=== PATIENT | female | born 1985 | race Caucasian/White ===

== ENCOUNTER 2022-09-19 14:22 | Outpatient (CLI) | payer OTHER, SELFPAY ==
[2022-09-19 15:38] LABS: Basophils Percent Auto 0.9 % (0.2-1.2); Eosinophils Absolute Auto 0.1 K/mm3 (0-0.3); Eosinophils Percent Auto 1.9 % (0-4.4); Hematocrit 37.8 % (37.0-47.0); Hemoglobin 12.7 g/dL (12.0-15.0); Immature Granulocyte Absolute 0.01 K/mm3 (0.00-0.031); Immature Granulocyte Percent A 0.2 % (0-0.5); Lymphocytes Absolute Auto 1.42 K/mm3 (0.9-3.2); Lymphocytes Percent Auto 30.5 % (18.3-44.2); Mean Corpuscular HGB Conc 33.6 g/dl (32-36); Mean Corpuscular Hemoglobin 32.3 pg (26-34); Mean Corpuscular Volume 96.2 fl (80-100); Mean Platelet Volume 9.4 fl (7.4-10.4); Monocytes Absolute Auto 0.4 K/mm3 (0.1-0.6); Monocytes Percent Auto 7.5 % (2.6-8.5); Neutrophils Absolute Auto 2.8 K/mm3 (1.3-6.7); Platelet Count Result 277 k/mm3 (150-375); Red Blood Count 3.93 M/mm3 (4.2-5.4); Red Cell Distribution Width 12.6 % (11.5-14.5); White Blood Count 4.7 K/mm3 (4.5-10.0)
[2022-09-19 15:51] LABS: Alanine Aminotransferase 21 U/L (6-35); Albumin Level 4.6 g/dL (3.5-5.1); Alkaline Phosphatase 37 U/L (38-126); Anion Gap 4 mmol/L (8-16); Aspartate Amino Transferase 28 U/L (14-36); Bilirubin,Total 0.4 mg/dL (0.2-1.3); Blood Urea Nitrogen 13 mg/dL (7-17); Calcium 8.4 mg/dL (8.4-10.2); Carbon Dioxide 28 mmol/L (22-30); Chloride 101 mmol/L (98-107); Estimated Glomerular Filt Rate > 60; Glucose 99 mg/dL (65-110); Potassium 3.7 mmol/L (3.4-5.0); Sodium 133 mmol/L (137-145)
[2022-09-19 16:31] LABS: HIV 1/2 Ab P24 Ag Result Negative (Negative)
[2022-09-19 16:40] LABS: Hepatitis C Virus Antibody Negative (Negative)
[2022-09-22 14:18] LABS: Vitamin D 1,25 (OH)2 Total 36 pg/mL (18-72); Vitamin D2 1,25 (OH)2 <8 pg/mL; Vitamin D3 1,25 (OH)2 36 pg/mL
[2022-09-23 00:39] LABS: CA-125 7 U/mL (<35)
[2022-09-25 19:16] LABS: Estradiol, Ultrasensitive 287 pg/mL
== END 2022-09-19 14:23 | disposition home or self-care (01) ==
DX: Z00.00 Encounter for general adult medical examination without abnormal findings (principal); R53.83 Other fatigue; Z85.43 Personal history of malignant neoplasm of ovary
CPT/HCPCS: 36415; 80053; 82652; 82670; 83001; 84443; 85025; 86304; 86703; 86803; G0432

== ENCOUNTER 2023-09-25 12:50 | Outpatient (CLI) | payer OTHER, SELFPAY ==
[2023-09-28 04:44] LABS: CA-125 9 U/mL (<35)
== END 2023-09-25 12:51 | disposition home or self-care (01) ==
DX: D39.10 Neoplasm of uncertain behavior of unspecified ovary (principal)
CPT/HCPCS: 36415; 86304

== ENCOUNTER 2024-10-03 08:05 | Outpatient (CLI) | payer OTHER, SELFPAY ==
[2024-10-03 13:01] LABS: Hematocrit 38.5 % (37.0-47.0); Hemoglobin 12.9 g/dL (12.0-15.0); Mean Corpuscular HGB Conc 33.5 g/dl (32-36); Mean Corpuscular Hemoglobin 31.5 pg (26-34); Mean Corpuscular Volume 93.9 fl (80-100); Mean Platelet Volume 9.7 fl (7.4-10.4); Platelet Count Result 312 k/mm3 (150-375); Red Cell Distribution Width 12.7 % (11.5-14.5); White Blood Count 5.4 K/mm3 (4.5-10.0)
[2024-10-03 13:22] LABS: Iron 76 ug/dL (37-170)
[2024-10-03 13:32] LABS: Percent Iron Saturation 22 % (20-50)
[2024-10-03 13:41] LABS: Thyroid Stimulating Hormone 0.353 uIU/mL (0.465-4.680)
[2024-10-03 13:46] LABS: Free T4 Free Thyroxine 1.07 ng/dL (0.78-2.19); Vitamin D 25 Hydroxy 36.2 ng/mL
[2024-10-06 01:59] LABS: Prolactin 11.6 ng/mL
[2024-10-06 02:44] LABS: CA-125 10 U/mL (<35)
--- OUTSIDE RECORDS SUMMARY | 2024-10-06 21:43 | XMS_ITS | Encounter Summary ---
Author Organization [facility] Address [address] [place] [address] Care Team Providers Care Internal Control Manager Name Role Phone Shannan Brooks PA-C Primary Care Provider Reason for Visit * Reason Onset Date Comments Order 09/29/2024 Encounter Details Date Type Department Care Team (Late st Contact Info) Description 09/29/2024 Telephone [facility] [address] [place] [address] Tania Granger APRN-LEIGHANN [address] [place] [address] Order Social History Tobacco Use Types Packs/Day Years Used Date Smoking Tobacco: Never Smokeless Tobacco: Never Alcohol Use Standard Drinks/Week Comments Yes 0 (1 standard drink = 0.6 oz pur e alcohol) AUDIT-C Answer Date Recorded Q1: How often do you have a drink containing alc ohol? 2-3 times a week 02/26/2023 Q2: How many drinks containi ng alcohol do you have on a typical day when you are drinking? 1 or 2 02/26/2023 Q3: How often do you have si x or more drinks on one occasion? Never 02/26/2023 Overall Financial Resource Strain (CARDIA) Answe r Date Recorded How hard is it for you to pa y for the very basics like food, housing, medical care, and heating? Not hard at all 02/26/2023 PHQ-2 Answer Date Recorded Patient Health Questionnaire-2 Score 0 07/01/2023 [facility] - Occupational Stress Questionnaire Answer Date Recorded Do you feel stress - tense, restless, nervous, or anxious, or unable to sleep at night because your mind is troubled all the time - these days? Not at all 02/26/2023 Hunger Vital Sign Answer Date Recorded Within the past 12 months, y ou worried that your food would run out before you got the money to buy more. Never true 02/27/20 23 Within the past 12 months, t he food you bought just didn't last and you didn't have money to get more. Never true 02/26/2023 PRAPARE - Transportation Answer Date Re corded In the past 12 months, has l ack of transportation kept you from medical appointments or from getting medications? No 06/2023 In the past 12 months, has l ack of transportation kept you from meetings, work, or from getting things needed for daily living? No 02/26/2023 Housing Stability Vital Sign Answer Armen e Recorded In the last 12 months, was t here a time when you were not able to pay the mortgage or rent on time? No 02/26/2023 In the last 12 months, how many places have you lived? 1 02/26/2023 In the last 12 months, was t here a time when you did not have a steady place to sleep or slept in a skilled nursing (including now)? No 02/26/2023 Sex and Gender Information Value Date Recorded Sex Assigned at Not on file Gender Identity Not on file Sexual Orientation Not on file documented as of this encounter Functional Status Functional Status Response Date of Assess ment Is person deaf or have serious hearing difficult y? No 02/26/2023 Is person blind or have serious difficulty seein g? No 02/26/2023 Does person have serious dif ficulty walking/climbing stairs? No 02/26/2023 Does person have difficulty dressing/bathing? No 02/26/2023 Does person have difficulty doing errands alone? No 02/26/2023 Cognitive Status Response Date of Assessm ent Does person have difficulty concentrating/remembering/making decisions? No 02/26/2023 documented as of this encounter Miscellaneous Notes * Telephone Encounter - Mikki Callahan RN - 09/29/2024 10:16 AM FOREIGN CORRESPONDENT RN modified US order to [id number] per radiology department preferences. IGN CORRESPONDENT * Telephone Encounter - Melvina Mitchell - 09/29/2024 10:10 AM CST Vicki called and stated the pt is coming in for a ultrasound of pelvic and a order is needed. [phone] opt 1 IGN CORRESPONDENT documented in this encounter Plan of Treatment Upcoming Encounters Date Type Department Care Team (Late st Contact Info) Description 09/08/2025 2:00 PM FOREIGN CORRESPONDENT Office Visit [facility] [address] [place] [address] Tania Granger, MACEY-ENGLISH LANGUAGE LEARNER TUTOR [address] [place] [address] documented as of this encounter Visit Diagnoses Not on filedocumented in this encounter Care Teams Internal Control Manager Relationship Specialty Start Date End Date Shannan Brooks PA-C PCP - General 08/03/22 documented as of this encounter
--- OUTSIDE RECORDS SUMMARY | 2024-10-06 21:43 | XMS_ITS | Encounter Summary ---
Author Organization [facility] Address [address] [place] [address] Care Team Providers Care Director Inpatient Headache Program Name Role Phone Shannan Brooks PA-C Primary Care Provider Reason for Visit * Reason Onset Date Comments Ultrasound 09/23/2024 Encounter Details Date Type Department Care Team (Late st Contact Info) Description 09/23/2024 Telephone [facility]IT[facility] OPER[facility] [address] [place] [address] Tania Granger, LEAD BUSINESS ANALYST-RN FACULTY [address] [place] [address] Ultrasound Social History Tobacco Use Types Packs/Day Years [...] Recorded Patient Health Questionnaire-2 Score 0 07/01/2023 [facility] - Occupational Stress Questionnaire Answer Date Recorded [...] place to sleep or slept in a senior care (including now)? No 02/26/2023 Sex and Gender [...] encounter Miscellaneous Notes * Telephone Encounter - Karie Hinojosa 10/02/2024 11:28 AM CST I have s/w Mary. She is scheduled, aware and good with all info. LATION HOSEMAN * Telephone Encounter - Karie Hinojosa - 09/30/2024 9:59 AM CST Called pt. No answer. LVM with my direct line to discuss. Karie LATION HOSEMAN * Telephone Encounter - Zonia Strong - 09/23/2024 1:34 PM CST Good afternoon, Patient calling back after receiving a message that her ultrasound had been rescheduled on 10/06. She had been scheduled for 9:30am and was to see Tania Granger following. Her ultrasound has been pushed down to 2:30pm and she did not authorize this change. She specifically scheduled for the morning on this day and has obligations to her job. She would like the traffic division commanding officer to be aware of this and wants her appointment moved back as originally scheduled. CB: [phone] Thank you so much LATION HOSEMAN documented in this encounter Plan of Treatment Upcoming Encounters Date Type Department Care Team (Late st Contact Info) Description 09/08/2025 2:00 PM INSULATION HOSEMAN Office Visit [facility] NIT[facility] OPER[facility] [address] [place] [address] Tania Granger, LEAD BUSINESS ANALYST-RN FACULTY [address] [place] [address] documented as of this encounter Visit Diagnoses Not on filedocumented in this encounter Care Teams Director Inpatient Headache Program Relationship Specialty Start Date End Date Shannan Brooks PA-C PCP - General 08/03/22 documented as of this encounter
--- OUTSIDE RECORDS SUMMARY | 2024-10-06 21:43 | XMS_ITS | Clinical Summary ---
Author Organization [facility] [employer] Address [address] [place] [address] Care Team Providers Care Bucket Chucker Name Role Phone Shannan Brooks PA-C Primary Care Provider Source Comments [facility] [employer],non-owned Affiliates and Associated Physician Practices is amultiple site organization consisting of ambulatory clinics and hospital sitesin [place], [place], [place] and [place]. This disclosure is being madepursuant to the Care Everywhere program and may not contain all information available regarding this patient. Last updated 18.[facility] [employer] Allergies No known active allergies Medications * Be aware that medications may not be up to date on this document. Alwaysverify current medications with the patient. Medication Sig Dispensed Refills Start Date End Date Status venlafaxine XR 24hr (Effexor XR) 150 MG capsule Take 1 (one) capsule by mouth once daily 07/19/2022 Active FIBER PO Take by mouth as needed Active Cholecalciferol (VITAMIN D3 GUMMIES PO) Active Ascorbic Acid (VITAMIN C PO) Take by mouth as needed +Whole food vitamin c Active azelaic acid (Finacea) 15 % gelIndications:P eriorificial dermatitis Apply to affected areas on the face daily. 30 days supply. 50 g 3 02/08/2023 Active Additional Information Patient not taking.Reported on 10/06/2024 dextroamphetamin e SR 24hr (Dexedrine Spansule) 10 MG capsule Take 1 (one) capsule by mouth once daily 09/10/2024 Active Multiple Vitamins-Mineral s (MULTIVITAMIN WOMEN PO) Active Vyvanse 20 MG capsule Take 1 (one) capsule by mouth every morning 07/31/2022 4 Discontinue d(Tx Complete) venlafaxine XR 24hr (Effexor XR) 75 MG capsule venlafaxine ER 75 mg capsule,extended release 24 hr 4 Discontinue d(Tx Complete) levonorgestrel (Mirena, 52 MG,) 20 MCG/DAY IUD Mirena 20 mcg/24 hours (8 yrs) 52 mg intrauterine device Take 1 device as needed by intrauterine route for 1 day. 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 Not yet due for mammogram. Family planning reviewed. She is currently using IUD for contraception. Considering removal if symptoms not improving. Will order CT scan and reach out to oncology in case this could be an unusual presentation of recurrence, high risk personal and family history. Assessment & Plan (08/31/2022 1:33 PM BUSINESS DEAN): Pap smear performed given friability. Not yet due for mammogram. Family planning reviewed. She is currently using IUD for contraception and desires to use IUD in the future. Will check FSH/estradiol given hormonal symptoms History of ovarian cancer 08/31/2022 Assessment & Plan (08/31/2022 1:34 PM BUSINESS DEAN): She reports that she had been getting CA 125 monitoring and so I have ordered this. After it returns will check in with oncology regarding additional testing or referrals if they prefer. History of anorexia nervosa 12/15/2018 Major depression, recurrent 10/07/2017 Abnormal uterine bleeding (AUB) 02/25/2017 Assessment & Plan (03/04/2023 3:01 PM CDT): Very well may have been related to new seizure medications, stress, IUD, hormonal issues. Recheck ultrasound as plan previously had been to reeval likely simple cyst. Did not yet see PRODUCTION SHIFT SUPERVISOR ONC for her history of ovarian cancer, recommended to see again. Last CA 125 normal. Repeat FSH, estradiol, CA 125, TSH ordered given recent symptoms. 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 Her HE4 test performed was normal, and her CA-125 was elevated at 211. Of note, the patient's mother had ovarian cancer at the age of 52 and had BRCA tested, but it is unclear as to whether she had panel testing. Her maternal grandmother also had ovarian cancer at the age of 72. Her paternal grandmother had breast cancer in her 60s. The patient, after counseling, underwent an exam under anesthesia, laparoscopic left salpingo-oophorectomy, pelvic washings, endometrial biopsy on 06/19/2016. 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 The washings were negative. The tumor was confined to the ovary and not involving the ovarian surface. Of note, the patient's postoperative course was complicated by a hematoma in the right lower quadrant. Encounters Date Type Department Care Team Description 10/06/2024 10:50 AM BUSINESS DEAN Office Visit [facility] - ORAL THERAPIST [address] [place] [phone] Tania Granger APRN-CNP Other fatigue (Primary Dx) 10/06/2024 9:25 AM BUSINESS DEAN Hospital Encounter [facility] Health Imaging Services - Ultrasound [address] [place] [address] Tania Granger APRN-CNP 10/06/2024 Telephone [facility] - ORAL THERAPIST [address] [place] [phone] Tania Granger APRN-CNP Future Appointment 10/06/2024 Orders Only [facility] - ORAL THERAPIST [address] [place] [phone] Tania Granger APRN-CNP Complex ovarian cyst 10/06/2024 Travel 09/29/2024 Telephone [facility] - ORAL THERAPIST [address] [place] [address] Tania Granger APRN-CNP Order 09/25/2024 Telephone [facility] - ORAL THERAPIST [address] [place] [address] Tania Granger APRN-CNP Reschedule Appointment 09/23/2024 Telephone [facility] - ORAL THERAPIST [address] [facility] [address] [place] [phone] Tania Granger APRN-CNP Ultrasound 09/07/2024 2:20 PM BUSINESS DEAN Office Visit [facility] - ORAL THERAPIST [address] [place] [address] Tania Granger APRN-CNP Well woman exam with routine gynecological exam (Primary Dx); FH: ovarian cancer; Dysuria; Other fatigue; Acne vulgaris; Abnormal facial hair 09/07/2024 Travel from Last 3 Months Immunizations Name Administration Dates Next Due HPV, HISTORIC VACCINE 10/21/2015 INFLUENZA VACCINE, CELL CULT URE, QUADR. (FLUCELVAX QUADRIVALENT; 6MO+) (CCIIV4) 07/31/2022 iNFLUENZA VACCINE, RECOM-BURNETTE, QUADR. (FLUBLOCK QUADRIVALENT; 18Y+) (RIV4) 07/21/2020 Family History Medical History Relation Name Comments Cancer - Ovarian Maternal Grandmother Cancer - Ovarian Mother Cancer - Breast Paternal Grandmother Relation Name Status Comments Maternal Grandmother Mother Paternal Grandmother Social History Tobacco Use Types Packs/Day Years Used Date Smoking Tobacco: Never Smokeless Tobacco: Never Tobacco Cessation:Counseling Given: Not Answered Alcohol Use Standard Drinks/Week Comments Yes 0 [...] Recorded Patient Health Questionnaire-2 Score 0 07/01/2023 [facility] [place] of Occupat ional Health - Occupational Stress [...] place to sleep or slept in a retirement (including now)? No 02/26/2023 Sex and Gender Information Value Date Recorded Sex Assigned at Not on file Gender Identity Not on file Sexual Orientation Not on file Last Filed Vital Signs Vital Sign Reading Time Taken Comments Blood Pressure 129/80 10/06/2024 10:17 AM BUSINESS DEAN Pulse 77 06/25/2023 3:09 PM CDT Temperature 36.9 ??C (98.4 ??F) 06/25/2023 3:09 PM CD T Respiratory Rate 20 09/02/2023 2:23 PM BUSINESS DEAN Oxygen Saturation 98% 06/25/2023 3:09 PM CDT Inhaled Oxygen Concentration - - Weight 97.2 kg (214 lb 3.2 oz) 10/06/2024 10:17 AM BUSINESS DEAN Height 172.7 cm (5' 8 ) 10/06/2024 10:17 AM BUSINESS DEAN Body Mass Index 32.57 10/06/2024 10:17 AM BUSINESS DEAN Plan of Treatment Upcoming Encounters Date Type Department Care Team (Late st Contact Info) Description 09/08/2025 2:00 PM BUSINESS DEAN Office Visit [facility] - ORAL THERAPIST [address] [facility] [address] [place] [address] Tania Granger, TRAFFIC CHECKER-MANAGER INTELLIGENCE [address] [facility] [address] [place] [address] Health Maintenance Due Date Last Done Comments HIV SCREENING 2001 HEPATITIS C SCREENING 03/04/2004 DTAP/TDAP/TD VACCINES (1 - Tdap) 2005 HEPATITIS B VACCINE (1 of 3 - 19+ 3-dose series) 2005 HPV VACCINE (2 - 3-dose SCDM series) 11/18/2015 10/21/2015 DEPRESSION SCREENING 10/21/2023 09/02/2023, 08/24/20 COVID-19 VACCINE ( season) 2024 10/07/2023, 08/09/2022, 12/28/2020, Additional history exists PAP with HPV 09/07/2029 09/07/2024, 08/27/2022 ZOSTER VACCINE (1 of 2) 2036 INFLUENZA VACCINE Completed 08/04/2024, , 07/31/2022, Additional history exists HIB VACCINE Aged Out No longer eligi ble based on patient's age to complete this topic MENINGOCOCCAL VACCINE Aged Out No chevy cassy eligible based on patient's age to complete this topic PNEUMOCOCCAL VACCINE Aged Out No long er eligible based on patient's age to complete this topic Procedures Procedure Name Priority Date/Time Associated Diagnosis Comments US PELVIS W TRANSVAG W DOP NON OB Routine 10/06/2024 9:58 AM BUSINESS DEAN FH: ovarian cancer PAP IMAGE-GUIDED W HPV+CT/NG+TRICH Routine 09/07/2024 2:48 PM BUSINESS DEAN Well woman exam with routine gynecological exam C. TRACHOMATIS + N. GONORRHOEAE + TRICH ALESSANDRA Routine 09/07/2024 2:48 PM BUSINESS DEAN Well woman exam with routine gynecological exam HPV DETECTION HIGH RISK ALESSANDRA Routine 09/07/2024 2:48 PM BUSINESS DEAN Well woman exam with routine gynecological exam CULTURE URINE Routine 09/07/2024 Dysuria from Last 3 Months Results * US Pelvis W Transvag W Dop Non Ob (10/06/2024 9:58 AM BUSINESS DEAN) Anatomical Region Laterality Modality Pelvis Ultrasound 10/06/2024 11:0 2 AM BUSINESS DEAN Impressions 10/06/2024 11:07 AM BUSINESS DEAN IMPRESSION: 1. 3.4 x 2.3 x 3.1 cm complex cystic lesion in the right ovary with thickened internal septations and no definite internal vascularity. Given that this was seen on prior study from 09/24/2022, recommend MRI pelvis without and with contrast for further characterization. > Interpreting Provider: Marlyn Pabon MD on 10/06/2024 11:07 AM Narrative 10/06/2024 11:07 AM BUSINESS DEAN PROCEDURE: ??US PELVIS W TRANSVAG W DOP NON OB DATE/TIME OF EXAM: ??10/06/2024 9:59 AM CLINICAL INFORMATION: None relevant/not provided if blank. Indication: Z80.41: Family history of malignant neoplasm of ovary Additional History: COMPARISON: None. TECHNIQUE: Real time transabdominal and transvaginal pelvic ultrasound was performed by the scholarship counselor with DICOM image capture. Grayscale images were obtained; additionally, Color Doppler and pulse wave Spectral Doppler interrogation was performed and interpreted. FINDINGS: Transabdominal sonogram: The uterus is normal in size and appearance. It measures 8.0 x 2.3 x 4.8 cm. The endometrium measures 4 mm, which is normal. A cystic lesion posterior to the uterus measures approximately 2.2 x 5.4 x 2.3 cm. It is better assessed transvaginally. The left ovary has been surgically removed. Transvaginal sonogram: Transvaginal ultrasound was performed to better evaluate the uterus and adnexa. This uterus is normal in size and appearance. It measures 7.0 x 3.0 x 4.0 cm The endometrium measures 4 mm, which is normal for the patients age. There is trace fluid in the endometrial canal. The right ovary is enlarged.. The right ovary measures 5.7 x 2.5 x 4.1 cm. A complex cystic lesion measures 3.4 x 2.3 x 3.1 cm. There is are a few thickened internal septations and an area of nodularity.. There is no vascularity within the lesion. The left ovary is absent. There is bowel gas in the left pelvis. There is normal color flow with normal arterial and venous spectral waveforms to the ovarian parenchyma bilaterally. There is free fluid in the pelvis. Procedure Note Marlyn Pabon MD - 10/06/2024 PROCEDURE: US PELVIS W TRANSVAG W DOP NON OB DATE/TIME OF EXAM: 10/06/2024 9:59 AM CLINICAL INFORMATION: None relevant/not provided if blank. Indication: Z80.41: Family history of malignant neoplasm of ovary Additional History: COMPARISON: None. TECHNIQUE: Real time transabdominal and transvaginal pelvic ultrasound wasperformed by the scholarship counselor with DICOM image capture. Grayscale images were obtained; additionally, Color Doppler and pulse wave Spectral Doppler interrogation was performed and interpreted. FINDINGS: Transabdominal sonogram: The uterus is normal in size and appearance. It measures 8.0 x 2.3 x 4.8 cm. The endometrium measures 4 mm, which is normal. A cystic lesion posterior to the uterus measures approximately 2.2 x 5.4 x 2.3 cm. It is better assessed transvaginally. The left ovary has been surgicallyremoved. Transvaginal sonogram: Transvaginal ultrasound was performed to better evaluate the uterus and adnexa. This uterus is normal in size and appearance. It measures 7.0 x 3.0 x4.0 cm The endometrium measures 4 mm, which is normal for the patients age. There is trace fluid in the endometrial canal. The right ovary is enlarged.. The right ovary measures 5.7 x 2.5 x 4.1cm. A complex cystic lesion measures 3.4 x 2.3 x 3.1 cm. There is are a few thickened internal septations and an area of nodularity.. There is no vascularity within the lesion. The left ovary is absent. There is bowelgas in the left pelvis. There is normal color flow with normal arterial and venous spectral waveforms to the ovarian parenchyma bilaterally. There is free fluid in the pelvis. IMPRESSION: 1. 3.4 x 2.3 x 3.1 cm complex cystic lesion in the right ovary with thickened internal septations and no definite internal vascularity.Given that this was seen on prior study from 09/24/2022, recommend MRI pelvis without and with contrast for further characterization. > Interpreting Provider: Marlyn Pabon MD on 10/06/2024 11:07 AM Tania Granger TRAFFIC CHECKER-MANAGER INTELLIGENCE US ORDERABLES * HPV DETECTION HIGH RISK ALESSANDRA (09/07/2024 2:48 PM BUSINESS DEAN) High Risk Human Papilloma Result Not detected Not detected 09/09/2024 8:55 AM BUSINESS DEAN [facility] High Risk Human Papilloma Interp 09/09/2024 8:55 AM BUSINESS DEAN [facility] Comment:High Risk Human Silverio lloma Virus was Not Detected. Pathology/Cytolo gy MISCELLANEOUS SAMPLES / Unknown 09/07/2024 2:48 PM BUSINESS DEAN 09/08/2024 12:37 PM BUSINESS DEAN Narrative [facility] - 09/09/2024 8:55 AM BUSINESS DEAN Nucleic acid isolated from the specimen was analyzed with a nucleic acid amplification test (FDA approved Gen-Probe HPV Assay) to detect high risk human papilloma virus (Types: 16, 18, 31, 33, 35, 39, 45, 51, 52, 56, 58, 59, 66, and 68). ??The reference range is Not Detected . Comment: These test results should not be used as the sole basis for clinical assessment and treatment of patients. ??These results should always be correlated with other available data (cytology, histology, and clinical information). Tania Granger TRAFFIC CHECKER-MANAGER INTELLIGENCE LAB - MICROBIOLOGY ORDERABLES [facility] [address] [phone] * C. TRACHOMATIS + N. GONORRHOEAE + TRICH ALESSANDRA (09/07/2024 2:48 PM BUSINESS DEAN) Chlamydia Trachomatis ALESSANDRA Not detected Not detected 09/09/2024 9:09 AM BUSINESS DEAN [facility] Neisseria Gonorrhoeae ALESSANDRA Not detected Not detected 09/09/2024 9:09 AM BUSINESS DEAN [facility] Trichomonas Vaginalis ALESSANDRA Not detected Not detected 09/09/2024 9:09 AM BUSINESS DEAN [facility] Pathology/Cytolo gy MISCELLANEOUS SAMPLES / Unknown 09/07/2024 2:48 PM BUSINESS DEAN 09/08/2024 12:37 PM BUSINESS DEAN Narrative [facility] - 09/09/2024 9:09 AM BUSINESS DEAN This analysis was performed using Gen-Probe Aptima Combo 2 and Gen-Probe Aptima Assay. These methodologies are U.S. FDA approved for Chlamydia trachomatis, Neisseria gonorrhoeae testing for urine and urogenital swabs from men and women, and cervical cells submitted in ThinPrep vials. Performance characteristics of testing for Trichomonas vaginalis on specimens using the Gen-Probe Aptima Trichomonas vaginalis Assay on the Ace system and rectal and pharyngeal swabs with Gen-Probe Aptima combo 2 were determined by the [facility] at [facility]. ??They have not been cleared or approved by the U.S Food and Drug Administration (FDA). ??The FDA has determined that such clearance approval is not necessary. ??This test is used for clinical purposes and should not be regarded as investigational or for research. ??This laboratory is certified under the Clinical Laboratory Improvements Amendments of 1988 (CLIA 1988), as qualified to perform high complexity laboratory testing. Tania THOMAS LAB - MICROBIOLOGY ORDERABLES [facility] [address] [facility] [place] [address], [facility] [phone] * PAP IMAGE-GUIDED W HPV+CT/NG+TRICH (09/07/2024 2:48 PM BUSINESS DEAN) Case Report Gynecologic Cytology Report ? Case: [id number] ? Authorizing Provider: ??Tania Granger APRN-CNP ?Collected: ? 09/07/2024 02:48 PM ? Ordering Location: ? [facility] - ??Received: ?09/08/2024 12:37 PM ? ORAL THERAPIST ? First Screen: ?Agapito Rodríguez CT(ASCP) ? Rescreen: ?Nadeem Hathaway ? Specimen: ?THINPREP - IMAGE GUIDED, Cervix/Endocervix ? 09/10/2024 1:08 PM BUSINESS DEAN [facility] LMP -09/10/2024 1:08 PM BUSINESS DEAN [facility] Menstrual Status None Applicable 1:08 PM BUSINESS DEAN [facility] Specimen Adequacy Satisfactory for evaluation, endocervical/trans formation zone component present. 09/10/2024 1:08 PM BUSINESS DEAN [facility] Categorization Negative for intraepithelial lesion or malignancy. 09/10/2024 1:08 PM BUSINESS DEAN [facility] Interpretation PRODUCTION SHIFT SUPERVISOR Negative for intraepithelial lesion or malignancy. 09/10/2024 1:08 PM BUSINESS DEAN [facility] Pap Footnote The Pap Smear is a screening test. False positive and false negative results occur. Negative results do not preclude abnormalities, thus clinical correlation is required. This specimen was evaluated by the ThinPrep Imaging System along with an additional manual rescreening by a administrative assistant data entry and/or pathologist. 09/10/2024 1:08 PM BUSINESS DEAN [facility] Embedded Images 1:08 PM BUSINESS DEAN [facility] Pathology/Cytolo gy MISCELLANEOUS SAMPLES / Unknown 09/07/2024 2:48 PM BUSINESS DEAN 09/08/2024 12:37 PM BUSINESS DEAN Tania Granger APRN-MANAGER INTELLIGENCE LAB - PATHOLOGY/CY TOLOGY ORDERABLES [facility] [address] [facility] [place] [id number], [facility] [phone] * CULTURE URINE (09/07/2024) Culture [facility] Comment: ??CULTURE, URINE, ROUTINE ?Micro Number: ?[id number] ??Test Status: ? Final ??Specimen Source: ?? Urine, clean catch ??Specimen Quality: ??Adequate ??Result: ?Mixed genital rajani isolated. These superficial ? bacteria are not indicative of a urinary tract ? infection. No further organism identification is ? warranted on this specimen. If clinically ? indicated, recollect clean-catch, mid-stream ? urine and transfer immediately to Urine Culture ? Transport Tube. Test Performed at: [facility] [employer] ??[phone] RIGOBERTO MARRUFO MD Urine URINE SPECIMEN OBTAINED BY CLEAN CATCH PROCEDURE / Unknown 09/07/2024 09/09/2024 1:23 AM BUSINESS DEAN Tania Granger TRAFFIC CHECKER-MANAGER INTELLIGENCE LAB - MICROBIOLOGY ORDERABLES Performing Organization Address [facility]/ZIP Co de Phone Number [facility] [phone] [place] [address] from Last 3 Months Advance Directives * Full Code (Latest Code Status on File) Date Activated Date Inactivated Comments 02/26/2023 3:34 PM 03/02/2023 12:20 PM Care Teams Bucket Chucker Relationship Specialty Start Date End Date Shannan Brooks PA-C PCP - General 08/03/22
--- OUTSIDE RECORDS SUMMARY | 2024-10-06 21:43 | XMS_ITS | Encounter Summary ---
Author Organization [facility] Address [address] [facility] [address] Care Team Providers Care Oracle Database Consultant Name Role Phone Shannan Brooks PA-C Primary Care Provider Reason for Visit * Reason Onset Date Comments Reschedule Appointment 09/25/2024 Encounter Details Date Type Department Care Team (Late st Contact Info) Description 09/25/2024 Telephone [facility] - ANIMAL CARE TECHNICIAN [address] [facility] [address] [place] [address] Tania Granger APRN-LEIGHANN [address] [facility] [address] [place] [address] Reschedule Appointment Social History Tobacco Use Types Packs/Day Years [...] Recorded Patient Health Questionnaire-2 Score 0 07/01/2023 [facility] [place] of Occupat ional Health - Occupational Stress [...] encounter Miscellaneous Notes * Telephone Encounter - Melina Blanton - 09/25/2024 1:27 PM CST Pt called stating she needs to reschedule her uls and appt with the drAlix E SANDER documented in this encounter Plan of Treatment Upcoming Encounters Date Type Department Care Team (Late st Contact Info) Description 09/08/2025 2:00 PM LATHE SANDER Office Visit [facility] - ANIMAL CARE TECHNICIAN [address] [place] [address] Tania Granger APRN-FRICTION PAINT MACHINE TENDER [address] [place] [address] documented as of this encounter Visit Diagnoses Not on filedocumented in this encounter Care Teams Oracle Database Consultant Relationship Specialty Start Date End Date Shannan Brooks PA-C PCP - General 08/03/22 documented as of this encounter
--- OUTSIDE RECORDS SUMMARY | 2024-10-06 21:43 | XMS_ITS | Encounter Summary ---
Author Organization [facility] Address [address] [facility] [place] [address] Care Team Providers Care Needle Loom Weaver Name Role Phone Shannan Brooks PA-C Primary Care Provider [phone] Encounter Details Date Type Department Care Team (Latest Contact Info) Description 09/07/2024 Travel Social History Tobacco Use Types Packs/Day Years [...] Recorded Patient Health Questionnaire-2 Score 0 07/01/2023 [facility] [place] of Occupat ional Health - Occupational Stress [...] place to sleep or slept in a residential (including now)? No 02/26/2023 Sex and Gender [...] No 02/26/2023 documented as of this encounter Plan of Treatment Upcoming Encounters Date Type Department Care Team (Late st Contact Info) Description 09/08/2025 2:00 PM NEWS PRODUCTION SUPERVISOR Office Visit [facility] - ZIGZAG ELASTIC ATTACHER [address] [facility] [address] [place] [address] Tania Granger, MACEY-LEIGHANN [address] [facility] [address] [place] [address] documented as of this encounter Visit Diagnoses Not on filedocumented in this encounter Care Teams Needle Loom Weaver Relationship Specialty Start Date End Date Shannan Brooks PA-C PCP - General 08/03/22 documented as of this encounter
--- OUTSIDE RECORDS SUMMARY | 2024-10-06 21:43 | XMS_ITS | Patient Health Summary ---
Author Organization [facility] Address [address] [place] [address] Care Team Providers Care Supervisor Travel Information Center Name Role Phone Shannan Brooks PA-C Primary Care Provider [phone] Note from [facility],non-owned Affiliates and Associated Physician Practices is amultiple site organization consisting of ambulatory clinics and hospital sitesin [place], [place], [place] and [place]. This disclosure is being madepursuant to the Care Everywhere program and may not contain all information available regarding this patient. Last updated 18.[facility] [employer] Allergies No known active allergies Medications * Be aware that medications may not be up to date on this document. Alwaysverify current medications with the patient. * venlafaxine XR 24hr (Effexor XR) 150 MG capsule(Started 07/19/2022) Take 1 (one) capsule by mouth once daily * FIBER PO Take by mouth as needed * Cholecalciferol (VITAMIN D3 GUMMIES PO) * Ascorbic Acid (VITAMIN C PO) Take by mouth as needed +Whole food vitamin c * azelaic acid (Finacea) 15 % gel(Started 02/08/2023) Apply to affected areas on the face daily. 30 days supply. 3 refills by 02/08/2024 * dextroamphetamine SR 24hr (Dexedrine Spansule) 10 MG capsule(Started 09/10/2024) Take 1 (one) capsule by mouth once daily * Multiple Vitamins-Minerals (MULTIVITAMIN WOMEN PO) Ended Medications* Vyvanse 20 MG capsule(Started 07/31/2022)(Discontinued) Take 1 (one) capsule by mouth every morning * venlafaxine XR 24hr (Effexor XR) 75 MG capsule(Discontinued) venlafaxine ER 75 mg capsule,extended release 24 hr * levonorgestrel (Mirena, 52 MG,) 20 MCG/DAY IUD(Discontinued) Mirena 20 mcg/24 hours (8 yrs) 52 mg intrauterine device Take 1 device as needed by intrauterine route for 1 day. * folic acid (Folvite) 1 MG tablet(Started 10/16/2022)(Discontinued) Take 1 (one) tablet by mouth once daily 4 refills by 10/16/2023 * amphetamine-dextroamphetamine XR 24hr (Adderall XR) 10 MG capsule(Started 08/07/2024)(Discontinued) Take 1 (one) capsule by mouth every morning Active Problems Problem Noted Date Diagnosed Date FH: ovarian cancer 09/07/2024 Dysuria 09/07/2024 Other fatigue 09/07/2024 Abnormal facial hair 09/07/2024 Seizures 02/26/2023 Neoplasm of uncertain behavior of skin 3 Periorificial dermatitis 02/08/2023 Acne vulgaris 02/08/2023 Complex ovarian cyst 11/22/2022 Mixed anxiety and depressive disorder 11/22/2022 Well woman exam with routine gynecological exam 08/31/2022 History of ovarian cancer 08/31/2022 History of anorexia nervosa 12/15/2018 Major depression, recurrent 10/07/2017 Abnormal uterine bleeding (AUB) 02/25/2017 Attention-deficit/hyperactivity disorder 017 Anxiety 06/27/2016 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 (FLUCELVAX QUADRIVALENT; 6MO+) (CCIIV4)(Given 07/31/2022) * iNFLUENZA VACCINE, RECOM-BURNETTE, QUADR. (FLUBLOCK QUADRIVALENT; 18Y+) (RIV4)(Given 07/21/2020) Social History Tobacco Use Types Packs/Day Years [...] Recorded Patient Health Questionnaire-2 Score 0 07/01/2023 [facility] of Occupat ional Health - Occupational Stress [...] place to sleep or slept in a nursing home (including now)? No 02/26/2023 Sex and Gender Information Value Date Recorded Sex Assigned at Not on file Gender Identity Not on file Sexual Orientation Not on file Last Filed Vital Signs Vital Sign Reading Time Taken Comments Blood Pressure 129/80 10/06/2024 10:17 AM PHOTOFINISHING LABORATORY WORKER Pulse 77 06/25/2023 3:09 PM CDT Temperature 36.9 ??C (98.4 ??F) 06/25/2023 3:09 PM CD T Respiratory Rate 20 09/02/2023 2:23 PM PHOTOFINISHING LABORATORY WORKER Oxygen Saturation 98% 06/25/2023 3:09 PM CDT Inhaled Oxygen Concentration - - Weight 97.2 kg (214 lb 3.2 oz) 10/06/2024 10:17 AM PHOTOFINISHING LABORATORY WORKER Height 172.7 cm (5' 8 ) 10/06/2024 10:17 AM PHOTOFINISHING LABORATORY WORKER Body Mass Index 32.57 10/06/2024 10:17 AM PHOTOFINISHING LABORATORY WORKER Procedures * US PELVIS W TRANSVAG W DOP NON OB(Performed 10/06/2024) Performed for FH: ovarian cancer * PAP IMAGE-GUIDED W HPV+CT/NG+TRICH(Performed 09/07/2024) Performed for Well woman exam with routine gynecological exam * C. TRACHOMATIS + N. GONORRHOEAE + TRICH ALESSANDRA(Performed 09/07/2024) Performed for Well woman exam with routine gynecological exam * HPV DETECTION HIGH RISK ALESSANDRA(Performed 09/07/2024) Performed for Well woman exam with routine gynecological exam * CULTURE URINE(Performed 09/07/2024) Performed for Dysuria * CT ABDOMEN PELVIS W CONTRAST(Performed 09/24/2023) Performed for Borderline epithelial neoplasm of ovary * CREATININE - POCT INTERFACED(Performed 09/24/2023) * NH SONO EXAM, TRANSVAGINAL(Performed 03/19/2023) Performed for Cyst of ovary, unspecified laterality, Irregular menses * IMAGING/RADIOLOGY/XRAY RESULTS ORDER(Performed 03/19/2023) * TSH REFLEX FREE T4(Performed 03/04/2023) Performed for Irregular menses * ESTRADIOL(Performed 03/04/2023) Performed for Irregular menses * FSH(Performed 03/04/2023) Performed for Irregular menses * CANCER ANTIGEN (CA)125 BLOOD(Performed 03/04/2023) Performed for Irregular menses * ZONISAMIDE LEVEL(Performed 02/26/2023) * HCG BETA BLOOD QUANTITATIVE(Performed 02/26/2023) * COMPREHENSIVE METABOLIC PANEL(Performed 02/26/2023) * CBC W AUTO DIFFERENTIAL(Performed 02/26/2023) * NH PUNCH BX SKIN SINGLE LESION(Performed 02/08/2023) Performed for Neoplasm of uncertain behavior of skin * DERMATOPATHOLOGY(Performed 02/08/2023) Performed for Neoplasm of uncertain behavior of skin * EEG EXTENDED MONITORING > 1 HOUR(Performed 10/16/2022) Performed for Seizures (HCC) * MRI BRAIN WWO CONTRAST(Performed 10/04/2022) Performed for Absence seizure with autonomic component (HCC) * CREATININE - POCT INTERFACED(Performed 10/04/2022) * US PELVIS W TRANSVAG W DOP NON OB(Performed 09/24/2022) Performed for Ovarian cancer in remission * PAP IMAGE-GUIDED W HPV+CT/NG+TRICH(Performed 08/27/2022) Performed for Well woman exam with routine gynecological exam * C. TRACHOMATIS + N. GONORRHOEAE + TRICH ALESSANDRA(Performed 08/27/2022) Performed for Well woman exam with routine gynecological exam * HPV DETECTION HIGH RISK ALESSANDRA(Performed 08/27/2022) Performed for Well woman exam with routine gynecological exam Results * US Pelvis W Transvag W Dop Non Ob (10/06/2024 9:58 AM PHOTOFINISHING LABORATORY WORKER) Only the most recent of2 resultswithin the time period is included. Anatomical Region Laterality Modality Pelvis Ultrasound 10/06/2024 11:0 2 AM PHOTOFINISHING LABORATORY WORKER Impressions 10/06/2024 11:07 AM PHOTOFINISHING LABORATORY WORKER IMPRESSION: 1. 3.4 x 2.3 x 3.1 cm complex cystic lesion in the right ovary with thickened internal septations and no definite internal vascularity. Given that this was seen on prior study from 09/24/2022, recommend MRI pelvis without and with contrast for further characterization. > Interpreting Provider: Marlyn Pabon MD on 10/06/2024 11:07 AM Narrative 10/06/2024 11:07 AM PHOTOFINISHING LABORATORY WORKER PROCEDURE: ??US PELVIS W TRANSVAG W DOP NON OB DATE/TIME OF EXAM: ??10/06/2024 9:59 AM CLINICAL INFORMATION: None relevant/not provided if blank. Indication: Z80.41: Family history of malignant neoplasm of ovary Additional History: COMPARISON: None. TECHNIQUE: Real time transabdominal and transvaginal pelvic ultrasound was performed by the books binder with DICOM image capture. Grayscale images were [...] and transvaginal pelvic ultrasound wasperformed by the books binder with DICOM image capture. Grayscale images were [...] MD on 10/06/2024 11:07 AM Tania Granger SWEEPER BRUSH MAKER MACHINE-FIRST ASSISTANT ORDERABLES * HPV DETECTION HIGH RISK ALESSANDRA (09/07/2024 2:48 PM PHOTOFINISHING LABORATORY WORKER) Only the most recent of2 resultswithin the time period is included. High Risk Human Papilloma Result Not detected Not detected 09/09/2024 8:55 AM PHOTOFINISHING LABORATORY WORKER [facility] High Risk Human Papilloma Interp 09/09/2024 8:55 AM PHOTOFINISHING LABORATORY WORKER [facility] Comment:High Risk Human Silverio lloma Virus was Not Detected. Pathology/Cytolo gy MISCELLANEOUS SAMPLES / Unknown 09/07/2024 2:48 PM PHOTOFINISHING LABORATORY WORKER 09/08/2024 12:37 PM PHOTOFINISHING LABORATORY WORKER Narrative [facility] - 09/09/2024 8:55 AM PHOTOFINISHING LABORATORY WORKER Nucleic acid isolated from the specimen was [...] (cytology, histology, and clinical information). Tania Granger SWEEPER BRUSH MAKER MACHINE-FIRST ASSISTANT LAB - MICROBIOLOGY ORDERABLES Performing Organization Address City/State/[facility] Co de Phone Number [facility] [address] [phone] * C. TRACHOMATIS + N. GONORRHOEAE + TRICH ALESSANDRA (09/07/2024 2:48 PM PHOTOFINISHING LABORATORY WORKER) Only the most recent of2 resultswithin the time period is included. Chlamydia Trachomatis ALESSANDRA Not detected Not detected 09/09/2024 9:09 AM PHOTOFINISHING LABORATORY WORKER [facility] Neisseria Gonorrhoeae ALESSANDRA Not detected Not detected 09/09/2024 9:09 AM PHOTOFINISHING LABORATORY WORKER [facility] Trichomonas Vaginalis ALESSANDRA Not detected Not detected 09/09/2024 9:09 AM PHOTOFINISHING LABORATORY WORKER [facility] Pathology/Cytolo gy MISCELLANEOUS SAMPLES / Unknown 09/07/2024 2:48 PM PHOTOFINISHING LABORATORY WORKER 09/08/2024 12:37 PM PHOTOFINISHING LABORATORY WORKER Narrative [facility] - 09/09/2024 9:09 AM PHOTOFINISHING LABORATORY WORKER This analysis was performed using Gen-Probe Aptima Combo 2 and Gen-Probe Aptima Assay. These methodologies are [place] FDA approved for Chlamydia trachomatis, Neisseria gonorrhoeae testing for urine and urogenital swabs from men and women, and cervical cells submitted in ThinPrep vials. Performance characteristics of testing for Trichomonas vaginalis on specimens using the Gen-Probe Aptima Trichomonas vaginalis Assay on the Anacomp system and rectal and pharyngeal swabs with Gen-Probe Aptima combo 2 were determined by the [facility] Laboratory at [facility]. ??They have not been cleared or approved [...] testing. Tania THOMAS LAB - MICROBIOLOGY ORDERABLES [facility] [address] [place] [address], [facility] [phone] * PAP IMAGE-GUIDED W HPV+CT/NG+TRICH (09/07/2024 2:48 PM PHOTOFINISHING LABORATORY WORKER) Only the most recent of2 resultswithin the time period is included. Case Report Gynecologic Cytology Report ? Case: [id number] ? Authorizing Provider: ??Tania Granger APRN-CNP ?Collected: ? 09/07/2024 02:48 PM ? Ordering Location: ? [facility] - ??Received: ?09/08/2024 12:37 PM ? PERSONNEL SPECIALIST ? First Screen: ?Agapito Rodríguez, RADHA(ASCP) ? Rescreen: ?Nadeem Hathaway ? Specimen: ?THINPREP - IMAGE GUIDED, Cervix/Endocervix ? 09/10/2024 1:08 PM PHOTOFINISHING LABORATORY WORKER [facility] LMP 10-24 09/10/2024 1:08 PM PHOTOFINISHING LABORATORY WORKER [facility] Menstrual Status None Applicable 1:08 PM [facility] Specimen Adequacy Satisfactory for evaluation, endocervical/trans formation zone component present. 09/10/2024 1:08 PM PHOTOFINISHING LABORATORY WORKER [facility] Categorization Negative for intraepithelial lesion or malignancy. 09/10/2024 1:08 PM [facility] Interpretation DISTRIBUTOR SALES CONSULTANT Negative for intraepithelial lesion or malignancy. 09/10/2024 1:08 PM [facility] Pap Footnote The Pap Smear is a screening test. False positive and false negative results occur. Negative results do not preclude abnormalities, thus clinical correlation is required. This specimen was evaluated by the ThinPrep Imaging System along with an additional manual rescreening by a electronic train control technician and/or pathologist. 09/10/2024 1:08 PM [facility] Embedded Images 1:08 PM [facility] Pathology/Cytolo gy MISCELLANEOUS SAMPLES / Unknown 09/07/2024 2:48 PM PHOTOFINISHING LABORATORY WORKER 09/08/2024 12:37 PM PHOTOFINISHING LABORATORY WORKER Tania Granger APRN-FIRST ASSISTANT LAB - PATHOLOGY/CY TOLOGY ORDERABLES [facility] [address] [place] [address], [facility] [phone] * CULTURE URINE (09/07/2024) Culture [facility] Comment: ??CULTURE, URINE, ROUTINE ?Micro Number: ?[id number] ??Test Status: ? Final ??Specimen Source: ?? Urine, clean catch ??Specimen Quality: ??Adequate ??Result: ?Mixed genital rajani isolated. These superficial ? bacteria are not indicative of a urinary tract ? infection. No further organism identification is ? warranted on this specimen. If clinically ? indicated, recollect clean-catch, mid-stream ? urine and transfer immediately to Urine Culture ? Transport Tube. Test Performed at: [facility] [employer] [facility] ??[phone] RIGOBERTO MARRUFO MD Urine URINE SPECIMEN OBTAINED BY CLEAN CATCH PROCEDURE / Unknown 09/07/2024 09/09/2024 1:23 AM PHOTOFINISHING LABORATORY WORKER Tania Granger SWEEPER BRUSH MAKER MACHINE-FIRST ASSISTANT LAB - MICROBIOLOGY ORDERABLES [address] [address] * CT ABDOMEN PELVIS W CONTRAST (09/24/2023 7:15 AM PHOTOFINISHING LABORATORY WORKER) Anatomical Region Laterality Modality Abdomen, Pelvis Computed Tomogra phy 09/24/2023 7:31 AM PHOTOFINISHING LABORATORY WORKER Impressions 09/24/2023 1:17 PM PHOTOFINISHING LABORATORY WORKER Impression: Small volume free fluid in the pelvis, nonspecific. Otherwise no significant abnormality identified. > Dictated by Shanta Canales MD (vice president for philanthropy). Christine Zarate MD have personally reviewed and interpreted this examination/study. 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 Status post left salpingo-oophorectomy. COMPARISON: None. TECHNIQUE: CT of the abdomen and pelvis was performed following the uneventful administration of 100 mL of Isovue 370 intravenous contrast according to standard protocol. Findings: Lower Chest: Normal. Liver: Normal. Gallbladder and Bile Ducts: Normal. Spleen: Normal. Pancreas: Normal. Adrenals: Normal. Kidneys: Normal. Gastrointestinal: The stomach and visualized loops of large and small bowel are unremarkable. Normal appendix. Mesentery/Peritoneum/Retroperitoneum: Small volume free fluid in the pelvis. Bladder: Normal. Reproductive Organs: An IUD is present. Vasculature: No vascular abnormality is present. Bones: Bone windows demonstrate no suspicious lytic or blastic lesions. The visible osseous structures are intact. Soft tissues: Normal. Procedure Note Lyudmila Kay MD - 09/24/2023 PROCEDURE: CT ABDOMEN PELVIS W CONTRAST, DATE/TIME OF EXAM: 09/24/2023 7:16 AM, LOCATION [facility] INDICATION: D39.10: Borderline epithelial neoplasm of ovary ADDITIONAL CLINICAL INFORMATION: Ordering Provider Reason For Exam: Technologist Note: Additional: ovarian cancer in 2016,Stage IA serous LMP tumor of theleft ovary with microinvasion. Status post left salpingo-oophorectomy. COMPARISON: None. TECHNIQUE: CT of the abdomen and pelvis was performed following the uneventful administration of 100 mL of Isovue 370 intravenous contrast according to standard protocol. Findings: Lower Chest: Normal. Liver: Normal. Gallbladder and Bile Ducts: Normal. Spleen: Normal. Pancreas: Normal. Adrenals: Normal. Kidneys: Normal. Gastrointestinal: The stomach and visualized loops of large and small bowel areunremarkable. Normal appendix. Mesentery/Peritoneum/Retroperitoneum: Small volume free fluid in the pelvis. Bladder: Normal. Reproductive Organs: An IUD is present. Vasculature: No vascular abnormality is present. Bones: Bone windows demonstrate no suspicious lytic or blastic lesions. The visible osseous structures are intact. Soft tissues: Normal. Impression: Small volume free fluid in the pelvis, nonspecific. Otherwise no significant abnormality identified. > Dictated by Shanta Canales MD (vice president for philanthropy). IChristine MD have personally reviewed and interpreted this examination/study. > Interpreting Provider: Christine Kay MD on 09/24/2023 1:[address] PM [address]rd MD CT ORDERABLES * CREATININE - POCT INTERFACED (09/24/2023 7:05 AM PHOTOFINISHING LABORATORY WORKER) Only the most recent of2 resultswithin the time period is included. Pathologist [facility] Creatinine POCT 0.54 0.30 - 1.30 mg/dL 09/24/2023 7:08 AM PHOTOFINISHING LABORATORY WORKER [facility] eGFR >90 >90 mL/min/1.7 3 m2 09/24/2023 7:08 AM PHOTOFINISHING LABORATORY WORKER [facility] Blood BLOOD SPECIMEN / Unknown 09/24/2023 7:05 AM PHOTOFINISHING LABORATORY WORKER 09/24/2023 7:08 AM PHOTOFINISHING LABORATORY WORKER Karie Byrd MD LAB - POINT OF CAR E ORDERABLES [facility] [address] [place] [address], [facility] [phone] * NH SONO EXAM, TRANSVAGINAL (03/19/2023 4:10 PM CDT) Narrative Abi Mae - 03/19/2023 4:10 PM CDT Abi Mae ? 03/19/2023 ??4:10 PM Documentation in digisonics. Karie Byrd MD PROCEDURE/MINOR CLEMENTS RGICAL ORDERABLES * IMAGING RADIOLOGY XRAY RESULTS ORDER (03/19/2023) Anatomical Region Laterality Modality Other Narrative 03/19/2023 Ordered by an unspecified provider. Scanned Document IMAGING * TSH REFLEX FREE T4 (03/04/2023) Pathologist [facility] TSH with Reflex FT4 0.84 mIU/L [facility] Comment: ?Reference Range ?> or = 20 Years ??0.40-4.50 ? Ranges ?First trimester ?0.26-2.66 ?Second trimester ?? 0.55-2.73 ?Third trimester ?0.43-2.91 REPORT COMMENT: FASTING:NO Test Performed at: [employer] [facility] [address] ??[phone] RIGOBERTO MARRUFO MD Blood BLOOD SPECIMEN / Unknown 03/04/2023 03/04/2023 11:57 AM CDT Karie Byrd MD LAB - CHEMISTRY OR DERABLES Performing Organization Address [facility] de Phone Number [facility] [address] [place] [address] * CANCER ANTIGEN (CA)125 BLOOD (03/04/2023) [facility] CA 125 9 <35 U/mL [facility] Comment: This test was performed using the Siemens Chemiluminescent method. Values obtained from different assay methods cannot be used interchangeably. CA 125 levels, regardless of value, should not be interpreted as absolute evidence of the presence or absence of disease. Test Performed at: [facility] [employer] [facility] [address] ??[phone] RIGOBERTO MARRUFO MD Blood BLOOD SPECIMEN / Unknown 03/04/2023 03/04/2023 11:57 AM CDT Karie Byrd MD LAB - CHEMISTRY OR DERABLES Performing Organization Address [facility] Co de Phone Number [facility] [address] [place] [address] * FSH (03/04/2023) FSH 4.2 mIU/mL [facility] Comment: ?Reference Range ? Follicular Phase ? 2.5-10.2 ? Mid-cycle Peak ? 3.1-17.7 ? Luteal Phase ? 1.5- 9.1 ? Postmenopausal ? 23.0-116.3 ? Test Performed at: [employer] [facility] [address] [place], [place] ??[phone] RIGOBERTO MARRUFO MD Blood BLOOD SPECIMEN / Unknown 03/04/2023 03/04/2023 11:57 AM CDT Karie Byrd MD LAB - CHEMISTRY OR DERABLES [facility] [address] [place] [address] * ESTRADIOL (03/04/2023) Pathologist [facility] Estradiol 62 pg/mL [facility] Comment: ?Reference Range ?Follicular Phase: ?19-144 ?Mid-Cycle: ? 64-357 ?Luteal Phase: ?56-214 ?Postmenopausal: ?< or = 31 ? Reference range established on post-pubertal patient population. No pre-pubertal reference range established using this assay. For any patients for whom low Estradiol levels are anticipated (e.g. males, pre-pubertal children and hypogonadal/post-menopausal females), the [facility] Estradiol, Ultrasensitive, LCMSMS assay is recommended (order code 27868). ?? Please note: patients being treated with the drug fulvestrant (Faslodex(R)) have demonstrated significant interference in immunoassay methods for estradiol measurement. The cross reactivity could lead to falsely elevated estradiol test results leading to an inappropriate clinical assessment of estrogen status. [employer] order code 16125-[id number], Ultrasensitive LC/MS/MS demonstrates negligible cross reactivity with fulvestrant. Test Performed at: [employer] [facility] ??[phone] RIGOBERTO MARRUFO MD Blood BLOOD SPECIMEN / Unknown 03/04/2023 03/04/2023 11:57 AM CDT Karie Byrd MD LAB - CHEMISTRY OR DERABLES Performing Organization Address [facility] Co de Phone Number [employer] [address] [place] [address] * (ABNORMAL) ZONISAMIDE LEVEL (02/26/2023 3:45 PM CDT) [facility] Zonisamide 4(L) 10 - 40 ug/mL 03/01/2023 11:02 AM CDT [employer] ([facility]) Comment: INTERPRETIVE INFORMATION: Zonisamide Therapeutic range: Not well established. Toxic: Greater than 80 ug/mL The proposed therapeutic range for seizure control is 10-40 ug/mL. Toxic concentrations may cause coma, seizures and cardiac abnormalities. Pharmacokinetics varies widely, particularly with co-medications and/or compromised renal function. Performed By: [employer] [address] [place] [address] Hogshead Builder: Andrew Johnson MD, PhD Blood BLOOD SPECIMEN / Unknown Lab Venipuncture / Unknown 02/26/2023 3:45 PM CDT 02/26/2023 3:57 PM CDT Fredy THOMAS LAB - CHEMISTRY O RDERABLES Performing Organization Address [facility]/ZIP Co de Phone Number [employer] ([facility]) [address] [place] [address] * (ABNORMAL) CBC W AUTO DIFFERENTIAL (02/26/2023 3:45 PM CDT) WBC 5.6 3.5 - 10.5 10? 3 /uL 02/26/2023 4:15 PM [facility] RBC 4.05 3.80 - 5.20 10? 6 /uL 02/26/2023 4:15 PM [facility] Hemoglobin 13.2 12.0 - 15.6 g/dL 02/26/2023 4:15 PM [facility] Hematocrit 38.1 35.0 - 45.0 % 02/26/2023 4:15 PM [facility] MCV 94.1 80.7 - 98.3 fL 02/26/2023 4:15 PM [facility] MCH 32.6 26.7 - 34.0 pg 02/26/2023 4:15 PM [facility] MCHC 34.6 30.8 - 35.9 g/dL 02/26/2023 4:15 PM [facility] RDW-SD 42.8 36.0 - 50.0 fL 02/26/2023 4:15 PM [facility] RDW-CV 12.3 11.2 - 14.8 % 02/26/2023 4:15 PM [facility] Platelet Count 286 150 - 400 10? 3 /uL 02/26/2023 4:15 PM [facility] MPV 9.2(L) 9.4 - 12.9 fL 02/26/2023 4:15 PM [facility] nRBC Absolute 0.00 0 10? 3 /uL 02/26/2023 4:15 PM [facility] nRBC Auto 0.0 0 /100 WBC 02/26/2023 4:15 PM [facility] Neutrophils % 61.6 35.0 - 70.0 % 02/26/2023 4:15 PM [facility] Lymphocytes % 28.2 20.0 - 43.0 % 02/26/2023 4:15 PM [facility] Monocytes % 6.4 5.0 - 13.0 % 02/26/2023 4:15 PM [facility] Eosinophils % 2.7 0.0 - 6.0 % 02/26/2023 4:15 PM [facility] Basophil % 0.7 0.0 - 2.0 % 02/26/2023 4:15 PM [facility] [facility] Neutrophils Absolute 3.45 1.60 - 7.00 10? 3 /uL 02/26/2023 4:15 PM T [facility] Lymphocyte Absolute 1.58 1.10 - 3.90 10? 3 /uL 02/26/2023 4:15 PM CDT [facility] Monocytes Absolute 0.36 0.26 - 1.07 10? 3 /uL 02/26/2023 4:15 PM T [facility] Eosinophils Absolute 0.15 0.00 - 0.47 10? 3 /uL 02/26/2023 4:15 PM T [facility] Basophils Absolute 0.04 0.00 - 0.08 10? 3 /uL 02/26/2023 4:15 PM [facility] Immature Granulocytes % 0.4 0.0 - 1.0 % 02/26/2023 4:15 PM T [facility] Immature Granulocytes Absolute 0.02 02/26/2023 4:15 PM [facility] Blood BLOOD SPECIMEN / Unknown Lab Venipuncture / Unknown 02/26/2023 3:45 PM CDT 02/26/2023 4:01 PM CDT Fredy Mccormick [employer] MACHINE-FIRST ASSISTANT LAB - HEMATOLOGY ORDERABLES Performing Organization Address [facility]/State/[facility] Co de Phone Number [facility] [address] [place] [phone] [phone] * (ABNORMAL) COMPREHENSIVE METABOLIC PANEL (02/26/2023 3:45 PM CDT) BUN 12 7 - 26 mg/dL 02/26/2023 4:31 PM T [facility] Creatinine 0.74 0.56 - 0.96 mg/dL 02/26/2023 4:31 PM [facility] Sodium 140 136 - 145 mmol/L 02/26/2023 4:31 PM T [facility] Potassium 3.7 3.5 - 4.5 mmol/L 02/26/2023 4:31 PM T [facility] Chloride 108(H) 98 - 107 mmol/L 02/26/2023 4:31 PM [facility] CO2 22 22 - 29 mmol/L 02/26/2023 4:31 PM [facility] Glucose 96 70 - 115 mg/dL 02/26/2023 4:31 PM [facility] Calcium 9.2 8.4 - 10.2 mg/dL 02/26/2023 4:31 PM [facility] Protein Total 6.8 6.0 - 8.3 g/dL 02/26/2023 4:31 PM [facility] Albumin 4.1 3.4 - 5.0 g/dL 02/26/2023 4:31 PM [facility] Bilirubin Total 0.2 0.2 - 1.2 mg/dL 02/26/2023 4:31 PM [facility] Alkaline Phosphatase 47 40 - 150 U/L 02/26/2023 4:31 PM [facility] ALT 17 5 - 55 U/L 02/26/2023 4:31 PM [facility] AST 24 5 - 34 U/L 02/26/2023 4:31 PM [facility] Anion Gap 14 8 - 18 02/26/2023 4:31 PM [facility] BUN/Creatinine Ratio 16 7 - 23 02/26/2023 4:31 PM [facility] Osmolality Calculated 290 270 - 300 mOsm/kg 02/26/2023 4:31 PM [facility] Albumin/Globulin Ratio 1.5 1.1 - 2.3 02/26/2023 4:31 PM [facility] eGFR by CKD-EPI >90 >=90 mL/min/1.7 3 m2 02/26/2023 4:31 PM [facility] Blood BLOOD SPECIMEN / Unknown Lab Venipuncture / Unknown 02/26/2023 3:45 PM CDT 02/26/2023 4:01 PM [facility] Fredy Mccormick [employer]ACHINE-FIRST ASSISTANT LAB - CHEMISTRY O RDERABLES [facility] [address] [place] [address], [facility] [phone] * HCG BETA BLOOD QUANTITATIVE (02/26/2023 3:45 PM CDT) Beta-hCG Total Quantitative <3 mIU/mL 02/26/2023 4:35 PM CDT [facility] Comment: HCG Numeric Result Interpretation: ? Non- Females: ? < 5 mIU/mL ? Post-Menopausal Females: ??< 7 mIU/mL ? This assay is cleared for use in the early detection of only. It is not approved for any other uses such as tumor marker screening, tumor marker monitoring, etc. and should not be used for any other purposes. Blood BLOOD SPECIMEN / Unknown Lab Venipuncture / Unknown 02/26/2023 3:45 PM CDT 02/26/2023 4:01 PM CDT Fredy Mccormick [employer] MACHINE-FIRST ASSISTANT LAB - CHEMISTRY O RDERABLES [facility] [address] [place] [address], [facility] [phone] * NH PUNCH BX SKIN SINGLE LESION (02/08/2023 1:56 PM CDT) Narrative Sudhir Velez MD - 02/08/2023 1:56 PM CDT Rod Pena MD ? 02/08/2023 ??1:57 PM Risks, benefits and alternatives to punch biopsy were discussed with the patient. Verbal consent was obtained. Location: left benson Punch biopsy: 8 mm Skin prep: Alcohol Anesthesia: 0.5% bupivacaine with epinephrine Closure: 4-0 nylon suture Dressing and wound care discussed. Patient agrees to phone call for results and message if not available. Rod Pena MD Sudhir Velez MD PROCEDURE/MINOR SURG ICAL ORDERABLES * DERMATOPATHOLOGY (02/08/2023 3:33 AM CDT) Case Report Dermatopathology Report ? Case: [id number] ? Authorizing Provider: ??Sudhir Velez MD ? Collected: ? 02/08/2023 03:33 AM ? Ordering Location: ? [facility] ?Received: ?02/11/2023 05:52 AM ? Dermatology ? Pathologist: ? Acacia Ramos MD ? Specimen: ?Skin, left benson ? 3 12:09 PM CDT DERMATOPATHOLOGY LABORATORY Final Diagnosis Specimen A. 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 Epidermoid Cyst vs. Scar Tissue vs. Other 3 12:09 PM CDT DERMATOPATHOLOGY LABORATORY Gross Description Specimen A: Received is one formalin filled container labeled with the patient's name and designated left benson. The specimen consists of a punch biopsy measuring 8x8x5 mm. Jar 0. 3 12:09 PM CDT DERMATOPATHOLOGY LABORATORY Microscopic Description Specimen A. SKIN, left benson: This is a well-circumscribed neoplasm composed of smooth muscle containing numerous vessels. 3 12:09 PM CDT DERMATOPATHOLOGY LABORATORY Disclaimer An external and internal positive and negative controls are appropriate for the histochemical, immunohistochemical and immunofluorescence stain(s) in this case (if any), except where stated explicitly. The performance characteristics of the stain(s) cited in this report were developed and its performance characteristic determined by the Dermatopathology Laboratory at [facility], directed by Dr. Micky Singh. These tests need not be, and therefore are not, approved by the [place] Food and Drug Administration. The tests are used for clinical purposes. Billing Codes Specimen Charges Stain Charges 35158 1 3 12:09 PM CDT DERMATOPATHOLOGY LABORATORY Embedded Images 3 12:09 PM CDT DERMATOPATHOLOGY LABORATORY Pathology/Cytolo gy TISSUE SPECIMEN FROM SKIN / Unknown 02/08/2023 3:33 AM CDT 02/11/2023 5:52 AM CDT Sudhir Velez MD LAB - PATHOLOGY/CYTO LOGY ORDERABLES DERMATOPATHOLOGY LABORATORY [facility] Department of Dermatology [address], [address] [phone] * EEG EXTENDED MONITORING > 1 HOUR (10/16/2022 2:32 PM [employer] WORK[employer]) Narrative Derrick Pickard MD - 10/16/2022 2:32 PM [employer] WORK[employer] Derrick Pickard MD ? 10/16/2022 ??5:04 PM EEG REPORT Patient Name: ??Aziza Espinosa EEG#: ?? [id number] Start Time: ??14:20 PM 10/16/2022 Stop Time: ??15:27 PM 10/16/2022 Clinical History: ??Aziza Espinosa is a 37 year old female with spells of indeterminate etiology. ??This EEG is ordered to evaluate for seizures. Current medications Current Outpatient Medications Medication Instructions ? ? Cholecalciferol (VITAMIN D3 GUMMIES PO) Oral ? ? FIBER PO Oral ? ? folic acid (FOLVITE) 1 mg, Oral, DAILY ? ? levETIRAcetam (KEPPRA) 500 mg, Oral, 2 TIMES DAILY ? ? levonorgestrel (Mirena, 52 MG,) 20 MCG/DAY IUD Mirena 20 mcg/24 hours (8 yrs) 52 mg intrauterine device Take 1 device as needed by intrauterine route for 1 day. ? ? Pyridoxine HCl 100 mg, Oral, DAILY ? ? venlafaxine XR 24hr (Effexor XR) 75 MG capsule venlafaxine ER 75 mg capsule,extended release 24 hr ? ? venlafaxine XR 24hr (EFFEXOR XR) 150 mg, Oral, DAILY ? ? Vyvanse 20 mg, Oral, EVERY MORNING Description This is an extended, greater than 1 hour, 21-channel EEG tracing consisting of 20 channels of EEG obtained from electrodes placed on the scalp according to the international 10-20 system, T1 and T2 electrodes, and one channel of EKG monitoring. ?? Background The awake background consisted of a posterior dominant rhythm up to 12 Hz of normal amplitude. Stage 1 sleep was identified in the forms of background attenuation, decreased myogenic artifact, and roving eye movements. Stage 2 sleep was identified in the form of spindles. Hyperventilation and photic stimulation were performed and elicited no abnormalities. EKG was observed throughout the recording. IMPRESSION This is a normal awake and asleep extended EEG. Derrick Huynh MD I reviewed the study in its entirety, and formulated the above report. Derrick Pickard MD Fredy Mccormick [employer] MACHINE-FIRST ASSISTANT NEUROLOGY ORDERAB LES * MRI BRAIN WWO CONTRAST (10/04/2022 6:21 PM [employer]ORY WORKER) Anatomical Region Laterality Modality Head Magnetic Resonan ce 10/07/2022 4:46 PM [employer] WORKER Impressions 10/07/2022 7:25 PM [employer] WORK[employer] IMPRESSION: 1. No evidence of acute intracranial findings or abnormal enhancement. > Interpreting Provider: Destini Gay MD on 10/07/2022 7:25 PM Narrative 10/07/2022 7:25 PM [employer] WORK[employer] PROCEDURE: ??MRI BRAIN WWO CONTRAST, DATE/TIME OF EXAM: ??10/04/2022 6:21 PM, LOCATION ??[facility] INDICATION: G40.A09: Absence seizure with autonomic component (CMS/HCC) ADDITIONAL CLINICAL INFORMATION: Ordering Provider Reason For Exam: ??Cause for temporal lobe seizure Technologist Note: ??None. Additional: ??None. EXAMINATION: Magnetic resonance imaging (MRI) of the brain without and with contrast CONTRAST: ??GADOBUTROL 1 MMOL/ML IV SSM SO:8 mL TECHNIQUE: MRI of the brain was performed prior to and following the uneventful administration of 8 mL intravenous GADAVIST contrast according to standard protocol. COMPARISON: No prior study is available for comparison at the time of this dictation. FINDINGS: No evidence of acute or chronic hemorrhage is identified. No evidence of acute cerebral infarction is seen. Subjective minimal prominence of the ventricles. The ventricles are otherwise normal in shape and morphology. No mass effect or midline shift is seen. A small subcortical white matter FLAIR hyperintense focus is a nonspecific finding, (series 8, image 15), in the subcortical white matter of the posterior left temporal lobe. The hippocampi are overall symmetric in morphology and signal characteristics. No distinct developmental abnormalities are identified No enhancing lesions are identified. The corpus callosum and sella appear normal. The posterior fossa, brainstem, and craniocervical junction appear normal. The visualized portions of the orbits, paranasal sinuses, and mastoids appear normal. Normal flow voids are demonstrated in the carotid arteries and basilar artery. The calvarium and visualized cervical spine appear normal. Procedure Note Destini Gay MD - 10/07/2022 PROCEDURE: MRI BRAIN WWO CONTRAST, DATE/TIME OF EXAM: 10/04/2022 6:21PM, LOCATION [facility] INDICATION: G40.A09: Absence seizure with autonomic component (CMS/HCC) ADDITIONAL CLINICAL INFORMATION: Ordering Provider Reason For Exam: Cause for temporal lobe seizure Technologist Note: None. Additional: None. EXAMINATION: Magnetic resonance imaging (MRI) of the brain without andwith contrast CONTRAST: GADOBUTROL 1 MMOL/ML IV SSM SO:8 mL TECHNIQUE: MRI of the brain was performed prior to and following the uneventful administration of 8 mL intravenous GADAVIST contrastaccording to standard protocol. COMPARISON: No prior study is available for comparison at the time ofthis dictation. FINDINGS: No evidence of acute or chronic hemorrhage is identified. No evidence of acute cerebral infarction is seen. Subjective minimal prominence of the ventricles. The ventricles are otherwise normal in shape and morphology.No mass effect or midline shift is seen. A small subcortical white matter FLAIR hyperintense focus is a nonspecific finding, (series 8, image 15),in the subcortical white matter of the posterior left temporal lobe. The hippocampi are overall symmetric in morphology and signalcharacteristics. No distinct developmental abnormalities are identified No enhancinglesions are identified. The corpus callosum and sella appear normal. Theposterior fossa, brainstem, and craniocervical junction appear normal. The visualized portions of the orbits, paranasal sinuses, and mastoids appear normal. Normal flow voids are demonstrated in the carotidarteries and basilar artery. The calvarium and visualized cervical spine appear normal. IMPRESSION: 1. No evidence of acute intracranial findings or abnormal enhancement. > Interpreting Provider: Destini Gay MD on 10/07/2022 7:25 PM Shannan Brooks PA-C MR ORDERABLES Care Teams Supervisor [employer] Relationship Specialty Start Date End Date Shannan Brooks PA-C PCP - General 08/03/22
--- OUTSIDE RECORDS SUMMARY | 2024-10-06 21:43 | XMS_ITS | Referral Summary ---
Author Organization [facility] Address [address] [place] [address] Care Team Providers Care Manager Diversity Name Role Phone Shannan Brooks PA-C Primary Care Provider Source Comments [facility] Affiliates and Associated Physician Practices is amultiple site organization consisting of ambulatory clinics and hospital sitesin [place], [place], [place] and [place]. This disclosure is being madepursuant to the Care Everywhere program and may not contain all information available regarding this patient. Last updated 18.[facility] Encounters Date Type Department Care Team Description 10/06/2024 Telephone [facility] - SOCIOLOGY ADJUNCT INSTRUCTOR [address] [place] [phone] Tania Granger APRN-CNP Future Appointment 10/06/2024 Orders Only [facility] - SOCIOLOGY ADJUNCT INSTRUCTOR [address] [place] [phone] Tania Granger APRN-CNP Complex ovarian cyst 10/06/2024 Travel 10/06/2024 9:25 AM CLERICAL WAREHOUSE WORKER Hospital Encounter [facility] Imaging Services - Ultrasound [address] [place] [address] Tania Granger APRN-CNP 10/06/2024 10:50 AM CLERICAL WAREHOUSE WORKER Office Visit [facility] - SOCIOLOGY ADJUNCT INSTRUCTOR [address] [place] [address] Tania Granger APRN-CNP Other fatigue (Primary Dx) 09/29/2024 Telephone [facility] - SOCIOLOGY ADJUNCT INSTRUCTOR [address] [place] [address] Tania Granger APRN-CNP Order 09/25/2024 Telephone [facility] - SOCIOLOGY ADJUNCT INSTRUCTOR [address] [place] [address] Tania Granger APRN-CNP Reschedule Appointment 09/23/2024 Telephone [facility] - SOCIOLOGY ADJUNCT INSTRUCTOR [address] [place] [address] Tania Granger APRN-CNP Ultrasound 09/07/2024 Travel 09/07/2024 2:20 PM CLERICAL WAREHOUSE WORKER Office Visit [facility] - SOCIOLOGY ADJUNCT INSTRUCTOR [address] [place] [address] Tania Granger APRN-CNP Well woman exam with routine gynecological exam (Primary Dx); FH: ovarian cancer; Dysuria; Other fatigue; Acne vulgaris; Abnormal facial hair from Last 3 Months Allergies No known active allergies Medications * [...] 02/26/2023 Neoplasm of uncertain behavior of skin Periorificial dermatitis 02/08/2023 Acne vulgaris 02/08/2023 Complex ovarian cyst 11/22/2022 Mixed anxiety and depressive disorder 11/22/2022 Well woman exam with routine gynecological exam 08/31/2022 Assessment & Plan (09/02/2023 4:00 PM CLERICAL WAREHOUSE WORKER): Pap smear not yet due. Not yet due for mammogram. Family planning reviewed. She is currently using IUD for contraception. Considering removal if symptoms not improving. Will order CT scan and reach out to oncology in case this could be an unusual presentation of recurrence, high risk personal and family history. Assessment & Plan (08/31/2022 1:33 PM CLERICAL WAREHOUSE WORKER): Pap smear performed given friability. Not yet due for mammogram. Family planning reviewed. She is currently using IUD for contraception and desires to use IUD in the future. Will check FSH/estradiol given hormonal symptoms History of ovarian cancer 08/31/2022 Assessment & Plan (08/31/2022 1:34 PM CLERICAL WAREHOUSE WORKER): She reports that she had been getting [...] likely simple cyst. Did not yet see X RAY TECHNICIAN ONC for her history of ovarian cancer, recommended to see again. Last CA 125 normal. Repeat FSH, estradiol, CA 125, TSH ordered given recent symptoms. 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 Immunizations Name Administration Dates Next Due HPV, HISTORIC VACCINE 10/21/2015 INFLUENZA VACCINE, CELL CULT URE, QUADR. (FLUCELVAX QUADRIVALENT; 6MO+) (CCIIV4) 07/31/2022 iNFLUENZA VACCINE, RECOM-BURNETTE, QUADR. (FLUBLOCK QUADRIVALENT; 18Y+) (RIV4) 07/21/2020 Social History Tobacco Use Types Packs/Day Years [...] Recorded Patient Health Questionnaire-2 Score 0 07/01/2023 [facility] Occup[facility] - Occupational Stress [...] place to sleep or slept in a chcf (including now)? No 02/26/2023 Sex and Gender Information Value Date Recorded Sex Assigned at Not on file Gender Identity Not on file Sexual Orientation Not on file Last Filed Vital Signs Vital Sign Reading Time Taken Comments Blood Pressure 129/80 10/06/2024 10:17 AM CLERICAL WAREHOUSE WORKER Pulse 77 06/25/2023 3:09 PM CDT Temperature 36.9 ??C (98.4 ??F) 06/25/2023 3:09 PM CD T Respiratory Rate 20 09/02/2023 2:23 PM CLERICAL WAREHOUSE WORKER Oxygen Saturation 98% 06/25/2023 3:09 PM CDT Inhaled Oxygen Concentration - - Weight 97.2 kg (214 lb 3.2 oz) 10/06/2024 10:17 AM CLERICAL WAREHOUSE WORKER Height 172.7 cm (5' 8 ) 10/06/2024 10:17 AM CLERICAL WAREHOUSE WORKER Body Mass Index 32.57 10/06/2024 10:17 AM CLERICAL WAREHOUSE WORKER Functional Status Functional Status Response Date of [...] person have difficulty concentrating/remembering/making decisions? No 02/26/2023 Plan of Treatment Upcoming Encounters Date Type Department Care Team (Late st Contact Info) Description 09/08/2025 2:00 PM CLERICAL WAREHOUSE WORKER Office Visit [facility] - SOCIOLOGY ADJUNCT INSTRUCTOR [address] [place] [address] Tania Granger APRN-LEIGHANN [address] [place] [address] Procedures Procedure Name Priority Date/Time Associated Diagnosis Comments US PELVIS W TRANSVAG W DOP NON OB Routine 10/06/2024 9:58 AM CLERICAL WAREHOUSE WORKER FH: ovarian cancer PAP IMAGE-GUIDED W HPV+CT/NG+TRICH Routine 09/07/2024 2:48 PM CLERICAL WAREHOUSE WORKER Well woman exam with routine gynecological exam C. TRACHOMATIS + N. GONORRHOEAE + TRICH ALESSANDRA Routine 09/07/2024 2:48 PM CLERICAL WAREHOUSE WORKER Well woman exam with routine gynecological exam HPV DETECTION HIGH RISK ALESSANDRA Routine 09/07/2024 2:48 PM CLERICAL WAREHOUSE WORKER Well woman exam with routine gynecological exam CULTURE URINE Routine 09/07/2024 Dysuria from Last 3 Months Results * US Pelvis W Transvag W Dop Non Ob (10/06/2024 9:58 AM CLERICAL WAREHOUSE WORKER) Anatomical Region Laterality Modality Pelvis Ultrasound 10/06/2024 11:0 2 AM CLERICAL WAREHOUSE WORKER Impressions 10/06/2024 11:07 AM CLERICAL WAREHOUSE WORKER IMPRESSION: 1. 3.4 x 2.3 x 3.1 cm complex cystic lesion in the right ovary with thickened internal septations and no definite internal vascularity. Given that this was seen on prior study from 09/24/2022, recommend MRI pelvis without and with contrast for further characterization. > Interpreting Provider: Marlyn Pabon MD on 10/06/2024 11:07 AM Narrative 10/06/2024 11:07 AM CLERICAL WAREHOUSE WORKER PROCEDURE: ??US PELVIS W TRANSVAG W DOP NON OB DATE/TIME OF EXAM: ??10/06/2024 9:59 AM CLINICAL INFORMATION: None relevant/not provided if blank. Indication: Z80.41: Family history of malignant neoplasm of ovary Additional History: COMPARISON: None. TECHNIQUE: Real time transabdominal and transvaginal pelvic ultrasound was performed by the software quality manager with DICOM image capture. Grayscale images were [...] and transvaginal pelvic ultrasound wasperformed by the software quality manager with DICOM image capture. Grayscale images were [...] MD on 10/06/2024 11:07 AM Tania Granger SITECORE DEVELOPER-HORSE RANCHER US ORDERABLES * HPV DETECTION HIGH RISK ALESSANDRA (09/07/2024 2:48 PM CLERICAL WAREHOUSE WORKER) High Risk Human Papilloma Result Not detected Not detected 09/09/2024 8:55 AM CLERICAL WAREHOUSE WORKER [facility] High Risk Human Papilloma Interp 09/09/2024 8:55 AM CLERICAL WAREHOUSE WORKER [facility] Comment:High Risk Human Silverio lloma Virus was Not Detected. Pathology/Cytolo gy MISCELLANEOUS SAMPLES / Unknown 09/07/2024 2:48 PM CLERICAL WAREHOUSE WORKER 09/08/2024 12:37 PM CLERICAL WAREHOUSE WORKER [facility] - 09/09/2024 8:55 AM CLERICAL WAREHOUSE WORKER Nucleic acid isolated from the specimen [...] (cytology, histology, and clinical information). Tania Granger SITECORE DEVELOPER-HORSE RANCHER LAB - MICROBIOLOGY ORDERABLES Performing Organization Address [facility]/ZIP Co de Phone Number [facility] [address] [phone] * C. TRACHOMATIS + N. GONORRHOEAE + TRICH ALESSANDRA (09/07/2024 2:48 PM CLERICAL WAREHOUSE WORKER) Chlamydia Trachomatis ALESSANDRA Not detected Not detected 09/09/2024 9:09 AM CLERICAL WAREHOUSE WORKER [facility] Neisseria Gonorrhoeae ALESSANDRA Not detected Not detected 09/09/2024 9:09 AM CLERICAL WAREHOUSE WORKER [facility] Trichomonas Vaginalis ALESSANDRA Not detected Not detected 09/09/2024 9:09 AM CLERICAL WAREHOUSE WORKER [facility] Pathology/Cytolo gy MISCELLANEOUS SAMPLES / Unknown 09/07/2024 2:48 PM CLERICAL WAREHOUSE WORKER 09/08/2024 12:37 PM CLERICAL WAREHOUSE WORKER Narrative [facility] - 09/09/2024 9:09 AM CLERICAL WAREHOUSE WORKER This analysis was performed using Gen-Probe Aptima Combo 2 and Gen-Probe Aptima Assay. These methodologies are [place] FDA approved for Chlamydia trachomatis, Neisseria gonorrhoeae testing for urine and urogenital swabs from men and women, and cervical cells submitted in ThinPrep vials. Performance characteristics of testing for Trichomonas vaginalis on specimens using the Gen-Probe Aptima Trichomonas vaginalis Assay on the Marcellus system and rectal and pharyngeal swabs with Gen-Probe Aptima combo 2 were determined by the Molecular Diagnostics Laboratory at [facility]. ??They have not been cleared or [...] to perform high complexity laboratory testing. Tania Granger MACEY-HORSE RANCHER LAB - MICROBIOLOGY ORDERABLES Performing Organization Address [facility]/ZIP Co de Phone Number [facility] [address] [phone] * PAP IMAGE-GUIDED W HPV+CT/NG+TRICH (09/07/2024 2:48 PM CLERICAL WAREHOUSE WORKER) Case Report Gynecologic Cytology Report ? Case: [id number] ? Authorizing Provider: ??Tania Granger APRN-CNP ?Collected: ? 09/07/2024 02:48 PM ? Ordering Location: ? [facility] - ??Received: ?09/08/2024 12:37 PM ? SOCIOLOGY ADJUNCT INSTRUCTOR ? First Screen: ?Agapito Rodríguez, CT(ASCP) ? Rescreen: ?Mag, Nadeem ? Specimen: ?THINPREP - IMAGE GUIDED, Cervix/Endocervix ? 09/10/2024 1:08 PM [facility] LMP 10-24 09/10/2024 1:08 PM [facility] Menstrual Status None Applicable 1:08 PM [facility] Specimen Adequacy Satisfactory for evaluation, endocervical/trans formation zone component present. 09/10/2024 1:08 PM CLERICAL WAREHOUSE WORKER [facility] Categorization Negative for intraepithelial lesion or malignancy. 09/10/2024 1:08 PM [facility] Interpretation X RAY TECHNICIAN Negative for intraepithelial lesion or malignancy. 09/10/2024 1:08 PM [facility] Pap Footnote The Pap Smear is a screening test. False positive and false negative results occur. Negative results do not preclude abnormalities, thus clinical correlation is required. This specimen was evaluated by the ThinPrep Imaging System along with an additional manual rescreening by a police district switchboard operator and/or pathologist. 09/10/2024 1:08 PM [facility] Embedded Images 1:08 PM [facility] Pathology/Cytolo gy MISCELLANEOUS SAMPLES / Unknown 09/07/2024 2:48 PM CLERICAL WAREHOUSE WORKER 09/08/2024 12:37 PM CLERICAL WAREHOUSE WORKER Tania Granger SITECORE DEVELOPER-HORSE RANCHER LAB - PATHOLOGY/CY TOLOGY ORDERABLES Performing Organization Address [facility] Phone Number [facility] [address] [phone] * CULTURE URINE (09/07/2024) Culture [facility] Comment: ??CULTURE, URINE, ROUTINE ?Micro Number: ?[id number] ??Test Status: ? Final ??Specimen Source: ?? Urine, clean catch ??Specimen Quality: ??Adequate ??Result: ?Mixed genital rajani isolated. These superficial ? bacteria are not indicative of a urinary tract ? infection. No further organism identification is ? warranted on this specimen. If clinically ? indicated, recollect clean-catch, mid-stream ? urine and transfer immediately to Urine Culture ? Transport Tube. Test Performed at: [facility] ??[id number] RIGOBERTO MARRUFO MD Urine URINE SPECIMEN OBTAINED BY CLEAN CATCH PROCEDURE / Unknown 09/07/2024 09/09/2024 1:23 AM CLERICAL WAREHOUSE WORKER Tania Granger SITECORE DEVELOPER-HORSE RANCHER LAB - MICROBIOLOGY ORDERABLES Performing Organization Address [facility]/State/[facility] Co de Phone Number [facility] [phone] [place] [address] from Last 3 Months Advance Directives * Full Code (Latest Code Status on File) Date Activated Date Inactivated Comments 02/26/2023 3:34 PM 03/02/2023 12:20 PM Care Teams Manager Diversity Relationship Specialty Start Date End Date Shannan Brooks PA-C PCP - General 08/03/22
--- OUTSIDE RECORDS SUMMARY | 2024-10-06 21:44 | XMS_ITS | Encounter Summary ---
Author Organization [facility] Address [address] [place] [address] Care Team Providers Care Grinder Outside Diameter Name Role Phone Shannan Brooks PA-C Primary Care Provider [phone] Reason for Visit * Reason Onset Date Comments Establish Care 09/09/2023 Encounter Details Date Type Department Care Team (Late st Contact Info) Description 09/09/2023 Telephone [facility] - MONUMENT LETTERER [address] [place] [address] Javi Kimble MD [address] [place] [address] Establish Care Social History Tobacco Use Types Packs/Day Years [...] Recorded Patient Health Questionnaire-2 Score 0 07/01/2023 [facility] - Occupational Stress [...] place to sleep or slept in a jail (including now)? No 02/26/2023 Sex and Gender [...] encounter Miscellaneous Notes * Telephone Encounter - Estrellita Vines - 09/09/2023 1:22 PM CST SCHEDULED-NEW ONC Physician referring the patient: Rochelle Reason/diagnosis for referral:Borderline epithelial neoplasm of ovary Spoke with patient on:09.09.23 Patient agrees to appointment on:09.25.23 DIE TRY OUT WORKER paperwork, map and appointment info mailed. RAM TECHNICIAN documented in this encounter Plan of Treatment Upcoming Encounters Date Type Department Care Team (Late st Contact Info) Description 09/08/2025 2:00 PM PROGRAM TECHNICIAN Office Visit [facility] - MONUMENT LETTERER [address] [place] [address] Tania Granger APRN-STATISTICS MANAGER [address] [place] [address] documented as of this encounter Visit Diagnoses Not on filedocumented in this encounter Care Teams Grinder Outside Diameter Relationship Specialty Start Date End Date Shannan Brooks PA-C PCP - General 08/03/22 documented as of this encounter
--- OUTSIDE RECORDS SUMMARY | 2024-10-06 21:44 | XMS_ITS | Encounter Summary ---
Author Organization [facility] Address [address] [place] [address] Care Team Providers Care Surveillance Monitor Name Role Phone Shannan Brooks PA-C Primary Care Provider [phone] Encounter Details Date Type Department Care Team (Late st Contact Info) Description 03/04/2023 11:00 AM CDT Office Visit [facility] - SAMMYING MACHINE OPERATOR [address] [facility] [address] [place] [address] Karie Byrd MD [address] [facility] [address] [place] [address] Irregular menses (Primary Dx); History of ovarian cancer; Cyst of ovary, unspecified laterality Social History Tobacco Use Types Packs/Day Years [...] at all 02/26/2023 PHQ-2 Answer Date Recorded PHQ2 TOTAL SCORE 1 09/20/2022 [facility] [place] of Occupat ional Health - Occupational Stress [...] place to sleep or slept in a intermediate (including now)? No 02/26/2023 Sex and Gender Information Value Date Recorded Sex Assigned at Not on file Gender Identity Not on file Sexual Orientation Not on file COVID-19 Exposure Response Date Recorded In the last 10 days, have yo u been in contact with someone who was confirmed or suspected to have Coronavirus/COVID-19? No / Unsure 03/04/2023 9:11 AM CDT documented as of this encounter Last Filed Vital Signs Vital Sign Reading Time Taken Comments Blood Pressure 120/62 03/04/2023 11:21 AM CDT Pulse - - Temperature - - Respiratory Rate - - Oxygen Saturation - - Inhaled Oxygen Concentration - - Weight 88.8 kg (195 lb 12.8 oz) 023 11:21 AM CDT Height 172.7 cm (5' 8 ) 03/04/2023 11:2 1 AM CDT Body Mass Index 29.77 03/04/2023 11:21 AM CDT documented in this encounter Functional Status Functional Status Response [...] No 02/26/2023 documented as of this encounter Progress Notes * Karie Byrd MD - 03/04/2023 1:20 PM CDT Established Patient Problem Visit CC: irregular menses History of Present Illness: Ms. Espinosa is a 37 year old female who presents for above. Since September, she has been having a rough time with seizures, medication adjustments, and extremestress. Currently stopped seizure medications as these were worse than the seizures. In the same time frame, she has been having only irregular spotting rather than true menses. She has always had regular periods even with her IUD. Hormone labs from last visit not in chart but has on phone, FSH and estradiol normal. CA 125 <30. Review of Systems All other systems reviewed and are negative. Patient Active Problem List: Well woman exam with routine gynecological exam History of ovarian cancer Abnormal uterine bleeding (AUB) Anxiety Attention-deficit/hyperactivity disorder Borderline epithelial neoplasm of ovary History of anorexia nervosa Complex ovarian cyst Major depression, recurrent (CMS/HCC) Mixed anxiety and depressive disorder Neoplasm of uncertain behavior of skin Periorificial dermatitis Acne vulgaris Seizures (CMS/HCC) Medical history: Past Medical History: Diagnosis Date ??? Ovarian cancer (CMS/HCC) Medications: Current Outpatient Medications Medication Sig Dispense Refill ??? Ascorbic Acid (VITAMIN C PO) +Whole food vitamin c ??? azelaic acid (Finacea) 15 % gel Apply to affected areas on the face daily. 30 days supply. 50 g3 ??? Cholecalciferol (VITAMIN D3 GUMMIES PO) ??? FIBER PO ??? folic acid (Folvite) 1 MG tablet Take 1 (one) tablet by mouth once daily 90 tablet 4 ??? levonorgestrel (Mirena, 52 MG,) 20 MCG/DAY IUD Mirena 20 mcg/24 hours (8 yrs) 52 mg intrauterine device Take 1 device as needed by intrauterine route for 1 day. ??? venlafaxine XR 24hr (Effexor XR) 150 MG capsule Take 1 (one) capsule by mouth once daily ??? venlafaxine XR 24hr (Effexor XR) 75 MG capsule venlafaxine ER 75 mg capsule,extended release 24hr ??? Vyvanse 20 MG capsule Take 1 (one) capsule by mouth every morning No current facility-administered medications for this visit. Allergies: No Known Allergies Physical examination: Vitals: 03/04/23 1121 BP: 120/62 Weight: 88.8 kg (195 lb 12.8 oz) Height: 1.727 m (5' 8 ) Physical Exam Constitutional: General: She is not in acute distress. Appearance: Normal appearance. She is not ill-appearing. HENT: Head: Normocephalic and atraumatic. Nose: Nose normal. Eyes: Extraocular Movements: Extraocular movements intact. Pulmonary: Effort: Pulmonary effort is normal. Musculoskeletal: Cervical back: Normal range of motion. Skin: General: Skin is warm and dry. Neurological: Mental Status: She is alert and oriented to person, place, and time. Psychiatric: Behavior: Behavior normal. Assessment and Plan: Abnormal uterine bleeding (AUB) Very well may have been related to new seizure medications, stress, IUD, hormonal issues. Recheck ultrasound as plan previously had been to reeval likely simple cyst. Did not yet see PRE SALES TECHNICAL CONSULTANT ONC for her history of ovarian cancer, recommended to see again. Last CA 125 normal. Repeat FSH, estradiol, CA 125, TSH ordered given recent symptoms. Coding Rationale New or est? Established Patient Total time spent on date of encounter: 30 minutes Data review: Ordering of test(s): 3 or more unique test(s) ordered Suggested code: 89420 Karie Byrd MD documented in this encounter Plan of Treatment Upcoming Encounters Date Type Department Care Team (John todd Contact Info) Description 09/08/2025 2:00 PM CATALOG LIBRARY ASSISTANT Office Visit [facility] - SAMMYING MACHINE OPERATOR [address] [place] [address] Tania Granger, FORMING ROLL OPERATOR HEAVY DUTY-SHIFT SUPERVISOR MELTING [address] [facility] [address] [place] [address] documented as of this encounter Procedures Procedure Name Priority Date/Time Associated Diagnosis Comments TSH REFLEX FREE T4 Routine 03/04/2023 Irregular menses CANCER ANTIGEN (CA)125 BLOOD Routine 03/04/2023 Irregular menses FSH Routine 03/04/2023 Irregular menses ESTRADIOL Routine 03/04/2023 Irregular menses documented in this encounter Results * AK SONO EXAM, TRANSVAGINAL (03/19/2023 4:10 PM CDT) Narrative Abi Mae - 03/19/2023 4:10 PM CDT Abi Mae ? 03/19/2023 ??4:10 PM Documentation in digisonics. Karie Byrd MD PROCEDURE/MINOR CLEMENTS RGICAL ORDERABLES * TSH REFLEX FREE T4 (03/04/2023) TSH with Reflex FT4 0.84 mIU/L [facility] Comment: ?Reference Range ?> or = 20 Years ??0.40-4.50 ? Ranges ?First trimester ?0.26-2.66 ?Second trimester ?? 0.55-2.73 ?Third trimester ?0.43-2.91 REPORT COMMENT: FASTING:NO Test Performed at: [facility] [address] [place], [place] ??[phone] RIGOBERTO MARRUFO MD Blood BLOOD SPECIMEN / Unknown 03/04/2023 03/04/2023 11:57 AM CDT Karie Byrd MD LAB - CHEMISTRY OR DERABLES Performing Organization Address City/[facility] Phone Number [facility] [address] [place] [address] * ESTRADIOL (03/04/2023) [facility] Estradiol 62 pg/mL [facility] Comment: ?Reference Range ?Follicular Phase: ?19-144 ?Mid-Cycle: ? 64-357 ?Luteal Phase: ?56-214 ?Postmenopausal: ?< or = 31 ? Reference range established on post-pubertal patient population. No pre-pubertal reference range established using this assay. For any patients for whom low Estradiol levels are anticipated (e.g. males, pre-pubertal children and hypogonadal/post-menopausal females), the [employer] [facility] Estradiol, Ultrasensitive, LCMSMS assay is recommended (order code 94567). ?? Please note: patients being treated with the drug fulvestrant (Faslodex(R)) have demonstrated significant interference in immunoassay methods for estradiol measurement. The cross reactivity could lead to falsely elevated estradiol test results leading to an inappropriate clinical assessment of estrogen status. [employer] order code [id number], Ultrasensitive LC/MS/MS demonstrates negligible cross reactivity with fulvestrant. Test Performed at: [facility] [address] [place], [place] ??[phone] RIGOBERTO MARRUFO MD Blood BLOOD SPECIMEN / Unknown 03/04/2023 03/04/2023 11:57 AM CDT Karie Byrd MD LAB - CHEMISTRY OR DERABLES [facility] [address] [place] [address] * FSH (03/04/2023) [facility] FSH 4.2 mIU/mL [facility] Comment: ?Reference Range ? Follicular Phase ? 2.5-10.2 ? Mid-cycle Peak ? 3.1-17.7 ? Luteal Phase ? 1.5- 9.1 ? Postmenopausal ? 23.0-116.3 ? Test Performed at: [facility] [address] [place] [address] ??[phone] RIGOBERTO MARRUFO MD Blood BLOOD SPECIMEN / Unknown 03/04/2023 03/04/2023 11:57 AM CDT Karie Bryd MD LAB - CHEMISTRY OR DERABLES Performing Organization Address [facility] Phone Number [facility] [address] [place] [address] * CANCER ANTIGEN (CA)125 BLOOD (03/04/2023) [facility] CA 125 9 <35 U/mL [facility] Comment: This test was performed using the Siemens Chemiluminescent method. Values obtained from different assay methods cannot be used interchangeably. CA 125 levels, regardless of value, should not be interpreted as absolute evidence of the presence or absence of disease. Test Performed at: [facility] [address] [place], [place] ??[phone] RIGOBERTO MARRUFO MD Blood BLOOD SPECIMEN / Unknown 03/04/2023 03/04/2023 11:57 AM CDT Karie Byrd MD LAB - CHEMISTRY OR DERABLES [facility] [address] [place] [address] documented in this encounter Visit Diagnoses Diagnosis Irregular menses- Primary Irregular menstrual cycle History of ovarian cancer Personal history of malignant neoplasm of ovary Cyst of ovary, unspecified laterality Abnormal uterine bleeding (AUB)- Primary Cyst of ovary, unspecified laterality Irregular menses Irregular menstrual cycle * Assessment & Plan Note - Karie Byrd MD - 03/04/2023 1:53 PM CDT Associated Problem(s): Abnormal uterine bleeding (AUB) Very well may have been related to new seizure medications, stress, IUD, hormonal issues. Recheck ultrasound as plan previously had been to reeval likely simple cyst. Did not yet see PRE SALES TECHNICAL CONSULTANT ONC for her history of ovarian cancer, recommended to see again. Last CA 125 normal. Repeat FSH, estradiol, CA 125, TSH ordered given recent symptoms. documented in this encounter Care Teams Surveillance Monitor Relationship Specialty Start Date End Date Shannan Brooks PA-C PCP - General 08/03/22 documented as of this encounter
--- OUTSIDE RECORDS SUMMARY | 2024-10-06 21:44 | XMS_ITS | Encounter Summary ---
Author Organization [facility] Address [address] [place] [address] Care Team Providers Care Fast Food Shift Supervisor Name Role Phone Shannan Brooks PA-C Primary Care Provider [phone] Reason for Visit * Reason Onset Date Comments Follow-up 10/08/2023 Encounter Details Date Type Department Care Team (Late st Contact Info) Description 10/08/2023 Telephone [facility] - RECORD LABEL INTERN [address] [facility] [address] [place] [address] Felicitas Abel, RN Follow-up Social History Tobacco Use Types Packs/Day Years [...] Recorded Patient Health Questionnaire-2 Score 0 07/01/2023 [facility] [place] of Occupat ional Health - Occupational Stress [...] place to sleep or slept in a [place] (including now)? No 02/26/2023 Sex and Gender [...] encounter Miscellaneous Notes * Telephone Encounter - Felicitas Abel RN - 10/11/2023 1:04 PM CST Left voicemail #2 about pt getting the CA-[address] Byrd ordered. Asked pt to call back and left my desk number [phone]. EY RESEARCH ANALYST * Telephone Encounter - Felicitas Abel RN - 10/08/2023 10:24 AM CST Left voicemail for pt asking if she has gotten her CA-[address] Byrd ordered. Asked pt to callback. EY RESEARCH ANALYST documented in this encounter Plan of Treatment Upcoming Encounters Date Type Department Care Team (Late st Contact Info) Description 09/08/2025 2:00 PM SURVEY RESEARCH ANALYST Office Visit [facility] - RECORD LABEL INTERN [address] [facility] [address] [place] [address] Tania Granger APRN-SENIOR BUSINESS PROCESS ANALYST [address] [facility] [address] [place] [id number] documented as of this encounter Visit Diagnoses Not on filedocumented in this encounter Care Teams Fast Food Shift Supervisor Relationship Specialty Start Date End Date Shannan Brooks PA-C PCP - General 08/03/22 documented as of this encounter
--- OUTSIDE RECORDS SUMMARY | 2024-10-06 21:44 | XMS_ITS | Encounter Summary ---
Author Organization [facility] Address [address] [place] [address] Care Team Providers Care Nursing Clinical Director Name Role Phone Shannan Brooks PA-C Primary Care Provider Reason for Visit * Reason Comments Seizure Follow-up Encounter Details Date Type Department Care Team (Late st Contact Info) Description 03/14/2023 4:00 PM CDT Office Visit [facility] - Neurology [address] [facility] [place] [id number] Fredy Mccormick, INSTRUCTOR ADJUNCT PHARMACY TECHNICIAN-GRANTS MANAGER [address] [place], [place] [id number] Seizure-like activity (HCC) (Primary Dx) Social History Tobacco Use Types Packs/Day Years [...] Date Recorded PHQ2 TOTAL SCORE 1 09/20/2022 [facility] of Occupat ional Health - Occupational [...] place to sleep or slept in a long-term (including now)? No 02/26/2023 Sex and Gender [...] Sign Reading Time Taken Comments Blood Pressure 112/71 03/14/2023 4:06 PM CDT Pulse 71 03/14/2023 4:06 PM CDT Temperature 36.2 ??C (97.1 ??F) 03/14/2023 4:06 PM CD T Respiratory Rate - - Oxygen Saturation 96% 03/14/2023 4:06 PM CDT Inhaled Oxygen Concentration - - Weight 88.2 kg (194 lb 6.4 oz) 03/14/2023 4:06 P M CDT Height 172.7 cm (5' 8 ) 03/14/2023 4:06 PM CDT Body Mass Index 29.56 03/14/2023 4:06 PM CDT documented in this encounter Functional Status [...] as of this encounter Progress Notes * Fredy Mccormick, INSTRUCTOR ADJUNCT PHARMACY TECHNICIAN-GRANTS MANAGER - 03/14/2023 4:06 PM CDT Epilepsy Clinic Note PCP Shannan Ring PA-C DATE OF ENCOUNTER: 03/14/2023 CHIEF COMPLAINT: Seizures AGE OF ONSET 37 YO SEMIOLOGY - Aura: Breanne Vu, rising sensation, impending feeling, Stomach flip ?? Duration/ frequency:30 seconds to minute / With semiology #1 only ?? - Ictus? 1. Dizzy, hot, difficult to think, searing in back and sides of head, ??needs to sit down, will cluster, No LOC, has lost time, no oral automatisms, no loss of bladder ?? Duration/ frequency: 30 seconds - 1 minute / Controlled since beginning levetiracetam ?? - Post-ictus: tired, stunned ?? Duration: 1 minute SEIZURE CONTROL Date of last seizure 1. 11/25/2022 PRE-VISIT MEDICATION Name Pill Size Frequency Total/Day Level Off ASM COMPLIANCE N/A AGGRAVATING FACTORS: Stress TREATMENT HISTORY Name Allergy/Side Effects/Ineffectiveness levetiracetam Mood Zonisamide EE/09 - EMU, Dr. Lockett Impression: This is a normal epilepsy monitoring recording. ?? CLINICAL CORRELATION: This 5-day EMU study was normal, but captured no typical events. Repeat monitoring could be considered if diagnostic uncertainty remains. 10/16/2022 EEG, Dr. Pickard Impression: This is a normal awake and asleep extended EEG. IMAGIN10/04/2022 MRI Brain [facility] Mary, [facility] Impression: 1. No evidence of acute intracranial findings or abnormal enhancement. GENETIC TESTING: - CLASSIFICATION: NOS LABORATORY RESULTS CBC: Recent Labs Component Name 02/26/23 1545 WBC 5.6 HGB 13.2 PLTCOUNT 286 BMP: Recent Labs Component Name 02/26/23 1545 NA 140 CO2 22 CREATININE 0.74 LFT: Recent Labs Component Name 02/26/23 1545 AST 24 ALT 17 VITAMIN D: No results for input(s): BCFP92MA in the last 09480 hours. ASM DRUG LEVELS No results for input(s): LEVETIRACETM in the last 11696 hours. HPI: History of Epilepsy: History collected through chart review and conversations with patient. Aziza Espinosa is a 38 year old female referred to [facility] Epilepsy clinic for seizures. PMH includesanxiety, depression, ADHD, ovarian cancer, as well as surgical history of left ovary removal. At previous PCP visit she states that she gets breanne vu feeling then will become dizzy and hot. She has had her BP taken following events at work and it was normal per patient. This has been happening intermittently since approximately June 2022. Patient denies staring spells and myoclonus. Endorses stress with work. Additionally, patient endorses that she has had memory issues - cannot remember recent conversations sometimes. Unclear if related to events, but patient endorses finding a tick on self - February or March, 11/22/2022 No events since beginning levetiracetam. Patient reports initially feeling irritable, depressed, oversleeping, unfocused , paranoia, and exhaustion on this ASM. These side effects leveled out to exhaustion, lethargy, and impulsivity. Patient also endorses that poor memory continues. 01/22/2023 Seizures have not occurred since increase in zonisamide to 200 mg QHS on 11/25/2022. Patient reports that she has started taking Organ +, has had better bowel movements. Memory has also improved since increase on zonisamide. Reports that she had some delayed visual processing following zonisamide -this has resolved. Denies waking with tongue bitten and bed urinated in. Developed a rash on the right nasolabial fold that has improved with antifungal administration. States that she has an upcoming dermatology appointment (02/08/2023). She also reports low back pain and denies known injury, including no injury related to her hockey playing. Today's Visit: Patient recently completed EMU. EEG remained normal but events of concern were not captured. Patient voiced she would like to trial being off ASMs. She was discharged with no ASMs at that point. She endorses continued freedom from Semiology. States that she felt stomach in knots today, which she attributes to anxiety. She states that this is a different sensation than stomach flipping reported as aura. Previous Neurologist: N/A Risk factors: Complex febrile seizure Hx No Head trauma Hx Yes MOLD STRIPPER Infection Hx No Family Epilepsy Hx Unclear Handedness Right Memory Much Better Mood Much Better History of kidney stones No Driving Yes Living situation Apartment Work [facility] Allergies: No Known Allergies Home Medications: Current Outpatient Medications Medication Sig ??? Ascorbic Acid (VITAMIN C PO) +Whole food vitamin c ??? azelaic acid (Finacea) 15 % gel Apply to affected areas on the face daily. 30 days supply. ??? Cholecalciferol (VITAMIN D3 GUMMIES PO) ??? FIBER PO ??? folic acid (Folvite) 1 MG tablet Take 1 (one) tablet by mouth once daily ??? levonorgestrel (Mirena, 52 MG,) 20 MCG/DAY [...] No current facility-administered medications for this visit. PMH: Past Medical History: Diagnosis Date ??? Ovarian cancer (CMS/HCC) Family History: Family History Problem Relation Name Age of Onset ??? Cancer - Ovarian Mother ??? Cancer - Ovarian Maternal Grandmother ??? Cancer - Breast Paternal Grandmother Social History: Social History Socioeconomic History ??? Marital status: Single Spouse name: Not on file ??? Number of children: Not on file ??? Years of education: Not on file ??? Highest education level: Not on file Occupational History ??? Not on file Tobacco Use ??? Smoking status: Never ??? Smokeless tobacco: Never Vaping Use ??? Vaping status: Never Used Substance and Sexual Activity ??? Alcohol use: Yes ??? Drug use: Never ??? Sexual activity: Yes Partners: Male Other Topics Concern ??? Not on file Social History Narrative ??? Not on file Social Determinants of Health Financial Resource Strain: Low Risk (02/26/2023) Overall Financial Resource Strain (CARDIA) ??? Difficulty of Paying Living Expenses: Not hard at all Food Insecurity: No Food Insecurity (02/26/2023) Hunger Vital Sign ??? Worried About Running Out of Food in the Last Year: Never true ??? Ran Out of Food in the Last Year: Never true Transportation Needs: No Transportation Needs (02/26/2023) PRAPARE - Transportation ??? Lack of Transportation (Medical): No ??? Lack of Transportation (Non-Medical): No Stress: No Stress Concern Present (02/26/2023) [place] of Occupational Health - Occupational Stress Questionnaire ??? Feeling of Stress : Not at all Housing Stability: Low Risk (02/26/2023) Housing Stability Vital Sign ??? Unable to Pay for Housing in the Last Year: No ??? Number of Places Lived in the Last Year: 1 ??? Unstable Housing in the Last Year: No control Mirena IUD Folic acid Yes, occasionally takes multivitamin No Alcohol usage Yes Illicit substance No Marijuana usage 1x per month - smoking and edible Physical Exam: Vitals: 03/14/23 1606 BP: 112/71 Pulse: 71 Temp: 97.1 ??F (36.2 ??C) SpO2: 96% Weight: 88.2 kg (194 lb 6.4 oz) Height: 1.727 m (5' 8 ) General Awake and alert HEENT: Head normocephalic and atraumatic Extremities: No cyanosis or edema noted Cortical Function: MS: Awake, Alert, Follows Commands Oriented to Person, Place and Time Language: Fluent, Coherent VF Intact to confrontation test Neglect No visual neglect, No tactile neglect Cranial Nerves: Pupils 4 mm BRTL, Full EOM, No ptosis or nystagmus Facial sensation intact bilaterally to LT; No facial palsy Hearing intact to finger rub bilaterally Palate symmetric; Normal tongue protrusion Motor: Abnormal Movements: None Bulk: Normal Tone: Normal Strength: RUE 5/5 LUE 5/5 RLE 5/5 LLE 5/5 Gait: Normal stride and stance Assessment/Plan: Aziza Espinosa is a 38 year old female with a history of spells concerning for seizures. Concern for epilepsy given semiology description. EEG and EMU history unremarkable. Patient is presently doing well off ASMs - to continue. If events return to perform an ambulatory EEG. If events return and have increased intensity and/or form greater concern for epilepsy, to start ASM and perform ambulatory EEG. - Continue off ASMs Follow-up in 3 months or sooner if problems arise Patient agrees and voices understanding of plan of care listed above. POST-VISIT MEDICATION (Current to 03/14/2023) Name Pill Size Frequency Total/Day Level Off ASMs I told the patient in clear terms that they should check with their state's DMV regarding the regulations for driving with seizures. In general, we recommend 6 months of seizure freedom and approval by the state before resuming driving. I also recommended that the patient avoid deep tub baths, operating open machinery, climbing to high places, swimming alone, using open fire or using hot objects during the same time frame that they are not driving. Seizure precautions include no driving, no tub bathing, no solo swimming, no operating heavy machinery and no working at heights. The patient should not perform any activity in which the patient or others may be harmed if a seizure occurs. I personally spent 15 minutes on 03/14/2023 preparing to see the patient (e.g. reviewing chart, review of tests), obtaining and/or reviewing the separately obtained history, performing a medically necessary and appropriate examination and evaluation, counseling and educating the patient/family/caregiver, ordering medications, tests, or procedures, documenting in the patient record, and communicating results to the patient/family/caregiver. MARTHA Prince documented in this encounter Plan of Treatment Upcoming Encounters Date Type Department Care Team (Late st Contact Info) Description 09/08/2025 2:00 PM ORAL SURGERY PHYSICIAN Office Visit [facility] - ACOUSTIC INTELLIGENCE SPECIALIST [address] [facility] [address] [place] [address] Tania Granger APRN-CNP [address] [facility] [address] [place] [address] documented as of this encounter Visit Diagnoses Diagnosis Seizure-like activity (HCC)- Primary Other convulsions documented in this encounter Care Teams Nursing Clinical Director Relationship Specialty Start Date End Date Shannan Brooks PA-C PCP - General 08/03/22 documented as of this encounter
--- OUTSIDE RECORDS SUMMARY | 2024-10-06 21:44 | XMS_ITS | Encounter Summary ---
Author Organization [facility] Address [address] [place] [address] Care Team Providers Care Petroleum Refining Equipment Operator Name Role Phone Shannan Brooks PA-C Primary Care Provider [phone] Reason for Visit * Reason Comments Skin Lesion ON LEG * Evaluate (Urgent) - Closed Specialty Diagnoses / Procedures Referred By Filipe dorsey Referred To Contact Dermatology Diagnoses Skin lesion of left leg Shannan Brooks PA-C [address] [place] [address] [facility] [address] [place] [phone] Referral ID Status Reason Start Date Expiration Date V isits Requested Visits Authorized [id number] Closed Specialty Services Required 10/01/2022 10/01/2023 1 1 Encounter Details Date Type Department Care Team (Late st Contact Info) Description 02/08/2023 12:50 PM CDT Office Visit [facility] [address] [place] [phone] Shannan Brooks PA-C [address] [place] [address] Sudhir Velez MD [address] [place] [address] [place] [address] Neoplasm of uncertain behavior of skin (Primary Dx); Periorificial dermatitis; Acne vulgaris Social History Tobacco Use Types Packs/Day Years Used Date Smoking Tobacco: Never Smokeless Tobacco: Never Alcohol Use Standard Drinks/Week Comments Yes 0 (1 standard drink = 0.6 oz pur e alcohol) PHQ-2 Answer Date Recorded PHQ2 TOTAL SCORE 1 09/20/2022 Sex and Gender Information Value Date Recorded Sex Assigned at Not on file Gender Identity Not on file Sexual Orientation Not on file documented as of this encounter Patient Instructions * Patient Instructions* Rod Pena MD - 02/08/2023 1:25 PM CDT Thank you for visiting the [facility] today! Please continue the following instructionsas we discussed in clinic today: 1) For your face we recommend starting a topical medication called Finacea. 2) For the spot on your benson we did a biopsy today. The wound care instructions are below. Please return to clinic in 6 months WOUND CARE INSTRUCTIONS If you have a bandage, please leave your bandage on overnight. Starting the next day, cleanse your wound with mild soap and water and gently pat dry. Avoid soaking in bath or dishwater. Apply petroleum jelly to the wound after cleaning the wound and, as needed, throughout the day to keep the area moist and prevent a scab from forming. Cover the wound with a Band-Aid or appropriate dressing. For pain, you may take acetaminophen (extra or regular strength), 2 tablets every four hours as needed for pain. Do not exceed the recommended limit on the directions. Avoid ibuprofen containing products or related products(Motrin, Advil, Aleve, aspirin, etc) unless prescribed by your physician. Avoid any trauma of activity that may open your surgical wound. Suture removal for punch biopsies: Stitches that don???t dissolve will need to be removed. A health care provider can remove them, or you can do it yourself. Follow the schedule below for the removal of stitches: -For the face--5 to 7 days after the biopsy -For the trunk, arms, and legs--10 to 14 days after the biopsy -For the scalp--7 to 10 days after the biopsy Suture removal for other excisions or other procedure: Have your stitches removed in 10-14 days. If you plan to have your stitches removed at [facility], please make an appointment for a nursing visit accordingly. If you have not received your biopsy results in two weeks, contact your physician. Notify your physician if you have: Bleeding that does not stop after 20 minutes of continuous pressure. Yellowish/greenish discharge from the treated area Increasing tenderness or pain Warmth of the area and/or fever over 101 F Red streaks up the arm or leg close to the treated area documented in this encounter Progress Notes * Rod Pena MD - 02/08/2023 1:05 PM CDT Chief Complaint Patient presents with ??? Skin Lesion ON LEG HPI: Aziza Espinosa a 37 year old female presents for Skin Lesion. New Patient Concerns: 1. Patient has a lesion on her left benson that has been present for over a year. It is tender after any minor trauma to the area. She will get a zinging sensation up her leg. It has been stable in size. 2. She also has an eruption on her face after starting zonisamide a few months ago. She thought it was seborrheic dermatitis and started using over the counter miconazole cream. She has tried other over the counter eczema products. Nothing has helped. She feels like it is progressing and now involving her eyelids. Personal history of skin cancer: None ROS: No other skin complaints Allergies and medications were reviewed and verified. Past medical history, social history and family history were reviewed. PE: ??? No acute distress. ??? Mood clear/affect appropriate. ??? Alert and oriented. ??? Mucous membranes moist, lips free of lesions. ??? Sclera anicteric, conjunctiva clear. Skin exam was conducted to include the: right and left hands and forearms, right and left leg and feet and was normal with the following exceptions: - On the left mid benson is a ~0.5 cm mobile firm subcutaneous nodule -On the face sparing the Sandra border, but involving the nasolabial creases and the forehead are multiple pink monomorphic papules A/P: Aziza was seen today for skin lesion. 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 - azelaic acid (Finacea) 15 % gel; Apply to affected areas on the face daily. 30 days supply. - Stop all other products to the face RTC 6 months MDM based billing (click SLUBillingGuide for U smart form; click LOSAble PlanetAMB for Epic TIME based billing). SluBillingGuide Coding Rationale New or est? New Patient Highest problem complexity: 1 or more chronic illnesses with exacerbation, progression, or side effects of treatment Highest level of risk: Moderate Suggested code: 69408 Rod Pena MD U Dermatology Resident PGY3 * Sudhir Velez MD - 02/08/2023 1:05 PM CDT I have seen and examined the patient with the resident and I agree with the findings and plan of care as documented by the resident. Please see note for further details. I was always immediately available. I confirm history, exam, assessment and plan with no exceptions/additions unless otherwise noted: CC: lesion HPI: Lesion L benson present for over a year. It is tender after any minor trauma to the area. Can get a zinging sensation up her leg. Has hx breakouts. Face. Prior trt/hx: -2nd mirena IUD placed early 2019 -zonisamide 1st disp 11/22/22 -02/08/23: Active, tamela noticed after starting zonisamide. Thought it was sandy derm, started OTC miconazole cr & prob HCZ; nothing has helped, thinks progressing & now inv eyelids. Wears mask at work--might aggravate it. PE: many pinkish fairly monomorphic papules variably grouped perioral distribution (spares vermilion), alar crease, perioc >>forehead; scarring, closed comedones chin Plan: Breakouts: features of periorificial derm, rosacea, acne vulgaris (tamela chin) Rx finacea gel bid Avoid topical steroids - ROS: No recent relevant illnesses/fevers or other skin complaints except noted otherwise. Relevant past medical history, social history and family history were reviewed, no changes or remarkable points unless otherwise noted. Occupational therapist Ovarian neoplasm, sz, depr/anx, PE: Gen: Alert, oriented, NAD, affect appropriate, pleasant Skin: Exam of the face, eyelids, scalp, lips, neck, bilat upper extr including nails and digits, chest, back, abd, bilat lower extr examined and unremarkable unless otherwise noted below: -many pinkish fairly monomorphic papules variably grouped perioral distribution (spares vermilion),alar crease, perioc >>forehead; scarring, closed comedones chin -L benson: firm tender nodule Assessment/Plan Neoplasm of unspecified nature/uncertain beh -punch removal Breakouts: features of periorificial derm, rosacea, acne vulgaris (tamela chin) -not controlled -rx finacea gel bid -avoid topical steroids -educ condition, course, expectations, exacerbators/triggers, complications, associations, treatment options, reviewed a/e, time for effectiveness for all meds and chronic nature of condition RTC 3-6 mo Sudhir Velez MD documented in this encounter Procedure Notes * Rod Pena MD - 02/08/2023 1:56 PM CDTAssociated Order(s): PROC BIOPSY OF SKIN LESION Procedure(s): NY PUNCH BX SKIN SINGLE LESION Pre-Procedure Diagnose(s): Neoplasm of uncertain behavior of skin Risks, benefits and alternatives to punch biopsy were discussed with the patient. Verbal consent was obtained. Location: left benson Punch biopsy: 8 mm Skin prep: Alcohol Anesthesia: 0.5% bupivacaine with epinephrine Closure: 4-0 nylon suture Dressing and wound care discussed. Patient agrees to phone call for results and message if not available. Rod Pena MD Associated attestation - Sudhir Velez MD - 02/08/2023 5:02 PM CDT A procedure was performed. I was present for the romano and critical portions of any procedures performed and was readily, immediately available for the remainder of the procedure at all times. Sudhir Velez MD documented in this encounter Plan of Treatment Upcoming Encounters Date Type Department Care Team (Late st Contact Info) Description 09/08/2025 2:00 PM NURSING INFORMATICS ANALYST Office Visit [facility] - MORTGAGE UNDERWRITER [address] [place] [address] Tania Granger, LOCOMOTIVE MECHANIC-CYBER SECURITY ARCHITECT [address] [place] [address] documented as of this encounter Procedures Procedure Name Priority Date/Time Associated Diagnosis Comments NY PUNCH BX SKIN SINGLE LESION Routine 02/08/2023 1:56 PM CDT Neoplasm of uncertain behavior of skin DERMATOPATHOLOGY Routine 02/08/2023 3:33 AM CDT Neoplasm of uncertain behavior of skin documented in this encounter Results * NY PUNCH BX SKIN SINGLE LESION (02/08/2023 1:56 [...] CDT) Case Report Dermatopathology Report ? Case: [id number] ? Authorizing Provider: ??Sudhir Velez MD ? [...] characteristic determined by the Dermatopathology Laboratory at [facility], directed by Dr. Micky Singh. These tests need not be, and therefore are not, approved by the [place] Food and Drug Administration. The tests are used for clinical purposes. Billing Codes Specimen Charges Stain Charges 69490 1 3 12:09 PM CDT DERMATOPATHOLOGY LABORATORY Embedded Images 3 12:09 PM CDT DERMATOPATHOLOGY LABORATORY Pathology/Cytolo gy TISSUE SPECIMEN FROM SKIN / Unknown 02/08/2023 3:33 AM CDT 02/11/2023 5:52 AM CDT Sudhir Velez MD LAB - PATHOLOGY/CYTO LOGY ORDERABLES DERMATOPATHOLOGY LABORATORY [facility] Department of Dermatology [address], [address] [phone] documented in this encounter Visit Diagnoses Diagnosis Neoplasm of uncertain behavior of skin- Primary Periorificial dermatitis Acne vulgaris Other acne documented in this encounter Care Teams Petroleum Refining Equipment Operator Relationship Specialty Start Date End Date Shannan Brooks PA-C PCP - General 08/03/22 documented as of this encounter
--- OUTSIDE RECORDS SUMMARY | 2024-10-06 21:44 | XMS_ITS | Encounter Summary ---
Author Organization [facility] [employer] Address [address] [place] [address] Care Team Providers Care Forest Fire Fighters Dispatcher Name Role Phone Shannan Brooks PA-C Primary Care Provider Encounter Details Date Type Department Care Team (Late st Contact Info) Description 09/20/2022 1:35 PM PRODUCTION TOOL ENGINEER Video Visit [facility] [employer] [facility] Care [address] [place] [address] Lachelle Marie APRN-CNP [address] [place] [address] Referral of patient without examination or treatment Social History Tobacco Use Types Packs/Day Years [...] on file documented as of this encounter Progress Notes * Lachelle Marie APRN-CNP - 09/20/2022 2:06 PM CST Pt having symptoms of what she thinks are seizures. She has spoken to her PCP regarding this in thepast. She feels that the episodes are getting more frequent and she is concerned. Told pt to contact her pcp to discuss and go to an ER if she feels that episodes are worsening. Patient is referred out at this time. UCTION TOOL ENGINEER documented in this encounter Plan of Treatment Upcoming Encounters Date Type Department Care Team (Late st Contact Info) Description 09/08/2025 2:00 PM PRODUCTION TOOL ENGINEER Office Visit [facility] - WIRE WRAPPER MACHINE OPERATOR [address] [place] [address] Tania Granger APRN-CNP [address] [place] [address] documented as of this encounter Visit Diagnoses Diagnosis Referral of patient without examination or treatment- Primary documented in this encounter Care Teams Forest Fire Fighters Dispatcher Relationship Specialty Start Date End Date Shannan Brooks PA-C PCP - General 08/03/22 documented as of this encounter
--- OUTSIDE RECORDS SUMMARY | 2024-10-06 21:44 | XMS_ITS | Encounter Summary ---
Author Organization [facility] Address [address] [place] [address] Care Team Providers Care Industrial Eng Name Role Phone Shannan Brooks PA-C Primary Care Provider Reason for Visit * Reason Comments Establish Care Encounter Details Date Type Department Care Team (Late st Contact Info) Description 09/25/2023 3:00 PM PROCESS PUMPER Office Visit [facility] - CLINICAL ABSTRACTOR [address] [place] [address] Javi Kimble MD [address] [place] [address] Borderline epithelial neoplasm of ovary (Primary Dx) Social History Tobacco Use Types [...] Recorded Patient Health Questionnaire-2 Score 0 07/01/2023 [facility] [place] of Occupat ional Health - Occupational Stress [...] on file documented as of this encounter Last Filed Vital Signs Vital Sign Reading Time Taken Comments Blood Pressure 112/74 09/25/2023 3:06 PM PROCESS PUMPER Pulse - - Temperature - - Respiratory Rate - - Oxygen Saturation - - Inhaled Oxygen Concentration - - Weight 91.2 kg (201 lb) 09/25/2023 3:06 PM PROCESS PUMPER Height 172.7 cm (5' 8 ) 09/25/2023 3:06 PM PROCESS PUMPER Body Mass Index 30.56 09/25/2023 3:06 PM PROCESS PUMPER documented in this encounter Functional Status Functional [...] as of this encounter Progress Notes * Javi Kimble MD - 09/25/2023 3:00 PM CST [facility] SOLUTIONS CONSULTANT-Oncology New Patient Visit Subjective: History of a borderline tumor of the left ovary Referring Provider: Dr. Karie Byrd Primary Care Provider: Shannan Ring PA-C HPI: Aziza Espinosa is a 38 year old G0 female referred by Dr. Byrd for a history of a borderline tumor of the left ovary. 05/2016. The patient was treated at [facility] by Dr. 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 The patient was seen and evaluated for the appropriate timing with repeat exams and CA-125's with all being normal. The patient has presented to Dr. Byrd with complaints of mental fog affecting her daily work and life activities, possible seizures, discomfort when eating as well as generalized abdominal pain, fluid retention in her extremities, and intermittent severe migraine headaches. The patient has also noted a cessation of her menses over the past several months and this is troubling for her as well. Prior hormonal work-up was negative for PMOF. The patient is being seen to see if these have any relationship to her prior LMP diagnosis as well as to see if I am knowledgeable on who she could possibly see for these symptoms. The patient has been and is currently working with a number of specialists. She has also traveled and sought medical opinions from tertiary medical centers as well. Besides the above symptoms, the patient denies anyF/C/S, N/V, changes in her habits. She has had an indwelling IUD for and cycle control. Past Medical History: Diagnosis Date ??? Ovarian cancer (CMS/HCC) Past Surgical History: Procedure Laterality Date ??? Tympanostomy Family History Problem Relation Name Age of Onset ??? Cancer - Ovarian Mother ??? Cancer - Ovarian Maternal Grandmother ??? Cancer - Breast Paternal Grandmother Social History Socioeconomic History ??? Marital status: Single Spouse name: Not on file ??? Number of children: Not on file ??? Years of education: Not on file ??? Highest education level: Not on file Occupational History ??? Not on file Tobacco Use ??? Smoking status: Never ??? Smokeless tobacco: Never Vaping Use ??? Vaping Use: Never used Substance and Sexual Activity ??? Alcohol use: [...] No Stress: No Stress Concern Present (02/26/2023) [facility] [place] of Occupational Health - Occupational Stress Questionnaire ??? Feeling of Stress : Not at all Housing Stability: Low Risk (02/26/2023) Housing Stability Vital Sign ??? Unable to Pay for Housing in the Last Year: No ??? Number of Places Lived in the Last Year: 1 ??? Unstable Housing in the Last Year: No Current Outpatient Medications: ??? Ascorbic Acid (VITAMIN C PO), +Whole food vitamin c, Disp: , Rfl: ??? azelaic acid (Finacea) 15 % gel, Apply to affected areas on the face daily. 30 days supply., Disp: 50 g, Rfl: 3 ??? Cholecalciferol (VITAMIN D3 GUMMIES PO), , Disp: , Rfl: ??? FIBER PO, , Disp: , Rfl: ??? folic acid (Folvite) 1 MG tablet, Take 1 (one) tablet by mouth once daily (Patient not taking: Reported on 09/02/2023), Disp: 90 tablet, Rfl: 4 ??? levonorgestrel (Mirena, 52 MG,) 20 MCG/DAY IUD, Mirena 20 mcg/24 hours (8 yrs) 52 mg intrauterine device Take 1 device as needed by intrauterine route for 1 day., Disp: , Rfl: ??? venlafaxine XR 24hr (Effexor XR) 150 MG capsule, Take 1 (one) capsule by mouth once daily, Disp: , Rfl: ??? venlafaxine XR 24hr (Effexor XR) 75 MG capsule, venlafaxine ER 75 mg capsule,extended release 24 hr (Patient not taking: Reported on 09/02/2023), Disp: , Rfl: ??? Vyvanse 20 MG capsule, Take 1 (one) capsule by mouth every morning, Disp: , Rfl: ROS: Constitutional: Denies any mood changes, weight stable , appetite is unchanged Respiratory: Denies cough or shortness of breath Gastrointestinal: Denies abdominal pain or bloating, denies nausea, vomiting or diarrhea, reports regular bowel movements Genitourinary: Denies vaginal bleeding or discharge, denies pelvic pain, denies urinary urgency, frequency, or incontinence. Neurologic: Denies headaches or blurry vision. Psychological: No depression, No anxiety and No psychosis Endocrine: denies hot flashes, night sweats, mood changes Objective Vitals: 09/25/23 1506 BP: 112/74 Weight: 91.2 kg (201 lb) Height: 1.727 m (5' 8 ) Estimated body mass index is 30.56 kg/m?? as calculated from the following: Height as of this encounter: 1.727 m (5' 8 ). Weight as of this encounter: 91.2 kg (201 lb). Results Review: CT A/P: (09/24/2023) Findings: ?? Lower Chest: Normal. ?? Liver: Normal. ?? Gallbladder and Bile Ducts: Normal. ?? Spleen: Normal. ?? Pancreas: Normal. ?? Adrenals: Normal. ?? Kidneys: Normal. ?? Gastrointestinal: The stomach and visualized loops of large and small bowel are unremarkable. Normal appendix. ?? Mesentery/Peritoneum/Retroperitoneum: Small volume free fluid in the pelvis. ?? Bladder: Normal. ?? Reproductive Organs: An IUD is present. ?? Vasculature: No vascular abnormality is present. ?? Bones: Bone windows demonstrate no suspicious lytic or blastic lesions. The visible osseous structures are intact. ?? Soft tissues: Normal. Impression: Small volume free fluid in the pelvis, nonspecific. Otherwise no significant abnormality identified. Pelvic US: (09/24/2023) FINDINGS: ?? The distended urinary bladder is normal with normal wall thickness, providing a proper window to pelvic structures on the transabdominal imaging. The anteverted uterus is normal in the transabdominal images. The adnexa are unremarkable. ?? In the endovaginal images, the myometrium is normal and the cervix is closed. An IUD is in proper position in the uterine cavity. The uterine cavity and cervical canal are otherwise unremarkable without fluid content. There is a 0.9 x 0.7 x 0.8 cm nabothian cysts in the cervix. The thickness of endometrial stripe is normal and the endometrial stripe demonstrates homogeneous appearance. ?? The left ovary is not identified consistent with the surgical history. In the endovaginal images, the right ovary demonstrates normal flow on color Doppler and spectral Doppler images. There is an anechoic cysts in the right ovary measuring 3.4 x 2.2 x 3.3 cm without evidence of an associated flow in color Doppler images. ?? There is small volume free fluid in the cul-de-sac. ?? Measurements: Uterus: 8.6 x 3.0 x 4.4 cm Thickness of endometrial stripe: 4 mm Right ovary: 5.8 x 2.8 x 5.3 cm Left ovary: Surgically absent. IMPRESSION: ?? 1. Normal uterus. An IUD is in proper location in the uterine cavity. 2. Incidental finding of a subcentimeter nabothian cysts. 3. A 3.4 x 2.2 x 3.3 cm right ovarian cysts. Follow-up pelvic ultrasound in 6 weeks is recommended to document resolution of this possibly follicular cyst. 4. Physiologic volume of free fluid in the cul-de-sac. Physical Exam: Deferred after discussing with the patient Assessment/Plan 1) History of a borderline tumor of the ovary: Currently there is no evidence of a recurrence of her borderline tumor. I encouraged the patient to get her CA-[address] Byrd. The US demonstrates physiologic cysts on the right ovary and these are not concerning. I will look out for the CA-125 result and get back with the patient. If the CA-125 has risen from February, we can consider a repeat exam, pelvic US, and CA-125 in 3 months. I informed the patient that I would be happy to arrangethat once we have the results. 2) Amenorrhea with an IUD: I suspect that this is an effect of her IUD and stabilization of her endometrium. Her current laboratory studies do not demonstrate premature ovarian failure and she has noobvious signs of hypoestrogenemia. If the lack of a menstrual cycle is a ongoing concern, one couldremove the IUD and see if she re-initiates her cycle. 3) Multitude of symptoms that are currently not explained. The patient has had COVID twice and I amwondering if such symptoms could be related to long COVID. Unfortunately, I am not aware of anotherspecialist that I would refer her to as she is already seeing the ones that I would suggest. I haveencouraged the patient to keep seeking answers to her questions but also I am empathetic that I really do not know what could be causing these symptoms as these are well outside my scope of knowledge. I reassured her that I do not believe this is related to her prior diagnosis of LMP tumor of the left ovary nor do I believe she has a new tumor causing symptoms on her right ovary. Total time spent in patient care on day of service: 30 minutes of which all of this was in questioning and counseling the patient after extensively reviewing her records and laboratory studies. ESS PUMPER documented in this encounter Plan of Treatment Upcoming Encounters Date Type Department Care Team (Late st Contact Info) Description 09/08/2025 2:00 PM PROCESS PUMPER Office Visit [facility] - CLINICAL ABSTRACTOR [address] [place] [address] Tania Granger APRN-TAR POT WORKER [address] [place] [address] documented as of this encounter Visit Diagnoses Diagnosis Borderline epithelial neoplasm of ovary- Primary documented in this encounter Care Teams Industrial Eng Relationship Specialty Start Date End Date Shannan Brooks PA-C PCP - General 08/03/22 documented as of this encounter
--- OUTSIDE RECORDS SUMMARY | 2024-10-06 21:44 | XMS_ITS | Encounter Summary ---
Author Organization [facility] Address [address] [place] [address] Care Team Providers Care Team Assembly Line Machine Operator Name Role Phone Cecilia Shannan Graham PA-C Primary Care Provider Reason for Visit * Reason Onset Date Comments Follow-up 02/04/2023 Left message let ting pt know I would send her another mychart message with the dx code and cpt code for her to contact her insurance for an estimated cost for her EMU. Encounter Details Date Type Department Care Team ([facility] Contact Info) Description 02/04/2023 Telephone [facility] [address] [phone] Theresa Nowak RN Follow-up (Left message letting pt know I would send her another mychart message with the dx code and cpt code for her to contact her insurance for an estimated cost for her EMU.) Social History Tobacco Use Types Packs/Day Years [...] on file documented as of this encounter Plan of Treatment Upcoming Encounters Date Type Department Care Team ([facility] Contact Info) Description 09/08/2025 2:00 PM GENERATOR OPERATOR Office Visit [facility] - INSERT OPERATOR [address] [place] [address] Tania Granger, OFFICE SUPERVISOR-CAR FERRIER [address] [place] [address] documented as of this encounter Visit Diagnoses Not on filedocumented in this encounter Care Teams Team Assembly Line Machine Operator Relationship Specialty Start Date End Date Shannan Brooks PA-C PCP - General 08/03/22 documented as of this encounter
--- OUTSIDE RECORDS SUMMARY | 2024-10-06 21:44 | XMS_ITS | Encounter Summary ---
Author Organization [facility] Address [address] [place] [address] Care Team Providers Care Mental Health Unit Lead Psychologist Name Role Phone Shannan Brooks PA-C Primary Care Provider Reason for Visit * Reason Comments Follow-up Encounter Details Date Type Department Care Team (Latest Contact Info) Description 05/14/2023 2:40 PM CDT Office Visit [facility] - Dermatology [address] [place] [address], [facility] [place] [phone] Sudhir Velez MD [address] [place] [address] [place] [address] Periorificial dermatitis (Primary Dx); Acne vulgaris Social History Tobacco Use Types [...] Date Recorded PHQ2 TOTAL SCORE 1 09/20/2022 [facility] of Occupat ional Health - Occupational Stress [...] place to sleep or slept in a alf (including now)? No 02/26/2023 Sex and Gender [...] No 02/26/2023 documented as of this encounter Patient Instructions * Patient Instructions* Sudhir Rao MD - 05/14/2023 3:07 PM CDT Rec OTC differin/adapalene gel 0.1%, continue finacea daily RTC 12m documented in this encounter Progress Notes * Sudhir Rao MD - 05/14/2023 2:54 PM CDT Chief Complaint Patient presents with ??? Follow-up HPI: Aziza Espinosa a 38 year old female presents for Follow-up. 02/08/23 Occupational Therapist in [place] Concerns: 1) Periorificial dermatitis/acne excoriae - Chronic, mouth and nose - Using finacea gel infrequently - Thinks being in the sun and less stress has cleared skin She is happy with improvement 02/08/23: biopsy of L benson: angioleiomyoma Personal history of skin cancer: None ROS: [...] and was normal with the following exceptions: -On the face sparing the [place] border, but involving the nasolabial creases and the forehead are multiple pink monomorphic papules -Excoriated aceniform papules on cheeks and chin A/P: Aziza was seen today for skin lesion. 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 - Continue azelaic acid (Finacea) 15 % gel; Apply to affected areas on the face daily. 30 days supply. Acne excoriaee -counseled on PIH and trying to decrease picking behavior -r/t her ADHD and OCD in her mind -recc OTC differin gel 0.1% RTC 12 months Sudhir Rao MD Dermatology Resident, PGY-4 * Sudhir Velez MD - 05/14/2023 2:53 PM CDT I have seen and examined the patient with the resident and I agree with the findings and plan of care as documented by the resident. Please see note for further details. I was always immediately available. I confirm history, exam, assessment and plan with no exceptions/additions unless otherwise noted: CC: eruptions HPI: Has hx breakouts-- features of periorificial derm (POD), rosacea, acne vulgaris Face. Prior trt/hx: -2nd mirena IUD placed [...] Rx finacea gel bid Avoid topical steroids -05/14/23: POD much better. Finacea helpful, not using as much now; had episode where it was really irritating while out sweatyw/ sunglasses pressing face. Acne not contr, more active higher on face, tends to pick at it. Says skin can be sensitive, unsure if ever used tretinoin. PE: comedones face, tamela chin, lat face, jaw; scattered acneiform dark pink macules, variably healing papules Plan: POD controlled, AV not Finacea gel bid, use all over Rec OTC adap/differin up to qhs; can rx tret cr low potency if irritating or not effective - L benson lesion: -02/08/23: often painful: punch removal: L benson: angioleiomyoma -05/14/23: healed great, no longer hurts - ROS: No recent relevant illnesses/fevers or other skin complaints except noted otherwise. Relevant past medical history, social history and family history were reviewed, no changes or remarkable points unless otherwise noted. Occupational therapist Ovarian neoplasm, sz, depr/anx, PE: Gen: Alert, oriented, NAD, affect appropriate, pleasant Skin: Exam of the face, eyelids, scalp, lips, neck, bilat upper extr including nails and digits, bilat lower extr examined and unremarkable unless otherwise noted below: -mild erythema alar creases -comedones face, tamela chin, lat face, jaw; scattered acneiform dark pink macules, variably healing papules -L benson: flat soft scar Assessment/Plan Breakouts: features of periorificial derm, rosacea, acne vulgaris (tamela chin) -POD controlled, AV not - finacea gel bid, use all over -rec OTC adap/differin up to qhs ; can rx tret cr low potency if irritating or not effective -avoid topical steroids -educ condition, course, expectations, exacerbators/triggers, complications, associations, treatment options, reviewed a/e, time for effectiveness for all meds and chronic nature of condition RTC 1 year Sudhir Velez MD documented in this encounter Plan of Treatment Upcoming Encounters Date Type Department Care Team (Late st Contact Info) Description 09/08/2025 2:00 PM ICT SALES REPRESENTATIVE Office Visit [facility] - ROOM MANAGER [address] [place] [address] Tania Granger, MACEY-LEIGHANN [address] [place] [address] documented as of this encounter Visit Diagnoses Diagnosis Periorificial dermatitis- Primary Acne vulgaris Other acne documented in this encounter Care Teams Mental Health Unit Lead Psychologist Relationship Specialty Start Date End Date Shannan Brooks PA-C PCP - General 08/03/22 documented as of this encounter
--- OUTSIDE RECORDS SUMMARY | 2024-10-06 21:44 | XMS_ITS | Encounter Summary ---
Author Organization [facility] Address [address] [place] [address] Care Team Providers Care Roentgenologist Name Role Phone Shannan Brooks PA-C Primary Care Provider Encounter Details Date Type Department Care Team (Latest Contact Info) Description 10/16/2022 Travel Social History Tobacco Use Types Packs/Day [...] was confirmed or suspected to have Coronavirus/COVID-19? Unable to assess 10/16/2022 9:[address] CHANGE ROOF BOLTER documented as of this encounter Plan of Treatment Upcoming Encounters Date Type Department Care Team (Late st Contact Info) Description 09/08/2025 2:[address] CHANGE ROOF BOLTER Office Visit [facility] - PSYCHOLOGIST CHIEF [address] [facility] [facility] [address] [place] [address] Tania Granger APRN-LEIGHANN [address] [facility] [address] [place] [address] documented as of this encounter Visit Diagnoses Not on filedocumented in this encounter Care Teams Roentgenologist Relationship Specialty Start Date End Date Shannan Brooks PA-C PCP - General 08/03/22 documented as of this encounter
--- OUTSIDE RECORDS SUMMARY | 2024-10-06 21:44 | XMS_ITS | Encounter Summary ---
Author Organization [facility] Address [address] [place] [address] Care Team Providers Care Tax Investigator Name Role Phone Shannan Brooks PA-C Primary Care Provider Encounter Details Date Type Department Care Team (Latest Contact Info) Description 09/24/2022 Travel Social History Tobacco Use Types Packs/Day [...] suspected to have Coronavirus/COVID-19? No / Unsure 09/24/2022 4:48 PM ART GLASS DESIGNER documented as of this encounter Plan of Treatment Upcoming Encounters Date Type Department Care Team (Late st Contact Info) Description 09/08/2025 2:00 PM ART GLASS DESIGNER Office Visit [facility] - APPLICATIONS SYSTEMS ANALYST [address] [facility] [address] [place] [address] Tania Granger APRN-LEIGHANN [address] [facility] [address] [place] [address] documented as of this encounter Visit Diagnoses Not on filedocumented in this encounter Care Teams Tax Investigator Relationship Specialty Start Date End Date Shannan Brooks PA-C PCP - General 08/03/22 documented as of this encounter
--- OUTSIDE RECORDS SUMMARY | 2024-10-06 21:44 | XMS_ITS | Encounter Summary ---
Author Organization [facility] Address [address] [facility] [place] [address] Care Team Providers Care It Director Name Role Phone Shannan Brooks PA-C Primary Care Provider [phone] Encounter Details Date Type Department Care Team (Latest Contact Info) Description 09/02/2023 Travel Social History Tobacco Use Types Packs/Day [...] Recorded Patient Health Questionnaire-2 Score 0 07/01/2023 [facility] [place] of Occupat ional Health - Occupational Stress [...] place to sleep or slept in a prison (including now)? No 02/26/2023 Sex and Gender [...] st Contact Info) Description 09/08/2025 2:00 PM RAD TECH Office Visit [facility] - RECORDS ANALYST [address] [facility] [address] [place] [address] Tania Granger, MACEY-LEIGHANN [address] [facility] [address] [place] [address] documented as of this encounter Visit Diagnoses Not on filedocumented in this encounter Care Teams It Director Relationship Specialty Start Date End Date Shannan Brooks PA-C PCP - General 08/03/22 documented as of this encounter
--- OUTSIDE RECORDS SUMMARY | 2024-10-06 21:44 | XMS_ITS | Encounter Summary ---
Author Organization [facility] Address [address] [facility] [place] [address] Care Team Providers Care Cash Register Servicer Name Role Phone Shannan Brooks PA-C Primary Care Provider Reason for Visit * Radiology Services (Routine) - Closed Specialty Diagnoses / Procedures Referred By Contac t Referred To Contact MRI Diagnoses Absence seizure with autonomic component (HCC) Procedures MRI BRAIN WWO CONTRAST Shannan Brooks PA-C [address] [place] [address] [facility] Mri [address] [place] [address] Referral ID Status Reason Start Date Expiration Date Visits Re quested Visits Authorized [id number] Closed 09/21/2022 09/21/2023 1 1 Encounter Details Date Type Department Care Team (Late st Contact Info) Description 10/04/2022 5:30 PM RN HOSPICE - 10/04/2022 11:59 PM RN HOSPICE Hospital Encounter [facility] MRI [address] [place] [address] Shannan Brooks PA-C [address] [place] [address] Discharge Disposition: Home or Self Care Social History Tobacco Use Types Packs/Day [...] Coronavirus/COVID-19? No / Unsure 09/24/2022 4:48 PM RN HOSPICE documented as of this encounter Medications at Time of Discharge Medication Sig Dispensed Refills Start Date End Date Cholecalciferol (VITAMIN D3 GUMMIES PO) FIBER PO Take by mouth as needed venlafaxine XR 24hr (Effexor XR) 150 MG capsule Take 1 (one) capsule by mouth once daily 07/19/2022 levonorgestrel (Mirena, 52 MG,) 20 MCG/DAY IUD Mirena 20 mcg/24 hours (8 yrs) 52 mg intrauterine device Take 1 device as needed by intrauterine route for 1 day. 09/07/2024 venlafaxine XR 24hr (Effexor XR) 75 MG capsule venlafaxine ER 75 mg capsule,extended release 24 hr 09/07/2024 Vyvanse 20 MG capsule Take 1 (one) capsule by mouth every morning 07/31/2022 09/07/2024 documented as of this encounter Plan of Treatment Upcoming Encounters Date Type Department Care Team (Late st Contact Info) Description 09/08/2025 2:00 PM RN HOSPICE Office Visit [facility] - NAIL EXPERT [address] [facility] [address] [place] [address] Tania Granger, BEVEL FACE STONER AND POLISHER-LEIGHANN [address] [facility] [facility] [facility] [facility] [address] [place] [address] documented as of this encounter Procedures Procedure Name Priority Date/Time Associated Diagnosis Comments MRI BRAIN WWO CONTRAST Routine 10/04/2022 6:21 PM RN HOSPICE Absence seizure with autonomic component (HCC) CREATININE - POCT INTERFACED Routine 10/04/2022 5:50 PM RN HOSPICE documented in this encounter Results * MRI BRAIN WWO CONTRAST (10/04/2022 6:21 PM RN HOSPICE) Anatomical Region Laterality Modality Head Magnetic Resonan ce 10/07/2022 4:46 PM RN HOSPICE Impressions 10/07/2022 7:25 PM RN HOSPICE IMPRESSION: 1. No evidence of acute intracranial findings or abnormal enhancement. > Interpreting Provider: Destini Gay MD on 10/07/2022 7:25 PM Narrative 10/07/2022 7:25 PM RN HOSPICE PROCEDURE: ??MRI BRAIN WWO CONTRAST, DATE/TIME OF EXAM: ??10/04/2022 6:21 PM, LOCATION ??[facility] INDICATION: G40.A09: Absence seizure [...] CONTRAST, DATE/TIME OF EXAM: 10/04/2022 6:21PM, LOCATION [facility] INDICATION: G40.A09: Absence seizure [...] 7:25 PM Shannan Brooks PA-C MR ORDERABLES * CREATININE - POCT INTERFACED (10/04/2022 5:50 PM RN HOSPICE) Creatinine POCT 0.57 0.30 - 1.30 mg/dL 10/04/2022 5:53 PM RN HOSPICE [facility] eGFR >90 >90 mL/min/1.7 3 m2 10/04/2022 5:53 PM RN HOSPICE [facility] Blood BLOOD SPECIMEN / Unknown 10/04/2022 5:50 PM RN HOSPICE 10/04/2022 5:53 PM RN HOSPICE Shannan Brooks PA-C LAB - POINT OF CARE ORDERABLES [address] [address], [facility] [phone] documented in this encounter Visit Diagnoses Diagnosis Absence seizure with autonomic component (HCC) documented in this encounter Administered Medications Inactive Administered Medications - up to 3 most recent administrations Medication Order MAR Action Action Date Dose Rate Site gadobutrol (Gadavist) injection Intravenous, CONTRAST ONCE, Starting on Betsy 10/04/22 at 1805, Until 10/05/22 at 0145 $ Given - Contrast 10/04/2022 6:12 PM RN HOSPICE 8 mL documented in this encounter Care Teams Cash Register Servicer Relationship Specialty Start Date End Date Shannan Brooks PA-C PCP - General 08/03/22 documented as of this encounter
--- OUTSIDE RECORDS SUMMARY | 2024-10-06 21:44 | XMS_ITS | Encounter Summary ---
Author Organization [facility] Health Address [address] [facility] [place] [address] Care Team Providers Care Call Center Assistant Name Role Phone Shannan Brooks PA-C Primary Care Provider Encounter Details Date Type Department Care Team (Latest Contact Info) Description 03/19/2023 Travel Social History Tobacco Use Types Packs/Day [...] Date Recorded PHQ2 TOTAL SCORE 1 09/20/2022 [facility] [place] of Occupat ional Health - Occupational Stress [...] suspected to have Coronavirus/COVID-19? No / Unsure 03/19/2023 3:29 PM CDT documented as of this encounter Functional Status [...] st Contact Info) Description 09/08/2025 2:00 PM SENIOR PRODUCTION PLANNER Office Visit [facility] - INFECTION CONTROL NURSE [address] [address] Tania Granger, CROSSING FLAGMAN-PARTS SALES MANAGER [address] [facility] [address] [place] [address] documented as of this encounter Visit Diagnoses Not on filedocumented in this encounter Care Teams Call Center Assistant Relationship Specialty Start Date End Date Shannan Brooks PA-C PCP - General 08/03/22 documented as of this encounter
--- OUTSIDE RECORDS SUMMARY | 2024-10-06 21:44 | XMS_ITS | Encounter Summary ---
Author Organization [facility] Health Address [address] [facility] [place] [address] Care Team Providers Care Fraternity House Cook Name Role Phone Shannan Brooks PA-C Primary Care Provider Encounter Details Date Type Department Care Team (Latest Contact Info) Description 09/24/2023 Travel Social History Tobacco Use Types Packs/Day [...] Recorded Patient Health Questionnaire-2 Score 0 07/01/2023 [facility] [place] of Occupat ional Health - Occupational Stress [...] st Contact Info) Description 09/08/2025 2:00 PM JEWELRY REPAIRER Office Visit [facility] - TAIL END RIDER [address] [facility] [address] [place] [address] Tania Granger, MACEY-LEIGHANN [address] [facility] [address] [place] [address] documented as of this encounter Visit Diagnoses Not on filedocumented in this encounter Care Teams Fraternity House Cook Relationship Specialty Start Date End Date Shannan Brooks PA-C PCP - General 08/03/22 documented as of this encounter
--- OUTSIDE RECORDS SUMMARY | 2024-10-06 21:44 | XMS_ITS | Encounter Summary ---
Author Organization [facility] Health Address [address] [facility] [place] [address] Care Team Providers Care Swine Extension Field Specialist Name Role Phone Shannan Brooks PA-C Primary Care Provider Encounter Details Date Type Department Care Team (Latest Contact Info) Description 03/04/2023 Travel Social History Tobacco Use Types Packs/Day [...] Date Recorded PHQ2 TOTAL SCORE 1 09/20/2022 [facility] [place] of Occupat ional Health - Occupational Stress [...] place to sleep or slept in a detention (including now)? No 02/26/2023 Sex and Gender [...] AM CDT documented as of this encounter Functional [...] st Contact Info) Description 09/08/2025 2:00 PM DISASSEMBLER Office Visit [facility] - MUTUAL FUND MANAGER [address] [address] Tania Granger, DERRICK BOAT OPERATOR-KENNEL KEEPER [address] [facility] [address] [place] [address] documented as of this encounter Visit Diagnoses Not on filedocumented in this encounter Care Teams Swine Extension Field Specialist Relationship Specialty Start Date End Date Shannan Brooks PA-C PCP - General 08/03/22 documented as of this encounter
--- OUTSIDE RECORDS SUMMARY | 2024-10-06 21:44 | XMS_ITS | Encounter Summary ---
Author Organization [facility] Address [address] [place] [address] Care Team Providers Care Precision Lens Technician Name Role Phone Shannan Brooks PA-C Primary Care Provider Reason for Visit * Reason Comments Well Women Exam Encounter Details Date Type Department Care Team (Late st Contact Info) Description 08/27/2022 3:15 PM JUNIOR ARCHITECT Office Visit [facility] Gynecology and Women's Health [address] [place] [address] Karie Byrd MD [address] [phone] Well woman exam with routine gynecological exam (Primary Dx); History of ovarian cancer Social History Tobacco Use Types Packs/Day Years Used Date Smoking Tobacco: Never Smokeless Tobacco: Never Tobacco Cessation:Counseling Given: Not Answered Alcohol Use Standard Drinks/Week Comments Yes 0 (1 standard drink = 0.6 oz pur e alcohol) PHQ-2 Answer Date Recorded PHQ2 TOTAL SCORE 2 08/24/2022 Sex and Gender Information Value Date Recorded Sex Assigned at Not on file Gender Identity Not on file Sexual Orientation Not on file documented as of this encounter Last Filed Vital Signs Vital Sign Reading Time Taken Comments Blood Pressure 124/84 08/27/2022 3:30 PM JUNIOR ARCHITECT Pulse 79 08/27/2022 3:30 PM JUNIOR ARCHITECT Temperature - - Respiratory Rate - - Oxygen Saturation 97% 08/27/2022 3:30 PM JUNIOR ARCHITECT Inhaled Oxygen Concentration - - Weight 84.4 kg (186 lb) 08/27/2022 3:30 PM JUNIOR ARCHITECT Height 172.7 cm (5' 8 ) 08/27/2022 3:30 PM JUNIOR ARCHITECT Body Mass Index 28.28 08/27/2022 3:30 PM JUNIOR ARCHITECT documented in this encounter Progress Notes * Karie Byrd MD - 08/27/2022 3:46 PM CST Images from the original note were not included. New General compliance technician Patient Progress Note History of Present Illness: Ms. Espinosa is a 37 year old female who presents for annual well woman exam. Feels like hormones are all over the place. Period has been getting costume draper. This is her second Mirena IUD, placed in beginning of 2019. 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 Hadbeen following with [facility] oncology until she changed insurances. She is not having any pain/bloating/changes to bowel/bladder habits. Gynecologic history: Menses getting costume draper Pap smear history: denies history abnormal STI history: desires swabs Obstetrical history: OB History Para Term AB Living 0 0 0 0 0 0 SAB IAB Ectopic Multiple Live Births 0 0 0 0 0 Medical history: Past Medical History: Diagnosis Date ??? Ovarian cancer (CMS/HCC) Surgical history: Past Surgical History: Procedure Laterality Date ??? Tympanostomy Social history: Social History Socioeconomic History ??? Marital status: [...] Social Determinants of Health Financial Resource Strain: Not on file Food Insecurity: Not on file Transportation Needs: Not on file Physical Activity: Not on file Stress: Not on file Social Connections: Not on file Intimate Partner Violence: Not on file Housing Stability: Not on file Family History Problem Relation Name Age of Onset ??? Cancer - Ovarian Mother ??? Cancer - Ovarian Maternal Grandmother ??? Cancer - Breast Paternal Grandmother Medications: Current Outpatient Medications Medication Sig Dispense Refill ??? Cholecalciferol (VITAMIN D3 GUMMIES PO) ??? FIBER PO ??? levonorgestrel (Mirena, 52 MG,) 20 MCG/DAY [...] for this visit. Allergies: No Known Allergies Review of Systems All other systems reviewed and are negative. Physical examination: Vitals: 08/27/22 1530 BP: 124/84 Pulse: 79 SpO2: 97% Weight: 186 lb Height: 5' 8 Body mass index is 28.28 kg/m??. Physical Exam Constitutional: General: She is not in acute distress. Appearance: Normal appearance. She is not ill-appearing. HENT: Head: Normocephalic and atraumatic. Nose: Nose normal. Eyes: Extraocular Movements: Extraocular movements intact. Pulmonary: Effort: Pulmonary effort is normal. Chest: Breasts: Right: No swelling, bleeding, inverted nipple, mass, nipple discharge, skin change or tenderness. Left: No swelling, bleeding, inverted nipple, mass, nipple discharge, skin change or tenderness. Genitourinary: General: Normal vulva. Labia: Right: No rash, tenderness, lesion or injury. Left: No rash, tenderness, lesion or injury. Urethra: No prolapse or urethral lesion. Vagina: No signs of injury. No vaginal discharge, erythema, tenderness, bleeding, lesions or prolapsed vaginal merritt. Cervix: Friability present. No cervical motion tenderness, discharge, lesion, erythema, cervical bleeding or eversion. Uterus: Not deviated, not enlarged, not fixed and not tender. Adnexa: Right: No mass, tenderness or fullness. Left: No mass, tenderness or fullness. Comments: Cervical friability present, IUD strings seen Musculoskeletal: Cervical back: Normal range of motion. Lymphadenopathy: Upper Body: Right upper body: No supraclavicular, axillary or pectoral adenopathy. Left upper body: No supraclavicular, axillary or pectoral adenopathy. Skin: General: Skin is warm and dry. Neurological: Mental Status: She is alert and oriented to person, place, and time. Psychiatric: Behavior: Behavior normal. Assessment and Plan: Well woman exam with routine gynecological exam Pap smear performed given friability. Not yet due for mammogram. Family planning reviewed. She is currently using IUD for contraception and desires to use IUD in the future. Will check FSH/estradiol given hormonal symptoms History of ovarian cancer She reports that she had been getting CA 125 monitoring and so I have ordered this. After it returns will check in with oncology regarding additional testing or referrals if they prefer. Next visit in 1 year Karie Byrd MD OR ARCHITECT documented in this encounter Plan of Treatment Upcoming Encounters Date Type Department Care Team (Late st Contact Info) Description 09/08/2025 2:00 PM JUNIOR ARCHITECT Office Visit [facility] - ELECTRICAL TEST TECHNICIAN [address] [facility] [address] [place] [address] Tania Granger APRN-LEIGHANN [address] [place] [address] documented as of this encounter Procedures Procedure Name Priority Date/Time Associated Diagnosis Comments HPV DETECTION HIGH RISK ALESSANDRA Routine 08/27/2022 4:27 PM JUNIOR ARCHITECT Well woman exam with routine gynecological exam C. TRACHOMATIS + N. GONORRHOEAE + TRICH ALESSANDRA Routine 08/27/2022 4:27 PM JUNIOR ARCHITECT Well woman exam with routine gynecological exam PAP IMAGE-GUIDED W HPV+CT/NG+TRICH Routine 08/27/2022 4:27 PM JUNIOR ARCHITECT Well woman exam with routine gynecological exam documented in this encounter Results * C. TRACHOMATIS + N. GONORRHOEAE + TRICH ALESSANDRA (08/27/2022 4:27 PM JUNIOR ARCHITECT) Chlamydia Trachomatis ALESSANDRA Not detected Not detected 08/30/2022 8:06 AM JUNIOR ARCHITECT [facility] Neisseria Gonorrhoeae ALESSANDRA Not detected Not detected 08/30/2022 8:06 AM JUNIOR ARCHITECT [facility] Trichomonas Vaginalis ALESSANDRA Not detected Not detected 08/30/2022 8:06 AM JUNIOR ARCHITECT [facility] Pathology/Cytolo gy MISCELLANEOUS SAMPLES / Unknown 08/27/2022 4:27 PM JUNIOR ARCHITECT 08/28/2022 11:50 AM JUNIOR ARCHITECT Narrative [facility] - 08/30/2022 8:06 AM JUNIOR ARCHITECT This analysis was performed using Gen-Probe Aptima Combo 2 and Gen-Probe Aptima Assay. These methodologies are [place] FDA approved for Chlamydia trachomatis, Neisseria gonorrhoeae testing for urine and urogenital swabs from men and women, and cervical cells submitted in ThinPrep vials. Performance characteristics of testing for Trichomonas vaginalis on specimens using the Gen-Probe Aptima Trichomonas vaginalis Assay on the [place] system and rectal and pharyngeal swabs with Gen-Probe Aptima combo 2 were determined by the Molecular Diagnostics Laboratory at [facility]. ??They have not been cleared or [...] qualified to perform high complexity laboratory testing. Karie Byrd MD LAB - MICROBIOLOGY ORDERABLES [facility] [address] [facility] [place] [address], [facility] [phone] * HPV DETECTION HIGH RISK ALESSANDRA (08/27/2022 4:27 PM JUNIOR ARCHITECT) High Risk Human Papilloma Result Not detected Not detected 08/28/2022 4:38 PM JUNIOR ARCHITECT [facility] High Risk Human Papilloma Interp 08/28/2022 4:38 PM JUNIOR ARCHITECT [facility] Comment:High Risk Human Silverio lloma Virus was Not Detected. Pathology/Cytolo gy MISCELLANEOUS SAMPLES / Unknown 08/27/2022 4:27 PM JUNIOR ARCHITECT 08/28/2022 11:50 AM JUNIOR ARCHITECT Narrative [facility] - 08/28/2022 4:38 PM JUNIOR ARCHITECT Nucleic acid isolated from the specimen was [...] available data (cytology, histology, and clinical information). Karie Byrd MD LAB - MICROBIOLOGY ORDERABLES Performing Organization Address [facility]/State/[facility] dc Phone Number [facility] [address] [phone] * All inclusive PAP IG CT/NG/TV HPV (08/27/2022 4:27 PM JUNIOR ARCHITECT) Case Report Gynecologic Cytology Report ? Case: [id number] ? Authorizing Provider: ??Karie Byrd MD ?Collected: ? 08/27/2022 04:27 PM ? Ordering Location: ? [facility] ? Received: ?08/28/2022 11:50 AM ? Gynecology and Women's ? Health ? First Screen: ?Mag, Nadeem ? Specimen: ?THINPREP - IMAGE GUIDED, Cervix/Endocervix ? 08/30/2022 9:05 AM JUNIOR ARCHITECT [facility] LMP 08/22/22 08/30/2022 9:05 AM JUNIOR ARCHITECT [facility] Menstrual Status Mirena 08/30/20 9:05 AM JUNIOR ARCHITECT [facility] Specimen Adequacy Satisfactory for evaluation, endocervical/trans formation zone component present. 08/30/2022 9:05 AM JUNIOR ARCHITECT [facility] Categorization Negative for intraepithelial lesion or malignancy. 08/30/2022 9:05 AM JUNIOR ARCHITECT [facility] Interpretation WOOL SORTER Negative for intraepithelial lesion or malignancy. 08/30/2022 9:05 AM JUNIOR ARCHITECT [facility] Pap Footnote The Pap Smear is a screening test. False positive and false negative results occur. Negative results do not preclude abnormalities, thus clinical correlation is required. This specimen was evaluated by the ThinPrep Imaging System along with an additional manual rescreening by a assistant film editor and/or pathologist. 08/30/2022 9:05 AM JUNIOR ARCHITECT [facility] Embedded Images 9:05 AM JUNIOR ARCHITECT [facility] Pathology/Cytolo gy MISCELLANEOUS SAMPLES / Unknown 08/27/2022 4:27 PM JUNIOR ARCHITECT 08/28/2022 11:50 AM JUNIOR ARCHITECT Karie Byrd MD LAB - PATHOLOGY/CY TOLOGY ORDERABLES [facility] [address] Mén[address] [phone] documented in this encounter Visit Diagnoses Diagnosis Well woman exam with routine gynecological exam- Primary Routine gynecological examination History of ovarian cancer Personal history of malignant neoplasm of ovary * Assessment & Plan Note - Karie Byrd MD - 08/31/2022 1:33 PM JUNIOR ARCHITECT Associated Problem(s): History of ovarian cancer She reports that she had been getting CA 125 monitoring and so I have ordered this. After it returns will check in with oncology regarding additional testing or referrals if they prefer. OR ARCHITECT * Assessment & Plan Note - Karie Byrd MD - 08/31/2022 1:32 PM JUNIOR ARCHITECT Associated Problem(s): Well woman exam with routine gynecological exam Pap smear performed given friability. Not yet due for mammogram. Family planning reviewed. She is currently using IUD for contraception and desires to use IUD in the future. Will check FSH/estradiol given hormonal symptoms OR ARCHITECT documented in this encounter Care Teams Precision Lens Technician Relationship Specialty Start Date End Date Shannan Brooks PA-C PCP - General 08/03/22 documented as of this encounter
--- OUTSIDE RECORDS SUMMARY | 2024-10-06 21:44 | XMS_ITS | Encounter Summary ---
Author Organization [facility] Health Address [address] [facility] [place] [address] Care Team Providers Care Cooperative Education Coordinator Name Role Phone Shannan Brooks PA-C Primary Care Provider Encounter Details Date Type Department Care Team (Latest Contact Info) Description 01/14/2024 Travel Social History Tobacco Use Types Packs/Day [...] Recorded Patient Health Questionnaire-2 Score 0 07/01/2023 [facility] [place] of Occupat ional Health - Occupational Stress [...] place to sleep or slept in a penitentiary (including now)? No 02/26/2023 Sex and Gender [...] st Contact Info) Description 09/08/2025 2:00 PM PRACTICAL MINISTRIES PROFESSOR Office Visit [facility] - CHIEF CLOTH FINISHING RANGE OPERATOR [address] [facility] [address] [place] [address] Tania Granger, MACEY-LEIGHANN [address] [facility] [address] [place] [address] documented as of this encounter Visit Diagnoses Not on filedocumented in this encounter Care Teams Cooperative Education Coordinator Relationship Specialty Start Date End Date Shannan Brooks PA-C PCP - General 08/03/22 documented as of this encounter
--- OUTSIDE RECORDS SUMMARY | 2024-10-06 21:44 | XMS_ITS | Encounter Summary ---
Author Organization [facility] Address [address] [place] [address] Care Team Providers Care Air Conditioning Supervisor Name Role Phone Shannan Brooks PA-C Primary Care Provider Reason for Visit * Reason Comments Seizure Encounter Details Date Type Department Care Team (Late st Contact Info) Description 06/25/2023 3:00 PM CDT Office Visit [facility] - Neurology [address] [facility] [place] [address] Fredy Mccormick, MACEY-CARBON PASTE MIXER OPERATOR [address], [place] [id number] Seizure-like activity (HCC) (Primary Dx) Social History [...] Date Recorded PHQ2 TOTAL SCORE 1 09/20/2022 [place] [employer] - Occupational Stress [...] place to sleep or slept in a correction (including now)? No 02/26/2023 Sex and Gender Information Value Date Recorded Sex Assigned at Not on file Gender Identity Not on file Sexual Orientation Not on file documented as of this encounter Last Filed Vital Signs Vital Sign Reading Time Taken Comments Blood Pressure 113/78 06/25/2023 3:09 PM CDT Pulse 77 06/25/2023 3:09 PM CDT Temperature 36.9 ??C (98.4 ??F) 06/25/2023 3:09 PM CD T Respiratory Rate - - Oxygen Saturation 98% 06/25/2023 3:09 PM CDT Inhaled Oxygen Concentration - - Weight 95.5 kg (210 lb 8 oz) 06/25/2023 3:09 PM CDT Height 172.7 cm (5' 8 ) 06/25/2023 3:09 PM CDT Body Mass Index 32.01 06/25/2023 3:09 PM CDT documented in this encounter Functional [...] this encounter Progress Notes * Fredy Mccormick, HAND TRUCKER-CARBON PASTE MIXER OPERATOR - 06/25/2023 3:36 PM CDT Epilepsy Clinic Note PCP Shannan Ring PA-C DATE OF ENCOUNTER: 06/25/2023 CHIEF COMPLAINT: Seizures AGE OF ONSET 37 YO SEMIOLOGY - Aura: Breanne Vu, rising sensation, impending feeling, Stomach flip Duration/ frequency:30 seconds to minute / With semiology #1 only ?? - Ictus? 1. Dizzy, hot, difficult to think, searing in back and sides of head, ??needs to sit down, will cluster, No LOC, has lost time, no oral automatisms, no loss of bladder Duration/ frequency: 30 seconds - 1 minute / 1 cluster since February ?? - Post-ictus: tired, stunned Duration: 1 minute SEIZURE CONTROL Date of last seizure 1. 06/12/2023 PRE-VISIT MEDICATION Name Pill Size Frequency Total/Day [...] and asleep extended EEG. IMAGIN10/04/2022 MRI Brain [facility] Mary [facility] Impression: 1. No evidence of acute intracranial findings or abnormal enhancement. GENETIC TESTING: - CLASSIFICATION: NOS LABORATORY RESULTS CBC: Recent Labs Component Name 02/26/23 1545 WBC 5.6 HGB 13.2 PLTCOUNT 286 BMP: Recent Labs Component Name 02/26/23 1545 NA 140 CO2 22 CREATININE 0.74 LFT: Recent Labs Component Name 02/26/23 1545 AST 24 ALT 17 VITAMIN D: No results for input(s): ILJP27BT in the last 23027 hours. ASM DRUG LEVELS No results for input(s): LEVETIRACETM in the last 08950 hours. HPI: History of Epilepsy: History collected through chart review and conversations with patient. Aziza Espinosa is a 38 year old female referred to [facility] Epilepsy clinic for seizures. PMH includesanxiety, depression, [...] no injury related to her hockey playing. 03/14/2023 Patient recently completed EMU. EEG remained normal [...] sensation than stomach flipping reported as aura. Today's Visit: Patient reported breakthrough events 06/11-. These were typical semiology and even occurred out of sleep. She reports having COVID-19 infection a few weeks prior to breakthrough events. She has not had any since and denies myoclonic jerks. Also denies waking with tongue bitten or bed wet. Previously, events were thought to be associated with menstrual cycle, but lack of regular menstrualperiod has made it difficult to predict when events concerning for seizure will occur. Patient reports weight gain of ~ 30 pounds. She reports increased stress but no significant diet change. 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 Patient is presently offASMs. Patient agreeable to ambulatory EEG to try and capture event and characterize. - Continue off ASMs - Ambulatory EEG through [facility] Follow-up in 4 months or sooner if problems arise Patient agrees and voices understanding of plan of care listed above. POST-VISIT MEDICATION (Current to 06/25/2023) Name Pill Size Frequency Total/Day Level Off ASMs Patients should check with their state's DMV regarding the regulations for driving with seizures. In general, we recommend 6 months of seizure freedom and approval by the state before resuming driving. We also recommend that the patient avoid deep tub baths, operating open machinery, climbing to high places, swimming alone, using open fire or using hot objects during the same time frame that theyare not driving. Seizure precautions include no driving, no tub bathing, no solo swimming, no operating heavy machinery and no working at heights. The patient should not perform any activity in which the patient or others may be harmed if a seizure occurs. I personally spent 10 minutes on 06/25/2023 preparing to see the patient (e.g. reviewing [...] st Contact Info) Description 09/08/2025 2:00 PM BIOFUELS PRODUCTION MANAGER Office Visit [facility] [address] [facility] [address] [place] [address] Tania Granger APRN-CNP [address] [facility] [address] [place] [address] documented as of this encounter Visit Diagnoses Diagnosis Seizure-like activity (HCC)- Primary Other convulsions documented in this encounter Care Teams Air Conditioning Supervisor Relationship Specialty Start Date End Date Shannan Brooks PA-C PCP - General 08/03/22 documented as of this encounter
--- OUTSIDE RECORDS SUMMARY | 2024-10-06 21:44 | XMS_ITS | Encounter Summary ---
Author Organization [facility] Address [address] [place] [address] Care Team Providers Care Instrument/Control Technician Name Role Phone Shannan Brooks PA-C Primary Care Provider [phone] Reason for Visit * Reason Comments Establish Care Stress Dizziness Encounter Details Date Type Department Care Team (Late st Contact Info) Description 08/24/2022 9:00 AM CDT Office Visit [facility] Community [facility] [address] [facility] [place] [place] [phone] Shannan Brooks PA-C [address] [facility] [address] [place] [address] Well adult exam (Primary Dx); Fatigue, unspecified type; Ovarian cancer in remission; Moderate episode of recurrent major depressive disorder (HCC); Generalized anxiety disorder Social History Tobacco Use Types Packs/Day Years Used Date Smoking Tobacco: Never Assessed PHQ-2 Answer Date Recorded PHQ2 TOTAL SCORE 2 08/24/2022 Sex and Gender Information Value Date Recorded Sex Assigned at Not on file Gender Identity Not on file Sexual Orientation Not on file documented as of this encounter Last Filed Vital Signs Vital Sign Reading Time Taken Comments Blood Pressure 108/72 08/24/2022 9:15 AM CDT Pulse 93 08/24/2022 9:15 AM CDT Temperature - - Respiratory Rate - - Oxygen Saturation 99% 08/24/2022 9:15 AM CDT Inhaled Oxygen Concentration - - Weight 86.2 kg (190 lb) 08/24/2022 9:15 AM CDT Height 172.7 cm (5' 8 ) 08/24/2022 9:15 AM CDT Body Mass Index 28.89 08/24/2022 9:15 AM CDT documented in this encounter Progress Notes * Shannan Ring PA-C - 08/24/2022 9:09 AM CDT Aziza Espinosa is a 37 year old female who presents today for the following: Chief Complaint Patient presents with ??? Establish Care ??? Stress ??? Dizziness HPI Aziza presents today to establish care. She has a history of anxiety, depression, and ADHD. She sees a psychiatrist but has been unable to see her therapist due to cost. She sometimes feels like she is getting evelyn vu and then will become dizzy and hot. It improves after she improves. It has happened intermittently in the past 2 months. She has also been having lots of brain fog. She reports that her job is very stressful. 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 [facility]. Her menstrual cycle is every 21 days and has been spotty recently. She has not followed up in over 1 year. Weight gain She has gained 10-15 pounds despite no change in her diet and exercise routine. She tries to eat a balanced diet but does snack a lot at work. She runs, bikes, and weight lifts regularly. 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 Current Outpatient Medications: ??? Cholecalciferol (VITAMIN D3 GUMMIES PO), , Disp: , Rfl: ??? FIBER PO, , Disp: , Rfl: ??? levonorgestrel (Mirena, 52 MG,) 20 MCG/DAY [...] venlafaxine ER 75 mg capsule,extended release 24 hr, Disp: , Rfl: ??? Vyvanse 20 MG capsule, Take 1 (one) capsule by mouth every morning, Disp: , Rfl: Medications, Allergies, Problem List, Surgical History and Family History were reviewed and updatedin the Electronic Health Record based on information provided by the patient today and the existinginformation in the chart. Review of Systems Constitutional: Positive for malaise/fatigue. Negative for chills, fever and weight loss. HENT: Negative for congestion, ear discharge, ear pain, hearing loss, nosebleeds, sore throat and tinnitus. Eyes: Negative for blurred vision, double vision, photophobia, pain, discharge and redness. Respiratory: Negative for cough, sputum production, shortness of breath and wheezing. Cardiovascular: Negative for chest pain and leg swelling. Gastrointestinal: Positive for constipation. Negative for abdominal pain, blood in stool, diarrhea,heartburn, melena, nausea and vomiting. Genitourinary: Negative for dysuria, frequency and hematuria. Musculoskeletal: Negative for back pain, falls and neck pain. Skin: Negative for itching and rash. Neurological: Negative for loss of consciousness. Endo/Heme/Allergies: Negative for polydipsia. Psychiatric/Behavioral: Negative for depression. The patient is nervous/anxious. BP 108/72 Pulse 93 Ht 5' 8 (1.727 m) Wt 190 lb (86.2 kg) SpO2 99% Physical Exam Vitals reviewed. Constitutional: General: She is not in acute distress. Appearance: She is normal weight. She is not ill-appearing. HENT: Right Ear: Tympanic membrane, ear canal and external ear normal. Left Ear: Tympanic membrane, ear canal and external ear normal. Nose: Nose normal. No congestion or rhinorrhea. Mouth/Throat: Mouth: Mucous membranes are moist. Pharynx: Oropharynx is clear. No oropharyngeal exudate or posterior oropharyngeal erythema. Eyes: Extraocular Movements: Extraocular movements intact. Conjunctiva/sclera: Conjunctivae normal. Pupils: Pupils are equal, round, and reactive to light. Cardiovascular: Rate and Rhythm: Normal rate and regular rhythm. Heart sounds: Normal heart sounds. Pulmonary: Effort: Pulmonary effort is normal. No respiratory distress. Breath sounds: Normal breath sounds. Abdominal: General: Bowel sounds are normal. There is no distension. Palpations: Abdomen is soft. Tenderness: There is no abdominal tenderness. Lymphadenopathy: Cervical: No cervical adenopathy. Skin: General: Skin is warm and dry. Neurological: Mental Status: She is alert and oriented to person, place, and time. Psychiatric: Mood and Affect: Mood is anxious. Affect is tearful. Behavior: Behavior normal. ASSESSMENT AND PLAN 1. Well adult exam - COMPREHENSIVE METABOLIC PANEL; Future - LIPID PROFILE; Future - HEMOGLOBIN A1C; Future - HIV-1 HIV-2 ANTIBODY + HIV P24 AG PANEL (New on 03/06); Future - HEPATITIS C AB SCREEN RFLX NAAT QUANT; Future - Patient Counseling: --Nutrition: Stressed importance of moderation in alcohol intake and adherence to balanced diet, modeled after Mediterranean or DASH diets --Exercise: Stressed the importance of regular exercise. Encouraged goal of 150 minutes of exerciseper week --Dental health: Discussed importance of regular tooth brushing, flossing, and dental visits. --Immunizations reviewed. --Discussed benefits of preventive health screenings 2. Fatigue, unspecified type - CBC WITH DIFFERENTIAL; Future - TSH HI LOW REFLEX FREE T4; Future - VITAMIN D 1,25 DIHYDROXY; Future 3. Ovarian cancer in remission - US PELVIS W TRANSVAG NON OB; Future - Encouraged her to follow up with her oncologist as she has not been evaluated in over 1 year. 4. Moderate episode of recurrent major depressive disorder (CMS/HCC) 5. Generalized anxiety disorder - Continue venlafaxine per psychiatrist. Recommended restarting therapy. She declined referral at this time. Follow up depending on workup or as needed. Shannan Ring PA-C E BELT SANDER documented in this encounter Plan of Treatment Upcoming Encounters Date Type Department Care Team (Late st Contact Info) Description 09/08/2025 2:00 PM STONE BELT SANDER Office Visit [facility] [address] [facility] [address] [place] [address] Tania Granger, REGULAR SENIOR CARE PROVIDER-FRIT COATER [address] [facility] [address] [place] [address] documented as of this encounter Visit Diagnoses Diagnosis Well adult exam- Primary Routine general medical examination at a health care facility Fatigue, unspecified type Ovarian cancer in remission Moderate episode of recurrent major depressive disorder (HCC) Generalized anxiety disorder documented in this encounter Care Teams Instrument/Control Technician Relationship Specialty Start Date End Date Shannan Brooks PA-C PCP - General 08/03/22 documented as of this encounter
--- OUTSIDE RECORDS SUMMARY | 2024-10-06 21:44 | XMS_ITS | Encounter Summary ---
Author Organization [facility] Address [address] [place] [address] Care Team Providers Care Healthcare Social Worker Name Role Phone Shannan Brooks PA-C Primary Care Provider Reason for Visit * Reason Onset Date Comments Returned Call 12/04/2022 Pt called back. Discussed EMU referral. Pt unsure if she wants to schedule this study. She provided information about her aura and semiology. Pt was at work and will call back by the end of the week. Will f/u with her on Saturday if she hasn't reached out by then. Encounter Details Date Type Department Care Team (Late st Contact Info) Description 12/04/2022 [facility] [address] [place] [id number] Theresa Nowak, RN Returned Call (Pt called back. Discussed EMU referral. Pt unsure if she wants to schedule this study. She provided information about her aura and semiology. Pt was at work and will call back by the end of the week. Will f/u with her on Saturday if she hasn't reached out by then.) Social History Tobacco Use Types Packs/Day Years [...] st Contact Info) Description 09/08/2025 2:00 PM ORTHOPEDIC PODIATRIST Office Visit [facility] [address] [facility] [address] [place] [address] Tania Granger, MACEY-INSTRUMENT MAN [address] [facility] [address] [place] [address] documented as of this encounter Visit Diagnoses Not on filedocumented in this encounter Care Teams Healthcare Social Worker Relationship Specialty Start Date End Date Shannan Brooks PA-C PCP - General 08/03/22 documented as of this encounter
--- OUTSIDE RECORDS SUMMARY | 2024-10-06 21:44 | XMS_ITS | Encounter Summary ---
Author Organization [facility] Address [address] [place] [address] Care Team Providers Care Transfer Table Operator Name Role Phone Shannan Brooks PA-C Primary Care Provider Reason for Visit * Auth/Cert (Routine) Specialty Diagnoses / Procedures Referred By Filipe t Referred To Contact Diagnoses Convulsions Referral ID Status Reason Start Date Expiration Date Visits Re quested Visits Authorized [id number] 1 1 Encounter Details Date Type Department Care Team (Latest Contact Info) Description 02/26/2023 2:52 PM CDT - 03/02/2023 11:14 AM CDT Hospital Encounter SL 5N ACUTE [address] [place] [id number] Sudhir Lockett, DO [address] [place] [id number] Neurology Discharge Disposition: Home or Self Care Social [...] Date Recorded PHQ2 TOTAL SCORE 1 09/20/2022 [facility] - Occupational [...] Sign Reading Time Taken Comments Blood Pressure 132/78 03/02/2023 12:15 AM CDT Pulse 75 03/02/2023 4:00 AM CDT Temperature 36.7 ??C (98 ??F) 03/02/2023 12:15 AM CDT Respiratory Rate 18 02/28/2023 4:25 PM CDT Oxygen Saturation 100% 03/02/2023 12:15 AM CDT Inhaled Oxygen Concentration - - Weight 87 kg (191 lb 12.8 oz) 02/26/2023 3:12 PM CDT Height 172.7 cm (5' 8 ) 02/26/2023 3:07 PM CDT Body Mass Index 29.16 02/26/2023 3:07 PM CDT documented in this encounter Functional [...] No 02/26/2023 documented as of this encounter Discharge Summaries * Richie Cristina MD - 03/02/2023 10:39 AM CDT Images from the original note were not included. Physician Discharge Summary Patient Name: Aziza Espinosa Date of : 1985 Admit date: 02/26/2023 Discharge date: 03/02/2023 Admitting Physician: Sudhir Lockett DO Attending Physician: Sudhir Lockett DO Discharge Physician: Sudhir Lockett DO Admission Diagnosis: seizures Past Medical History Past Medical History: Diagnosis Date ??? Ovarian cancer ([facility]) Discharge Diagnoses Seizures ([facility]) Diagnostic Studies cEEG Background: Epoch Start Time: 15:51 PM 02/26/2023 Epoch Stop Time: 05:00 AM 02/27/2023 ?? The background was symmetric. Posterior dominant rhythm was 9 Hz of normal amplitude. Stage 1 sleepwas identified in the form of background attenuation, roving eye movements, and vertex waves. Stage2 sleep was identified in the form of K-complexes and spindles. Slow wave sleep was identified in the form of higher amplitude polymorphic delta activity. ?? Activation procedures were not performed Epoch Start Time: 05:00 AM 02/27/2023 Epoch Stop Time: 05:00 AM 02/28/2023 ?? The background was symmetric. Posterior dominant rhythm was 9 Hz of normal amplitude. Stage 1 sleepwas identified in the form of background attenuation, roving eye movements, and vertex waves. Stage2 sleep was identified in the form of K-complexes and spindles. Slow wave sleep was identified in the form of higher amplitude polymorphic delta activity. ?? Activation procedures were performed and elicited no abnormalities. Epoch Start Time: 05:00 AM 02/28/2023 Epoch Stop Time: 05:00 AM 03/01/2023 ?? The background was symmetric. Posterior dominant rhythm was 9 Hz of normal amplitude. Stage 1 sleepwas identified in the form of background attenuation, roving eye movements, and vertex waves. Stage2 sleep was identified in the form of K-complexes and spindles. Slow wave sleep was identified in the form of higher amplitude polymorphic delta activity. ?? Activation procedures were performed and elicited no abnormalities. Epoch Start Time: 05:00 AM 03/01/2023 Epoch Stop Time: 05:00 AM 03/02/2023 ?? The background was symmetric. Posterior dominant rhythm was 9 Hz of normal amplitude. Stage 1 sleepwas identified in the form of background attenuation, roving eye movements, and vertex waves. Stage2 sleep was identified in the form of K-complexes and spindles. Slow wave sleep was identified in the form of higher amplitude polymorphic delta activity. ?? Activation procedures were performed and elicited no abnormalities. Clinical Events: ?? EKG was observed throughout the recording. ?? IMPRESSION This is a normal epilepsy monitoring recording. Hospital Course Aziza Espinosa??is a 37 year old??female??with a PMH of anxiety, ADHD, MDD, ovarian cancer, and UAB??with spells concerning for seizures. Patient admitted to the Epilepsy monitoring unit for further characterization of event and quantifying seizure burden. EEG findings discussed above. Discharging home with no ASM. Will follow up in clinic on 03/14/2023. Condition at discharge: stable Disposition: home Code Status At Discharge Full Patient Instructions: Ms. Espinosa you were admitted to our epilepsy monitoring unit for further characterizations of events you have been having. We are discharging you home, with no anti-seizure medication. You have a follow up with PATRICIA Daniel on 03/14, please make sure to attend to clinic visit. Call clinic with recurrentseizures. Discussed following seizures precautions. - be compliant with your medications - avoid sleep deprivation/alcohol/physical and emotional stress/prolonged fasting state - in case of physical illness, approach medical attention - be aware of your AED medication name and dosage - No driving until 6 months seizure free and is licensed to drive by the State. - No working with sharp objects/heavy machinery - do not work in kitchen without supervision - do not take a bath tub dip or go swimming alone/without supervision. - seizures can be harmful to self and others if due precautions are not practiced. Current Discharge Medication List CONTINUE taking these medications which have NOT CHANGED Instructions Authorizing Provider azelaic acid 15 % gel Commonly known as: Finacea Quantity Dispensed: 50 g Apply to affected areas on the face daily. 30 days supply. Rod Pena MD FIBER PO folic acid 1 MG tablet Commonly known as: Folvite Quantity Dispensed: 90 tablet Take 1 (one) tablet by mouth once daily Fredy Mccormick APRN-LEIGHANN Mirena (52 MG) 20 MCG/DAY IUD Generic drug: levonorgestrel Mirena 20 mcg/24 hours (8 yrs) 52 mg intrauterine device Take 1 device as needed by intrauterine route for 1 day. * venlafaxine XR 24hr 150 MG capsule Commonly known as: Effexor XR Take 1 (one) capsule by mouth once daily * venlafaxine XR 24hr 75 MG capsule Commonly known as: Effexor XR venlafaxine ER 75 mg capsule,extended release 24 hr VITAMIN C PO +Whole food vitamin c VITAMIN D3 GUMMIES PO Vyvanse 20 MG capsule Generic drug: lisdexamfetamine Take 1 (one) capsule by mouth every morning * This list has 2 medication(s) that are the same as other medications prescribed for you. Read thedirections carefully, and ask your doctor or other care provider to review them with you. STOP taking these medications zonisamide 100 MG capsule Commonly known as: Zonegran No discharge procedures on file. Discharge time: 30 minutes. Richie Cristina MD Neurology Resident Associated attestation - Sudhir Lockett DO - 03/03/2023 9:47 AM CDT Patient seen and examined on 03/02/2023. I agree with the findings and plan as outlined in the trainee note. 45 minutes spent with patient discussing plan for follow up and moving forward. Patient will attempt trial off ASM. If spells recur, but not more severe may consider trying ambulatory EEG before resuming medication. If spells more severe or concerning low threshold for next ASM,likely Vimpat 50 mg BID to start. Patient to discuss concerns of possible tick-borne illness and hormonal changes with primary care doctor. Patient did not tolerate zonisamide or levetiracetam low-dose due to side effects. documented in this encounter Discharge Instructions * Discharge Instructions* Richie Cristina MD - 03/02/2023 10:28 AM CDT Ms. Espinosa you were admitted to our epilepsy monitoring unit for further characterizations of events you have been having. We are discharging you home, with no anti-seizure medication. You have a follow up with PATRICIA Daniel on 03/14, please make sure to attend to clinic visit. Call clinic with recurrentseizures. Discussed following seizures precautions. - be compliant with your medications - avoid sleep deprivation/alcohol/physical and emotional stress/prolonged fasting state - in case of physical illness, approach medical attention - be aware of your AED medication name and dosage - No driving until 6 months seizure free and is licensed to drive by the State. - No working with sharp objects/heavy machinery - do not work in kitchen without supervision - do not take a bath tub dip or go swimming alone/without supervision. - seizures can be harmful to self and others if due precautions are not practiced. documented in this encounter Medications at Time of Discharge Medication Sig Dispensed Refills Start Date End Date Ascorbic Acid (VITAMIN C PO) Take by mouth as needed +Whole food vitamin c azelaic acid (Finacea) 15 % gelIndications:Perior ificial dermatitis Apply to affected areas on the face daily. 30 days supply. 50 g 3 02/08/2023 Cholecalciferol (VITAMIN D3 GUMMIES PO) FIBER PO Take by mouth as needed venlafaxine XR 24hr (Effexor XR) 150 MG capsule Take 1 (one) capsule by mouth once daily 07/19/2022 folic acid (Folvite) 1 MG tablet Take 1 (one) tablet by mouth once daily 90 tablet 4 10/16/2022 09/07/2024 levonorgestrel (Mirena, 52 MG,) 20 MCG/DAY IUD Mirena 20 mcg/24 hours (8 yrs) 52 mg intrauterine device Take 1 device as needed by intrauterine route for 1 day. 09/07/2024 venlafaxine XR 24hr (Effexor XR) 75 MG capsule venlafaxine ER 75 mg capsule,extended release 24 hr 09/07/2024 Vyvanse 20 MG capsule Take 1 (one) capsule by mouth every morning 07/31/2022 4 documented as of this encounter Progress Notes * Abi Valadez RN - 03/02/2023 11:12 AM CDT Pt discharged to home at this time. Ambulated to front entrance in stable condition; accompanied bystaff. All personal belongings, including personal meds from pharmacy taken with pt. * Abi Valadez RN - 03/02/2023 10:08 AM CDT Assumed care of pt at 0700. AAOx4. Independent with ambulation in room. Tele complete; NSR. VSS. Hopes to d/c home later today. Caring for personal items within room. No c/o pain. * Raul Diego RN - 03/01/2023 8:30 PM CDT Problem: Fall Risk Goal: Fall risk and fall related injury risk are minimized (interventions related to the fall risk can be found in the flowsheet documentation) Outcome: Progressing Problem: Seizures Goal: Seizures are under control or absent Outcome: Progressing Problem: Aspiration Precautions Goal: Patient's risk of aspiration is minimized Outcome: Progressing Problem: Fall Risk Goal: Patient will remain free of falls Outcome: Progressing * Fredy Mccormick, DRY SAND MOLDER-INSECTICIDE SUPERVISOR - 03/01/2023 10:05 AM CDT EMU Progress Note Patient: Aziza Espinosa Age: [age] year old Admission Date and Time: 02/26/2023 Date: 03/01/2023 Chief Complaint: Seizures Progress: Aziza Espinosa is a 37 year old female with a PMH of anxiety, ADHD, MDD, ovarian cancer, and UAB with spells concerning for seizures. Patient admitted to the Epilepsy monitoring unit for further characterization of event and quantifying seizure burden. She was referred by myself, CORNELIA Estrada. She reports no acute events overnight. No new complaints. EEG pending review. Continue to taper ASMs. EEG Reading: refer to procedure note Home ASMs: Name Pill Size Frequency Total/Day Level zonisamide 100 mg ?0-2 200 mg/day ? Current ASMs: 02/26/2023 Off ASMs 02/27/2023 Off ASMs 02/28/2023 Off ASMs 03/01/2023 Off ASMs Review of Systems General Negative except per HPI Eyes Negative except per HPI ENT Negative except per HPI Pulmonary Negative except per HPI Cardiac Negative except per HPI GI Negative except per HPI Negative except per HPI Neurologic Per HPI Psychiatric Negative except per HPI Skeletal Negative except per HPI Endocrine Negative except per HPI Infectious Negative except per HPI Objective: BP 123/75 Pulse 81 Temp 98.3 ??F (36.8 ??C) (Oral) Resp 18 Ht 1.727 m (5' 8 ) Wt 87 kg (191 lb 12.8 oz) SpO2 96% Exam: Exam: General appearance: Awake, alert, no distress Cortical Function: MS: Awake, Alert, Follows Commands Oriented to Person, Place and Time Language: Fluent, Coherent Cranial Nerves: Normal ocular alignment, No facial palsy Motor: Abnormal Movements: None Bulk: Normal Tone: Normal Strength: Symmetric Labs: Zonisamide level Pending CBC: Recent Labs Component Name 02/26/23 1545 WBC 5.6 HGB 13.2 PLTCOUNT 286 BMP: Recent Labs Component Name 02/26/23 1545 NA 140 CO2 22 CREATININE 0.74 Assessment: Aziza Espinosa is a 37 year old female with a PMH of anxiety, ADHD, MDD, ovarian cancer, and UAB with spells concerning for seizures. Patient admitted to the Epilepsy monitoring unit for further characterization of event and quantifying seizure burden. She was referred by myself, CORNELIA Estrada. No events reported overnight. Plan: - Start continuous video EEG monitoring, cardiac telemetry, and pulse oximetry. - Obtain vital signs q8h, ins/outs tid, neuro checks bid. - OFF ASM: Zonisamide 200 mg QHS - Continue supplements: Vitamin C 500 mg daily, folic acid 1 mg daily, psyllium 1 packet (replacement) daily, Vitamin D3 1,000 units daily, lactobacillus packet TID (replacement) - Continue treatment of mood: venlafaxine 225 mg daily - Fall and Seizure precautions, Regular Diet, Lovenox for DVT ppx. Discussed with Attending Physician DO Fredy Sandhu APRN-LEIGHANN -Y[facility]MIN [facility][id number] Associated attestation - Sudhir Lockett DO - 03/01/2023 2:14 PM CDT Patient seen and examined on 03/01/2023. I agree with the findings and plan as outlined in the YAZMIN note. 35 minutes was spent in the care of this patient, of this 20 minutes were spent by me and 15 minutes by the YAZMIN. This time was spent reviewing the available records, coordinating the patients care with the inpatient team, and in [id number] time with the patient counseling them on the procedure for inpatient admission, the plan for the hospitalization and the goals and expectations of the EMU admission * Lisette Rhoades RN - 03/01/2023 9:57 AM CDT Problem: Fall Risk Goal: Fall risk and fall related injury risk are minimized (interventions related to the fall risk can be found in the flowsheet documentation) Outcome: Progressing Problem: Seizures Goal: Seizures are under control or absent Outcome: Progressing Problem: Aspiration Precautions Goal: Patient's risk of aspiration is minimized Outcome: Progressing * Javier Jensen RN - 02/28/2023 2:33 PM CDT Care Coordination Progress Note Anticipated level of care at discharge: Home Discharge Plan: Patient remains on EMU monitoring. Will likely discharge home when monitoring is completed. READMISSION RISK SCORE is 3 at 2:33 PM 02/28/2023. Anticipated Discharge Date: 03/02/23 Patient/Family provided with list of resources? Unknown Preferred Provider / High Quality Network List given?: Unknown Reason for provider choice: Unknown Family Support (Name and Phone): Extended Emergency Contact Information Primary Emergency Contact: Clotilde Palacios Relation: Other Secondary Emergency Contact: Isamar Hill Address[address] [address] [place] Relation: Mother Patient is alert & orientated or has capacity for decision making: If No , Legal or Designated Decision Maker: Transportation at Discharge: Friend Equipment at Home: Equipment at Home: None List DME patient requires but does not have: DME Provider: Medication affordability concerns: Follow Up Appointment: Transportation to MD: Auth Number (if required): [place]: DME: Medications: Transportation: Name: Javier Jensen RN Phone: [phone] * Fredy Mccormick, DRY SAND MOLDER-INSECTICIDE SUPERVISOR - 02/28/2023 9:41 AM CDT EMU Progress Note Patient: Aziza Espinosa Age: [age] year old Admission Date and Time: 02/26/2023 Date: 02/28/2023 Chief Complaint: Seizures Progress: Aziza Espinosa is a 37 year old female with a PMH of anxiety, ADHD, MDD, ovarian cancer, and UAB with spells concerning for seizures. Patient admitted to the Epilepsy monitoring unit for further characterization of event and quantifying seizure burden. She was referred by myself, CORNELIA Estrada. She reports no acute events overnight. No new complaints. EEG pending review. Continue to taper ASMs. EEG Reading: refer to procedure note Home ASMs: Name Pill Size Frequency Total/Day Level zonisamide 100 mg ?0-2 200 mg/day ? Current ASMs: 02/26/2023 Off ASMs 02/27/2023 Off ASMs 02/28/2023 Off ASMs Review of Systems General Negative except per HPI Eyes Negative except per HPI ENT Negative except per HPI Pulmonary Negative except per HPI Cardiac Negative except per HPI GI Negative except per HPI Negative except per HPI Neurologic Per HPI Psychiatric Negative except per HPI Skeletal Negative except per HPI Endocrine Negative except per HPI Infectious Negative except per HPI Objective: BP 123/71 Pulse 78 Temp 98.3 ??F (36.8 ??C) (Oral) Resp 18 Ht 1.727 m (5' 8 ) Wt 87 kg (191 lb 12.8 oz) SpO2 98% Exam: Exam: General appearance: Awake, alert, no distress Cortical Function: MS: Awake, Alert, Follows Commands Oriented to Person, Place and Time Language: Fluent, Coherent Cranial Nerves: Normal ocular alignment, No facial palsy Motor: Abnormal Movements: None Bulk: Normal Tone: Normal Strength: Symmetric Labs: Zonisamide level Pending CBC: Recent Labs Component Name 02/26/23 1545 WBC 5.6 HGB 13.2 PLTCOUNT 286 BMP: Recent Labs Component Name 02/26/23 1545 NA 140 CO2 22 CREATININE 0.74 Assessment: Aziza Espinosa is a 37 year old female with a PMH of anxiety, ADHD, MDD, ovarian cancer, and UAB with spells concerning for seizures. Patient admitted to the Epilepsy monitoring unit for further characterization of event and quantifying seizure burden. She was referred by myself, CORNELIA Estrada. No events reported overnight. Plan: - Start continuous video EEG monitoring, cardiac telemetry, and pulse oximetry. - Obtain vital signs q8h, ins/outs tid, neuro checks bid. - OFF ASM: Zonisamide 200 mg QHS - Continue supplements: Vitamin C 500 mg daily, folic acid 1 mg daily, psyllium 1 packet (replacement) daily, Vitamin D3 1,000 units daily, lactobacillus packet TID (replacement) - Continue treatment of mood: venlafaxine 225 mg daily - Fall and Seizure precautions, Regular Diet, Lovenox for DVT ppx. Discussed with Attending Physician DO Fredy Sandhu APRN-ELIGHANN -[facility] #[id number] Associated attestation - Sudhir Lockett DO - 02/28/2023 4:01 PM CDT Patient seen and examined on 02/28/2023. I agree with the findings and plan as outlined in the YAZMIN note. 35 minutes was spent in the care of this patient, of this 20 minutes were spent by me and 15 minutes by the YAZMIN. This time was spent reviewing the available records, coordinating the patients care with the inpatient team, and in [id number] time with the patient counseling them on the procedure for inpatient admission, the plan for the hospitalization and the goals and expectations of the EMU admission * Lisette Rhoades RN - 02/28/2023 7:39 AM CDT Problem: Fall Risk Goal: Fall risk and fall related injury risk are minimized (interventions related to the fall risk can be found in the flowsheet documentation) Outcome: Progressing Problem: Seizures Goal: Seizures are under control or absent Outcome: Progressing Problem: Aspiration Precautions Goal: Patient's risk of aspiration is minimized Outcome: Progressing * Raul Diego RN - 02/27/2023 7:30 PM CDT Problem: Fall Risk Goal: Fall risk and fall related injury risk are minimized (interventions related to the fall risk can be found in the flowsheet documentation) Outcome: Progressing Problem: Seizures Goal: Seizures are under control or absent Outcome: Progressing Problem: Aspiration Precautions Goal: Patient's risk of aspiration is minimized Outcome: Progressing Problem: Fall Risk Goal: Patient will remain free of falls Outcome: Progressing * Javier Jensen RN - 02/27/2023 12:38 PM CDT Case Management Initial Assessment Anticipated Discharge Date: 03/02/23 Transportation at Discharge: Friend Anticipated level of care at discharge: Home Anticipated level of care provider: None Prior to admission level of care: Home Prior to admit provider: None Discharge Goals and Plans: Patient Goals: dc home Plans: Discharge needs identified. See progress notes for details. Case Management to follow for discharge planning. Upon discharge or transfer to a post acute facility should rehospitalization, home health, rehabilitation, or any other follow up care be required, patient's preference is to stay within the [facility] Network and its affiliates.: Unsure Comments: Admitted to EMU for seizure monitoring. Will likely discharge home when monitoring is complete. Lives with: Alone Physical Limitations: None Requires Assistance With: None Preferred Pharmacy: [id number] - [address] [facility] [phone] [facility] [place] [address] [facility] [phone] Advance Directive: No Advance Directive Information Given: Refused Information Would you like assistance on completing and executing or revising an Advance Directive?: No READMISSION RISK SCORE is 3 at 12:38 PM 02/27/2023. Met with patient Family Support (name and phone): Extended Emergency Contact Information Primary Emergency Contact: Clotilde Palacios Relation: Other Secondary Emergency Contact: Isamar Hill Address: [address] [place] [address] [place] Relation: Mother Patient or brand representative requests care coordination reach out to family or caregiver listed above regarding discharge planning and at time of discharge? No Patient/Family provided with list of resources? Unknown Preferred Provider / High Quality Network List given?: Unknown Reason for provider choice: Unknown Equipment at Home: None [employer] Winder Referral: No Will continue to follow. For any questions or needs please contact: Electric Meter Repairer Name/Phone number: Javier Jensen RN [phone] * Fredy Mccormick, DRY SAND MOLDER-INSECTICIDE SUPERVISOR - 02/27/2023 9:49 AM CDT EMU Progress Note Patient: Aziza Espinosa Age: [age] year old Admission Date and Time: 02/26/2023 Date: 02/27/2023 Chief Complaint: Seizures Progress: Aziza Espinosa is a 37 year old female with a PMH of anxiety, ADHD, MDD, ovarian cancer, and UAB with spells concerning for seizures. Patient admitted to the Epilepsy monitoring unit for further characterization of event and quantifying seizure burden. She was referred by myself, CORNELIA Estrada. She reports no acute events overnight. No new complaints. EEG pending review. Continue to taper ASMs. EEG Reading: refer to procedure note Home ASMs: Name Pill Size Frequency Total/Day Level zonisamide 100 mg ?0-2 200 mg/day ? Current ASMs: 02/26/2023 Off ASMs 02/27/2023 Off ASMs Review of Systems General Negative except per HPI Eyes Negative except per HPI ENT Negative except per HPI Pulmonary Negative except per HPI Cardiac Negative except per HPI GI Negative except per HPI Negative except per HPI Neurologic Per HPI Psychiatric Negative except per HPI Skeletal Negative except per HPI Endocrine Negative except per HPI Infectious Negative except per HPI Objective: BP 126/78 Pulse 78 Temp 98.5 ??F (36.9 ??C) (Oral) Resp 18 Ht 1.727 m (5' 8 ) Wt 87 kg (191 lb 12.8 oz) SpO2 99% Exam: Exam: General appearance: Awake, alert, no distress Cortical Function: MS: Awake, Alert, Follows Commands Oriented to Person, Place and Time Language: Fluent, Coherent Cranial Nerves: Normal ocular alignment, No facial palsy Motor: Abnormal Movements: None Bulk: Normal Tone: Normal Strength: Symmetric Labs: Zonisamide level Pending CBC: Recent Labs Component Name 02/26/23 1545 WBC 5.6 HGB 13.2 PLTCOUNT 286 BMP: Recent Labs Component Name 02/26/23 1545 NA 140 CO2 22 CREATININE 0.74 Assessment: Aziza Espinosa is a 37 year old female with a PMH of anxiety, ADHD, MDD, ovarian cancer, and UAB with spells concerning for seizures. Patient admitted to the Epilepsy monitoring unit for further characterization of event and quantifying seizure burden. She was referred by myself, CORNELIA Estrada. No events reported overnight. Plan: - Start continuous video EEG monitoring, cardiac telemetry, and pulse oximetry. - Obtain vital signs q8h, ins/outs tid, neuro checks bid. - OFF ASM: Zonisamide 200 mg QHS - Continue supplements: Vitamin C 500 mg daily, folic acid 1 mg daily, psyllium 1 packet (replacement) daily, Vitamin D3 1,000 units daily, lactobacillus packet TID (replacement) - Continue treatment of mood: venlafaxine 225 mg daily - Fall and Seizure precautions, Regular Diet, Lovenox for DVT ppx. Discussed with Attending Physician DO Fredy Sandhu APRN-LEIGHANN -[facility] #[id number] Associated attestation - Sudhir Lockett DO - 02/27/2023 12:34 PM CDT Patient seen and examined on 02/27/2023. I agree with the findings and plan as outlined in the YAZMIN note. 35 minutes was spent in the care of this patient, of this 20 minutes were spent by me and 15 minutes by the YAZMIN. This time was spent reviewing the available records, coordinating the patients care with the inpatient team, and in [id number] time with the patient counseling them on the procedure for inpatient admission, the plan for the hospitalization and the goals and expectations of the EMU admission * Lisette Rhoades RN - 02/27/2023 9:38 AM CDT Problem: Fall Risk Goal: Fall risk and fall related injury risk are minimized (interventions related to the fall risk can be found in the flowsheet documentation) Outcome: Progressing Problem: Seizures Goal: Seizures are under control or absent Outcome: Progressing * Laine Rollins RN - 02/26/2023 9:52 PM CDT Problem: Fall Risk Goal: Fall risk and fall related injury risk are minimized (interventions related to the fall risk can be found in the flowsheet documentation) Outcome: Progressing Problem: Seizures Goal: Seizures are under control or absent Outcome: Progressing documented in this encounter H&P Notes * Fredy Mccormick APRN-LEIGHANN - 02/26/2023 11:01 AM CDT Epilepsy Monitoring Unit (EMU), H&P Patient: Aziza Espinosa Age: [age] year old Admission Date and Time: 02/26/2023 Chief Complaint: Seizures History of Presenting Illness: Aziza Espinosa is a 37 year old female with a PMH of anxiety, ADHD, MDD, ovarian cancer, and UAB with spells concerning for seizures. Patient being admitted to the Epilepsy monitoring unit for further characterization of event and quantifying seizure burden. She wasreferred by myself, CORNELIA Estrada. Events began approximately in June, as breanne vu followed by becoming dizzy and hot. Eventsresponded to levetiracetam but she experienced mood SE. Currently on zonisamide 200 mg QHS. Had a headache approximately 1 month ago, stayed home from work Patient has one event type, listed below in detail. Event type #1 is characteristic for seizure event. Age of Onset: 37 YO SEMIOLOGY - Aura: Breanne Vu, rising sensation, impending feeling, Stomach flip ?? Duration/ frequency:30 seconds to minute / With semiology #1 only ?? - Ictus 1. Dizzy, hot, difficult to think, searing in back and sides of head, needs to sit down, will cluster, No LOC, has lost time, no oral automatisms, no loss of bladder ?? Duration/ frequency: 30 seconds - 1 minute / Controlled since beginning levetiracetam ?? - Post-ictus: tired, stunned ?? Duration: 1 minute SEIZURE CONTROL Date of last seizure 1. 11/25/2022 Home ASMs: Name Pill Size Frequency Total/Day Level zonisamide 100 mg 0-2 200 mg/day ? Aggravating Factors: Stress Current ASMs: Off ASMs Failed Medications: Name Allergy/Side Effects/Ineffectiveness levetiracetam Mood Primary Epileptologist/ Neurology Provider: CORNELIA Estrada Prior EEGs: 10/16/2022 EEG, Dr. Pickard Impression: This is a normal awake and asleep??extended??EEG. Prior Imagin10/04/2022 MRI Brain [facility] Impression: 1. No evidence of acute intracranial findings or abnormal enhancement. Past Medical History No history on file. Past Medical History: Diagnosis Date ??? Ovarian cancer (CMS/HCC) Past Surgical History: Procedure Laterality Date ??? Tympanostomy Allergies No Known Allergies Family History Family History Problem Relation Name Age of Onset ??? Cancer - Ovarian Mother ??? Cancer - Ovarian Maternal Grandmother ??? Cancer - Breast Paternal Grandmother Social History Social History Social History Narrative ??? Not on file Review of Systems General Negative except per HPI Eyes Negative except per HPI ENT Negative except per HPI Pulmonary Negative except per HPI Cardiac Negative except per HPI GI Negative except per HPI Negative except per HPI Neurologic Per HPI Psychiatric Negative except per HPI Skeletal Negative except per HPI Endocrine Negative except per HPI Infectious Negative except per HPI Objective: BP 131/86 Pulse 86 Temp 98.8 ??F (37.1 ??C) (Oral) Resp 18 Ht 1.727 m (5' 8 ) Wt 87 kg (191 lb 12.8 oz) SpO2 100% Exam: General Cortical Function Mental Status Awake, alert, follows commands Orientation Person, place, time, and situation Language Fluency intact, comprehension intact Visual West Intact bilaterally to confrontation Neglect No visual neglect noted, no tactile neglect noted Cranial Nerves II Pupils 4 mm and bilaterally reactive to light. VIII Hearing is intact bilaterally to finger rub. III/IV/ Extraocular muscles intact. No diplopia, ptosis, nystagmus or convergence abnormalities noted. IX/X Palate elevated symmetrically without phonation abnormalities noted. V Facial sensation symmetric to light touch and intact bilaterally. XI Head turning and shoulder shrug are intact. VII No facial palsy noted. XII Tongue is midline with normal movements and no atrophy noted. Motor Function Movement No abnormalities noted Bulk No abnormalities noted Tone No abnormalities noted Proximal Upper Distal Upper Proximal Lower Distal Lower Right 5/5 5/5 5/5 5/5 Left 5/5 5/5 5/5 5/5 Sensory Light Touch Symmetric and intact bilaterally Labs: Zonisamide level Pending Assessment: Aziza Espinosa is a 37 year old female with a PMH of anxiety, ADHD, MDD, ovarian cancer, and UAB with spells concerning for seizures. Patient being admitted to the Epilepsy monitoring unit for further characterization of event and quantifying seizure burden. She was referred by myself, CORNELIA Estrada. Plan: - Start continuous video EEG monitoring, cardiac telemetry, and pulse oximetry. - Obtain vital signs q8h, ins/outs tid, neuro checks bid. - Obtain one-time routine labs: CMP, CBC, B-HCG - Obtain one-time Zonisamide level. - OFF ASM: Zonisamide 200 mg QHS - Continue supplements: Vitamin C 500 mg daily, folic acid 1 mg daily, psyllium 1 packet (replacement) daily, Vitamin D3 1,000 units daily - Continue treatment of mood: venlafaxine 225 mg daily - Pending pharmacy confirmation on organ and probiotic recommendations as home dose is unknown - Fall and Seizure precautions, Regular Diet, Lovenox for DVT ppx. Discussed with Attending Physician DO Fredy Sandhu, DRY SAND MOLDER-INSECTICIDE SUPERVISOR -[facility] #[id number] Associated attestation - Sudhir Lockett, - 02/27/2023 10:46 AM CDT Patient seen and examined on 02/26/2023. I agree with the findings and plan as outlined in the YAZMIN note. 75 minutes was spent in the care of this patient, of this 40 minutes were spent by me and 35 minutes by the YAZMIN. This time was spent reviewing the available records, coordinating the patients care with the inpatient team, and in [id number] time with the patient counseling them on the procedure for inpatient admission, the plan for the hospitalization and the goals and expectations of the EMU admission documented in this encounter Procedure Notes * Sudhir Lockett, - 03/02/2023 11:14 AM CDT EMU EEG SUMMARY REPORT Patient Name: Aziza Espinosa EEG#: [id number] Recording Start Time: 15:51 PM 02/26/2023 Recording Stop Time: 09:17 AM 03/02/2023 Clinical History: Aziza Espinosa is a 37 year old female with spells concerning for seizures. Epilepsy monitoring was performed for characterization of event and quantifying seizure burden. Semiology: - Aura: Breanne Vu, rising sensation, impending [...] Post-ictus: tired, stunned ?? Duration: 1 minute ?? SEIZURE CONTROL Date of last seizure 1. 11/25/2022 ?? Home ASMs: Name Pill Size Frequency Total/Day Level zonisamide 100 mg ?0-2 200 mg/day ? Current ASMs: 02/26/2023: No ASMs 02/27/2023: No ASMs 02/28/2023: No ASMs 03/01/2023: No ASMs 03/02/2023: No ASMs Discharge ASMs: No ASMs Description: This is a continuous video EEG monitoring is 21-channels; consisting of 20 channels of EEG obtainedfrom electrodes placed on the scalp according to the international 10-20 system, T1 and T2 electrodes, and one channel of EKG monitoring. The study was performed as a part of epilepsy monitoring protocol, with the patient continuously under observation, and EEG reviewed by an Epileptologist daily Background: The background was symmetric. Posterior dominant rhythm was 9 Hz of normal amplitude. Stage 1 sleepwas identified in the form of background attenuation, roving eye movements, and vertex waves. Stage2 sleep was identified in the form of K-complexes and spindles. Slow wave sleep was identified in the form of higher amplitude polymorphic delta activity. Activation procedures were performed and elicited no abnormalities. Clinical Events: EKG was observed throughout the recording. IMPRESSION This is a normal epilepsy monitoring recording. CLINICAL CORRELATION: This 5-day EMU study was normal, but captured no typical events. Repeat monitoring could be considered if diagnostic uncertainty remains. Sudhir Lockett DO * Sudhir Lockett DO - 03/02/2023 8:15 AM CDT EMU EEG REPORT Patient Name: Aziza Espinosa EEG#: [id number] Recording Start Time: 15:51 PM 02/26/2023 Epoch Start Time: 05:00 AM 03/01/2023 Epoch Stop Time: 09:17 AM 03/02/2023 Clinical History: Aziza Espinosa is a 37 year old female with spells concerning for seizures. Epilepsy monitoring was performed for characterization of event and quantifying seizure burden. Semiology: - Aura: Breanne Vu, rising sensation, impending [...] Post-ictus: tired, stunned ?? Duration: 1 minute ?? SEIZURE CONTROL Date of last seizure 1. 11/25/2022 ?? Home ASMs: Name Pill Size Frequency Total/Day Level zonisamide 100 mg ?0-2 200 mg/day ? Current ASMs: 02/26/2023: No ASMs 02/27/2023: No ASMs 02/28/2023: No ASMs 03/01/2023: No ASMs 03/02/2023: No ASMs Description: This is a continuous video EEG monitoring is 21-channels; consisting of 20 channels of EEG obtainedfrom electrodes placed on the scalp according to the international 10-20 system, T1 and T2 electrodes, and one channel of EKG monitoring. The study was performed as a part of epilepsy monitoring protocol, with the patient continuously under observation, and EEG reviewed by an Epileptologist daily Background: Epoch Start Time: 15:51 PM 02/26/2023 Epoch Stop Time: 05:00 AM 02/27/2023 The background was symmetric. Posterior dominant rhythm was 9 Hz of normal amplitude. Stage 1 sleepwas identified in the form of background attenuation, roving eye movements, and vertex waves. Stage2 sleep was identified in the form of K-complexes and spindles. Slow wave sleep was identified in the form of higher amplitude polymorphic delta activity. Activation procedures were not performed Epoch Start Time: 05:00 AM 02/27/2023 Epoch Stop Time: 05:00 AM 02/28/2023 The background was symmetric. Posterior dominant rhythm was 9 Hz of normal amplitude. Stage 1 sleepwas identified in the form of background attenuation, roving eye movements, and vertex waves. Stage2 sleep was identified in the form of K-complexes and spindles. Slow wave sleep was identified in the form of higher amplitude polymorphic delta activity. Activation procedures were performed and elicited no abnormalities. Epoch Start Time: 05:00 AM 02/28/2023 Epoch Stop Time: 05:00 AM 03/01/2023 The background was symmetric. Posterior dominant rhythm was 9 Hz of normal amplitude. Stage 1 sleepwas identified in the form of background attenuation, roving eye movements, and vertex waves. Stage2 sleep was identified in the form of K-complexes and spindles. Slow wave sleep was identified in the form of higher amplitude polymorphic delta activity. Activation procedures were performed and elicited no abnormalities. Epoch Start Time: 05:00 AM 03/01/2023 Epoch Stop Time: 09:17 AM 03/02/2023 The background was symmetric. Posterior dominant rhythm was 9 Hz of normal amplitude. Stage 1 sleepwas identified in the form of background attenuation, roving eye movements, and vertex waves. Stage2 sleep was identified in the form of K-complexes and spindles. Slow wave sleep was identified in the form of higher amplitude polymorphic delta activity. Activation procedures were performed and elicited no abnormalities. Clinical Events: EKG was observed throughout the recording. IMPRESSION This is a normal epilepsy monitoring recording. CLINICAL CORRELATION: This patient will continue to be monitored for seizures, with appropriate medication tapering as required under epilepsy monitoring protocol. For further details please see U Summary Report. Sudhir Lockett DO * Sudhir Lockett DO - 03/01/2023 7:16 AM CDT U EEG REPORT Patient Name: Aziza Espinosa EEG#: [id number] Recording Start Time: 15:51 PM 02/26/2023 Epoch Start Time: 05:00 AM 02/28/2023 Epoch Stop Time: 05:00 AM 03/01/2023 Clinical History: Aziza Espinosa is a 37 year old female with spells concerning for seizures. Epilepsy monitoring was performed for characterization of event and quantifying seizure burden. Semiology: - Aura: Breanne Vu, rising sensation, impending [...] Post-ictus: tired, stunned ?? Duration: 1 minute ?? SEIZURE CONTROL Date of last seizure 1. 11/25/2022 ?? Home ASMs: Name Pill Size Frequency Total/Day Level zonisamide 100 mg ?0-2 200 mg/day ? Current ASMs: 02/26/2023: No ASMs Description: This is a continuous video EEG monitoring is 21-channels; consisting of 20 channels of EEG obtainedfrom electrodes placed on the scalp according to the international 10-20 system, T1 and T2 electrodes, and one channel of EKG monitoring. The study was performed as a part of epilepsy monitoring protocol, with the patient continuously under observation, and EEG reviewed by an Epileptologist daily Background: Epoch Start Time: 15:51 PM 02/26/2023 Epoch Stop Time: 05:00 AM 02/27/2023 The background was symmetric. Posterior dominant rhythm was 9 Hz of normal amplitude. Stage 1 sleepwas identified in the form of background attenuation, roving eye movements, and vertex waves. Stage2 sleep was identified in the form of K-complexes and spindles. Slow wave sleep was identified in the form of higher amplitude polymorphic delta activity. Activation procedures were not performed Epoch Start Time: 05:00 AM 02/27/2023 Epoch Stop Time: 05:00 AM 02/28/2023 The background was symmetric. Posterior dominant rhythm was 9 Hz of normal amplitude. Stage 1 sleepwas identified in the form of background attenuation, roving eye movements, and vertex waves. Stage2 sleep was identified in the form of K-complexes and spindles. Slow wave sleep was identified in the form of higher amplitude polymorphic delta activity. Activation procedures were performed and elicited no abnormalities. Epoch Start Time: 05:00 AM 02/28/2023 Epoch Stop Time: 05:00 AM 03/01/2023 The background was symmetric. Posterior dominant rhythm was 9 Hz of normal amplitude. Stage 1 sleepwas identified in the form of background attenuation, roving eye movements, and vertex waves. Stage2 sleep was identified in the form of K-complexes and spindles. Slow wave sleep was identified in the form of higher amplitude polymorphic delta activity. Activation procedures were performed and elicited no abnormalities. Clinical Events: EKG was observed throughout the recording. IMPRESSION This is a normal epilepsy monitoring recording. CLINICAL CORRELATION: This patient will continue to be monitored for seizures, with appropriate medication tapering as required under epilepsy monitoring protocol. For further details please see [facility] Summary Report. Sudhir Lockett DO * Sudhir Lockett DO - 02/28/2023 9:58 AM CDT [facility] EEG REPORT Patient Name: Aziza Espinosa EEG#: [id number] Recording Start Time: 15:51 PM 02/26/2023 Epoch Start Time: 05:00 AM 02/27/2023 Epoch Stop Time: 05:00 AM 02/28/2023 Clinical History: Aziza Espinosa is a 37 year old female with spells concerning for seizures. Epilepsy monitoring was performed for characterization of event and quantifying seizure burden. Semiology: - Aura: Breanne Vu, rising sensation, impending [...] Post-ictus: tired, stunned ?? Duration: 1 minute ?? SEIZURE CONTROL Date of last seizure 1. 11/25/2022 ?? Home ASMs: Name Pill Size Frequency Total/Day Level zonisamide 100 mg ?0-2 200 mg/day ? Current ASMs: 02/26/2023: No ASMs Description: This is a continuous video EEG monitoring is 21-channels; consisting of 20 channels of EEG obtainedfrom electrodes placed on the scalp according to the international 10-20 system, T1 and T2 electrodes, and one channel of EKG monitoring. The study was performed as a part of epilepsy monitoring protocol, with the patient continuously under observation, and EEG reviewed by an Epileptologist daily Background: Epoch Start Time: 15:51 PM 02/26/2023 Epoch Stop Time: 05:00 AM 02/27/2023 The background was symmetric. Posterior dominant rhythm was 9 Hz of normal amplitude. Stage 1 sleepwas identified in the form of background attenuation, roving eye movements, and vertex waves. Stage2 sleep was identified in the form of K-complexes and spindles. Slow wave sleep was identified in the form of higher amplitude polymorphic delta activity. Activation procedures were not performed Epoch Start Time: 05:00 AM 02/27/2023 Epoch Stop Time: 05:00 AM 02/28/2023 The background was symmetric. Posterior dominant rhythm was 9 Hz of normal amplitude. Stage 1 sleepwas identified in the form of background attenuation, roving eye movements, and vertex waves. Stage2 sleep was identified in the form of K-complexes and spindles. Slow wave sleep was identified in the form of higher amplitude polymorphic delta activity. Activation procedures were performed and elicited no abnormalities. Clinical Events: EKG was observed throughout the recording. IMPRESSION This is a normal epilepsy monitoring recording. CLINICAL CORRELATION: This patient will continue to be monitored for seizures, with appropriate medication tapering as required under epilepsy monitoring protocol. For further details please see [facility] Summary Report. Sudhir Lockett DO * Sudhir Lockett DO - 02/27/2023 10:46 AM CDT U EEG REPORT Patient Name: Aziza Espinosa EEG#: [id number] Recording Start Time: 15:51 PM 02/26/2023 Epoch Start Time: 15:51 PM 02/26/2023 Epoch Stop Time: 05:00 AM 02/27/2023 Clinical History: Aziza Espinosa is a 37 year old female with spells concerning for seizures. Epilepsy monitoring was performed for characterization of event and quantifying seizure burden. Semiology: - Aura: Breanne Vu, rising sensation, impending [...] Post-ictus: tired, stunned ?? Duration: 1 minute ?? SEIZURE CONTROL Date of last seizure 1. 11/25/2022 ?? Home ASMs: Name Pill Size Frequency Total/Day Level zonisamide 100 mg ?0-2 200 mg/day ? Current ASMs: 02/26/2023: No ASMs Description: This is a continuous video EEG monitoring is 21-channels; consisting of 20 channels of EEG obtainedfrom electrodes placed on the scalp according to the international 10-20 system, T1 and T2 electrodes, and one channel of EKG monitoring. The study was performed as a part of epilepsy monitoring protocol, with the patient continuously under observation, and EEG reviewed by an Epileptologist daily Background: Epoch Start Time: 15:51 PM 02/26/2023 Epoch Stop Time: 05:00 AM 02/27/2023 The background was symmetric. Posterior dominant rhythm was 9 Hz of normal amplitude. Stage 1 sleepwas identified in the form of background attenuation, roving eye movements, and vertex waves. Stage2 sleep was identified in the form of K-complexes and spindles. Slow wave sleep was identified in the form of higher amplitude polymorphic delta activity. Activation procedures were not performed Clinical Events: EKG was observed throughout the recording. IMPRESSION This is a normal epilepsy monitoring recording. CLINICAL CORRELATION: This patient will continue to be monitored for seizures, with appropriate medication tapering as required under epilepsy monitoring protocol. For further details please see [facility] Summary Report. Sudhir Lockett DO documented in this encounter Plan of Treatment Upcoming Encounters Date Type Department Care Team (Late st Contact Info) Description 09/08/2025 2:00 PM PRIVACY DIRECTOR Office Visit [facility] - COMPANY MANAGER [address] [place] [address] Tania Granger, MACEY-LEIGHANN [address] [place] [address] documented as of this encounter Procedures Procedure Name Priority Date/Time Associated Diagnosis Comments ZONISAMIDE LEVEL Routine 02/26/2023 3:45 PM CDT CBC W AUTO DIFFERENTIAL Routine 02/26/2023 3:45 PM CDT COMPREHENSIVE METABOLIC PANEL Routine 02/26/2023 3:45 PM CDT HCG BETA BLOOD QUANTITATIVE Routine 02/26/2023 3:45 PM CDT documented in this encounter Results * (ABNORMAL) ZONISAMIDE LEVEL (02/26/2023 3:45 PM CDT) [facility] Zonisamide 4(L) 10 - 40 ug/mL 03/01/2023 11:02 AM CDT [facility] ([facility]) Comment: INTERPRETIVE INFORMATION: Zonisamide Therapeutic range: Not well established. Toxic: Greater than 80 ug/mL The proposed therapeutic range for seizure control is 10-40 ug/mL. Toxic concentrations may cause coma, seizures and cardiac abnormalities. Pharmacokinetics varies widely, particularly with co-medications and/or compromised renal function. Performed By: [employer] [address] [place] [address] Instrumentation Technologist: Andrew Johnson MD, PhD Blood BLOOD SPECIMEN / Unknown Lab Venipuncture / Unknown 02/26/2023 3:45 PM CDT 02/26/2023 3:57 PM CDT Fredy Naomy Mccormick DRY SAND MOLDER-INSECTICIDE SUPERVISOR LAB - CHEMISTRY O RDERABLES [employer] ([facility]) [address] [place] [address], [facility] * HCG BETA BLOOD QUANTITATIVE (02/26/2023 3:45 PM CDT) [facility] Beta-hCG Total Quantitative <3 mIU/mL 02/26/2023 4:35 PM CDT [facility] Comment: HCG Numeric Result Interpretation: ? Non- [...] CDT 02/26/2023 4:01 PM CDT Fredy Mccormick DRY SAND MOLDER-INSECTICIDE SUPERVISOR LAB - CHEMISTRY O RDERABLES [facility] [address] [place] [address], [facility] [phone] * (ABNORMAL) COMPREHENSIVE METABOLIC PANEL (02/26/2023 3:45 PM CDT) BUN 12 7 - 26 mg/dL 02/26/2023 4:31 PM [facility] Creatinine 0.74 0.56 - 0.96 mg/dL 02/26/2023 4:31 PM [facility] Sodium 140 136 - 145 mmol/L 02/26/2023 4:31 PM [facility] Potassium 3.7 3.5 - 4.5 mmol/L 02/26/2023 4:31 PM [facility] Chloride 108(H) 98 - 107 mmol/L 02/26/2023 4:31 PM [facility] CO2 22 22 - 29 mmol/L 02/26/2023 4:31 PM [facility] Glucose 96 70 - 115 mg/dL 02/26/2023 4:31 PM [facility] Calcium 9.2 8.4 - 10.2 mg/dL 02/26/2023 4:31 PM [facility] Protein Total 6.8 6.0 - 8.3 g/dL 02/26/2023 4:31 PM [facility] Albumin 4.1 3.4 - 5.0 g/dL 02/26/2023 4:31 PM [facility] Bilirubin Total 0.2 0.2 - 1.2 mg/dL 02/26/2023 4:31 PM [facility] Alkaline Phosphatase 47 40 - 150 U/L 02/26/2023 4:31 PM [facility] ALT 17 5 - 55 U/L 02/26/2023 4:31 PM [facility] AST 24 5 - 34 U/L 02/26/2023 4:31 PM [facility] Anion Gap 14 8 - 18 02/26/2023 4:31 PM [facility] BUN/Creatinine Ratio 16 7 - 23 02/26/2023 4:31 PM [facility] Osmolality Calculated 290 270 - 300 mOsm/kg 02/26/2023 4:31 PM [facility] Albumin/Globulin Ratio 1.5 1.1 - 2.3 02/26/2023 4:31 PM [facility] eGFR by CKD-EPI >90 >=90 mL/min/1.7 3 m2 02/26/2023 4:31 PM [facility] Blood BLOOD SPECIMEN / Unknown Lab Venipuncture / Unknown 02/26/2023 3:45 PM CDT 02/26/2023 4:01 PM CDT Fredy Mccormick DRY SAND MOLDER-INSECTICIDE SUPERVISOR LAB - CHEMISTRY O RDERABLES [facility] [address] [place] [id number] [phone] * (ABNORMAL) CBC W AUTO DIFFERENTIAL (02/26/2023 3:45 PM CDT) WBC 5.6 3.5 - 10.5 10? 3 /uL 02/26/2023 4:15 PM [facility] RBC 4.05 3.80 - 5.20 10? 6 /uL 02/26/2023 4:15 PM [facility] Hemoglobin 13.2 12.0 - 15.6 g/dL 02/26/2023 4:15 PM [facility] Hematocrit 38.1 35.0 - 45.0 % 02/26/2023 4:15 PM [facility] MCV 94.1 80.7 - 98.3 fL 02/26/2023 4:15 PM [facility] MCH 32.6 26.7 - 34.0 pg 02/26/2023 4:15 PM [facility] MCHC 34.6 30.8 - 35.9 g/dL 02/26/2023 4:15 PM [facility] RDW-SD 42.8 36.0 - 50.0 fL 02/26/2023 4:15 PM [facility] RDW-CV 12.3 11.2 - 14.8 % 02/26/2023 4:15 PM [facility] Platelet Count 286 150 - 400 10? 3 /uL 02/26/2023 4:15 PM [facility] MPV 9.2(L) 9.4 - 12.9 fL 02/26/2023 4:15 PM [facility] nRBC Absolute 0.00 0 10? 3 /uL 02/26/2023 4:15 PM [facility] nRBC Auto 0.0 0 /100 WBC 02/26/2023 4:15 PM [facility] Neutrophils % 61.6 35.0 - 70.0 % 02/26/2023 4:15 PM [facility] Lymphocytes % 28.2 20.0 - 43.0 % 02/26/2023 4:15 PM [facility] Monocytes % 6.4 5.0 - 13.0 % 02/26/2023 4:15 PM [facility] Eosinophils % 2.7 0.0 - 6.0 % 02/26/2023 4:15 PM [facility] Basophil % 0.7 0.0 - 2.0 % 02/26/2023 4:15 PM [facility] Neutrophils Absolute 3.45 1.60 - 7.00 10? 3 /uL 02/26/2023 4:15 PM [facility] Lymphocyte Absolute 1.58 1.10 - 3.90 10? 3 /uL 02/26/2023 4:15 PM [facility] Monocytes Absolute 0.36 0.26 - 1.07 10? 3 /uL 02/26/2023 4:15 PM [facility] Eosinophils Absolute 0.15 0.00 - 0.47 10? 3 /uL 02/26/2023 4:15 PM [facility] Basophils Absolute 0.04 0.00 - 0.08 10? 3 /uL 02/26/2023 4:15 PM [facility] Immature Granulocytes % 0.4 0.0 - 1.0 % 02/26/2023 4:15 PM CDT [facility] Immature Granulocytes Absolute 0.02 02/26/2023 4:15 PM CDT [facility] Blood BLOOD SPECIMEN / Unknown Lab Venipuncture / Unknown 02/26/2023 3:45 PM CDT 02/26/2023 4:01 PM CDT Fredy Mccormick DRY SAND MOLDER-INSECTICIDE SUPERVISOR LAB - HEMATOLOGY ORDERABLES [facility] [address] [place] [address], [facility] [phone] documented in this encounter Visit Diagnoses Diagnosis Seizures (HCC)- Primary Other convulsions Seizures (HCC) Other convulsions documented in this encounter Administered Medications Inactive Administered Medications - up to 3 most recent administrations Medication Order MAR Action Action Date Dose Rate Site 0.9% NaCl injection 1-10 mL 1-10 mL, Intracatheter, PRN, Other, peripheral line flush, Starting on Sat02/26/23 at 1533, Until 03/02/23 at 1220, Flush peripheral IV catheter with 1-10 mL of normal saline before and after medications and prn to clear blood from the line or to verify patency. 0.9% NaCl injection 3 mL 3 mL, Intracatheter, EVERY 8 HOURS, First dose on Sat02/26/23 at 1615, Until Discontinued, Flush peripheral IV catheter with 3 mL of normal saline every 8 hours. $ Given 03/01/2023 8:54 PM CDT 3 mL $ Given 03/01/2023 1:44 PM CDT 3 mL $ Given 02/28/2023 8:33 PM CDT 3 mL ascorbic acid (Vitamin C) tablet 500 mg 500 mg, Oral, DAILY, First dose on Sat02/27/23 at 0900, Until Discontinued $ Given 03/02/2023 8:07 AM CDT 500 mg $ Given 03/01/2023 9:06 AM CDT 500 mg $ Given 02/28/2023 9:14 AM CDT 500 mg azelaic acid (Finacea) 15 % gel Topical, DAILY, 7 doses, First dose on Sat02/27/23 at 0900, Last dose on Sat03/05/23 at 0900, Apply to face $ Given 03/02/2023 8:13 AM CDT $ Given 03/01/2023 9:07 AM CDT $ Given 02/28/2023 9:14 AM CDT enoxaparin (Lovenox) injection 40 mg 40 mg, Subcutaneous, DAILY, First dose on Sat02/26/23 at 1615, Until Discontinued, (for prefilled syringes) do not expel air bubble from the syringe prior to the injection Remind Patient to not rub injection site. Could cause hematoma. folic acid (Folvite) tablet 1 mg 1 mg, Oral, DAILY, First dose on Sat02/27/23 at 0900, Until Discontinued $ Given 03/02/2023 8:07 AM CDT 1 mg $ Given 03/01/2023 9:06 AM CDT 1 mg $ Given 02/28/2023 9:14 AM CDT 1 mg lactobacillus (Lactinex) granules 1 packet 1 packet, Oral, 3 TIMES DAILY, First dose on Sat02/27/23 at 0930, Until Discontinued $ Given 03/02/2023 8:07 AM CDT 1 packet $ Given 03/01/2023 8:50 PM CDT 1 packet $ Given 03/01/2023 1:42 PM CDT 1 packet lisdexamfetamine (Vyvanse) capsule 20 mg 20 mg, Oral, EVERY MORNING, 7 doses, First dose on Sat02/27/23 at 0800, Last dose on Sat03/05/23 at 0800, Capsule maybe taken whole or the capsule may be opened and the entire contents dissolved in water. $ Given 03/02/2023 8:45 AM CDT 20 mg $ Given 03/01/2023 10:51 AM CDT 20 mg $ Given 02/28/2023 9:14 AM CDT 20 mg polyethylene glycol 3350 (Miralax) packet 17 g 17 g, Oral, ONCE, 1 dose, On Sat02/28/23 at 1530, Mix in 8 ounces of water, juice, soda, coffee or tea prior to administration $ Given 02/28/2023 4:19 PM C DT 17 g venlafaxine XR 24hr (Effexor XR) capsule 225 mg 225 mg, Oral, DAILY WITH BREAKFAST, First dose on Sat02/27/23 at 0800, Until Discontinued $ Given 03/02/2023 8:07 AM CDT 225 mg $ Given 03/01/2023 9:06 AM CDT 225 mg $ Given 02/28/2023 9:14 AM CDT 225 mg vitamin D3 (Cholecalciferol) 25 MCG (1000 UNITS) tablet 1,000 Units 1,000 Units, Oral, DAILY, First dose on Sat02/27/23 at 0900, Until Discontinued, 1000 units = 25 mcg $ Given 03/02/2023 8:07 AM CDT 1,000 Unit s $ Given 03/01/2023 9:06 AM CDT 1,000 Units $ Given 02/28/2023 9:15 AM CDT 1,000 Units documented in this encounter Active and Recently Administered Medications Times are shown in CDT. Scheduled Medication Order 02/28/2023 03/01/2023 03/02/2023 0.9% NaCl injection 3 mL(Linked Group 1) 3 mL, Intracatheter, EVERY 8 HOURS, First dose on Sat02/26/23 at 1615, Until Discontinued, Flush peripheral IV catheter with 3 mL of normal saline every 8 hours. 0623 (Not Administered - Provider: Jose Luis Garcia - Reason: Patient sleeping)1426 ($ Given - Provider: Lisette Rhoades RN)2033 ($ Given - Provider: Jose Luis Garcia) 0647 (Not Administered - Provider: Jose Luis Garcia - Reason: Patient sleeping)1344 ($ Given - Provider: Lisette Rhoades RN)4 ($ Given - Provider: Raul Diego RN) 0632 (Not Administered - Provider: Raul Diego RN - Reason: Patient sleeping) ascorbic acid (Vitamin C) tablet 500 mg 500 mg, Oral, DAILY, First dose on Sat02/27/23 at 0900, Until Discontinued 0914 ($ Given - Provider: Lisette Rhoades RN) 0906 ($ Given - Provider: Lisette Rhoades RN) 0807 ($ Given - Provider: Abi Valadez RN) azelaic acid (Finacea) 15 % gel Topical, DAILY, 7 doses, First dose on Sat02/27/23 at 0900, Last dose on Sat03/05/23 at 0900, Apply to face 0914 ($ Given - Provider: Lisette Rhoades RN) 09 ($ Given - Provider: Lisette Rhoades RN) 08 ($ Given - Provider: Abi Valadez, BOOKER) enoxaparin (Lovenox) injection 40 mg 40 mg, Subcutaneous, DAILY, First dose on Sat02/26/23 at 1615, Until Discontinued, (for prefilled syringes) do not expel air bubble from the syringe prior to the injection Remind Patient to not rub injection site. Could cause hematoma. 0915 (Not Administered - Provider: Lisette Rhoades RN - Reason: Refused-Patient - Comment: pt up ad marcy) 918 (Not Administered - Provider: Lisette Rhoades RN - Reason: Refused-Patient - Comment: pt up ad marcy) 0811 (Not Administered - Provider: Abi Valadez RN - Reason: Refused-Patient) folic acid (Folvite) tablet 1 mg 1 mg, Oral, DAILY, First dose on Sat02/27/23 at 0900, Until Discontinued 913 ($ Given - Provider: Lisette Rhoades RN) 09 ($ Given - Provider: Lisette Rhoades RN) 08 ($ Given - Provider: Abi Valadez, BOOKER) lactobacillus (Lactinex) granules 1 packet 1 packet, Oral, 3 TIMES DAILY, First dose on Sat02/27/23 at 0930, Until Discontinued 913 ($ Given - Provider: Lisette Rhoades RN)1426 ($ Given - Provider: Lisette Rhoades RN)2033 ($ Given - Provider: Jose Luis Garcia) 0906 ($ Given - Provider: Lisette Rhoades RN)1342 ($ Given - Provider: Lisette Rhoades RN)2050 ($ Given - Provider: Raul Diego RN) 0807 ($ Given - Provider: Abi Valadez, BOOKER) lisdexamfetamine (Vyvanse) capsule 20 mg 20 mg, Oral, EVERY MORNING, 7 doses, First dose on Sat02/27/23 at 0800, Last dose on Sat03/05/23 at 0800, Capsule maybe taken whole or the capsule may be opened and the entire contents dissolved in water. 0914 ($ Given - Provider: Lisette Rhoades RN) 1051 ($ Given - Provider: Lisette Rhoades RN) 0845 ($ Given - Provider: bAi Valadez, RN) polyethylene glycol 3350 (Miralax) packet 17 g (COMPLETED) 17 g, Oral, ONCE, 1 dose, On Betsy 02/28/23 at 1530, Mix in 8 ounces of water, juice, soda, coffee or tea prior to administration 1619 ($ Given - Provider: Lisette Rhoades, BOOKER) venlafaxine XR 24hr (Effexor XR) capsule 225 mg 225 mg, Oral, DAILY WITH BREAKFAST, First dose on Sat02/27/23 at 0800, Until Discontinued 0914 ($ Given - Provider: Lisette Rhoades RN) 0906 ($ Given - Provider: Lisette Rhoades RN) 0807 ($ Given - Provider: Abi Valadez, RN) vitamin D3 (Cholecalciferol) 25 MCG (1000 UNITS) tablet 1,000 Units 1,000 Units, Oral, DAILY, First dose on Sat02/27/23 at 0900, Until Discontinued, 1000 units = 25 mcg 0915 ($ Given - Provider: Lisette Rhoades RN) 0906 ($ Given - Provider: Lisette Rhoades RN) 0807 ($ Given - Provider: Abi Valadez, BOOKER) PRN Medication Order 02/28/2023 03/01/2023 03/02/2023 0.9% NaCl injection 1-10 mL(Linked Group 1) 1-10 mL, Intracatheter, PRN, Other, peripheral line flush, Starting on Sat02/26/23 at 1533, Until 03/02/23 at 1220, Flush peripheral IV catheter with 1-10 mL of normal saline before and after medications and prn to clear blood from the line or to verify patency. Linked Groups Order Group 1: SALINE LOCK, INSERT AND MAINTAIN (CANCELED) Routine, CONTINUOUS, Starting on Sat02/26/23 at 1545, Until Specified, New collection And 0.9% NaCl injection 3 mLJump to med 3 mL, Intracatheter, EVERY 8 HOURS, First dose on Sat02/26/23 at 1615, Until Discontinued, Flush peripheral IV catheter with 3 mL of normal saline every 8 hours. And 0.9% NaCl injection 1-10 mLJump to med 1-10 mL, Intracatheter, PRN, Other, peripheral line flush, Starting on 02/26/23 at 1533, Until 03/02/23 at 1220, Flush peripheral IV catheter with 1-10 mL of normal saline before and after medications and prn to clear blood from the line or to verify patency. documented in this encounter Care Teams Transfer Table Operator Relationship Specialty Start Date End Date Shannan Brooks PA-C PCP - General 08/03/22 documented as of this encounter
--- OUTSIDE RECORDS SUMMARY | 2024-10-06 21:44 | XMS_ITS | Encounter Summary ---
Author Organization [facility] Health Address [address] [place] [address] Care Team Providers Care Internal Affairs Investigator Name Role Phone Shannan Brooks PA-C Primary Care Provider [phone] Reason for Visit * Radiology Services (Routine) - Closed Specialty Diagnoses / Procedures Referred By Filipe dorsey Referred To Contact Ultrasound Diagnoses Ovarian cancer in remission Procedures US PELVIS W TRANSVAG W DOP NON OB US PELVIS W TRANSVAG NON OB Shannan Brooks PA-C [address] [place] [address] Referral ID Status Reason Start Date Expiration Date Visits Re quested Visits Authorized [id number] Closed 08/24/2022 08/24/2023 1 1 Encounter Details Date Type Department Care Team (Late st Contact Info) Description 09/24/2022 4:45 PM RELAY ASSEMBLER - 09/24/2022 11:59 PM RELAY ASSEMBLER Hospital Encounter [facility] Health Imaging Services - Ultrasound [address] [place] [address] Shannan Brooks PA-C [address] [place] [address] Discharge Disposition: Home or Self [...] Coronavirus/COVID-19? No / Unsure 09/24/2022 4:48 PM RELAY ASSEMBLER documented as of this encounter Medications at [...] st Contact Info) Description 09/08/2025 2:00 PM RELAY ASSEMBLER Office Visit [facility] - POULTRY SLAUGHTERER [address] [facility] [address] [place] [address] Tania Granger, MACEY-LEIGHANN [address] [facility] [address] [place] [address] documented as of this encounter Procedures Procedure Name Priority Date/Time Associated Diagnosis Comments US PELVIS W TRANSVAG W DOP NON OB Routine 09/24/2022 5:37 PM RELAY ASSEMBLER Ovarian cancer in remission documented in this encounter Results * US PELVIS W TRANSVAG W DOP NON OB (09/24/2022 5:37 PM RELAY ASSEMBLER) Anatomical Region Laterality Modality Pelvis Ultrasound 09/24/2022 6:56 PM RELAY ASSEMBLER Impressions 09/24/2022 7:10 PM RELAY ASSEMBLER IMPRESSION: 1. Normal uterus. An IUD is in proper location in the uterine cavity. 2. Incidental finding of a subcentimeter nabothian cysts. 3. A 3.4 x 2.2 x 3.3 cm right ovarian cysts. Follow-up pelvic ultrasound in 6 weeks is recommended to document resolution of this possibly follicular cyst. 4. Physiologic volume of free fluid in the cul-de-sac. > Interpreting Provider: Jonny Castano MD on 09/24/2022 7:10 PM Narrative 09/24/2022 7:10 PM RELAY ASSEMBLER PROCEDURE: ??US PELVIS W TRANSVAG W DOP NON OB, DATE/TIME OF EXAM: 09/24/2022 5:38 PM, LOCATION ??[facility] INDICATION: Z85.43: Personal history of malignant neoplasm of ovary EXAMINATIONS: 1. TRANSABDOMINAL AND ENDOVAGINAL PELVIC ULTRASOUND 2. LIMITED COLOR DOPPLER AND LIMITED SPECTRAL DOPPLER IMAGING HISTORY: This is a 37-year-old G0 whose LMP is uncertain and currently is not . She has a history of ovarian cancer in remission. Z85.43: Personal history of malignant neoplasm of ovary. History of left oophorectomy per patient. COMPARISON: None. CORRELATION: None. FINDINGS: The distended urinary bladder is normal with normal wall thickness, providing a proper window to pelvic structures on the transabdominal imaging. The anteverted uterus is normal in the transabdominal images. The adnexa are unremarkable. In the endovaginal images, the myometrium is normal and the cervix is closed. An IUD is in proper position in the uterine cavity. The uterine cavity and cervical canal are otherwise unremarkable without fluid content. There is a 0.9 x 0.7 x 0.8 cm nabothian cysts in the cervix. The thickness of endometrial stripe is normal and the endometrial stripe demonstrates homogeneous appearance. The left ovary is not identified consistent with the surgical history. In the endovaginal images, the right ovary demonstrates normal flow on color Doppler and spectral Doppler images. There is an anechoic cysts in the right ovary measuring 3.4 x 2.2 x 3.3 cm without evidence of an associated flow in color Doppler images. There is small volume free fluid in the cul-de-sac. Measurements: Uterus: 8.6 x 3.0 x 4.4 cm Thickness of endometrial stripe: 4 mm Right ovary: 5.8 x 2.8 x 5.3 cm Left ovary: Surgically absent. Procedure Note Jonny Castano MD - 09/24/2022 PROCEDURE: US PELVIS W TRANSVAG W DOP NON OB, DATE/TIME OF EXAM: 09/24/2022 5:38 PM, LOCATION [facility] - [facility] INDICATION: Z85.43: Personal history of malignant neoplasm of ovary EXAMINATIONS: 1. TRANSABDOMINAL AND ENDOVAGINAL PELVIC ULTRASOUND 2. LIMITED COLOR DOPPLER AND LIMITED SPECTRAL DOPPLER IMAGING HISTORY: This is a 37-year-old G0 whose LMP is uncertain and currentlyis not . She has a history of ovarian cancer in remission. Z85.43: Personal history of malignant neoplasm of ovary. History of left oophorectomy per patient. COMPARISON: None. CORRELATION: None. FINDINGS: The distended urinary bladder is normal with normal wall thickness, providing a proper window to pelvic structures on the transabdominal imaging. The anteverted uterus is normal in the transabdominal images.The adnexa are unremarkable. In the endovaginal images, the myometrium is normal and the cervix is closed. An IUD is in proper position in the uterine cavity. The uterine cavity and cervical canal are otherwise unremarkable without fluidcontent. There is a 0.9 x 0.7 x 0.8 cm nabothian cysts in the cervix. Thethickness of endometrial stripe is normal and the endometrial stripe demonstrates homogeneous appearance. The left ovary is not identified consistent with the surgical history.In the endovaginal images, the right ovary demonstrates normal flow oncolor Doppler and spectral Doppler images. There is an anechoic cysts in the right ovary measuring 3.4 x 2.2 x 3.3 cm without evidence of anassociated flow in color Doppler images. There is small volume free fluid in the cul-de-sac. Measurements: Uterus: 8.6 x 3.0 x 4.4 cm Thickness of endometrial stripe: 4 mm Right ovary: 5.8 x 2.8 x 5.3 cm Left ovary: Surgically absent. IMPRESSION: 1. Normal uterus. An IUD is in proper location in the uterine cavity. 2. Incidental finding of a subcentimeter nabothian cysts. 3. A 3.4 x 2.2 x 3.3 cm right ovarian cysts. Follow-up pelvic ultrasoundin 6 weeks is recommended to document resolution of this possiblyfollicular cyst. 4. Physiologic volume of free fluid in the cul-de-sac. > Interpreting Provider: Jonny Castano MD on 09/24/2022 7:10 PM Shannan Brooks PA-C US ORDERABLES documented in this encounter Visit Diagnoses Diagnosis Ovarian cancer in remission documented in this encounter Care Teams Internal Affairs Investigator Relationship Specialty Start Date End Date Shannan Brooks PA-C PCP - General 08/03/22 documented as of this encounter
--- OUTSIDE RECORDS SUMMARY | 2024-10-06 21:44 | XMS_ITS | Encounter Summary ---
Author Organization [facility] Address [address] [place] [address] Care Team Providers Care Pot Annealer Name Role Phone Shannan Brooks PA-C Primary Care Provider Reason for Visit * Reason Comments Refill Request Encounter Details Date Type Department Care Team (Late Contact Info) Description 11/22/2022 Refill [facility] [address] [facility], [place] [address] Fredy Mccormick, NURSE LDR-TRY OUT PERSON [address] [place] [address] Refill Request Social History Tobacco Use Types Packs/Day Years [...] Encounters Date Type Department Care Team (Late Contact Info) Description 09/08/2025 2:00 PM MACHINE FEATHEREDGER AND REDUCER Office Visit [facility] - RECORD MAKER [address] [place] [address] Tania Granger, NURSE LDR-TRY OUT PERSON [address] [facility] [address] [place] [address] documented as of this encounter Visit Diagnoses Not on filedocumented in this encounter Care Teams Pot Annealer Relationship Specialty Start Date End Date Shannan Brooks PA-C PCP - General 08/03/22 documented as of this encounter
--- OUTSIDE RECORDS SUMMARY | 2024-10-06 21:44 | XMS_ITS | Encounter Summary ---
Author Organization [facility] Health Address [address] [place] [address] Care Team Providers Care Boiler Tube Reamer Name Role Phone Shannan Brooks PA-C Primary Care Provider Encounter Details Date Type Department Care Team (Latest Contact Info) Description 07/01/2023 Travel Social History Tobacco Use Types Packs/Day [...] Recorded Patient Health Questionnaire-2 Score 0 07/01/2023 [facility] [place] of Occupat ional Health - Occupational Stress [...] place to sleep or slept in a usp (including now)? No 02/26/2023 Sex and Gender [...] st Contact Info) Description 09/08/2025 2:00 PM OPERATIONS SUPPORT PROFESSIONALS Office Visit [facility] - TWISTING PRESS OPERATOR [address] [facility] [address] [place] [address] Tania Granger, MACEY-LEIGHANN [address] [facility] [address] [place] [address] documented as of this encounter Visit Diagnoses Not on filedocumented in this encounter Care Teams Boiler Tube Reamer Relationship Specialty Start Date End Date Shannan Brooks PA-C PCP - General 08/03/22 documented as of this encounter
--- OUTSIDE RECORDS SUMMARY | 2024-10-06 21:44 | XMS_ITS | Encounter Summary ---
Author Organization [facility] Address [address] [place] [address] Care Team Providers Care Family Consultant Name Role Phone Shannan Brooks PA-C Primary Care Provider Encounter Details Date Type Department Care Team (Late st Contact Info) Description 06/12/2023 Orders Only [facility] - Neurology [address] [facility] [place] [id number] Fredy Mccormick, MANAGER [place]-DOORKEEPER [address] [place], [place] [id number] Seizure-like activity (HCC) Social History Tobacco Use Types Packs/Day Years [...] Date Recorded PHQ2 TOTAL SCORE 1 09/20/2022 [facility] [place] of Occupat ional Health - Occupational Stress [...] st Contact Info) Description 09/08/2025 2:00 PM PETROLEUM INSPECTOR SUPERVISOR Office Visit [facility] - LICENSING SERVICES CLERK [address] [place] [address] Tania Granger APRN-DOORKEEPER [address] [facility] [address] [place] [address] documented as of this encounter Visit Diagnoses Diagnosis Seizure-like activity (HCC)- Primary Other convulsions documented in this encounter Care Teams Family Consultant Relationship Specialty Start Date End Date Shannan Brooks PA-C PCP - General 08/03/22 documented as of this encounter
--- OUTSIDE RECORDS SUMMARY | 2024-10-06 21:44 | XMS_ITS | Encounter Summary ---
Author Organization [facility] Address [address] [place] [address] Care Team Providers Care Appliance Parts Counter Clerk Name Role Phone Shannan Brooks PA-C Primary Care Provider Reason for Visit * Reason Comments Ultrasound Encounter Details Date Type Department Care Team (Latest Contact Info) Description 03/19/2023 3:15 PM CDT Procedure visit [facility] - TOOLROOM ATTENDANT [address] [facility] [address] [place] [address] Abnormal uterine bleeding (AUB) ; Cyst of ovary, unspecified laterality; Irregular menses Social History Tobacco Use Types Packs/Day Years [...] Date Recorded PHQ2 TOTAL SCORE 1 09/20/2022 [facility] [place] of Occupat ional Health - Occupational Stress [...] No 02/26/2023 documented as of this encounter Procedure Notes * Abi Mae - 03/19/2023 4:10 PM CDTAssociated Order(s): PROC US ECHOGRAPHY TRANSVAGINAL Procedure(s): OK SONO EXAM, TRANSVAGINAL Pre-Procedure Diagnose(s): Cyst of ovary, unspecified laterality; Irregular menses Documentation in digisonics. documented in this encounter Plan of Treatment Upcoming Encounters Date Type Department Care Team (Late st Contact Info) Description 09/08/2025 2:00 PM PERIOPERATIVE MANAGER Office Visit [facility] - TOOLROOM ATTENDANT [address] [place] [address] Tania Granger APRN-SENIOR DIRECTOR FINANCE [address] [place] [address] documented as of this encounter Procedures Procedure Name Priority Date/Time Associated Diagnosis Comments OK SONO EXAM, TRANSVAGINAL Routine 03/19/2023 4:10 PM CDT Cyst of ovary, unspecified laterality Irregular menses IMAGING/RADIOLOGY/XRA Y RESULTS ORDER 03/19/2023 documented in this encounter Results * OK SONO EXAM, TRANSVAGINAL (03/19/2023 4:10 PM CDT) Narrative Abi Mae - 03/19/2023 4:10 PM CDT Abi Mae ? 03/19/2023 ??4:10 PM Documentation in digisonics. Karie Byrd MD PROCEDURE/MINOR CLEMENTS RGICAL ORDERABLES * IMAGING RADIOLOGY XRAY RESULTS ORDER (03/19/2023) Anatomical Region Laterality Modality Other Narrative 03/19/2023 Ordered by an unspecified provider. Scanned Document IMAGING documented in this encounter Visit Diagnoses Diagnosis Abnormal uterine bleeding (AUB)- Primary Cyst of ovary, unspecified laterality Irregular menses Irregular menstrual cycle documented in this encounter Care Teams Appliance Parts Counter Clerk Relationship Specialty Start Date End Date Shannan Brooks PA-C PCP - General 08/03/22 documented as of this encounter
--- OUTSIDE RECORDS SUMMARY | 2024-10-06 21:44 | XMS_ITS | Encounter Summary ---
Author Organization [facility] Address [address] [place] [address] Care Team Providers Care Draw Tender Name Role Phone Shannan Brooks PA-C Primary Care Provider Reason for Referral * Neurology (Routine) - Closed Specialty Diagnoses / Procedures Referred By Filipe dorsey Referred To Contact Neurology Diagnoses Seizures (HCC) Procedures EEG EXTENDED MONITORING > 1 HOUR Fredy Mccormick APRN-CNP [address] [place] [address] [facility] Eeg/Emg [address] [place] [address] Referral ID Status Reason Start Date Expiration Date Visits Re quested Visits Authorized [id number] Closed 10/16/2022 10/16/2023 1 1 GER EMS Encounter Details Date Type Department Care Team (Late st Contact Info) Description 10/16/2022 8:00 AM MANAGER EMS Office Visit [facility] [address] [facility], [place] [address] Fredy Mccormick APRN-CNP [address] [place], [place] [id number] Seizures (HCC) (Primary Dx) Social History Tobacco Use [...] Coronavirus/COVID-19? Unable to assess 10/16/2022 9:16 AM MANAGER EMS documented as of this encounter Last Filed Vital Signs Vital Sign Reading Time Taken Comments Blood Pressure 113/81 10/16/2022 8:10 AM MANAGER EMS Pulse 85 10/16/2022 8:10 AM MANAGER EMS Temperature 36.6 ??C (97.9 ??F) 10/16/2022 8:10 AM CS T Respiratory Rate - - Oxygen Saturation 98% 10/16/2022 8:10 AM MANAGER EMS Inhaled Oxygen Concentration - - Weight 86.9 kg (191 lb 8 oz) 10/16/2022 8:10 AM MANAGER EMS Height 172.7 cm (5' 8 ) 10/16/2022 8:10 AM MANAGER EMS Body Mass Index 29.12 10/16/2022 8:10 AM MANAGER EMS documented in this encounter Patient Instructions * Patient Instructions* Fredy Mccormick APRN-CNP - 10/16/2022 9:00 AM MANAGER EMS - Start pyridoxine (B6 100 mg) daily and levetiracetam 500 mg twice daily and folic acid 1 mg daily - Complete your EEG at [facility] - Keep a seizure diary, events leading up to, during, and after GER EMS documented in this encounter Progress Notes * Fredy Mccormick APRN-CNP - 10/16/2022 8:06 AM CST Epilepsy Clinic Note PCP Shannan Ring PA-C DATE OF ENCOUNTER: 10/16/2022 CHIEF COMPLAINT: Seizures AGE OF ONSET 37 YO SEMIOLOGY - Aura: Breanne Vu, rising sensation, impending feeling, nausea Duration/ frequency:30 seconds to minute / With semiology #1 only - Ictus 1. Dizzy, hot, difficult to think, searing in back and sides of head, needs to sit down, will cluster, No LOC, no oral automatisms, no loss of bladder Duration/ frequency: 30 seconds - 1 minute / Every 2-4 weeks - Post-ictus: tired, stunned Duration: 1 minute SEIZURE CONTROL Date of last seizure 1. Week of 09/24/2022 PRE-VISIT MEDICATION Name Pill Size Frequency Total/Day Level N/A COMPLIANCE N/A AGGRAVATING FACTORS: Stress TREATMENT HISTORY Name Allergy/Side Effects/Ineffectiveness N/A EEG: N/A IMAGIN10/04/2022 MRI Brain [facility] Mary, [facility] Impression: 1. No evidence of acute intracranial findings or abnormal enhancement. GENETIC TESTING: - CLASSIFICATION: NOS LABORATORY RESULTS CBC: No results for input(s): WBC, HGB, PLTCOUNT in the last 65861 hours. BMP: No results for input(s): NA, CO2, CREATININE in the last 80788 hours. LFT: No results for input(s): AST, ALT in the last 67012 hours. VITAMIN D: No results for input(s): LDJP13FR in the last 12705 hours. ASM DRUG LEVELS No results for input(s): LEVETIRACETM in the last 85161 hours. HPI: History of Epilepsy: History collected through chart review and conversations with patient. Aziza Espinosa is a 37 year old female referred to [facility] Epilepsy clinic for seizures. 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 Cholecalciferol (VITAMIN D3 GUMMIES PO) ??? [...] on file Housing Stability: Not on file control Mirena IUD Folic acid occasionally takes multivitamin No Alcohol usage Yes, 2-3 beers weekly Illicit substance No Marijuana usage 1x per month - smoking and edible Physical Exam: Vitals: 10/16/22 0810 BP: 113/81 Pulse: 85 Temp: 97.9 ??F (36.6 ??C) SpO2: 98% Weight: 86.9 kg (191 lb 8 oz) Height: 1.727 m (5' 8 ) General Awake and alert HEENT: Head normocephalic and atraumatic Extremities: No cyanosis or edema noted Cortical Function: MS: Awake, Alert, Follows Commands Oriented to Person, Place and Time Language: Fluent, Coherent VF Intact to confrontation test Neglect No visual neglect, No tactile neglect Cranial Nerves: Pupils 4 mm BRTL, Full EOM, No ptosis, mild horizontal nystagmus Facial sensation intact bilaterally to LT; No facial palsy Hearing intact to finger rub bilaterally Palate symmetric; Normal tongue protrusion Motor: Abnormal Movements: None Bulk: Normal Tone: Normal Strength: Appropriate for Age RUE 5/5 LUE 5/5 RLE 5/5 LLE 5/5 Sensory: Intact to light touch Gait: Normal stride and stance Normal tandem Assessment/Plan: Aziza Espinosa is a 37 year old female with a recent history of spells concerning for seizures. Concern for epilepsy given semiology description. - Extended EEG - Start levetiracetam 500 mg BID - Start pyridoxine 100 mg daily - Start folic acid 1 mg daily - Keep seizure diary/log Follow-up in 1-2 months or sooner if problems arise Patient agrees and voices understanding of plan of care listed above. POST-VISIT MEDICATION (Current to 10/16/2022) Name Pill Size Frequency Total/Day Level levetiracetam 500 mg 1-1 1,000 mg/day I told the patient in clear terms [...] time frame that they are not driving. I told the patient in clear terms regarding importance of compliance. Seizure precautions include no driving, no tub bathing, no solo swimming, no operating heavy machinery and no working at heights. The patient should not perform any activity in which the patient or others may be harmed if a seizure occurs. I told the patient that all medications can have effect on the fetus, and that all pregnancies mustbe anticipated, and vitamins and folate supplement should be taken during . She was instructed to inform the Neurology Clinic in the event of any planned or unplanned . I personally spent 40 minutes on 10/16/2022 preparing to see the patient (e.g. reviewing chart, review of tests), obtaining and/or reviewing the separately obtained history, performing a medically necessary and appropriate examination and evaluation, counseling and educating the patient/family/caregiver, ordering medications, tests, or procedures, documenting in the patient record, and communicating results to the patient/family/caregiver. MARTHA Prince [facility] documented in this encounter Miscellaneous Notes * Clinical References AVS - Fredy Mccormick APRN-CNP - 10/16/2022 9:43 AM MANAGER EMS [facility] documented in this encounter Plan of Treatment Upcoming Encounters Date Type Department Care Team (Late st Contact Info) Description 09/08/2025 2:00 PM MANAGER EMS Office Visit [facility] - CONTACT ASSEMBLER [address] [place] [address] Tania Granger APRN-CNP [address] [place] [address] documented as of this encounter Results * EEG EXTENDED MONITORING > 1 HOUR (10/16/2022 2:32 PM MANAGER EMS) Narrative Derrick Pickard MD - 10/16/2022 2:32 PM MANAGER EMS Derrick Pickard MD ? 10/16/2022 ??5:04 PM [...] above report. Derrick Pickard MD Fredy Mccormick APRN-VERTICAL ROLL OPERATOR NEUROLOGY ORDERAB LES documented in this encounter Visit Diagnoses Diagnosis Seizures (HCC)- Primary Other convulsions Seizures (HCC) Other convulsions documented in this encounter Care Teams Draw Tender Relationship Specialty Start Date End Date Shannan Brooks PA-C PCP - General 08/03/22 documented as of this encounter
--- OUTSIDE RECORDS SUMMARY | 2024-10-06 21:44 | XMS_ITS | Encounter Summary ---
Author Organization [facility] Address [address] [place] [address] Care Team Providers Care Manufacturing Technologist Name Role Phone Shannan Brooks PA-C Primary Care Provider Reason for Visit * Reason Comments Seizure Encounter Details Date Type Department Care Team (Late st Contact Info) Description 01/22/2023 9:00 AM CDT Office Visit [facility] [address] [facility] [place] [address] Fredy cMcormick, TERMINAL OPERATIONS MANAGER-INSTRUCTOR [employer] [address] [place] [address] Seizures (HCC) (Primary Dx) Social History Tobacco [...] Sign Reading Time Taken Comments Blood Pressure 105/71 01/22/2023 9:09 AM CDT Pulse 97 01/22/2023 9:09 AM CDT Temperature 36.8 ??C (98.2 ??F) 01/22/2023 9:09 AM CD T Respiratory Rate - - Oxygen Saturation 98% 01/22/2023 9:09 AM CDT Inhaled Oxygen Concentration - - Weight 89.1 kg (196 lb 8 oz) 01/22/2023 9:09 AM CDT Height 172.7 cm (5' 8 ) 01/22/2023 9:09 AM CDT Body Mass Index 29.88 01/22/2023 9:09 AM CDT documented in this encounter Progress Notes * Fredy Mccormick, MACEY-INSTRUCTOR [employer] - 01/22/2023 9:00 AM CDT Epilepsy Clinic Note PCP Shannan Ring PA-C DATE OF ENCOUNTER: 01/22/2023 CHIEF COMPLAINT: Seizures AGE OF ONSET 37 [...] 1 minute / Controlled since beginning levetiracetam - Post-ictus: tired, stunned Duration: 1 minute SEIZURE CONTROL Date of last seizure 1. 11/25/2022 PRE-VISIT MEDICATION Name Pill Size Frequency Total/Day Level zonisamide 100 mg 0-2 200 mg/day COMPLIANCE Good AGGRAVATING FACTORS: Stress TREATMENT HISTORY Name Allergy/Side Effects/Ineffectiveness levetiracetam Mood EE10/16/2022 EEG, Dr. Pickard Impression: This is a normal awake and asleep extended EEG. IMAGIN10/04/2022 MRI Brain [facility] Impression: 1. No evidence of acute intracranial findings or abnormal enhancement. GENETIC TESTING: - CLASSIFICATION: NOS LABORATORY RESULTS CBC: No results for input(s): WBC, HGB, PLTCOUNT in the last 18970 hours. BMP: No results for input(s): NA, CO2, CREATININE in the last 72471 hours. LFT: No results for input(s): AST, ALT in the last 37961 hours. VITAMIN D: No results for input(s): [id number] in the last 44965 hours. ASM DRUG LEVELS No results for input(s): LEVETIRACETM in the last 53628 hours. HPI: History of Epilepsy: History collected through chart review and conversations with patient. Aziza Espinosa is a 37 year old female referred to [facility] Epilepsy clinic for seizures. PMH includesanxiety, depression, [...] Patient also endorses that poor memory continues. Today's Visit: Seizures have not occurred since increase in [...] no injury related to her hockey playing. 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 Ascorbic Acid (VITAMIN C PO) +Whole food vitamin c ??? Cholecalciferol (VITAMIN D3 GUMMIES PO) ??? [...] 1 (one) capsule by mouth every morning ??? zonisamide (Zonegran) 100 MG capsule Take 2 (two) capsules by mouth at bedtime No current facility-administered medications for this visit. [...] on file Transportation Needs: Not on file Stress: Not on file Housing Stability: Not on file control Mirena IUD Folic acid Yes, occasionally takes multivitamin No Alcohol usage Yes, 2-3 beers weekly Illicit substance No Marijuana usage 1x per month - smoking and edible Physical Exam: Vitals: 01/22/23 0909 BP: 105/71 Pulse: 97 Temp: 98.2 ??F (36.8 ??C) SpO2: 98% Weight: 89.1 kg (196 lb 8 oz) Height: 1.727 m (5' 8 ) General Awake and alert HEENT: Head normocephalic and atraumatic, erythema of right nasolabial fold noted. This is dry and raised. No drainage noted. Extremities: No cyanosis or edema noted Cortical [...] and stance Assessment/Plan: Aziza Espinosa is a 37 year old female with a history of spells concerning for seizures. Concern for epilepsy given semiology description. Last EEG unremarkable. Patient is scheduled for an EMU on 02/26/2023 for seizure characterization. Patient has [facility] paperwork that she is requesting be completed - as of time of this note that has been completed. Discussed topical options for breakout of right nasolabial fold with collaborating physician. Since this has responded to antifungals we chose toavoid corticosteroids in the case that the rash is infection related. Patient contacted via [employer] asked to maintain upcoming appointment with dermatology and contact PCP and clinic if this worsens prior to that appointment. Also asked via [employer] if patient has a sulfa allergy - no response as of time of this note. If she does report sulfa allergy or rash on right nasolabial fold does not resolve following dermatology appointment to consider swapping ASM d/t potential sulfa allergy. - Continue Zonisamide 200 mg QHS - to lower and consider second agent if patient reports sulfa allergy. - Maintain EMU Follow-up in 2-3 months or sooner if problems arise Patient agrees and voices understanding of plan of care listed above. POST-VISIT MEDICATION (Current to 01/22/2023) Name Pill Size Frequency Total/Day Level zonisamide 100 mg 0-2 200 mg/day I told the patient in clear [...] may be harmed if a seizure occurs. Patient is to inform the Neurology Clinic in the event she decides to become . I personally spent 40 minutes on 01/22/2023 preparing to see the patient (e.g. reviewing [...] st Contact Info) Description 09/08/2025 2:00 PM APNS Office Visit [facility] - RUNNING INSTRUCTOR [address] [place] [address] Tania Granger APRN-CNP [address] [place] [address] documented as of this encounter Visit Diagnoses Diagnosis Seizures (HCC)- Primary Other convulsions documented in this encounter Care Teams Manufacturing Technologist Relationship Specialty Start Date End Date Shannan Brooks PA-C PCP - General 08/03/22 documented as of this encounter
--- OUTSIDE RECORDS SUMMARY | 2024-10-06 21:44 | XMS_ITS | Encounter Summary ---
Author Organization [facility] Address [address] [facility] [place] [address] Care Team Providers Care Metal Organ Pipe Maker Name Role Phone Shannan Brooks PA-C Primary Care Provider Encounter Details Date Type Department Care Team (Latest Contact Info) Description 03/14/2023 Travel Social History Tobacco Use Types Packs/Day [...] Date Recorded PHQ2 TOTAL SCORE 1 09/20/2022 [facility] [place] of Occupat ional Health - Occupational Stress [...] place to sleep or slept in a mcfp (including now)? No 02/26/2023 Sex and Gender [...] st Contact Info) Description 09/08/2025 2:00 PM MINIATURE SET CONSTRUCTOR Office Visit [facility] - SENIOR MEDICAL TECHNOLOGIST [address] [address] Tania Granger, SPONGE FISHERMAN-ROVER TENDER [address] [facility] [address] [place] [address] documented as of this encounter Visit Diagnoses Not on filedocumented in this encounter Care Teams Metal Organ Pipe Maker Relationship Specialty Start Date End Date Shannan Brooks PA-C PCP - General 08/03/22 documented as of this encounter
--- OUTSIDE RECORDS SUMMARY | 2024-10-06 21:44 | XMS_ITS | Encounter Summary ---
Author Organization [facility] Address [address] [facility] [address] Care Team Providers Care Field Service Technician Poultry Name Role Phone Shannan Brooks PA-C Primary Care Provider Encounter Details Date Type Department Care Team (Late st Contact Info) Description 11/27/2022 Orders Only [facility] [address] [facility], [place] [address] Fredy Mccormick SPACE CONTROL AGENT-BALLOON SANDER [address] [place] [address] Seizures (HCC) Social History Tobacco Use Types Packs/Day [...] (Late Contact Info) Description 09/08/2025 2:00 PM METAL WORKER Office Visit [facility] - WORLD LANGUAGE TEACHER [address] [place] [address] Tania Granger, SPACE CONTROL AGENT-BALLOON SANDER [address] [facility] [address] [place] [address] documented as of this encounter Visit Diagnoses Diagnosis Seizures (HCC)- Primary Other convulsions documented in this encounter Care Teams Field Service Technician Poultry Relationship Specialty Start Date End Date Shannan Brooks PA-C PCP - General 08/03/22 documented as of this encounter
--- OUTSIDE RECORDS SUMMARY | 2024-10-06 21:44 | XMS_ITS | Encounter Summary ---
Author Organization [facility] Address [address] [facility] [place] [address] Care Team Providers Care Law Office Manager Name Role Phone Shannan Brooks PA-C Primary Care Provider Encounter Details Date Type Department Care Team (Latest Contact Info) Description 05/14/2023 Travel Social History Tobacco Use Types Packs/Day [...] Date Recorded PHQ2 TOTAL SCORE 1 09/20/2022 [facility] [place] of Occupat ional Health - Occupational Stress [...] st Contact Info) Description 09/08/2025 2:00 PM MECHANIC RECOVERY Office Visit [facility] - QUALITY ASSURANCE TECH [address] [facility] [address] [place] [address] Tania Granger APRN-LEIGHANN [address] [facility] [address] [place] [address] documented as of this encounter Visit Diagnoses Not on filedocumented in this encounter Care Teams Law Office Manager Relationship Specialty Start Date End Date Shannan Brooks PA-C PCP - General 08/03/22 documented as of this encounter
--- OUTSIDE RECORDS SUMMARY | 2024-10-06 21:44 | XMS_ITS | Encounter Summary ---
Author Organization [facility] Address [address] [address] Care Team Providers Care Accounts Supervisor Name Role Phone Cecilia Shannan Graham PA-C Primary Care Provider Reason for Visit * Reason Onset Date Comments Confirmation 02/20/2023 Called to confir m EMU, no answer, [facility]. Will send mycSCI Solutiont message and try calling again. Encounter Details Date Type Department Care Team (Late Contact Info) Description 02/20/2023 Telephone [facility] [address] [facility] [address] [place] [address] Theresa Nowak, BOOKER Confirmation (Called to confirm EMU, no answer, [facility] full. Will send Phobioust message and try calling again.) Social History Tobacco Use Types Packs/Day Years [...] Upcoming Encounters Date Type Department Care Team ([facility] Contact Info) Description 09/08/2025 2:00 PM RN MANAGED CARE Office Visit [facility] - SALES BROKER [address] [facility] [address] [place] [address] Tania Granger, ACTION INSTALLER-JOURNALIST [address] [facility] [address] [place] [address] documented as of this encounter Visit Diagnoses Not on filedocumented in this encounter Care Teams Accounts Supervisor Relationship Specialty Start Date End Date Shannan Brooks PA-C PCP - General 08/03/22 documented as of this encounter
--- OUTSIDE RECORDS SUMMARY | 2024-10-06 21:44 | XMS_ITS | Encounter Summary ---
Author Organization [facility] Address [address] [place] [address] Care Team Providers Care Power Washer Name Role Phone Shannan Brooks PA-C Primary Care Provider Reason for Referral * Consultation (Routine) - Open Specialty Diagnoses / Procedures Referred By Filipe dorsey Referred To Contact Diagnoses FH: ovarian cancer Tania Granger APRN-CNP [address] [place] [address] Referral ID Status Reason Start Date Expiration Date V isits Requested Visits Authorized [id number] Open Specialty Services Required 09/07/2024 09/07/2025 1 1 T LICENSING CLERK Encounter Details Date Type Department Care Team (Late st Contact Info) Description 09/07/2024 2:20 PM AGENT LICENSING CLERK Office Visit [facility] - [place] FLOOR INSTALLATION HELPER [address] [place] [address] Tania Granger APRN-CNP [address] [place] [address] Well woman exam with routine gynecological exam (Primary Dx); FH: ovarian cancer; Dysuria; Other fatigue; Acne vulgaris; Abnormal facial hair Social History Tobacco Use Types Packs/Day Years [...] Recorded Patient Health Questionnaire-2 Score 0 07/01/2023 [facility] of Occupat ional Health - Occupational Stress [...] place to sleep or slept in a fdc (including now)? No 02/26/2023 Sex and Gender Information Value Date Recorded Sex Assigned at Not on file Gender Identity Not on file Sexual Orientation Not on file documented as of this encounter Last Filed Vital Signs Vital Sign Reading Time Taken Comments Blood Pressure 120/70 09/07/2024 1:56 PM AGENT LICENSING CLERK Pulse - - Temperature - - Respiratory Rate - - Oxygen Saturation - - Inhaled Oxygen Concentration - - Weight 97 kg (213 lb 12.8 oz) 09/07/2024 1:56 PM AGENT LICENSING CLERK Height 172.7 cm (5' 8 ) 09/07/2024 1:56 PM AGENT LICENSING CLERK Body Mass Index 32.51 09/07/2024 1:56 PM AGENT LICENSING CLERK documented in this encounter Functional Status Functional [...] as of this encounter Progress Notes * Tania Granger, MACEY-BIOSOLIDS MANAGEMENT TECHNICIAN - 09/07/2024 1:44 PM CST New Lag Screwer Annual Exam Note: History of Present Illness: Ms. Alvarez a 39 year old who presents for a WWE.Had IUD removed in March 2024 and having and fluid buildup, increase facial hair, increase acne, headaches, fatigue. Periods not regular since Mirena removed and prior to removal had Mirena for 9 yrs. Pt has FH ovarian cancer and she said she had ovarian cancer at [facility] before. Never had genetics and referral for this made Gynecologic history: Last mammogram: none Breast self exam:yes LMP: No LMP recorded (lmp unknown). Menses: 08-15-24; periods not once a month since IUD removed in 04-13 Pain or premenstrual symptoms with menses: cramps sometimes with periods Last Pap: 09-11 normal Pap smear history: none abnormal for 18 yrs Sexually transmitted diseases:trich Sexual concerns:no pain Number of partners:0 Contraception:condoms OB history: OB History Para Term AB Living 0 0 0 0 0 0 SAB IAB Ectopic Multiple Live Births 0 0 0 0 0 Immunization history: Immunization History Administered Date(s) Administered Covid Pfizer primary monovalent 12+ yr 0.3mL Purple cap 12/08/2020, 12/28/2020 HPV, HISTORIC VACCINE 10/21/2015 INFLUENZA VACCINE, CELL CULTURE, QUADR. (FLUCELVAX QUADRIVALENT; 6MO+) (CCIIV4) 07/31/2022 iNFLUENZA VACCINE, RECOM-BURNETTE, QUADR. (FLUBLOCK QUADRIVALENT; 18Y+) (RIV4) 07/21/2020 Medical history: Past Medical History: Diagnosis Date Ovarian cancer (HCC) Surgical history: Past Surgical History: Procedure Laterality Date Tympanostomy Social history: Social History Socioeconomic History Marital status: Single Spouse name: Not on file Number of children: Not on file Years of education: Not on file Highest education level: Not on file Occupational History Not on file Tobacco Use Smoking status: Never Smokeless tobacco: Never Vaping Use Vaping status: Never Used Substance and Sexual Activity Alcohol use: Yes Drug use: Never Sexual activity: Yes Partners: Male Other Topics Concern Not on file Social History Narrative Not on file Social Determinants of Health Financial Resource Strain: Low Risk (02/26/2023) Overall Financial Resource Strain (CARDIA) Difficulty of Paying Living Expenses: Not hard at all Food Insecurity: No Food Insecurity (02/26/2023) Hunger Vital Sign Worried About Running Out of Food in the Last Year: Never true Ran Out of Food in the Last Year: Never true Transportation Needs: No Transportation Needs (02/26/2023) PRAPARE - Transportation Lack of Transportation (Medical): No Lack of Transportation (Non-Medical): No Stress: No Stress Concern Present (02/26/2023) [place] of Occupational Health - Occupational Stress Questionnaire Feeling of Stress : Not at all Housing Stability: Low Risk (02/26/2023) Housing Stability Vital Sign Unable to Pay for Housing in the Last Year: No Number of Places Lived in the Last Year: 1 Unstable Housing in the Last Year: No Family history: Family History Problem Relation Name Age of Onset Cancer - Ovarian Mother Cancer - Ovarian Maternal Grandmother Cancer - Breast Paternal Grandmother Medications: Current Outpatient Medications Medication Sig Dispense Refill Ascorbic Acid (VITAMIN C PO) +Whole food vitamin c azelaic acid (Finacea) 15 % gel Apply to affected areas on the face daily. 30 days supply. 50 g 3 Cholecalciferol (VITAMIN D3 GUMMIES PO) FIBER PO folic acid (Folvite) 1 MG tablet Take 1 (one) tablet by mouth once daily (Patient not taking: Reported on 09/02/2023) 90 tablet 4 levonorgestrel (Mirena, 52 MG,) 20 MCG/DAY IUD Mirena 20 mcg/24 hours (8 yrs) 52 mg intrauterine device Take 1 device as needed by intrauterine route for 1 day. venlafaxine XR 24hr (Effexor XR) 150 MG capsule Take 1 (one) capsule by mouth once daily venlafaxine XR 24hr (Effexor XR) 75 MG capsule venlafaxine ER 75 mg capsule,extended release 24 hr (Patient not taking: Reported on 09/02/2023) Vyvanse 20 MG capsule Take 1 (one) capsule by mouth every morning No current facility-administered medications for this visit. Allergies: No Known Allergies Review of Systems: Constitutional: Negative for fatigue, weight loss, weight gain. Respiratory: Negative for shortness of breath, dyspnea on exertion, wheezing Cardiovascular: Negative for palpitations, tachycardia, irregular heart beat Gastrointestinal: Negative for nausea, vomiting, change in bowel habits Genitourinary:negative for frequency, dysuria, hematuria, and vaginal discharge Integument/breast: negative for breast lump, nipple discharge, and breast tenderness Musculoskeletal:Negative for joint pain, back pain, muscle pain Neurological: Negative for headaches, migraine headaches, dizziness Behavioral/Psych: Negative for depressed mood, anxiety, abusive relationship Endocrine: Negative for cold intolernance, heat intolerance, hot flashes Physical examination: There were no vitals taken for this visit. General: No acute distress. Alert and oriented x3. Affect appropriate. Nodes: Groin: No palpable lymphadenopathy Breasts: No masses, skin changes or nipple discharge. Abdomen: Soft, non-distended, no masses or tenderness. Psychiatric: Affect:within normal limits External Genitalia: Within normal limits, no lesions or masses. Urethral meatus: within normal limits. Urethra: Within normal limits. Bladder: Within normal limits. Vagina: Normal rugae, no lesions. Cervix: No lesions or cervical motion tenderness. Uterus: Position: Anteverted Shape: Normal. Size: Normal. Mobility: Yes. Adnexae: Within normal limits. Anus/Perineum: Within normal limits. Rectovaginal exam: Not performed. Assessment and Plan: Well woman examination: 1. Pap Smear: today and STI testing Condoms if sexually active Labs ordered Genetic referral due to FH and her history Pelvic ultrasound to check other ovary and see me after To see PCP for headaches MARTHA Chowdhury T LICENSING CLERK documented in this encounter Miscellaneous Notes * Addendum Note - Ariella Callahan RN - 09/29/2024 10:15 AM CSTAddended by: ARIELLA CALLAHAN on: 09/29/2024 10:15 AM Modules accepted: Orders T LICENSING CLERK documented in this encounter Plan of Treatment Upcoming Encounters Date Type Department Care Team (Late st Contact Info) Description 09/08/2025 2:00 PM AGENT LICENSING CLERK Office Visit [facility] - [place] FLOOR INSTALLATION HELPER [address] [place] [address] Tania Granger APRN-CNP [address] [place] [address] Scheduled Orders Name Type Priority Associated Diagnoses Orde r Schedule TESTOSTERONE TOTAL Lab Routine Other fatigue Ordered: 09/07/2024 TSH+FREE T4 PANEL Lab Routine Other fatigue Ordered: 09/07/2024 CBC W/O DIFFERENTIAL Lab Routine Other fatigue Ordered: 09/07/2024 VITAMIN D 25-HYDROXY Lab Routine Other fatigue Ordered: 09/07/2024 IRON + TIBC + FERRITIN Lab Routine Other fatigue Ordered: 09/07/2024 PROLACTIN Lab Routine Other fatigue Ordered: 09/07/2024 CANCER ANTIGEN (CA)125 BLOOD Lab Routine Other fatigue Ordered: 09/07/2024 Scheduled Referrals Name Type Priority Associated Diagnoses Order Schedule AMB REFERRAL TO GENETICS Outpatient Referral Routine FH: ovarian cancer 1 Occurrences starting 09/07/2024 until 09/07/2025 documented as of this encounter Procedures Procedure Name Priority Date/Time Associated Diagnosis Comments HPV DETECTION HIGH RISK ALESSANDRA Routine 09/07/2024 2:48 PM AGENT LICENSING CLERK Well woman exam with routine gynecological exam C. TRACHOMATIS + N. GONORRHOEAE + TRICH ALESSANDRA Routine 09/07/2024 2:48 PM AGENT LICENSING CLERK Well woman exam with routine gynecological exam PAP IMAGE-GUIDED W HPV+CT/NG+TRICH Routine 09/07/2024 2:48 PM AGENT LICENSING CLERK Well woman exam with routine gynecological exam CULTURE URINE Routine 09/07/2024 Dysuria documented in this encounter Results * C. TRACHOMATIS + N. GONORRHOEAE + TRICH ALESSANDRA (09/07/2024 2:48 PM AGENT LICENSING CLERK) Chlamydia Trachomatis ALESSANDRA Not detected Not detected 09/09/2024 9:09 AM AGENT LICENSING CLERK [facility] Neisseria Gonorrhoeae ALESSANDRA Not detected Not detected 09/09/2024 9:09 AM AGENT LICENSING CLERK [facility] Trichomonas Vaginalis ALESSANDRA Not detected Not detected 09/09/2024 9:09 AM AGENT LICENSING CLERK [facility] Pathology/Cytolo gy MISCELLANEOUS SAMPLES / Unknown 09/07/2024 2:48 PM AGENT LICENSING CLERK 09/08/2024 12:37 PM AGENT LICENSING CLERK [facility] - 09/09/2024 9:09 AM AGENT LICENSING CLERK This analysis was performed using Gen-Probe Aptima Combo 2 and Gen-Probe Aptima Assay. These methodologies are U.S. FDA approved for Chlamydia trachomatis, Neisseria gonorrhoeae testing for urine and urogenital swabs from men and women, and cervical cells submitted in ThinPrep vials. Performance characteristics of testing for Trichomonas vaginalis on specimens using the Gen-Probe Aptima Trichomonas vaginalis Assay on the [employer] system and rectal and pharyngeal swabs with Gen-Probe Aptima combo 2 were determined by the Molecular Diagn[facility] at [facility]. ??They have not been cleared or approved [...] perform high complexity laboratory testing. [facility] MICRO[facility] ORDERABLES Performing Organization Address [facility] de Phone Number [facility] [address] [phone] * HPV DETECTION HIGH RISK ALESSANDRA (09/07/2024 2:48 PM AGENT LICENSING CLERK) High Risk Human Papilloma Result Not detected Not detected 09/09/2024 8:55 AM AGENT LICENSING CLERK [facility] High Risk Human Papilloma Interp 09/09/2024 8:55 AM AGENT LICENSING CLERK [facility] Comment:High Risk Human Silverio lloma Virus was Not Detected. Pathology/Cytolo gy MISCELLANEOUS SAMPLES / Unknown 09/07/2024 2:48 PM AGENT LICENSING CLERK 09/08/2024 12:37 PM AGENT LICENSING CLERK Narrative [facility] - 09/09/2024 8:55 AM AGENT LICENSING CLERK Nucleic acid isolated from the specimen was [...] (cytology, histology, and clinical information). [facility] MICRO[facility]Y ORDERABLES Performing Organization Address [facility] Co de Phone Number [facility] [address] [phone] * PAP IMAGE-GUIDED W HPV+CT/NG+TRICH (09/07/2024 2:48 PM AGENT LICENSING CLERK) Case Report Gynecologic Cytology Report ? Case: [id number] ? Authorizing Provider: ??Tania Granger, MACEY-BIOSOLIDS MANAGEMENT TECHNICIAN ?Collected: ? 09/07/2024 02:48 PM ? Ordering Location: ? [facility] - ??Received: ?09/08/2024 12:37 PM ? [place] FLOOR INSTALLATION HELPER ? First Screen: ?Agpaito Rodríguez, CT(ASCP) ? Rescreen: ?Nadeem Hathaway ? Specimen: ?THINPREP - IMAGE GUIDED, Cervix/Endocervix ? 09/10/2024 1:08 PM AGENT LICENSING CLERK [facility] LMP -09/10/2024 1:08 PM AGENT LICENSING CLERK [facility] Menstrual Status None Applicable 1:08 PM AGENT LICENSING CLERK [facility] Specimen Adequacy Satisfactory for evaluation, endocervical/trans formation zone component present. 09/10/2024 1:08 PM AGENT LICENSING CLERK [facility] Categorization Negative for intraepithelial lesion or malignancy. 09/10/2024 1:08 PM [facility] Interpretation AIRBRUSH ARTIST Negative for intraepithelial lesion or malignancy. 09/10/2024 1:08 PM [facility] Pap Footnote The Pap Smear is a screening test. False positive and false negative results occur. Negative results do not preclude abnormalities, thus clinical correlation is required. This specimen was evaluated by the [employer] Imaging System along with an additional manual rescreening by a instrumentation and controls technician and/or pathologist. 09/10/2024 1:08 PM [facility] Embedded Images 1:08 PM [facility] Pathology/Cytolo gy MISCELLANEOUS SAMPLES / Unknown 09/07/2024 2:48 PM AGENT LICENSING CLERK 09/08/2024 12:37 PM AGENT LICENSING CLERK Tania Granger WARD SECRETARY-BIOSOLIDS MANAGEMENT TECHNICIAN LAB - PATHOLOGY/CY TOLOGY ORDERABLES Performing Organization Address [facility]/State/[facility] Co de Phone Number [facility] [address] [facility] [place] [address], [facility] [[email or web address]] [phone] * CULTURE URINE (09/07/2024) Culture [facility] Comment: ??CULTURE, URINE, ROUTINE ?Micro Number: ?[id number] ??Test Status: ? Final ??Specimen Source: ?? Urine, clean catch ??Specimen Quality: ??Adequate ??Result: ?Mixed genital rajani isolated. These superficial ? bacteria are not indicative of a urinary tract ? infection. No further organism identification is ? warranted on this specimen. If clinically ? indicated, recollect clean-catch, mid-stream ? urine and transfer immediately to Urine Culture ? Transport Tube. Test Performed at: [facility] ??[phone] RIGOBERTO MARRUFO MD Urine URINE SPECIMEN OBTAINED BY CLEAN CATCH PROCEDURE / Unknown 09/07/2024 09/09/2024 1:23 AM AGENT LICENSING CLERK Tania Granger WARD SECRETARY-BIOSOLIDS MANAGEMENT TECHNICIAN LAB - MICROBIOLOGY ORDERABLES [employer] [address] [place] [address] documented in this encounter Visit Diagnoses Diagnosis Well woman exam with routine gynecological exam- Primary Routine gynecological examination FH: ovarian cancer Family history of malignant neoplasm of ovary Dysuria Other fatigue Acne vulgaris Other acne Abnormal facial hair Hirsutism documented in this encounter Care Teams Power Washer Relationship Specialty Start Date End Date Shannan Brooks PA-C PCP - General 08/03/22 documented as of this encounter
--- OUTSIDE RECORDS SUMMARY | 2024-10-06 21:44 | XMS_ITS | Encounter Summary ---
Author Organization [facility] Address [address] [facility] [facility] [address] Care Team Providers Care Manager [employer] Name Role Phone Shannan Brooks PA-C Primary Care Provider Reason for Visit * Reason Onset Date Comments Seizure 11/25/2022 Encounter Details Date Type Department Care Team (Late st Contact Info) Description 11/25/2022 Telephone [facility] 5N ACUTE [address] [place] [id number] Theo Granger DO [address] [place] [address] Seizure Social History Tobacco Use Types Packs/Day Years [...] on file documented as of this encounter Miscellaneous Notes * Telephone Encounter - Theo Granger DO - 11/25/2022 2:14 PM CST Pt still having about 12 auras on zonisamide 100mg, can increase to 200mg tonight(plan was to increase in one month), and please call [facility] tomorrow to follow up on this. -Theo Granger DO Neurology Resident R INSTALLER AND REMOVER documented in this encounter Plan of Treatment Upcoming Encounters Date Type Department Care Team (Late st Contact Info) Description 09/08/2025 2:00 PM METER INSTALLER AND REMOVER Office Visit [facility] - ELECTROLYSIS OPERATOR [address] [place] [address] Tania Granger, MACEY-MATERIAL HANDLER LOADER [address] [facility] [address] [place] [address] documented as of this encounter Visit Diagnoses Not on filedocumented in this encounter Care Teams Manager Mutual Fund Relationship Specialty Start Date End Date Shannan Brooks PA-C PCP - General 08/03/22 documented as of this encounter
--- OUTSIDE RECORDS SUMMARY | 2024-10-06 21:44 | XMS_ITS | Encounter Summary ---
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 Procedures CT ABDOMEN PELVIS W CONTRAST Karie Byrd MD [address] [place] [phone] Referral ID Status Reason Start Date Expiration Date Visits Re quested Visits Authorized [id number] Closed 09/02/2023 09/01/2024 1 1 DE TECHNICAL SALES REPRESENTATIVE Reason for Visit * Radiology Services (Routine) - Closed Specialty Diagnoses / Procedures Referred By Contac t Referred To Contact 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 Procedures CT ABDOMEN PELVIS W CONTRAST Karie Byrd MD [address] [address] Referral ID Status Reason Start Date Expiration Date Visits Re quested Visits Authorized [id number] Closed 09/02/2023 09/01/2024 1 1 Encounter Details Date Type Department Care Team (Latest Contact Info) Description 09/24/2023 6:57 AM INSIDE TECHNICAL SALES REPRESENTATIVE - 09/24/2023 11:59 PM INSIDE TECHNICAL SALES REPRESENTATIVE Hospital Encounter [facility] CAT SCAN [address] [place] [phone] Karie Byrd MD [address] [facility] [address] [place] [address] Discharge Disposition: Home or Self Care Social [...] Recorded Patient Health Questionnaire-2 Score 0 07/01/2023 [facility] of Occupat ional [facility] - Occupational Stress Questionnaire Answer Date Recorded [...] No 02/26/2023 documented as of this encounter Medications at [...] 07/31/2022 4 documented as of this encounter Plan of Treatment Upcoming Encounters Date Type Department Care Team (Late st Contact Info) Description 09/08/2025 2:00 PM INSIDE TECHNICAL SALES REPRESENTATIVE Office Visit [facility] - BACKWINDER [address] [place] [address] Tania Granger, EVS ATTENDANT-HOUSE BUILDER [address] [place] [address] documented as of this encounter Procedures Procedure Name Priority Date/Time Associated Diagnosis Comments CT ABDOMEN PELVIS W CONTRAST Routine 09/24/2023 7:15 AM INSIDE TECHNICAL SALES REPRESENTATIVE Borderline epithelial neoplasm of ovary CREATININE - POCT INTERFACED Routine 09/24/2023 7:05 AM INSIDE TECHNICAL SALES REPRESENTATIVE documented in this encounter Results * CT ABDOMEN PELVIS W CONTRAST (09/24/2023 7:15 AM INSIDE TECHNICAL SALES REPRESENTATIVE) Anatomical Region Laterality Modality Abdomen, Pelvis Computed Tomogra phy 09/24/2023 7:31 AM INSIDE TECHNICAL SALES REPRESENTATIVE Impressions 09/24/2023 1:17 PM INSIDE TECHNICAL SALES REPRESENTATIVE Impression: Small volume free fluid in the pelvis, nonspecific. Otherwise no significant abnormality identified. > Dictated by Shanta Canales MD (care program resident). IChristine MD have personally reviewed and interpreted this examination/study. 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 > Dictated by Shanta Canales MD (care program resident). Christine Zarate MD have personally reviewed and interpreted this examination/study. > Interpreting Provider: Christine Kay MD on 09/24/2023 1:[address] MD [address] ORDERABLES * CREATININE - POCT INTERFACED (09/24/2023 7:05 AM INSIDE TECHNICAL SALES REPRESENTATIVE) Creatinine POCT 0.54 0.30 - 1.30 mg/dL 09/24/2023 7:08 AM INSIDE TECHNICAL SALES REPRESENTATIVE [facility] eGFR >90 >90 mL/min/1.7 3 m2 09/24/2023 7:08 AM INSIDE TECHNICAL SALES REPRESENTATIVE [facility] Blood BLOOD SPECIMEN / Unknown 09/24/2023 7:05 AM INSIDE TECHNICAL SALES REPRESENTATIVE 09/24/2023 7:08 AM INSIDE TECHNICAL SALES REPRESENTATIVE Karie Byrd MD LAB - POINT OF CAR E ORDERABLES [address] [phone], [facility] [phone] documented in this encounter Visit Diagnoses Diagnosis Borderline epithelial neoplasm of ovary documented in this encounter Administered Medications Inactive Administered Medications - up to 3 most recent administrations Medication Order MAR Action Action Date Dose Rate Site iopamidol (Isovue 370) 76 % contrast Intravenous, CONTRAST ONCE, Starting on Sat09/24/23 at 0658, Until Sat09/25/23 at 0153 $ Given - Contrast 09/24/2023 7:06 AM INSIDE TECHNICAL SALES REPRESENTATIVE 100 mL documented in this encounter Care Teams Shank Boner Relationship Specialty Start Date End Date Shannan Brooks PA-C PCP - General 08/03/22 documented as of this encounter
--- OUTSIDE RECORDS SUMMARY | 2024-10-06 21:44 | XMS_ITS | Encounter Summary ---
Author Organization [facility] Address [address] [place] [address] Care Team Providers Care Surface Boss Name Role Phone Shannan Brooks PA-C Primary Care Provider Reason for Visit * Reason Onset Date Comments Order 06/26/2023 Encounter Details Date Type Department Care Team (Late st Contact Info) Description 06/26/2023 Telephone [facility] - Neurology [address] [facility], [place] [id number] Fredy Mccormick, TIER IN-DATA REVIEW SPECIALIST [address] [place] [address] Order Social History Tobacco Use Types Packs/Day [...] SCORE 1 09/20/2022 [facility] [place] of Occupat ional Health - Occupational Stress [...] encounter Miscellaneous Notes * Telephone Encounter - Tawny Robb RN - 06/26/2023 9:13 AM CDT Ambulatory EEG order, previous EEG, demographics, insurance cards and last visit note dated 06/25/2023 faxed to [facility] at . Copy of orders sent to Medical Records. documented in this encounter Plan of Treatment Upcoming Encounters Date Type Department Care Team (Late st Contact Info) Description 09/08/2025 2:00 PM RECORDER HELPER GRAVITY PROSPECTING Office Visit [facility] - NURSE INFORMATICIST [address] [place] [address] Tania Granger APRN-DATA REVIEW SPECIALIST [address] [place] [address] documented as of this encounter Visit Diagnoses Not on filedocumented in this encounter Care Teams Surface Boss Relationship Specialty Start Date End Date Shannan Brooks PA-C PCP - General 08/03/22 documented as of this encounter
--- OUTSIDE RECORDS SUMMARY | 2024-10-06 21:44 | XMS_ITS | Encounter Summary ---
Author Organization [facility] Address [address] [place] [address] Care Team Providers Care Inspecting Machine Adjuster Name Role Phone Shannan Brooks PA-C Primary Care Provider Reason for Visit * Reason Onset Date Comments Returned Call 12/12/2022 Encounter Details Date Type Department Care Team (Late st Contact Info) Description 12/12/2022 Telephone [place] [id number] [place] [address] Theresa Nowak, RN Returned Call Social History Tobacco Use Types Packs/Day Years [...] suspected to have Coronavirus/COVID-19? No / Unsure 12/20/2022 3:16 PM PLATING ENGINEER documented as of this encounter Miscellaneous Notes * Telephone Encounter - Theresa Nowak RN - 12/12/2022 10:09 AM PLATING ENGINEER Date scheduled: February 26, 2023 @ 12:30pm Patient is a referral from PATRICIA Daniel. Called and discussed EMU process, safety, environment and the patient checklist. 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 She said her events started shortly aftershe finished graduate school. She first noticed it while on a phone call with a friend back in July 12. She also has a history of ovarian cancer, ADHD, anxiety, and depression. She describes an aura that happens regularly and lasts less than a minute. She is coming into the EMU for characterization. She lives alone and is an active bike rider and plays hockey. She will have a friend providetransportation to the study. Will send patient information packet and call patient closer to her admission date. Patient has contact phone numbers and utilizes [employer] for any questions or concerns. [facility]: EMU Preadmission Assessment Prior diagnosis of epilepsy: needs characterized If yes, age of onset: 37 y.o. Aura: feeling of dred, fear of something not right, gets hot, dizzy Seizure semiology 1. Extreme felling of evelyn vu, visual memory that is not real, nauseous, stomachflip feeling, no LOC, able to respond, can sit down and breath out of it Frequency/ Duration: lasts <1 min occurring several times a month Post Ictal: brain fog Last known seizure: ~ 2 weeks ago (1st week of ) Prior generalized convulsion: no Convulsion > 5 minutes: no Seizure cluster: unknown Prior intubation after seizure: no Any of these behaviors post ictal? If yes, duration: Confusion: brain fog Aggression: Hallucination: Provoking factors: stress? Cognitive impairment: poor memory Constant supervision: no If yes, who is the caregiver: Psychiatric disorder: anxiety, depression, ADHD, has panic attacks Special assistance: Ambulatory device: no, has swelling in leg, benson splint feeling Visual impairment: Auditory impairment: History of Falls: hits her head d/t being clumsy History of Fractures: no Seizure related injuries: no Cardiovascular disease: no Hypertension: Fainting/collapse: Abnormal rhythm: Chest pain: Heart attack: CHF: Pulmonary disease:no COPD: Asthma: Nebulizer/Inhaler usage: Kidney disease: no Require dialysis: Diabetes: no Require insulin: BiPAP/CPAP: no, pt doesn't sleep well Dietary restrictions: no Other pertinent health history: anxiety, depression, ADHD, ovarian cancer (L ovary removed) Current AED's: Zonisamide Other meds: Viviance, Effexor, Folic acid Social situation: lives alone Smoker: no ETOH: 2-3 beers a week Drug use: edibles (on occasion) Work: OT @ [employer] Decision making capacity: self Handedness: right Transportation Plan: will have a friend drive ING ENGINEER documented in this encounter Plan of Treatment Upcoming Encounters Date Type Department Care Team (Late st Contact Info) Description 09/08/2025 2:00 PM PLATING ENGINEER Office Visit [facility] - TELEVISION SPECIALIST [address] [place] [address] Tania Granger APRN-KETTLE TENDER [address] [place] [address] documented as of this encounter Visit Diagnoses Not on filedocumented in this encounter Care Teams Inspecting Machine Adjuster Relationship Specialty Start Date End Date Shannan Brooks PA-C PCP - General 08/03/22 documented as of this encounter
--- OUTSIDE RECORDS SUMMARY | 2024-10-06 21:44 | XMS_ITS | Encounter Summary ---
Author Organization [facility] Address [address] [place] [address] Care Team Providers Care Accordion Repairer Name Role Phone Shannan Brooks PA-C Primary Care Provider Reason for Referral * Neurology (Routine) - Closed Specialty Diagnoses / Procedures Referred By Filipe t Referred To Contact Neurology Diagnoses Seizures (HCC) Procedures EEG EXTENDED MONITORING > 1 HOUR Fredy Mccormick APRN-CNP [address] [place] [address] [facility] Eeg/Emg [address] [place] [address] Referral ID Status Reason Start Date Expiration Date Visits Re quested Visits Authorized [id number] Closed 10/16/2022 10/16/2023 1 1 RNET SALES REPRESENTATIVE Reason for Visit * Neurology (Routine) - Closed Specialty Diagnoses / Procedures Referred By Filipe dorsey Referred To Contact Neurology Diagnoses Seizures (HCC) Procedures EEG EXTENDED MONITORING > 1 HOUR Fredy Mccormick APRN-CNP [address] [place] [address] [facility] Eeg/Emg [address] [place] [address] Referral ID Status Reason Start Date Expiration Date Visits Re quested Visits Authorized [id number] Closed 10/16/2022 10/16/2023 1 1 Encounter Details Date Type Department Care Team (Latest Contact Info) Description 10/16/2022 1:17 PM INTERNET SALES REPRESENTATIVE - 10/16/2022 11:59 PM INTERNET SALES REPRESENTATIVE Hospital Encounter [facility] EEG/EMG [address] [place] [address] Fredy Mccormick, TECHNICAL CABLE JOINTER-NUTRITION SERVICES ASSOCIATE [address] [place] [address] Discharge Disposition: Home or Self Care Social [...] Coronavirus/COVID-19? Unable to assess 10/16/2022 9:16 AM INTERNET SALES REPRESENTATIVE documented as of this encounter Medications at [...] once daily 90 tablet 4 10/16/2022 09/07/2024 levETIRAcetam (Keppra) 500 MG tablet Take 1 (one) tablet by mouth 2 times daily 180 tablet 3 10/16/2022 11/22/2022 levonorgestrel (Mirena, 52 MG,) 20 MCG/DAY IUD Mirena 20 mcg/24 hours (8 yrs) 52 mg intrauterine device Take 1 device as needed by intrauterine route for 1 day. 09/07/2024 Pyridoxine HCl 100 MG Take 1 (one) tablet by mouth once daily 90 tablet 3 10/16/2022 11/22/2022 venlafaxine XR 24hr (Effexor XR) 75 MG capsule venlafaxine ER 75 mg capsule,extended release 24 hr 09/07/2024 Vyvanse 20 MG capsule Take 1 (one) capsule by mouth every morning 07/31/2022 documented as of this encounter Procedure Notes * Derrick Pickard MD - 10/16/2022 2:32 PM CSTAssociated Order(s): EEG EXTENDED MONITORING > 1 HOUR EEG REPORT Patient Name: Aziza Espinosa EEG#: [id number] Start Time: 14:20 PM 10/16/2022 Stop Time: 15:27 PM 10/16/2022 Clinical History: Aziza Espinosa is a 37 year old female with spells of indeterminate etiology. This EEG is ordered to evaluate for seizures. Current medications Current Outpatient Medications Medication Instructions ??? Cholecalciferol (VITAMIN D3 GUMMIES PO) Oral ??? FIBER PO Oral ??? folic acid (FOLVITE) 1 mg, Oral, DAILY ??? levETIRAcetam (KEPPRA) 500 mg, Oral, 2 TIMES DAILY ??? levonorgestrel (Mirena, 52 MG,) 20 MCG/DAY IUD Mirena 20 mcg/24 hours (8 yrs) 52 mg intrauterine device Take 1 device as needed by intrauterine route for 1 day. ??? Pyridoxine HCl 100 mg, Oral, DAILY ??? venlafaxine XR 24hr (Effexor XR) 75 MG capsule venlafaxine ER 75 mg capsule,extended release 24hr ??? venlafaxine XR 24hr (EFFEXOR XR) 150 mg, Oral, DAILY ??? Vyvanse 20 mg, Oral, EVERY MORNING Description This is an extended, greater than 1 hour, 21-channel EEG tracing consisting of 20 channels of EEG obtained from electrodes placed on the scalp according to the international 10-20 system, T1 and T2 electrodes, and one channel of EKG monitoring. Background The awake background consisted of a [...] formulated the above report. Derrick Pickard MD RNET SALES REPRESENTATIVE documented in this encounter Plan of Treatment Upcoming Encounters Date Type Department Care Team (Late st Contact Info) Description 09/08/2025 2:00 PM INTERNET SALES REPRESENTATIVE Office Visit [facility] - FINE WIRE DRAWER [address] [place] [address] Tania Granger APRN-NUTRITION SERVICES ASSOCIATE [address] [place] [address] documented as of this encounter Procedures Procedure Name Priority Date/Time Associated Diagnosis Comments EEG EXTENDED MONITORING > 1 HOUR Routine 10/16/2022 2:32 PM INTERNET SALES REPRESENTATIVE Seizures (HCC) documented in this encounter Results * EEG EXTENDED MONITORING > 1 HOUR (10/16/2022 2:32 PM INTERNET SALES REPRESENTATIVE) Narrative Derrick Pickard MD - 10/16/2022 2:32 PM INTERNET SALES REPRESENTATIVE Derrick Pickard MD ? 10/16/2022 ??5:04 PM [...] above report. Derrick Pickard MD Fredy Mccormick APRN-NUTRITION SERVICES ASSOCIATE NEUROLOGY ORDERAB LES documented in this encounter Visit Diagnoses Diagnosis Seizures (HCC) Other convulsions documented in this encounter Care Teams Accordion Repairer Relationship Specialty Start Date End Date Shannan Brooks PA-C PCP - General 08/03/22 documented as of this encounter
--- OUTSIDE RECORDS SUMMARY | 2024-10-06 21:44 | XMS_ITS | Encounter Summary ---
Author Organization [facility] Address [address] [facility] [facility] [place] [address] Care Team Providers Care Plasticator Name Role Phone Shannan Brooks PA-C Primary Care Provider Encounter Details Date Type Department Care Team (Latest Contact Info) Description 12/12/2022 Travel Social History Tobacco Use Types Packs/Day [...] suspected to have Coronavirus/COVID-19? No / Unsure 12/12/2022 1:21 PM RECIPROCATING DRILL OPERATOR documented as of this encounter Plan of Treatment Upcoming Encounters Date Type Department Care Team (Late st Contact Info) Description 09/08/2025 2:00 PM RECIPROCATING DRILL OPERATOR Office Visit [facility] - PEARL DIGGER [address] [facility] [address] [place] [address] Tania Granger APRN-LEIGHANN [address] [facility] [address] [place] [address] documented as of this encounter Visit Diagnoses Not on filedocumented in this encounter Care Teams Plasticator Relationship Specialty Start Date End Date Shannan Brooks PA-C PCP - General 08/03/22 documented as of this encounter
--- OUTSIDE RECORDS SUMMARY | 2024-10-06 21:44 | XMS_ITS | Encounter Summary ---
Author Organization [facility] Address [address] [place] [address] Care Team Providers Care Life Support Technician Name Role Phone Shannan Brooks PA-C Primary Care Provider Encounter Details Date Type Department Care Team (Latest Contact Info) Description 09/25/2023 Travel Social History Tobacco Use Types Packs/Day [...] Recorded Patient Health Questionnaire-2 Score 0 07/01/2023 [facility] [place] of Occupat ional Health - Occupational Stress [...] st Contact Info) Description 09/08/2025 2:00 PM COMMERCIAL LOAN PROCESSOR Office Visit [facility] - FLIGHT CONTROLS ENGINEER [address] [facility] [address] [place] [address] Tania Granger, MACEY-LEIGHANN [address] [facility] [address] [place] [address] documented as of this encounter Visit Diagnoses Not on filedocumented in this encounter Care Teams Life Support Technician Relationship Specialty Start Date End Date Shannan Brooks PA-C PCP - General 08/03/22 documented as of this encounter
--- OUTSIDE RECORDS SUMMARY | 2024-10-06 21:44 | XMS_ITS | Encounter Summary ---
Author Organization [facility] Address [address] [place] [address] Care Team Providers Care Vet Assistant Name Role Phone Shannan Brooks PA-C Primary Care Provider [phone] Reason for Visit * Reason Comments Refill Request Encounter Details Date Type Department Care Team (Late st Contact Info) Description 02/08/2023 Refill [facility] General Dermatology [address] [facility] [place] [phone] [place] [address] [place] [phone] Refill Request Social History Tobacco Use Types [...] encounter Miscellaneous Notes * Telephone Encounter - Elodia Mccall LPN - 02/14/2023 1:27 PM CDT Refill already approved Elodia Mccall LPN documented in this encounter Plan of Treatment Upcoming Encounters Date Type Department Care Team (Late st Contact Info) Description 09/08/2025 2:00 PM KETTLE CHIPPER Office Visit [facility] - APPRENTICE PATTERN MAKER [address] [place] [address] Tania Granger APRN-COLD MEAT CHEF [address] [place] [address] documented as of this encounter Visit Diagnoses Diagnosis Periorificial dermatitis documented in this encounter Care Teams Vet Assistant Relationship Specialty Start Date End Date Shannan Brooks PA-C PCP - General 08/03/22 documented as of this encounter
--- OUTSIDE RECORDS SUMMARY | 2024-10-06 21:44 | XMS_ITS | Encounter Summary ---
Author Organization [facility] Address [address] [place] [address] Care Team Providers Care Metal Refiner Name Role Phone Shannan Brooks PA-C Primary Care Provider Reason for Visit * Reason Onset Date Comments Establish Care 10/08/2022 Encounter Details Date Type Department Care Team (Late st Contact Info) Description 10/08/2022 Telephone [facility] [address] [place] [address] Conrado Tee MD [address] [facility] [address] [place] [address] Establish Care Social History Tobacco Use Types [...] Coronavirus/COVID-19? No / Unsure 09/24/2022 4:48 PM ADMIN ASSISTANT documented as of this encounter Miscellaneous Notes * Telephone Encounter - Christina Santos - 10/12/2022 5:02 PM CST LEFT VM. N ASSISTANT * Telephone Encounter - Christina Santos - 10/11/2022 9:21 AM CST Reached out to Pt to schedule new appointment. Left detailed message for Pt to return call and schedule. N ASSISTANT * Telephone Encounter - Christina Santos - 10/10/2022 3:06 PM CST Reached out to Pt to schedule new appointment. Pt mail box was full. No message was left. N ASSISTANT * Telephone Encounter - Melina Astorga RN - 10/08/2022 5:44 PM ADMIN ASSISTANT I received a referral from Dr Byrd office for PT to be scheduled for new ONC appt. N ASSISTANT documented in this encounter Plan of Treatment Upcoming Encounters Date Type Department Care Team (Late st Contact Info) Description 09/08/2025 2:00 PM ADMIN ASSISTANT Office Visit [facility] - BUILDING SERVICES TECHNICIAN [address] [place] [address] Tania Granger APRN-PRINT DESIGNER [address] [place] [phone] documented as of this encounter Visit Diagnoses Not on filedocumented in this encounter Care Teams Metal Refiner Relationship Specialty Start Date End Date Shannan Brooks PA-C PCP - General 08/03/22 documented as of this encounter
--- OUTSIDE RECORDS SUMMARY | 2024-10-06 21:44 | XMS_ITS | Encounter Summary ---
Author Organization [facility] Address [address] [place] [address] Care Team Providers Care Workgroup Leader Name Role Phone Shannan Brooks PA-C Primary Care Provider Reason for Visit * Reason Comments Seizure Encounter Details Date Type Department Care Team (Late st Contact Info) Description 11/22/2022 10:00 AM PRODUCTION ENGINEER TRACK Office Visit [facility] [address] [facility], [place] [address] Fredy Mccormick, ORNAMENTAL IRON WORKER-VEGETABLE GRADER [address] [place], [place] [id number] Seizures (HCC) (Primary Dx); Poor memory Social History Tobacco Use Types Packs/Day Years [...] Sign Reading Time Taken Comments Blood Pressure 112/72 11/22/2022 10:04 AM PRODUCTION ENGINEER TRACK Pulse 91 11/22/2022 10:04 AM PRODUCTION ENGINEER TRACK Temperature 36.7 ??C (98 ??F) 11/22/2022 10:04 AM PRODUCTION ENGINEER TRACK Respiratory Rate - - Oxygen Saturation 97% 11/22/2022 10:04 AM PRODUCTION ENGINEER TRACK Inhaled Oxygen Concentration - - Weight 88.9 kg (196 lb) 11/22/2022 10:04 AM PRODUCTION ENGINEER TRACK Height 172.7 cm (5' 8 ) 11/22/2022 10:04 AM PRODUCTION ENGINEER TRACK Body Mass Index 29.8 11/22/2022 10:04 AM PRODUCTION ENGINEER TRACK documented in this encounter Patient Instructions * Patient Instructions* Fredy Mccormick APRN-CNP - 11/22/2022 10:51 AM PRODUCTION ENGINEER TRACK F/U in 2 months UCTION ENGINEER TRACK documented in this encounter Progress Notes * Fredy Mccormick APRN-CNP - 11/22/2022 10:08 AM CST Epilepsy Clinic Note PCP Shannan Ring PA-C DATE OF ENCOUNTER: 11/22/2022 CHIEF COMPLAINT: Seizures AGE OF ONSET 37 [...] SEIZURE CONTROL Date of last seizure 1. 10/16/2022 PRE-VISIT MEDICATION Name Pill Size Frequency Total/Day Level levetiracetam 500 mg 1-1 1,000 mg/day B6 100 mg 1-0 100 mg/day COMPLIANCE Good AGGRAVATING FACTORS: Stress TREATMENT HISTORY Name Allergy/Side Effects/Ineffectiveness levetiracetam Mood EE10/16/2022 EEG, Dr. Pickard Impression: This is a normal awake and asleep extended EEG. IMAGIN10/04/2022 MRI Brain [facility] Impression: 1. No evidence of acute intracranial findings or abnormal enhancement. GENETIC TESTING: - CLASSIFICATION: NOS LABORATORY RESULTS CBC: No results for input(s): WBC, HGB, PLTCOUNT in the last 55995 hours. BMP: No results for input(s): NA, CO2, CREATININE in the last 66029 hours. LFT: No results for input(s): AST, ALT in the last 57146 hours. VITAMIN D: No results for input(s): [id number] in the last 70075 hours. ASM DRUG LEVELS No results for input(s): LEVETIRACETM in the last 84698 hours. HPI: History of Epilepsy: History collected through chart review and conversations with patient. Aziza Espinosa is a 37 year old female referred to [facility] Epilepsy clinic for seizures. PMH includesanxiety, [...] tick on self - February or March, Today's Visit: No events since beginning levetiracetam. Patient reports initially feeling irritable, depressed, oversleeping, unfocused , paranoia, and exhaustion on this ASM. These side effects leveled out to exhaustion, lethargy, and impulsivity. Patient also endorses that poor memory continues. Previous neurologist: N/A Risk factors: Complex febrile seizure Hx No Head trauma Hx Yes [employer] Infection Hx No Family Epilepsy Hx No Handedness Right Memory Bad Mood unmanageable History of kidney stones No Driving Yes Living situation Apartment Work [facility] Allergies: No Known Allergies Home Medications: Current Outpatient Medications Medication Sig ??? Cholecalciferol (VITAMIN D3 GUMMIES PO) ??? FIBER PO ??? folic acid (Folvite) 1 MG tablet Take 1 (one) tablet by mouth once daily ??? levETIRAcetam (Keppra) 500 MG tablet Take 1 (one) tablet by mouth 2 times daily ??? levonorgestrel (Mirena, 52 MG,) 20 MCG/DAY IUD Mirena 20 mcg/24 hours (8 yrs) 52 mg intrauterine device Take 1 device as needed by intrauterine route for 1 day. ??? Pyridoxine HCl 100 MG Take 1 (one) tablet by mouth once daily ??? venlafaxine XR 24hr (Effexor XR) 150 [...] - smoking and edible Physical Exam: Vitals: 11/22/22 1004 BP: 112/72 Pulse: 91 Temp: 98 ??F (36.7 ??C) SpO2: 97% Weight: 88.9 kg (196 lb) Height: 1.727 m (5' 8 ) General Awake and alert HEENT: Head normocephalic and atraumatic Extremities: No cyanosis or edema noted Cortical Function: MS: Awake, Alert, Follows Commands Oriented to Person, Place and Time Language: Fluent, Coherent VF Intact to confrontation test Neglect No visual neglect, No tactile neglect Cranial Nerves: Pupils 4 mm BRTL, Full EOM, No ptosis, horizontal nystagmus present Facial sensation intact bilaterally to LT; No facial palsy Hearing intact to finger rub bilaterally Palate symmetric; Normal tongue protrusion Motor: Abnormal Movements: None Bulk: Normal Tone: Normal Strength: RUE 5/5 LUE 5/5 RLE 5/5 LLE 5/5 Gait: Normal stride and stance Unstable tandem Assessment/Plan: Aziza Espinosa is a 37 year old female with a history of spells concerning for seizures. Concern for epilepsy given semiology description. Last EEG unremarkable. Patient reports improvement in events while on levetiracetam but reports multiple mood related side effects. Discussed benefits and risks of both lamotrigine and zonisamide with patient in office today. Patient also inquires about - discussed typical path for appointments throughout . Continues to report poor memory. - Stop levetiracetam and pyridoxine - Start zonisamide 100 mg QHS, Increase to 200 mg in 1 month - Referred to neuropsychology for memory concerns Follow-up in 2 months or sooner if problems arise Patient agrees and voices understanding of plan of care listed above. POST-VISIT MEDICATION (Current to 11/22/2022) Name Pill Size Frequency Total/Day Level zonisamide 100 mg 0-1 100 mg/day I told the patient in clear [...] the fetus, and that all pregnancies mustbe anticipated. Patient endorses taking prescribed folic acid. She was instructed to inform the Neurology Clinic in the event she decides to become . I personally spent 40 minutes on 11/22/2022 preparing to see the patient (e.g. reviewing chart, review of tests), obtaining and/or reviewing the separately obtained history, performing a medically necessary and appropriate examination and evaluation, counseling and educating the patient/family/caregiver, ordering medications, tests, or procedures, documenting in the patient record, and communicating results to the patient/family/caregiver. MARTHA Prince UCTION ENGINEER TRACK documented in this encounter Miscellaneous Notes * Clinical References AVS - Fredy Mccormick APRN-CNP - 11/22/2022 11:07 AM PRODUCTION ENGINEER TRACK Images from the original note were not included. [id number] Zonisamide Oral Capsule Brands: Zonegran Uses For seizures. Instructions Swallow the medicine without crushing or chewing it. This medicine may be taken with or without food. It is very important that you take the medicine at about the same time every day. It will work bestif you do this. Keep the medicine at room temperature. Avoid heat and direct light. Drink extra water while on this medicine. Adults should try to drink 6-8 cups (48 to 64 oz.) of water every day. It is important that you keep taking each dose of this medicine on time even if you are feeling well. If you forget to take a dose on time, take it as soon as you remember. If it is almost time for thenext dose, do not take the missed dose. Return to your normal schedule. Do not take 2 doses at one time. Drug interactions can change how medicines work or increase risk for side effects. Tell your healthcare providers about all medicines taken. Include prescription and [id number] medicines, vitamins, and herbal medicines. Speak with your doctor or pharmacist before starting or stopping any medicine. It is very important that you follow your doctor's instructions for all blood tests. Cautions Tell your doctor and pharmacist if you ever had an allergic reaction to a medicine. Do not use the medication any more than instructed. Your ability to stay alert or to react quickly may be impaired by this medicine. Do not drive or operate machinery until you know how this medicine will affect you. Do not drink beverages with alcohol while on this medicine. Avoid becoming overheated during exercise or other activities. Try to stay cool in hot weather. Family should check on the patient often. Call the doctor if patient becomes more depressed, has thoughts of suicide, or shows changes in behavior. Call the doctor if there are any signs of confusion or unusual changes in behavior. This medicine passes into breast milk. Ask your doctor before . During , this medicine should be used only when clearly needed. Talk to your doctor about the risks and benefits. Women must use reliable forms of control while taking this medicine and for 1 month after stopping to prevent . Do not share this medicine with anyone who has not been prescribed this medicine. Some patients have serious side effects from this medicine. Ask your pharmacist to show you the information from the Food and Drug Administration (FDA) and discuss it with you. Side Effects The following is a list of some common side effects from this medicine. Please speak with your doctor about what you should do if you experience these or other side effects. ?? diarrhea ?? drowsiness or sedation Call your doctor or get medical help right away if you notice any of these more serious side effects: ?? agitated feeling or trouble sleeping ?? pain in the eye ?? lack of energy and tiredness ?? fever ?? swelling in the neck or throat ?? kidney stones ?? stomach upset or abdominal pain ?? blurring or changes of vision A few people may have an allergic reaction to this medicine. Symptoms can include difficulty breathing, skin rash, itching, swelling, or severe dizziness. If you notice any of these symptoms, seek medical help quickly. Extra Please speak with your doctor, nurse, or pharmacist if you have any questions about this medicine. https://api.[employer]/V2.0/fdbpem/2019 IMPORTANT NOTE: This document tells you briefly how to take your medicine, but it does not tell youall there is to know about it. Your doctor or pharmacist may give you other documents about your medicine. Please talk to them if you have any questions. Always follow their advice. There is a more complete description of this medicine available in [place]. Scan this code on your smartphone or tablet or use the web address below. You can also ask your pharmacist for a printout. If you have any questions, please ask your pharmacist. The display and use of this drug information is subject to Terms of Use. Copyright(c) 2021 [employer]. ?? The [employer]. All rights reserved. This information is not intended as a substitute for professional medical care. Always follow your healthcare professional's instructions. UCTION ENGINEER TRACK documented in this encounter Plan of Treatment Upcoming Encounters Date Type Department Care Team (Late st Contact Info) Description 09/08/2025 2:00 PM PRODUCTION ENGINEER TRACK Office Visit [facility] - POURED PIPE MAKER [address] [place] [address] Tania Granger APRN-CNP [address] [facility] [facility] [place] [address] documented as of this encounter Visit Diagnoses Diagnosis Seizures (HCC)- Primary Other convulsions Poor memory Memory loss documented in this encounter Care Teams Workgroup Leader Relationship Specialty Start Date End Date Shannan Brooks PA-C PCP - General 08/03/22 documented as of this encounter
--- OUTSIDE RECORDS SUMMARY | 2024-10-06 21:44 | XMS_ITS | Encounter Summary ---
Author Organization [facility] Address [address] [place] [address] Care Team Providers Care Commissioner Of Conciliation Name Role Phone Shannan Brooks PA-C Primary Care Provider Reason for Visit * Reason Onset Date Comments Opened In Error 11/01/2022 Encounter Details Date Type Department Care Team ([facility] Contact Info) Description 11/01/2022 Telephone [facility] [address] [place] [address] Karie Byrd MD [address] [place] [address] Opened In Error Social History Tobacco Use Types Packs/Day Years [...] Coronavirus/COVID-19? No / Unsure 12/12/2022 1:21 PM BOOK SORTER documented as of this encounter Plan of Treatment Upcoming Encounters Date Type Department Care Team ([facility] Contact Info) Description 09/08/2025 2:00 PM BOOK SORTER Office Visit [facility] - ICT SECURITY SPECIALIST [address] [place] [address] Tania Granger APRN-DIRECTOR SEARCH MARKETING [employer]ATE[employer]IES [address] [place] [address] documented as of this encounter Visit Diagnoses Not on filedocumented in this encounter Care Teams Commissioner Of Conciliation Relationship Specialty Start Date End Date Shannan Brooks PA-C PCP - General 08/03/22 documented as of this encounter
--- OUTSIDE RECORDS SUMMARY | 2024-10-06 21:44 | XMS_ITS | Encounter Summary ---
Author Organization [facility] Address [address] [place] [address] Care Team Providers Care Systems Operator Name Role Phone Cecilia Shannan Graham PA-C Primary Care Provider Reason for Visit * Reason Onset Date Comments Referral 11/28/2022 Called pt and he r vm is full. Sent OUTS[employer]ET[employer]t message to call about referral. Encounter Details Date Type Department Care Team ([facility] Contact Info) Description 11/28/2022 Telephone [facility] [address] [facility] [address] [place] [address] Theresa Nowak RN Referral (Called pt and her vm is full. Sent [employer] message to call about referral.) Social History Tobacco Use Types Packs/Day Years [...] Upcoming Encounters Date Type Department Care Team ([facility] Contact Info) Description 09/08/2025 2:00 PM SEISMOGRAPH RECORDER Office Visit [facility] [employer] [address] [place] [address] Tania Granger, SHIP PILOT-ASSOCIATE PROJECT MANAGER [address] [place] [address] documented as of this encounter Visit Diagnoses Not on filedocumented in this encounter Care Teams Systems Operator Relationship Specialty Start Date End Date Shannan Brooks PA-C PCP - General 08/03/22 documented as of this encounter
--- OUTSIDE RECORDS SUMMARY | 2024-10-06 21:44 | XMS_ITS | Encounter Summary ---
Author Organization [facility] Address [address] [place] [address] Care Team Providers Care Aircraft Engine Installer Name Role Phone Shannan Brooks PA-C Primary Care Provider Encounter Details Date Type Department Care Team (Latest Contact Info) Description 12/20/2022 Travel Social History Tobacco Use Types Packs/Day [...] Coronavirus/COVID-19? No / Unsure 12/20/2022 3:16 PM [facility] TECHNICIAN documented as of this encounter Plan of Treatment Upcoming Encounters Date Type Department Care Team (Late st Contact Info) Description 09/08/2025 2:00 PM [facility] TECHNICIAN Office Visit [facility] - TITLE CLOSER [address] [facility] [facility] [address] [place] [address] Tania Granger APRN-LEIGHANN [address] [facility] [address] [place] [address] documented as of this encounter Visit Diagnoses Not on filedocumented in this encounter Care Teams Aircraft Engine Installer Relationship Specialty Start Date End Date Shannan Brooks PA-C PCP - General 08/03/22 documented as of this encounter
--- OUTSIDE RECORDS SUMMARY | 2024-10-06 21:44 | XMS_ITS | Encounter Summary ---
Author Organization [facility] Address [address] [place] [address] Care Team Providers Care Hose Tubing Backer Name Role Phone Shannan Brooks PA-C Primary Care Provider Reason for Visit * Auth/Cert (Routine) Specialty Diagnoses / Procedures Referred By Filipe t Referred To Contact Diagnoses Convulsions Referral ID Status Reason Start Date Expiration Date Visits Re quested Visits Authorized [id number] 1 1 Encounter Details Date Type Department Care Team (Latest Contact Info) Description 02/26/2023 12:30 PM CDT - 02/26/2023 2:51 PM CDT Hospital Encounter [facility] EEG/EMG [address] [place] [id number] Sudhir Lockett, DO [address] [place] [phone] Discharge Disposition: Home or Self Care Social [...] Date Recorded PHQ2 TOTAL SCORE 1 09/20/2022 [facility] - Occupational Stress Questionnaire Answer Date [...] vitamin c azelaic acid (Finacea) 15 % gelIndications:Perio rificial dermatitis Apply to affected areas on the [...] capsule by mouth every morning 07/31/2022 09/07/2024 zonisamide (Zonegran) 100 MG capsule Take 2 (two) capsules by mouth at bedtime 180 capsule 3 11/27/2022 03/02/2023 documented as of this encounter Plan of Treatment Upcoming Encounters Date Type Department Care Team (Late st Contact Info) Description 09/08/2025 2:00 PM INFORMATION DEVELOPER Office Visit [facility] - WINE CELLAR STOCK CLERK [address] [facility] [address] [place] [address] Tania Granger APRN-LEIGHANN [address] [facility] [address] [place] [address] documented as of this encounter Visit Diagnoses Not on filedocumented in this encounter Care Teams Hose Tubing Backer Relationship Specialty Start Date End Date Shannan Brooks PA-C PCP - General 08/03/22 documented as of this encounter
--- OUTSIDE RECORDS SUMMARY | 2024-10-06 21:44 | XMS_ITS | Encounter Summary ---
Author Organization [facility] Address [address] [place] [address] Care Team Providers Care Sanitary Napkin Machine Tender Name Role Phone Shannan Brooks PA-C Primary Care Provider Reason for Referral * Evaluate & Treat (Routine) - Closed Specialty Diagnoses / Procedures Referred By Contac t Referred To Contact Obstetrics and Gynecology Diagnoses Borderline epithelial neoplasm of ovary Karie Byrd MD [address] [place] [address] [facility] [address] [place] [address] Referral ID Status Reason Start Date Expiration Date V isits Requested Visits Authorized [id number] Closed Specialty Services Required 09/04/2023 09/03/2024 1 1 ITY CONTROL LEAD * Radiology Services (Routine) - Closed Specialty Diagnoses / Procedures Referred By Contac t Referred To Contact 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 Procedures CT ABDOMEN PELVIS W CONTRAST Karie Byrd MD [address] [place] [address] Referral ID Status Reason Start Date Expiration Date Visits Re quested Visits Authorized [id number] Closed 09/02/2023 09/01/2024 1 1 ITY CONTROL LEAD Reason for Visit * Reason Comments Well Women Exam Encounter Details Date Type Department Care Team (Late st Contact Info) Description 09/02/2023 2:15 PM QUALITY CONTROL LEAD Office Visit [facility] - INSTRUCTION ASSISTANT PRINCIPAL [address] [facility] [address] [place] [phone] Karie Byrd MD [address] [facility] [address] [place] [address] Well woman exam with routine gynecological exam (Primary Dx); Borderline epithelial neoplasm of ovary Social History Tobacco Use Types Packs/Day Years [...] Recorded Patient Health Questionnaire-2 Score 0 07/01/2023 [facility] ional [facility] - Occupational [...] place to sleep or slept in a half-way (including now)? No 02/26/2023 Sex and Gender Information Value Date Recorded Sex Assigned at Not on file Gender Identity Not on file Sexual Orientation Not on file documented as of this encounter Last Filed Vital Signs Vital Sign Reading Time Taken Comments Blood Pressure 120/78 09/02/2023 2:23 PM QUALITY CONTROL LEAD Pulse - - Temperature - - Respiratory Rate 20 09/02/2023 2:23 PM QUALITY CONTROL LEAD Oxygen Saturation - - Inhaled Oxygen Concentration - - Weight 91.9 kg (202 lb 9.6 oz) 09/02/2023 2:23 P M QUALITY CONTROL LEAD Height 172.7 cm (5' 8 ) 09/02/2023 2:23 PM QUALITY CONTROL LEAD Body Mass Index 30.81 09/02/2023 2:23 PM QUALITY CONTROL LEAD documented in this encounter Functional Status Functional [...] Progress Notes * Karie Byrd MD - 09/02/2023 2:56 PM CST General forms analysis manager Annual Exam History of Present Illness: Ms. Alvarez a 38 year old female who presents for annual well woman exam. She reports the below complaints: mental fog, bloating, seizures, stomach issues, pain when she eats, headaches, fluid retention. Has seen her neurologist but they attributed to stress only. Gynecologic history: Not having periods on her IUD Pap smear history: last 2021 Obstetrical history: OB History Para Term AB [...] No Stress: No Stress Concern Present (02/26/2023) [facility] - Occupational Stress Questionnaire ??? Feeling of Stress : Not at all Housing Stability: Low Risk (02/26/2023) Housing Stability Vital Sign ??? Unable to Pay for Housing in the Last Year: No ??? Number of Places Lived in the Last Year: 1 ??? Unstable Housing in the Last Year: No Family History Problem Relation Name Age of [...] taking: Reported on 09/02/2023) 90 tablet 4 ??? levonorgestrel (Mirena, 53 [...] venlafaxine ER 75 mg capsule,extended release 24hr (Patient not taking: Reported on 09/02/2023) ??? Vyvanse 20 MG capsule Take 1 (one) capsule by mouth every morning No current facility-administered medications for this visit. Allergies: No Known Allergies Review of Systems All other systems reviewed and are negative. Physical examination: Vitals: 09/02/23 1423 BP: 120/78 Resp: 20 Weight: 91.9 kg (202 lb 9.6 oz) Height: 1.727 m (5' 8 ) Body mass index is 30.81 kg/m??. Physical Exam Constitutional: General: She is [...] bleeding, lesions or prolapsed vaginal merritt. Cervix: No cervical motion tenderness, discharge, friability, lesion, erythema, cervical bleeding or eversion. Uterus: Not deviated, not enlarged, not fixed and not tender. Adnexa: Right: No mass, tenderness or fullness. Left: No mass, tenderness or fullness. Musculoskeletal: Cervical back: Normal range of motion. [...] exam with routine gynecological exam Pap smear not yet due. Not yet due for mammogram. Family planning reviewed. She is currently using IUD for contraception. Considering removal if symptoms not improving. Will order CT scan and reach out to oncology in case this could be an unusual presentation of recurrence, high risk personal and family history. Karie Byrd MD ITY CONTROL LEAD documented in this encounter Plan of Treatment Upcoming Encounters Date Type Department Care Team (Late st Contact Info) Description 09/08/2025 2:00 PM QUALITY CONTROL LEAD Office Visit [facility] - INSTRUCTION ASSISTANT PRINCIPAL [address] [place] [address] Tania Granger APRN-LEIGHANN [address] [place] [address] Scheduled Orders Name Type Priority Associated Diagnoses Orde r Schedule CANCER ANTIGEN (CA)125 BLOOD Lab Routine Borderline epithelial neoplasm of ovary Well woman exam with routine gynecological exam Ordered: 09/04/2023 Scheduled Referrals Name Type Priority Associated Diagnoses Order Schedule Ref to [facility] [place] [id number] Outpatient Referral Routine Borderline epithelial neoplasm of ovary 1 Occurrences starting 09/04/2023 until 09/04/2024 documented as of this encounter Results * CT ABDOMEN PELVIS W CONTRAST (09/24/2023 7:15 AM QUALITY CONTROL LEAD) Anatomical Region Laterality Modality Abdomen, Pelvis Computed Tomogra phy 09/24/2023 7:31 AM QUALITY CONTROL LEAD Impressions 09/24/2023 1:17 PM QUALITY CONTROL LEAD Impression: Small volume free fluid in the pelvis, nonspecific. Otherwise no significant abnormality identified. > Dictated by Shanta Canales MD (radiology transporter). IChristine MD have personally reviewed and interpreted this examination/study. > Interpreting Provider: Christine Kay MD on 09/24/2023 1:17 PM Narrative 09/24/2023 1:17 PM QUALITY CONTROL LEAD PROCEDURE: ??CT ABDOMEN PELVIS W CONTRAST, DATE/TIME OF EXAM: ??09/24/2023 7:16 AM, LOCATION ??[facility] INDICATION: D39.10: Borderline epithelial neoplasm of [...] DATE/TIME OF EXAM: 09/24/2023 7:16 AM, LOCATION [facility] INDICATION: D39.10: Borderline epithelial neoplasm of [...] identified. > Dictated by Shanta Canales MD (radiology transporter). IChristine MD have personally reviewed and interpreted this examination/study. 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 Not yet due for mammogram. Family planning reviewed. She is currently using IUD for contraception. Considering removal if symptoms not improving. Will order CT scan and reach out to oncology in case this could be an unusual presentation of recurrence, high risk personal and family history. ITY CONTROL LEAD documented in this encounter Care Teams Sanitary Napkin Machine Tender Relationship Specialty Start Date End Date Shannan Brooks PA-C PCP - General 08/03/22 documented as of this encounter
--- OUTSIDE RECORDS SUMMARY | 2024-10-06 21:44 | XMS_ITS | Encounter Summary ---
Author Organization [facility] Address [address] [place] [address] Care Team Providers Care Prevention Specialist Name Role Phone Shannan Brooks PA-C Primary Care Provider Reason for Visit * Reason Onset Date Comments Coordination Of Care 02/26/2023 Called to v erify patient was present for admission. She is waiting in [facility]. Updated her that her room will be ready very shortly and apologized for the wait. She pleasantly v/u. Encounter Details Date Type Department Care Team (Late st Contact Info) Description 02/26/2023 Telephone [facility] [address] [facility] [address] [place] [phone] Ludwig Leos, RN Coordination Of Care (Called to verify patient was present for admission. She is waiting in [facility]. Updated her that her room will be ready very shortly and apologized for the wait. She pleasantly v/u. ) Social History Tobacco Use Types Packs/Day Years [...] Date Recorded PHQ2 TOTAL SCORE 1 09/20/2022 [facility] Occupat ional Health - Occupational [...] st Contact Info) Description 09/08/2025 2:00 PM FLOOR TILING PROFESSIONAL Office Visit [facility] - LINOLEUM FLOOR INSTALLER [address] [facility] [facility] [address] [place] [address] Tania Granger APRN-PHOTOGRAPHY EDITOR [address] [place] [address] documented as of this encounter Visit Diagnoses Not on filedocumented in this encounter Care Teams Prevention Specialist Relationship Specialty Start Date End Date Shannan Brooks PA-C PCP - General 08/03/22 documented as of this encounter
--- OUTSIDE RECORDS SUMMARY | 2024-10-06 21:44 | XMS_ITS | Encounter Summary ---
Author Organization [facility] Address [address] [place] [address] Care Team Providers Care Hyperbaric Technologist Name Role Phone Shannan Brooks PA-C Primary Care Provider Reason for Visit * Reason Onset Date Comments Follow-up 10/18/2023 Encounter Details Date Type Department Care Team (Late st Contact Info) Description 10/18/2023 Telephone [facility] - COAL LOADER [address] [facility] [address] [place] [address] Felicitas Abel, RN Follow-up Social [...] Recorded Patient Health Questionnaire-2 Score 0 07/01/2023 [facility] of Occupat ional Health - Occupational Stress [...] Telephone Encounter - Felicitas Abel RN - 10/18/2023 2:31 PM CST Left voicemail #[phone] to see if pt plans to go get the CA-[address] Byrd ordered. Asked pt to callback and gave my desk number. TRONIC TECHNOLOGIST documented in this encounter Plan of Treatment Upcoming Encounters Date Type Department Care Team (Late st Contact Info) Description 09/08/2025 2:00 PM ELECTRONIC TECHNOLOGIST Office Visit [facility] - COAL LOADER [address] [place] [address] Tania Granger, MACEY-STOCK BLENDER [address] [place] [address] documented as of this encounter Visit Diagnoses Not on filedocumented in this encounter Care Teams Hyperbaric Technologist Relationship Specialty Start Date End Date Shannan Brooks PA-C PCP - General 08/03/22 documented as of this encounter
--- OUTSIDE RECORDS SUMMARY | 2024-10-06 21:45 | XMS_ITS | Encounter Summary ---
Author Organization [facility] Address [address] [place] [address] Phone Care Team Providers Care Automotive Paint Technician Name Role Phone Estrellita Alonzo MD Primary Care Provider [phone] Encounter Details Date Type Department Care Team (Late st Contact Info) Description 06/17/2019 Documentation [facility] Obstetrics and Gynecology [address] [facility] [address] [place] [address] [place] [phone] Philly Aragon RN Social History Tobacco Use Types Packs/Day Years Used Date Smoking Tobacco: Never Smokeless Tobacco: Never Alcohol Use Standard Drinks/Week Comments Yes 0 (1 standard drink = 0.6 oz pur e alcohol) PHQ-2 Answer Date Recorded PHQ-2 Score 3 06/11/2019 Comments No Sex and Gender Information Value Date Recorded Sex Assigned at Not on file Legal Sex Female 8:36 AM GROUP FITNESS MANAGER Gender Identity Not on file Sexual Orientation Not on file documented as of this encounter Nursing Notes * Philly Aragon RN - 06/17/2019 1:07 PM CDT Scheduled US for pt on 09/14 at 08:30 prior to appt w/ Dr. Swenson at 9:20. Pt is aware. documented in this encounter Plan of Treatment Not on file documented as of this encounter Visit Diagnoses Not on filedocumented in this encounter Care Teams Automotive Paint Technician Relationship Specialty Start Date End Date Estrellita Alonzo MD [address] [facility] [address] [place] [address] PCP - General 03/05/17 documented as of this encounter
--- OUTSIDE RECORDS SUMMARY | 2024-10-06 21:45 | XMS_ITS | Encounter Summary ---
Author Organization [facility] Address [address] [place] [address] Phone Care Team Providers Care Hose Inspector Name Role Phone Estrellita Alonzo MD Primary Care Provider [phone] Reason for Visit * Behavioral Health (Routine) - Closed Specialty Diagnoses / Procedures Referred By Filipe t Referred To Contact Psychology Diagnoses Appt Comment: PER PC WITH PT/ STANDING Procedures RETURN Referral, Self Heydi Reyes, PhD [address] [place] [address] Phone: tel: Referral ID Status Reason Start Date Expiration Date Visits Re quested Visits Authorized [id number] Closed 05/22/2018 12/01/2019 12 12 Encounter Details Date Type Department Care Team (Latest Contact Info) Description 09/24/2018 2:30 PM PHARMACY CUSTOMER CARE SPECIALIST Office Visit [facility] Psychiatry [facility] [place] [address] Heydi Reyes, PhD [address] [place] [address] Major depressive disorder, recurrent episode, moderate (CMS/HCC) (Primary Dx); Anxiety disorder, unspecified type; ADHD (attention deficit hyperactivity disorder), combined type Social History Tobacco Use Types Packs/Day Years Used Date Smoking Tobacco: Never Smokeless Tobacco: Never Alcohol Use Standard Drinks/Week Comments Yes 0 (1 standard drink = 0.6 oz pur e alcohol) Comments No Sex and Gender Information Value Date Recorded Sex Assigned at Not on file Legal Sex Female 8:36 AM PHARMACY CUSTOMER CARE SPECIALIST Gender Identity Not on file Sexual Orientation Not on file documented as of this encounter Progress Notes * Heydi Reyes, PhD - 09/24/2018 2:30 PM CST Psychology Note Date of Service: @TODAY@ Start time: 2:30 End time: 3:20 Interval History: Aziza reports Doing all right. Getting through finals week. Stressing out but Ithink it will be fine. I had a plan but didn't keep it up because I got so tired and a cold . 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 She has what she thinks are hives on her face-though uncertain. If so, thinks stress. Alexis and I will be talking . Aziza wanted this face-to face but said she did not want Alexis to feel forced. He agreed. I asked what she wanted from this conversation-and that became major issue discussed. Well into the session she mentioned seeing ex-BF Lon with new girlfriend and more general feelings that men capable of having a working mature close relationship are not available. Mental Status Exam: 1. General appearance and behavior: good eye contact 2. Speech: regular rate to mildly pressured-often does not complete a full thought and with many quick reversals of what she is saying, such that the message becomes confusing. This is especially when she is discussing charged relationship material 3. Flow of thought: cognitively scattered 4. Content of thought: no SI expressed, difficulty with romantic relaionships 5. Mood: Pretty good Stressed demoralized, frustrated and hurt in regard to romantic relationships 6. Affect: Pleasant, affiiliative but when frustrated and stressed can be expressively impetuous 7. Insight: fair to good 8. Judgement: good 9. Sensorium: alert Psychotherapy Focus: I asked her to consider what she wants from the conversation with Alexis, who broke up with her via text some weeks ago Aziza's responses were so scattered and changeable that I could not understand them, my sense is she does not have this sorted for herself I discussed that if she walked into the conversation without more clarity, she was likely to feel even more frustrated. This communication style can also play a role in her relationship frustruations. This feedback was probably hard for her to hear and she also said she didn't have the focus to consider it well I encouraged her to not have the conversation until she had clarified what communications she wanted to make Assessment: Plan Aziza had to cancel her appt for next week due to a school conflict. Will try to find another timefor her this month. [facility] CUSTOMER CARE SPECIALIST documented in this encounter Plan of Treatment Not on file documented as of this encounter Visit Diagnoses Diagnosis Major depressive disorder, recurrent episode, moderate (HCC)- Primary Major depressive disorder, recurrent episode, moderate Anxiety disorder, unspecified type ADHD (attention deficit hyperactivity disorder), combined type Attention deficit disorder with hyperactivity documented in this encounter Care Teams Hose Inspector Relationship Specialty Start Date End Date Estrellita Alonzo MD [address] [address] PCP - General 03/05/17 documented as of this encounter
--- OUTSIDE RECORDS SUMMARY | 2024-10-06 21:45 | XMS_ITS | Data Portability ---
Author Organization [facility], [id number] Address [address] [place] [address] Care Team Providers Care Voice Engineer Name Role Phone [facility] Primary Care Provider Assessment No assessment recorded. Plan of Treatment Reminders Order Date Submit Date Provider Last Modified By Organization Details Last Modified Time Details Appointments None recorded. Lab pap, IG + reflex HPV if ASC-U 2014 015 [facility] [address] [place], [address], 5 16:43:17 CT + NG DNA, PCR, unspecified specimen 2014 015 [facility] [address] [place], [address], 5 11:40:57 rubella IgG Ab, quant immunoassay , serum or plasma 2015 016 [facility] [address] [place], [address], 6 06:10:23 hepatitis B surface Ab, qualitative , serum 2015 016 [facility] [address] [place], [address], 6 06:10:23 varicella-z keenan igg Ab screen, serum 2015 016 [facility] [address] [place], [address], 6 06:10:25 mumps virus IgG Ab, quant, immunoassay , serum 2015 016 [facility]), [address] [place], [address], 6 06:10:25 measles virus IgG Ab, quant, immunoassay , serum 2015 016 [facility]), [address] [place], [address], 6 06:10:26 TSH, serum or plasma 2015 016 [facility]), [address] [place], [address], 6 06:10:22 CT + NG DNA, PCR, unspecified specimen 2015 016 [facility]), [address] [place], [address], 6 06:10:22 HIV 1+2 AB + HIV 1 p24 Ag, qualitative immunoassay , serum 2015 016 [facility]), [address] [place], [address], 6 06:10:24 treponema pallidum screen, serum, reflex confirmatio n 2015 016 [facility]), [address] [place], [address], 6 06:10:24 hsv-2 (herpes simplex virus type 2) igg Ab, serum 2015 016 [facility]), [address] [place], [address], 6 06:10:26 he4 (human epididymis protein 4), serum 2015 016 [facility] [address] [facility], [place], [address], 6 16:40:20 Referral None recorded. Procedures None recorded. Surgeries None recorded. Imaging US, transvagina l 2015 016 tgales In-House Results, For Internal Use Only, Do Not Delete/merge, [address] 6 10:50:16 Medication Orders misoprostol 200 mcg tablet 2014 015 [id number], [address], [place], [address], 5 09:56:01 diclofenac potassium 50 mg tablet 2014 015 [id number], [address] [place], [address], 5 09:56:01 Valium 5 mg tablet 2014 015 [id number], [address], [place], [address], 5 09:56:01 Mirena 21 mcg/24 hr (up to 8 years) 52 mg intrauterin e device 2014 015 [email or web address] Not available 5 09:55:47 Patient TargetsNo targets recorded. Patient Instructions Encounter Date Encounter Id Patient Instructions Last Modified By Organization Details Last Modified Time 04/27/2015 [id number] Send pap and geneprobe. While pt desires full sti screening, she asks that we defer blood tests today. She has hx of fainting with labwork and did not eat today; must go to work after this appt. Plan to have rest of labwork at next appt. Use of IUDs reviewed. r/b/a, SE and insertion procedure reviewed. all questions answered. pt interested in irene. premeds reviewed and written. pt may rtc for insertion with menses.? ? ? Not available 04/28/2015 22:36:14 06/09/2015 [id number] The patient is s een today for an IUD check. She had a Mirena device inserted approximately one month ago.. She denies any problems. On examination, the external genitalia are normal. The vagina is clean. The cervix shows the IUD string present at the cervical opening. The uterus is normal in size with no palpable adnexal masses. The patient is reassured she will return PRN Examination and discussion lasted greater than 15 minutes H mfried Not available 06/10/2015 08:28:44 04/27/2016 [id number] pap deferred per acog protocol. STI screening performed. IUD strings missing. pt's uterus is retroflexed and seems to be enlarged and nonmobile WIll rtc for TVUS to evaluate.? ? ? [email or web address] Not available 04/27/2016 09:38:28 04/30/2016 [id number] TVUS notes 10cm complex ovarian mass. +papillary projections with blood flow around periphery. Characteristics are concerning for malignant procress. Pt also with family history of ovarian cancer in her mother and MGM. Discussed need for surgical evaluation by [facility]. Offered local referral to [facility] but pt prefers to wait until she moves to [place]. 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 Pt prefers to be seen JOSSE to allow for maximum recovery. Explained that if her surgical findings do show malignancy that further treatment will be needed. Pt verbalizes good understanding. Will draw tumor markers today. all questions answered. Encouraged pt to call back with any questions. 40min spent in face to face discussion.? ? ? Not available 04/30/2016 17:08:01 Reason for Referral None Reported. Results Created Date Observation Date Name Description Value Unit Range Abnormal Flag Note LastModifiedBy Organization Detail LastModifiedTime 04/27/20 15 04/29/2015 pap, IG + refle x HPV if ASC-U interpretati on NIL NEGAT LEELA FOR INTRA EPITH ELIAL LESIO N AND TIFFANY REDDING . Not Available [facility]) [address] [facility], [place], [address], 04/29/2015 16:43:17 04/27/20 15 04/29/2015 pap, IG + refle x HPV if ASC-U category: NIL NEGAT LEELA FOR INTRA EPITH ELIAL LESIO N Not Available [facility] ([facility]) [address] [place], [address], 04/29/2015 16:43:17 04/27/20 15 04/29/2015 pap, IG + refle x HPV if ASC-U adequacy: SECNI, AOCX SATIS FACTO RY FOR EVALU ATION . NO ENDOC ERVIC AL COMPO NENT IS IDENT IFIED . THE ABSEN CE OF AN ENDOC ERVIC AL COMPO NENT WAS CONFI RMED BY AN ADDIT IONAL SCREE QIAN EVALU ATION . Not Available [facility] ([facility]) [address] [place], [address], 04/29/2015 16:43:17 04/27/20 15 04/29/2015 pap, IG + refle x HPV if ASC-U clinician provided ICD9: DAISY Glass V72.3 1 ; ROUTI NE GYNEC OLOGI SAMEERA EXAMI NATIO N Not Available [facility] ([facility]) [address] [place], [address], 04/29/2015 16:43:17 04/27/20 15 04/29/2015 pap, IG + refle x HPV if ASC-U performed by: DAISY HEATH , CYTOT ECHNO LOGIS T (ASCP ) Not Available [facility] ([facility]) [address] [place], [address], 04/29/2015 16:43:17 04/27/2004/29/2015 pap, IG + refle x HPV if ASC-U QC reviewed by: SHAKEEL DHILLON Y CYTOT ECHNO LOGIS T (ASCP ) Not Available [facility] ([facility]) [address] [place], [address], 04/29/2015 16:43:17 04/27/20 15 04/29/2015 pap, IG + refle x HPV if ASC-U cytology history: COMMEN T DATE LCA SPECI MEN ID PAP TEST RESUL T HPV TEST RESUL T 11/06 017-Y 17-05 40-0 [id number] NIL 07/26 279-Y 17-05 30-0 [id number] NIL 07/14 267-Y 17-05 18-0 [id number] 4 LSL 07/21 274-Y 25-01 46-0 [id number] 5 NIL 06/03 228-Y 11-27 10-0 [id number] 5 NIL Not Available [facility] ([facility]) [address] [place], [address], 04/29/2015 16:43:17 04/27/20 15 04/29/2015 pap, IG + refle x HPV if ASC-U note: COMMEN T THE PAP SMEAR IS A SCREE QIAN TEST DESIG PABLITO TO AID IN THE DETEC TION OF NEDRA LIGNA NT AND MALIG NANT CONDI TIONS OF THE UTERI NE CERVI X. IT IS NOT A DIAGN OSTIC PROCE DURE AND SHOUL D NOT BE USED THE SOLE MEANS OF DETEC TING CERVI SAMEERA CANCE R. BOTH FALSE -POSI TIVE AND FALSE -NEGA TIVE REPOR TS DO OCCUR . Not Available [facility] ([facility]) [address] [place], [address], 04/29/2015 16:43:17 04/27/20 15 04/29/2015 pap, IG + refle x HPV if ASC-U test methodology: COMMEN T THIS LIQUI D BASED THINP REP(R ) PAP TEST WAS SCREE PABLITO WITH THE USE OF AN IMAGE GUIDE D SYSTE M. Not Available [facility] ([facility]) [address] [place], [address], 04/29/2015 16:43:17 04/27/20 15 04/29/2015 pap, IG + refle x HPV if ASC-U . COMMEN T THE HPV DNA REFLE X CRITE EMI WERE NOT MET WITH THIS SPECI MEN RESUL T THERE FORE, NO HPV TESTI NG WAS PERFO RMED. Not Available [facility] ([facility]) [address] [place], [address], 04/29/2015 16:43:17 04/27/20 15 04/27/2015 CT + NG DNA, PCR, unspe cifie d speci men please note: COMMEN T ACCEP TABLE SPECI MENS FOR THIS TEST ARE MALE URETH RAL SWAB, ENDOC ERVIC AL SWAB AND LIQUI D BASED PAP SPECI MENS, VAGIN AL SWABS IN APTIM A TRANS PORTS AND FIRST VOID URINE . SEE ONMELINDA Huston DIREC TORY OF SERVI JAVI FOR TEST NUMBE R FOR RECTA L AND PHARY NGEAL SPECI MENS. Not Available [facility] ([facility]) [address] [place], [address], 05/02/2015 11:40:56 04/27/20 15 05/02/2015 CT + NG DNA, PCR, unspe cifie d speci men chlamydia trachomatis, ALESSANDRA NEGATI VE negati ve Not Available [facility] ([facility]) [address] [place], [address], 05/02/2015 11:40:56 04/27/20 15 05/02/2015 CT + NG DNA, PCR, unspe cifie d speci men neisseria gonorrhoeae, ALESSANDRA NEGATI VE negati ve Not Available [facility] ([facility]) [address] [place], [address], 05/02/2015 11:40:56 04/27/20 16 04/27/2016 CT + NG DNA, PCR, unspe cifie d speci men please note: COMMEN T ACCEP TABLE SPECI MENS FOR THIS TEST ARE MALE URETH RAL SWAB, ENDOC ERVIC AL SWAB AND LIQUI D BASED PAP SPECI MENS, VAGIN AL SWABS IN APTIM A TRANS PORTS AND FIRST VOID URINE . SEE JEWEL Huston DIREC TORY OF SERVI JAVI FOR TEST NUMBE R FOR RECTA L AND PHARY NGEAL SPECI MENS. Not Available [facility] ([facility]) [address] [place], [address], 05/01/2016 06:10:22 04/27/20 16 04/28/2016 CT + NG DNA, PCR, unspe cifie d speci men chlamydia trachomatis, ALESSANDRA NEGATI VE negati ve Not Available [facility] ([facility]) [address] [place], [address], 05/01/2016 06:10:22 04/27/20 16 04/28/2016 CT + NG DNA, PCR, unspe cifie d speci men neisseria gonorrhoeae, ALESSANDRA NEGATI VE negati ve Not Available [facility] ([facility]) [address] [place], [address], 05/01/2016 06:10:22 04/27/2004/28/2016 TSH, serum or plasm a TSH 0.956 uIU/m L 0.450- 4.500 Not Available [facility] ([facility]) [address] [place], [address], 05/01/2016 06:10:22 04/27/2004/28/2016 rubel la IgG Ab, quant immun oassa y, serum or plasm a rubella antibodies, IgG 2.54 index immune >0.99 NON-I MMUNE <0.90 EQUIV OCAL 0.90 - 0.99 IMMUN E >0.99 Not Available [facility] ([facility]) [address] [place], [address], 05/01/2016 06:10:23 04/27/2004/28/2016 hepat itis B surfa ce Ab, quali tativ e, serum hep B surface Ab, qual REACTI VE NON REACT LEELA: INCON SISTE NT WITH IMMUN ITY, LESS THAN 10 MIU/M L REACT LEELA: CONSI STENT WITH IMMUN ITY, GREAT ER THAN 9.9 MIU/M L Not Available [facility] ([facility]) [address] [place], [address], 05/01/2016 06:10:23 04/27/20 16 04/30/2016 trepo nema palli dum scree n, serum , refle x confi rmati on T pallidum antibodies NEGATI VE negati ve DUE TO REAGE NT SHORT AGES, AN ALTER NATIV E MULTI PLEX FLOW IMMUN OASSA Y HAS BEEN IMPLE MENTE D FOR THE DETEC TION OF TREPO NEMA PALLI DUM ANTIB ODIES . POS SIBLE RESUL TS INCLU DE: NON REACT LEELA (NEGA TIVE) EQUIV OCAL (EQUI VOCAL ) REACT LEELA (POSI TIVE) Not Available [facility] ([facility]) [address] [facility], [place], [address], 05/01/2016 06:10:24 04/27/20 16 04/28/2016 HIV 1+2 AB + HIV 1 p24 Ag, quali tativ e immun oassa y, serum HIV screen 4TH generation wrfx NON REACTI VE non reacti ve Not Available [facility] ([facility]) [address] [facility], [place], [address], 05/01/2016 06:10:24 04/27/20 16 04/28/2016 varic bobbi- zoste r igg Ab scree n, serum varicella zoster IgG >4000 index immune >165 NEGAT LEELA <135 EQUIV OCAL 135 - 165 POSIT LEELA >165 A POSIT LEELA RESUL T GENER ALLY INDIC ATES EXPOS URE TO THE PATHO GEN OR ADMIN ISTRA TION OF SPECI FIC IMMUN OGLOB ULINS , BUT IT IS NOT INDIC ATION OF ACTIV E INFEC TION OR STAGE OF DISEA SE. Not Available [facility] ([facility]) [address] [facility], [place], [address], 05/01/2016 06:10:25 04/27/20 16 04/28/2016 mumps virus IgG Ab, quant , immun oassa y, serum mumps abs, IgG 252.0 AU/mL immune >10.9 NEGAT LEELA <9.0 EQUIV OCAL 9.0 - 10.9 POSIT LEELA >10.9 A POSIT LEELA RESUL T GENER ALLY INDIC ATES PAST EXPOS URE TO MUMPS VIRUS OR PREVI OUS VACCI NATIO N. Not Available [facility] ([facility]) [address] [facility], [place], [address], 05/01/2016 06:10:25 04/27/20 16 04/28/2016 measl es virus IgG Ab, quant , immun oassa y, serum rubeola Ab, IgG 228.0 AU/mL immune >29.9 NEGAT LEELA <25.0 EQUIV OCAL 25.0 - 29.9 POSIT LEELA >29.9 PRESE NCE OF ANTIB ODIES TO RUBEO LA IS PRESU MPTIV E EVIDE NCE OF IMMUN ITY EXCEP T WHEN ACUTE INFEC TION IS SUSPE CTED. Not Available [facility] ([facility]) [address] [facility], [place], [address], 05/01/2016 06:10:26 04/27/20 16 04/28/2016 hsv-2 (herp es simpl ex virus type 2) igg Ab, serum hsv 2 IgG, type spec <0.91 index 0.00-0 .90 NEGAT LEELA <0.91 EQUIV OCAL 0.91 - 1.09 POSIT LEELA >1.09 NOTE: NEGAT LEELA INDIC ATES NO ANTIB ODIES DETEC JESUS TO HSV-2 . EQUIV OCAL MAY SUGGE ST EARLY INFEC TION. IF CL[facility] APPRO PRIAT E, RETES T AT LATER DATE. POSIT LEELA INDIC ATES ANTIB ODIES DETEC JESUS TO HSV-2 . Not Available [facility] ([facility]) [address] [facility], [place], [address], 05/01/2016 06:10:26 04/30/20 16 05/01/2016 he4 (neel n epidi dymis prote in 4), serum cancer antigen (Ca) 125 211.8 U/mL 0.0-38 .1 above high normal THADDEUS ECLIA METHO DOLOG Y Not Available [facility] ([facility]) [address] [facility], [place], [address], 05/02/2016 16:40:20 04/30/20 16 05/02/2016 he4 (neel n epidi dymis prote in 4), serum he4 34 pmol/ L 0-150 FUJIR EBIO EIA Not Available [facility] ([facility]) [address] [facility], [place], [address], 05/02/2016 16:40:20 Result Notes None recorded. Problems Name Problem SNOMED Code Status Onset Date Resolution Date Notes Provider Name and Address Organization Details Recorded Time Abnormal uterine bleeding 53624685047 100 Completed 04/30/2016 ALECIA VALVERDE [facility] [address] [facility], [place], [address] , [facility] 6 13:41:44 Complex ovarian cyst 75635511858 3 Active Tiffanie Dailey (TERMED) [facility], [facility] 6 10:51:09 Mixed anxiety and depressi ve disorder 444904985 Active followed by psych ALECIA HYLTONETT [facility] [address] [facility],[address], [place], [address] , [facility] 6 13:41:44 History of anorexia nervosa 530432486 Active at age 21; reports this is controll ed now ALECIA VALVERDE [facility] [address] [facility] [place] [place], [address] , [facility] 6 13:41:44 Problem Notes None recorded. Procedures Surgical History Date Name Laterality Status Provider Name and Address Organization Details Recorded Time 5 IUD Insertion Procedure Note ([facility]) completed MONTSERRAT HEREDIA MD [address] [facility],[address], [place], [address], [facility] 05/05/2015 09:54:55 5 Date of Last Pap Smear completed Tiffanie Dailey (TERMED) [facility] 04/27/2016 09:01:15 1 Surgery-other completed Kathrin Altamirano (TERMED) [facility] 04/27/2015 12:14:20 Imaging Results None recorded. Procedure Notes None recorded. Medical Equipment None Reported. Allergies No known drug allergies Medications Name Sig Start Date Stop Date Status Note LastModified by Organization Details LastModified Time Mirena 21 mcg/24 hr (up to 8 years) 52 mg intrauterine device Take 1 device as needed by intrauterin e route for 1 day. 2014 active Not Available Not Available Not Avai lable venlafaxine ER 75 mg capsule,exte nded release 24 hr active Not Available Not Available Not Available venlafaxine ER 150 mg capsule,exte nded release 24 hr active Not Available Not Available Not Available alprazolam 0.25 mg tablet active Not Available Not Available Not Available Valium 5 mg tablet Take 1 tablet(s) an hour prior to procedure 2014 active Not Available Not Available Not Avai lable buspirone 10 mg tablet active Not Available Not Available No t Available misoprostol 200 mcg tablet Take 2 tablet(s) per vagina (not oral). active Not Available Not Available Not Available diclofenac potassium 50 mg tablet Take 1 tablet 3 times a day by oral route as needed. active Not Available Not Available No t Available zinc active Not Available Not Availa ble Not Available BuSpar active Not Available Not Availa ble Not Available Xanax active Not Available Not Availa ble Not Available multivitamin active Not Available Not Available Not Available Vitals Date Recorded Body weight Body mass index (BMI) Body height Systolic blood pressure Diastolic blood pressure Provider Name and Address Organization Details Last Updated DateTime 04/27/2015 67737.52 9814 g 27.3 kg/m2 173.99 cm 104 mm[Hg] 62 mm[Hg] Kathrin Altamirano (TERMED) [facility] 5 12:10:34 Date Recorded Body weight Systolic blood pressure Diastolic blood pressure Provider Name and Address Organization Details Last Updated DateTime 05/05/2015 45066.7731 9 g 102 mm[Hg] 58 mm[Hg] Allison Guillen (TERMED) [facility] 05/05/2015 09:36:55 Date Recorded Body weight Systolic blood pressure Diastolic blood pressure Provider Name and Address Organization Details Last Updated DateTime 06/09/2015 55352.2101 38 g 100 mm[Hg] 68 mm[Hg] Heydi Ramirez (TERMED) [facility] 06/09/2015 10:00:04 Date Recorded Body weight Body height Body mass index (BMI) Systolic blood pressure Diastolic blood pressure Provider Name and Address Organization Details Last Updated DateTime 04/27/2016 07721.84 949 g 173.0248 cm 26.8 kg/m2 110 mm[Hg] 62 mm[Hg] Tiffanie Dailey (TERMED) [facility] 6 09:05:32 Date Recorded Body height Body weight Body mass index (BMI) Systolic blood pressure Diastolic blood pressure Provider Name and Address Organization Details Last Updated DateTime 04/30/2016 173.0248 cm 05749.22 7802 g 26.5 kg/m2 96 mm[Hg] 58 mm[Hg] Tiffanie Dailey (TERMED) [facility] 6 13:37:46 Social History Question Answer Notes LastModified by Organizat ion Details LastModified Time Tobacco Smoking Status Never Smoker Kathrin Altamirano (TERMED) [facility], [facility] 04/27/2015 12:30:46 What Is Your Level Of Alcohol Consumption? 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 Yes [email or web address] Information not available 04/27/2016 Seat Belts Used Routinely Yes Information not available 04/27/2015 Are You Sexually Active? Yes Information not available 04/27/2015 General Stress Level High [email or web address] Information not available 04/27/2016 Do You Have Symptoms Associated With Zika Virus (fever, Rash, Joint Pain, Or Conjunctivitis) ? No [email or web address] Information not available 04/27/2016 Have You Recently (within The Last 12 Weeks, Or During A Current ) Traveled To Or Lived In A Zika-affected Area? No [email or web address] Information not available 04/27/2016 Sex: Unknown Functional Status Question Answer Note LastModified by Organizat ion Details LastModified Time What is your exercise level? Moderate running, yoga, physical job Information not available 04/27/2015 Mental Status None recorded. Family History Relationship Description Onset Age of this Age Resolved Age Notes LastModified by Organization Details LastModified Time Paternal Grandmother Malignant tumor of breast Not available 2015 14:01:16 Paternal Grandmother Alzheimer's disease Not available 2015 14:01:16 Mother Malignant tumor of ovary 52 negati ve for BRAC; A&W Not available 04/30/2016 14:01:16 Maternal Grandmother Malignant tumor of ovary 70 Not available 2015 14:01:16 Paternal Grandfather Diabetes mellitus Not available 2015 14:01:16 Medical History Condition Response Psych- Anxiety Disorder Y Hematology- Anemia Y Psych- Eating Disorder Y Psych- Depression Y Gynecological History Statement/Question Response Date of Last Pap Smear 04/27/2015 Sexual Orientation Heterosexual Current Control Method Condoms History of Abnormal PAP Y Obstetrics History GPAL:G 0 P 0 0 0 0 Past Encounters Encounter ID Performer Location Encounter Start Date Encounter Closed Date Diagnosis/Indication Diagnosis SNOMED-CT Code Diagnosis ICD10 Code [id number] Heydi Ramirez (TERMED) [address] [place] [address] 04/27/2015 11:23:07 04/27/2015 16:38:56 Gynecologic examination 58121411 [facility] ion care management 055097716 Venereal d isease screening 713907913 [id number] ALECIA VALVERDE [facility] [address] [place] [address] 04/27/2016 08:57:45 04/27/2016 11:32:26 Gynecologic examination 40676399 Z01.419 Venereal d isease screening 646300259 Z11.3 Abnormal u terine bleeding 4799018944 9100 N93.9 Enlarged uterus 21497654 4 N85.2 Antibody measurement 352 [address] Z01.[id number] [place] [address] 05/05/2015 09:06:30 05/05/2015 10:16:18 Contraception care management [id number] [address] [place] [address] 06/09/2015 09:51:23 06/10/2015 13:13:13 IUD check 968850349 [id number] Nissa Banegas (TERMED) [address] [place] [address] 04/30/2016 13:10:45 05/01/2016 10:50:15 Complex ovarian cyst 6768539232 03 N83.29 IUD check 243099448 Z30. 431 Abnormal u terine bleeding 9091876432 9100 N93.9 Health Concerns Section Related Observation LastModified by Organization Detai ls LastModified Time None Recorded Concern Status LastModified by Organization Details LastModified Time None Recorded Advance Directives Directive None Recorded Payers Encounter Date Sequence Insurance Name Policy Number Policy Mccormick Covered Member ID Mccormick Member ID Guarantor Name 04/27/2015 1 [place] IADVT Aziza Lickwar [id number] Aziza [address] Lickwar 05/05/2015 1 [place] Aziza Lickwar [id number] Aziza E Lickwar 06/09/2015 1 [place] Aziza Lickwar [id number] Aziza E Lickwar 04/27/2016 1 [place] [id number] Aziza E Lickwar [id number] Aziza E Lickwar 04/30/2016 1 [place] [id number] Aziza E Lickwar [id number] Aziza E Lickwar Notes Date Note Type Note Provider Name and Address Organization Details Recorded Time 04/27/2015 text/html HPI 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 ALECIA VALVERDE [address], [place], [address], formerly [facility] 04/28/2015 22:36:15 05/05/2015 text/html HPI The pt comes in for Mirena insertion. Mitesh, BSN? MONTSERRAT HEREDIA MD [address] [facility], [place], [address], [facility] 05/05/2015 09:55:48 06/09/2015 text/html HPI IUD check? MONTSERRAT HEREDIA MD [address] [facility], [place], [address], [facility] 06/10/2015 08:29:02 04/27/2016 text/html HPI Annual exam? ALECIA VALVERDE [facility] [address] [facility], [place], [address], [facility] 04/30/2016 13:41:45 04/30/2016 text/html HPI Pt. here for f/u? ALECIA VALVERDE [facility] [address] [facility], [place], [address], [facility] 04/30/2016 17:08:12 OBGyn Episode No OBEpisode recorded.
--- OUTSIDE RECORDS SUMMARY | 2024-10-06 21:45 | XMS_ITS | Encounter Summary ---
Author Organization [facility] Healthcare Address [address] [place] [address] Care Team Providers Care Management Coordinator Name Role Phone Estrellita Alonzo MD Primary Care Provider [phone] Reason for Referral * Diagnostic Imaging (Routine) - Closed Specialty Diagnoses / Procedures Referred By Alexisac t Referred To Contact Diagnoses Borderline epithelial neoplasm of ovary Procedures US Pelvis Complete Camila Swenson MD [address] [facility] [phone] [place] [address] Phone: tel: fax: [facility] (All Locations) Referral ID Status Reason Start Date Expiration Date Visits Re quested Visits Authorized [id number] Closed 08/16/2020 09/15/2021 1 1 SIFICATION COUNSELOR Reason for Visit * Diagnostic Imaging (Routine) - Closed Specialty Diagnoses / Procedures Referred By Contac t Referred To Contact Diagnoses Borderline epithelial neoplasm of ovary Procedures US Pelvis Complete Camila Swenson MD [address] [facility] [phone] [place] [address] Phone: tel: fax: [facility] (All Locations) Referral ID Status Reason Start Date Expiration Date Visits Re quested Visits Authorized [id number] Closed 08/16/2020 09/15/2021 1 1 Encounter Details Date Type Department Care Team (Latest Contact Info) Description 09/12/2020 8:00 AM CLASSIFICATION COUNSELOR - 09/12/2020 11:59 PM CLASSIFICATION COUNSELOR Hospital Encounter [facility] [address] [facility], 7th Floor, [address] [facility] [place] [address] Camila Swenson MD [address] [phone] [place] [address] Borderline epithelial neoplasm of ovary Discharge Disposition: Discharge to home or self care Social History Tobacco Use Types Packs/Day Years Used Date Smoking Tobacco: Never Smokeless Tobacco: Never Alcohol Use Standard Drinks/Week Comments Yes 0 (1 standard drink = 0.6 oz pur e alcohol) PHQ-2 Answer Date Recorded PHQ-2 Score 3 06/11/2019 Comments No Sex and Gender Information Value Date Recorded Sex Assigned at Not on file Legal Sex Female 8:36 AM CLASSIFICATION COUNSELOR Gender Identity Not on file Sexual Orientation Not on file documented as of this encounter Medications at Time of Discharge levonorgestrel (MIRENA) IUD Mirena 20 mcg/24 hr (5 years) intrauterine device Take 1 device as needed by intrauterine route for 1 day. lisdexamfetamine (VYVANSE) 20 mg capsule Take 20 mg by mouth every morning Pt taking 5 days a week multivitamin tabletIndication s:Vitamin Deficiency Prevention venlafaxine (EFFEXOR) 75 mg tablet venlafaxine 150 mg tablet extended release 24hr 24 hr tablet zinc-vit C-pyridoxine, vit B6, 12-60-0.5 mg lozenge zinc documented as of this encounter Discharge Disposition Disposition Code Departure Means Destination Discharge to home or self care documented in this encounter Plan of Treatment Not on file documented as of this encounter Procedures Procedure Name Priority Date/Time Associated Diagnosis Comments US PELVIS COMPLETE Schedule Routine, Read Routine (OP Routine) 09/12/2020 8:06 AM CLASSIFICATION COUNSELOR Borderline epithelial neoplasm of ovary documented in this encounter Results * US Pelvis Complete (09/12/2020 8:06 AM CLASSIFICATION COUNSELOR) Cul de Sac No free fluid visualized [facility] Anatomical Region Laterality Modality Pelvis N/A Ultrasound 09/12/2020 8:08 AM CLASSIFICATION COUNSELOR us Premal Teddy Swenson MD IMG US PROCEDURES Final Result documented in this encounter Visit Diagnoses Diagnosis Borderline epithelial neoplasm of ovary documented in this encounter Care Teams Management Coordinator Relationship Specialty Start Date End Date Estrellita Alonzo MD [address] [facility] [address] [place] [address] PCP - General 03/05/17 documented as of this encounter
--- OUTSIDE RECORDS SUMMARY | 2024-10-06 21:45 | XMS_ITS | Encounter Summary ---
Author Organization [facility] Address [address] [place] [address] Phone Care Team Providers Care Certified Emergency Vehicle Technician Name Role Phone Estrellita Alonzo MD Primary Care Provider [phone] Encounter Details Date Type Department Care Team (Late st Contact Info) Description 08/10/2020 Telephone [facility] Obstetrics and Gynecology [address] [facility] 13th [place] [address] [place] [address] Philly Aragon RN Social History Tobacco Use Types Packs/Day Years Used Date Smoking Tobacco: Never Smokeless Tobacco: Never Alcohol Use Standard Drinks/Week Comments Yes 0 (1 standard drink = 0.6 oz pur e alcohol) PHQ-2 Answer Date Recorded PHQ-2 Score 3 06/11/2019 Comments No Sex and Gender Information Value Date Recorded Sex Assigned at Not on file Legal Sex Female 8:36 AM TRESTLE BUILDER Gender Identity Not on file Sexual Orientation Not on file documented as of this encounter Miscellaneous Notes * Telephone Encounter - Philly Aragon RN - 08/10/2020 4:04 PM CDT VM from pt asking if she should have CA 125 drawn prior to her 08/15 appt. RTC to pt. Let her know that Dr. Swenson will want her to get a CA 125. Put order in system. Pt stated that she lost her insurance after she graduated and was supposed to see someone in [facility]. Pt did not make that appointment d/t Covid. Pt has new health insurance and would like to continue to follow up with Dr. Swenson. Pt will have CA 125 drawn prior to her appointment. documented in this encounter Plan of Treatment Not on file documented as of this encounter Visit Diagnoses Not on filedocumented in this encounter Care Teams Certified Emergency Vehicle Technician Relationship Specialty Start Date End Date Estrellita Alonzo MD [address] [address] PCP - General 03/05/17 documented as of this encounter
--- OUTSIDE RECORDS SUMMARY | 2024-10-06 21:45 | XMS_ITS | Encounter Summary ---
Author Organization [facility] Address [address] [place] [address] Phone Care Team Providers Care Lead Driver Name Role Phone Estrellita Alonzo MD Primary Care Provider [phone] Reason for Visit * Behavioral Health (Routine) - Closed Specialty Diagnoses / Procedures Referred By Filipe t Referred To Contact Psychology Diagnoses Appt Comment: PER PC WITH PT/ STANDING Procedures RETURN Referral, Self Heydi Reyes, PhD [address] [place] [address] Phone: tel: Referral ID Status Reason Start Date Expiration Date Visits Re quested Visits Authorized [id number] Closed 05/22/2018 12/01/2019 12 12 Encounter Details Date Type Department Care Team (Latest Contact Info) Description 11/24/2018 1:30 PM GATE TENDER Office Visit [facility] Psychiat[facility] [place] [address] Heydi Reyes, PhD [address] [place] [address] Major depressive disorder, recurrent episode, [...] on file Legal Sex Female 8:36 AM GATE TENDER Gender Identity Not on file Sexual Orientation Not on file documented as of this encounter Progress Notes * Heydi Reyes, PhD - 11/24/2018 1:30 PM CST Psychology Note Date of Service: @TODAY@ Start time: 1:30 End time: 2:25 Interval History: (Regarding anxiety/mood) It's feeling OK to day - getting outside this weekend in nice weather and making progress this morning on her over-due paper made her feel better. She has recurring problems finishing papers on time and becomes very anxious over that. She received feedback on a written assignment that she includes too much information and needs to narrow focus to make it manageable. (Aziza's cognitive style in session is notable for being both overly vague and overlydetailed at points-which relates to difficulty with organization and regulation of focus). I feel my issues are the same but I'm slowly working into being a better version of myself . When asked for an example I think I'm better identifying how I'm feeling. And I can realize sometimes that I'm just tired . She does not find school motivating- big classes that are largely lecture-based,which is not a good fit for her attentional and learning style. Vyvannse does benefit her for focus. She states that sleep is a problem. It depends - queried for specifics.t depends During week usually in bed around 11. Usually up between 6:30-8:30. Says she has problems with middle waking but when queried said this is usually just for a few minutes. Sometimes can be an hour but this is about once every other month. I give feedback that this description is normal- most people have some short wakenings. Aziza sometimes takes Benadryl, melatonin or xanax but she does not report frequent initial insomnia-rather she feels this helps her sleep more soundly. The downside is she feels a hangoverfinds it harder than usual to get up and get going. I discuss this with her, including that ADD is o ften associated with hard time waking up and getting going in morning. Encourage regular rise time,feet on ground without engaging in much thinking and default of 5 minute of asanas to get moving-walk outside for 15 when able. She forgot about trying a fan for her high sensitivity to environmentalnoise at night. After revieweing all this she said I don't feel I have sleep issues but I feel my brain has been going all night . Re: relationships, discussed recently dating someone, but now not and it being confusing. She provided details. He is dating someone else (she knows through friends) after telling Aziza he thought they shouldn't date bc she might be leaving/and that he shouldn't date right now. However he calls Aziza everyday and they get into all this and the whole things sounds confusing, frustrating. This discussed. She has hx of many relationships with guys who end up not being available and yet she staysemotionally involved for quite a while. Mental Status Exam: 1. General appearance and behavior: good eye contact 2. Speech: regular 3. Flow of thought: can be both overly vague and overly detailed-difficulty with establishing the right amount of detail and the essential from the non-essential. Bright but scattered; noticeable improvement when on Vyvannse 4. Content of thought: no suicidal ideation . Dissatisfaction with school and difficulty with getting assignments in on time but seems better at this in past; dissatisfaction with dating relationships 5. Mood: Positive mood reacitivty, feels down half days 6. Affect: appropriate , pleasant, high reactivity 7. Insight: fair to good 8. Judgement: good 9. Sensorium: alert Psychotherapy Focus: P-s regarding school issues and habits/routines to support functioning Interpersonal psychotherapy re: dating relationship issues. She stays attached to relationships that are frustrating/unlikely to work out for quite some time. This pattern discussed and details of current relationship. Assessment: Major depression recurrent mild-moderate (PHQ-9 13 today) Anxiety ADHD Plan Return in 2 weeks for problem-solving and coping to assist with academic goal (finishing courseworkin February) and to assist with relationship issues TENDER documented in this encounter Plan of Treatment Not on file documented as of this encounter Visit Diagnoses Diagnosis Major depressive disorder, recurrent episode, moderate (HCC)- Primary Major depressive disorder, recurrent episode, moderate Anxiety disorder, unspecified type ADHD (attention deficit hyperactivity disorder), combined type Attention deficit disorder with hyperactivity documented in this encounter Care Teams Lead Driver Relationship Specialty Start Date End Date Estrellita Alonzo MD [address] [facility] [address] [place] [address] PCP - General 03/05/17 documented as of this encounter
--- OUTSIDE RECORDS SUMMARY | 2024-10-06 21:45 | XMS_ITS | Encounter Summary ---
Author Organization [facility] Address [address] [facility] [address] [place] [address] Phone Care Team Providers Care News Technical Director Name Role Phone Kirk Alonzo MD Primary Care Provider [phone] Reason for Referral * Diagnostic Imaging (Routine) - Closed Specialty Diagnoses / Procedures Referred By Filipe dorsey Referred To Contact Diagnoses Borderline epithelial neoplasm of ovary Procedures US Transvaginal Camila Swenson MD Phone: tel: fax: [facility] (All Locations) Referral ID Status Reason Start Date Expiration Date Visits Re quested Visits Authorized [id number] Closed 12/15/2018 06/25/2020 1 1 STANT CHILD CARE TEACHER Reason for Visit * OBGYN (Routine) - Closed Specialty Diagnoses / Procedures Referred By Filipe dorsey Referred To Contact Gynecologic Oncology Diagnoses 6 month f/u Procedures TURF KEEPER RETURN Kirk Alonzo MD Phone: tel: fax: Camila Swenson MD [address] [facility] [phone] [place] [address] Phone: tel: fax: Referral ID Status Reason Start Date Expiration Date Visits Re quested Visits Authorized [id number] Closed 12/15/2018 06/25/2020 1 1 Encounter Details Date Type Department Care Team (Late st Contact Info) Description 12/15/2018 9:00 AM ASSISTANT CHILD CARE TEACHER Office Visit [facility] Obstetrics and Gynecology [address] [facility] 13th [place] [address] [place] [address] Camila Swenson MD [address] [phone] [place] [address] Borderline epithelial neoplasm of ovary (Primary Dx) Social History Tobacco Use Types Packs/Day Years Used Date Smoking Tobacco: Never Smokeless Tobacco: Never Alcohol Use Standard Drinks/Week Comments Yes 0 (1 standard drink = 0.6 oz pur e alcohol) Comments No Sex and Gender Information Value Date Recorded Sex Assigned at Not on file Legal Sex Female 8:36 AM ASSISTANT CHILD CARE TEACHER Gender Identity Not on file Sexual Orientation Not on file documented as of this encounter Last Filed Vital Signs Vital Sign Reading Time Taken Comments Blood Pressure 112/74 12/15/2018 9:24 AM ASSISTANT CHILD CARE TEACHER Pulse 98 12/15/2018 9:24 AM ASSISTANT CHILD CARE TEACHER Temperature 36.8 ??C (98.3 ??F) 12/15/2018 9:24 AM CS T Respiratory Rate 22 12/15/2018 9:24 AM ASSISTANT CHILD CARE TEACHER Oxygen Saturation 95% 12/15/2018 9:24 AM ASSISTANT CHILD CARE TEACHER Inhaled Oxygen Concentration - - Weight 77.1 kg (170 lb) 12/15/2018 9:24 AM ASSISTANT CHILD CARE TEACHER Height - - Body Mass Index 25.47 06/16/2018 10:19 AM CDT documented in this encounter Progress Notes * Camila Swenson MD - 12/15/2018 12:00 AM CST PATIENT: OLGA ESPINOSA : 1985 AKASH: 12/15/2018 REASON FOR VISIT: 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 HISTORY OF PRESENT ILLNESS: Ms. 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 The washings were negative. The tumor was confined to the ovary and not involving the ovarian surface. Of note, the patient's postoperative course was complicated by a hematoma in the right lower quadrant. The patient continues to be in surveillance. The patient had her ultrasound performed in June 2018, which was unremarkable. Her last menstrual cycle was approximately 1 week ago and only lasted for a day. The patient has an IUD in place. The patient complains of fatigue. The patient dermatologically is having unexplained welts in different places. She is taking Zyrtec, but it is making her quite sleepy. The patient also complains of depression and mood changes, and is under the care of a psychologist. Otherwise, she denies any fever, chills, nausea, vomiting, changes in or GI habits, pelvic pain, pelvic pressure, vaginal bleeding, vaginal discharge, or postcoital bleeding. PAST MEDICAL HISTORY/REVIEW OF SYSTEMS: Unchanged from 05/28/2016, except for the above updates. PHYSICAL EXAMINATION: Vital Signs: Blood pressure is 112/74, pulse is 98. Her weight is 170 pounds, which is an increase of 6 pounds from her last visit. General Appearance: The patient is a well-developed, well-nourished female in no acute distress. HEENT: Atraumatic, normocephalic, PERRLA, EOMI, EENT: Within normal limits. Neck is supple, withoutthyromegaly or JVD. LN Survey: No supraclavicular, inguinal, or femoral lymphadenopathy. Lungs: Clear to auscultation bilaterally. Heart: Regular rate and rhythm. Positive S1/S2. Breasts: Deferred. Back: No CVA or paraspinal tenderness. Abdomen: Soft, nontender, nondistended. Normoactive bowel sounds. She has no puckering of the rightlower quadrant incision when she lies flat. Extremities: No clubbing, cyanosis, or edema. Neurologic: The patient is awake, alert, and oriented x 3. Pelvic Exam: External genitalia: Within normal limits. Urethra: Without masses or tenderness. Urethral meatus: Without any lesions or prolapse. Bladder: No masses or tenderness. Vulva: Normal. Speculum Exam: There are no abnormalities noted. The IUD strings can be seen. Bimanual: Cervix feels normal in size, shape, and consistency. Uterus feels normal in size. The left adnexa is surgically absent. The right adnexa cannot be palpated. Rectovaginal: Exam was deferred. LABORATORY STUDIES: The patient's CA-125 from 06/16/2018 was noted to be 6.8. 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 1. Serous LMP tumor: The patient's CA-125 will be checked today. She will be due for an ultrasound in 6 months' time. 2. Genetics: The patient's mother genetic testing is still pending, per the patient's report. The patient was encouraged to try to continue to see if her mother could get additional testing. 3. Pap smear: She will be due for her next Pap smear in June 2020. 4. Follow-up will be in 6 months' time. Ultimately, the patient will be moving, since she graduatesin February. 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 5. Dermatologic: The patient was told to use some hydrocortisone ointment along with triple antibiotic ointment. ELECTRONICALLY SIGNED - 12/16/2018 02:42 PM Camila Swenson M.D. Professor, Department of Obstetrics and Gynecology Division of Gynecologic Oncology [facility] PHT/lw/#[id number] cc: KIRK ALONZO MD / / STANT CHILD CARE TEACHER documented in this encounter Nursing Notes * Philly Aragon RN - 12/15/2018 9:00 AM CST In clinic, made pt's 6 month f/u appt w/US prior. Encouraged to call me if she is unable to keep appointments and I will reschedule. STANT CHILD CARE TEACHER documented in this encounter Miscellaneous Notes * Treatment Plan - Camila Swenson MD - 12/15/2018 9:00 AM CST Please schedule Olga Espinosa for the following: Requested Order Contrast Indication When CXR CT Chest, Abdomen, and Pelvis CT Abdomen and Pelvis LEEP (during clinic hours) TURF KEEPER Ultrasound x In 6months MRI Mammogram PET Initiate Survivoship Care Plan Surveillance Labs (CBC w/ Diff, CMP, Magnesium, CA125) Labwork: CA125 today and in 6 months x STANT CHILD CARE TEACHER documented in this encounter Plan of Treatment Not on file documented as of this encounter Results * CA 125 (10/12/2019 1:46 PM ASSISTANT CHILD CARE TEACHER) CA 125 ag 6.9 0.0 - 35.0 units/mL [facility] Blood specimen (specimen) 10/12/2019 1:46 PM ASSISTANT CHILD CARE TEACHER 10/12/2019 2:40 PM ASSISTANT CHILD CARE TEACHER Camila Swenson MD LAB BLOOD ORDERABLES Fin al Result [facility] Department [place] [address] * CA 125 (06/15/2019 5:56 PM CDT) CA 125 ag 8.0 0.0 - 35.0 units/mL [facility] Blood specimen (specimen) 06/15/2019 5:56 PM CDT 06/16/2019 12:40 AM CDT Camila Swenson MD LAB BLOOD ORDERABLES Fin al Result [facility] Department [place] [address] * US Transvaginal (06/15/2019 3:31 PM CDT) Cul de Sac No free fluid visualized [facility] Endometrial Thickness 2.5 mm&millim eters [facility] Anatomical Region Laterality Modality Pelvis N/A Ultrasound 06/15/2019 3:33 PM CDT us Premal Teddy Swenson MD IMG US PROCEDURES Final Result documented in this encounter Visit Diagnoses Diagnosis Borderline epithelial neoplasm of ovary- Primary documented in this encounter Historical Medications * This list may reflect changes made after this encounter. levonorgestrel (MIRENA) IUD Mirena 20 mcg/24 hours (5 yrs) 52 mg intrauterine device Take 1 device as needed by intrauterine route for 1 day. 9 added in this encounter Care Teams News Technical Director Relationship Specialty Start Date End Date Kirk Alonzo MD [address] [address] PCP - General 03/05/17 documented as of this encounter
--- OUTSIDE RECORDS SUMMARY | 2024-10-06 21:45 | XMS_ITS | Encounter Summary ---
Author Organization [facility] Address [address] [place] [address] Phone Care Team Providers Care Disability Attorney Name Role Phone Estrellita Alonzo MD Primary Care Provider [phone] Encounter Details Date Type Department Care Team (Late st Contact Info) Description 09/01/2020 Telephone [facility] Obstetrics and Gynecology [address] [facility] 13th [place] [address] [place] [address] Karime Aguilar Social History Tobacco Use Types Packs/Day Years Used Date Smoking Tobacco: Never Smokeless Tobacco: Never Alcohol Use Standard Drinks/Week Comments Yes 0 (1 standard drink = 0.6 oz pur e alcohol) PHQ-2 Answer Date Recorded PHQ-2 Score 3 06/11/2019 Comments No Sex and Gender Information Value Date Recorded Sex Assigned at Not on file Legal Sex Female 8:36 AM WELL LOGGING CAPTAIN Gender Identity Not on file Sexual Orientation Not on file documented as of this encounter Miscellaneous Notes * Telephone Encounter - Karime Aguilar - 09/01/2020 1:30 PM CST Called BC/BS at [phone] and per automated system no precert is needed for IUD placement. Gladys Aguilar LOGGING CAPTAIN documented in this encounter Plan of Treatment Not on file documented as of this encounter Visit Diagnoses Not on filedocumented in this encounter Care Teams Disability Attorney Relationship Specialty Start Date End Date Estrellita Alonzo MD [address] [place] [address] PCP - General 03/05/17 documented as of this encounter
--- OUTSIDE RECORDS SUMMARY | 2024-10-06 21:45 | XMS_ITS | Encounter Summary ---
Author Organization [facility] Healthcare Address [address] [place] [address] Care Team Providers Care Filter Tender Name Role Phone Estrellita Alonzo MD Primary Care Provider [phone] Encounter Details Date Type Department Care Team (Late st Contact Info) Description 08/15/2020 5:30 PM CDT Lab [facility] Advanced Medicine [facility] Advanced Medicine ([facility]) [address] [place] [address] Camila Swenson MD [address] [phone] [place] [address] Borderline epithelial neoplasm of ovary Discharge Disposition: [...] on file Legal Sex Female 8:36 AM SENIOR WEB DESIGNER Gender Identity Not on file Sexual Orientation Not on file documented as of this encounter Discharge Disposition Disposition Code Departure Means Destination Discharge to home or self care documented in this encounter Plan of Treatment Not on file documented as of this encounter Procedures Procedure Name Priority Date/Time Associated Diagnosis Comments CA 125 Routine 08/15/2020 4:11 PM CDT Borderline epithelial neoplasm of ovary documented in this encounter Results * CA 125 (08/15/2020 4:11 PM CDT) CA 125 ag 7.9 0.0 - 35.0 units/mL LESLEE AMRQUEZ Blood specimen (specimen) 08/15/2020 4:11 PM CDT 08/15/2020 4:19 PM CDT us Premal Teddy Swenson MD LAB BLOOD ORDERABLES Fin al Result Performing Organization Address City/State/[facility] Co de Phone Number [facility] [place] [address] documented in this encounter Visit Diagnoses Diagnosis Borderline epithelial neoplasm of ovary documented in this encounter Care Teams Filter Tender Relationship Specialty Start Date End Date Estrellita Alonzo MD [address] [facility] [address] [place] [id number] PCP - General 03/05/17 documented as of this encounter
--- OUTSIDE RECORDS SUMMARY | 2024-10-06 21:45 | XMS_ITS | Encounter Summary ---
Author Organization [facility] Address [address] [place] [address] Phone Care Team Providers Care Psychiatric Tech Name Role Phone Estrellita Alonzo MD Primary Care Provider [phone] Reason for Referral * Diagnostic Imaging (Routine) - Closed Specialty Diagnoses / Procedures Referred By Filipe dorsey Referred To Contact Diagnoses Borderline epithelial neoplasm of ovary Procedures US Pelvis Complete Camila Swenson MD [address] [facility] [phone] [place] [address] Phone: tel: fax: [facility] (All Locations) Referral ID Status Reason Start Date Expiration Date Visits Re quested Visits Authorized [id number] Closed 08/16/2020 09/15/2021 1 1 * Diagnostic Lab (Routine) - Closed Specialty Diagnoses / Procedures Referred By Filipe dorsey Referred To Contact Lab Diagnoses Borderline epithelial neoplasm of ovary Breakthrough bleeding with IUD Recurrent major depressive disorder, in partial remission (HCC) Procedures Cytology Camila Swenson MD [address] [facility] [phone] [place] [address] Phone: tel: fax: Referral ID Status Reason Start Date Expiration Date Visits Re quested Visits Authorized [id number] Closed 08/15/2020 09/14/2021 1 1 Reason for Visit * Diagnostic Lab (Routine) - Closed Specialty Diagnoses / Procedures Referred By Filipe dorsey Referred To Contact Lab Diagnoses Borderline epithelial neoplasm of ovary Breakthrough bleeding with IUD Recurrent major depressive disorder, in partial remission (HCC) Procedures Cytology Camila Swenson MD [address] [facility] [phone] [place] [address] Phone: tel: fax: Referral ID Status Reason Start Date Expiration Date Visits Re quested Visits Authorized [id number] Closed 08/15/2020 09/14/2021 1 1 Encounter Details Date Type Department Care Team (Late st Contact Info) Description 08/15/2020 4:20 PM CDT Office Visit [facility] Obstetrics and Gynecology [address] [facility] 13th [place] [address] [place] [address] Camila Swenson MD [address] [facility] [phone] [place] [address] Borderline epithelial neoplasm of ovary (Primary Dx); Breakthrough bleeding with IUD; Recurrent major depressive disorder, in partial remission (CMS/HCC) Social History Tobacco Use Types Packs/Day Years Used Date Smoking Tobacco: Never Smokeless Tobacco: Never Alcohol Use Standard Drinks/Week Comments Yes 0 (1 standard drink = 0.6 oz pur e alcohol) PHQ-2 Answer Date Recorded PHQ-2 Score 3 06/11/2019 Comments No Sex and Gender Information Value Date Recorded Sex Assigned at Not on file Legal Sex Female 8:36 AM STENCIL SPRAYER Gender Identity Not on file Sexual Orientation Not on file documented as of this encounter Last Filed Vital Signs Vital Sign Reading Time Taken Comments Blood Pressure 126/84 08/15/2020 4:35 PM CDT Pulse 83 08/15/2020 4:35 PM CDT Temperature 36.3 ??C (97.4 ??F) 08/15/2020 4:35 PM CD T Respiratory Rate 17 08/15/2020 4:35 PM CDT Oxygen Saturation 94% 08/15/2020 4:35 PM CDT Inhaled Oxygen Concentration - - Weight 81.5 kg (179 lb 11.2 oz) 08/15/2020 4:35 PM CDT Height 174 cm (5' 8.5 ) 08/15/2020 4:35 PM CDT Body Mass Index 26.92 08/15/2020 4:35 PM CDT documented in this encounter Progress Notes * Camila Swenson MD - 08/15/2020 12:00 AM CDT PATIENT: OLGA ESPINOSA : 1985 AKASH: 08/15/2020 REASON FOR VISIT: 1. 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 2. Irregular vaginal bleeding on an IUD. HISTORY OF PRESENT ILLNESS: Ms. Espinosa is a lisy 35-year-old female who on routine physical examination before starting occupational therapy in [place] was found to have a 10 cm [...] patient continues to be in surveillance. The patient's IUD was due for an exchange, per her, inthe summer. The patient states that she has occasional nausea. She does complain of fatigue. The patient passed her occupational therapy boards. The patient, however, now is having menstrual c ycles about every 17 days and lasting for approximately 5 to 7 days. The patient does complain of bloating and pain. It is unclear as to whether it is related to her menstrual cycles. She does have some right lower quadrant pain. She also has some depression and mood changes. Otherwise, she denies any fever, chills, vomiting, changes in habits, or dyspareunia. Of note, the patient is working full-time at [employer]. PAST MEDICAL HISTORY/REVIEW OF SYSTEMS: Unchanged from 05/28/2016 except for the above updates. Reviewed with the patient today. PHYSICAL EXAM: General Appearance: The patient is a well-developed, well-nourished female in no acute distress. Vital signs: Her blood pressure is 126/84, pulse is 83, her weight is 179 pounds, which is an increase of 5 pounds from her last visit HEENT: Atraumatic, normocephalic, PERRLA, EOMI, EENT: Within normal limits. Neck is supple, withoutthyromegaly or JVD. LN Survey: No supraclavicular, inguinal, or femoral lymphadenopathy. Lungs: Clear to auscultation bilaterally. Heart: Regular rate and rhythm. Positive S1/S2. Breasts: Deferred. Back: No CVA or paraspinal tenderness. Abdomen: Soft, nontender, nondistended. Normoactive bowel sounds. She has well- healed laparoscopic incisions. Her right lower quadrant incision is slightly larger than her left. Extremities: No clubbing, cyanosis, or edema. Neuro: The patient is awake, alert, and oriented x 3. Pelvic Exam: External genitalia: Within normal limits. Urethra: Without masses or tenderness. Urethral meatus: Without any lesions or prolapse. Bladder: No masses or tenderness. Vulva: Normal. Speculum Exam: There are no abnormalities noted. The IUD strings can be visualized. A Pap smear wasobtained without difficulty. The cervix appears to be normal. Bimanual: Cervix feels normal in size, shape, and consistency. Uterus feels normal in size. The left adnexa is surgically absent. The right adnexa cannot be palpated. LABORATORY STUDIES: The patient's CA-125 from 08/15/2020 was noted to be 7.9. Her previous one on 10/12/2019 was 6.9. 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 1. Serous LMP: The patient's CA-125 was reassuring. 2. Radiographic imaging: Her last scan was done in September 2019 and she will need a repeat one prior to her IUD placement. 3. Pap smear: The patient's Pap smear was performed today and we will follow up the results. 4. Genetics: The patient did not discuss her genetic testing that her mother has performed. 5. Contraception: The patient is probably having irregular periods due to the fact that her IUD is not as hormonally active. Therefore, the patient will need to be precertified for repeat IUD placement in August 2020. 6. 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 7. Follow-up is prior to her IUD placement. The patient was given other options for contraception, but declines. ELECTRONICALLY SIGNED - 08/16/2020 02:37 PM Camila Swenson M.D. Professor, Department of Obstetrics and Gynecology Director of Gynecological Oncology Clinical Research Division of Gynecologic Oncology [facility] [employer] PHT/an/#[id number] cc: ESTRELLITA ALONZO MD / / documented in this encounter Miscellaneous Notes * Treatment Plan - Camila Swenson MD - 08/15/2020 4:20 PM CDT Please schedule Olga Espinosa for the following: Requested Order Contrast Indication When CXR CT Chest, Abdomen, and Pelvis CT Abdomen and Pelvis LEEP (during clinic hours) COOPER HELPER Ultrasound x Prior to IUD placement MRI Mammogram PET Initiate Survivoship Care Plan Surveillance Labs (CBC w/ Diff, CMP, Magnesium, CA125) Labwork: iud placement x In a month documented in this encounter Plan of Treatment Scheduled Orders Name Type Priority Associated Diagnoses Orde r Schedule Cytology Pathology and Cytology Routine Borderline epithelial neoplasm of ovary Breakthrough bleeding with IUD Recurrent major depressive disorder, in partial remission (CMS/HCC) Expected: 08/15/2020, Expires: 08/15/2021 documented as of this encounter Results * US Pelvis Complete (09/12/2020 8:06 AM STENCIL SPRAYER) Cul de Sac No free fluid visualized VIEWPOINT Anatomical Region Laterality Modality Pelvis N/A Ultrasound 09/12/2020 8:08 AM STENCIL SPRAYER us Premal Teddy Swenson MD IM US PROCEDURES Final Result documented in this encounter Visit Diagnoses Diagnosis Borderline epithelial neoplasm of ovary- Primary Breakthrough bleeding with IUD Recurrent major depressive disorder, in partial remission (HCC) documented in this encounter Discontinued Medications Medication Sig Discontinue Reason Start Date End Da te buspirone HCl (BUSPIRONE ORAL) BuSpar Therapy completed 08/15/2020 diclofenac (CATAFLAM) 50 mg tablet diclofenac potassium 50 mg tablet Therapy completed 08/15/2020 diazePAM (VALIUM) 5 mg tablet Valium 5 mg tablet Take 1 tablet(s) an hour prior to procedure Therapy completed 08/15/2020 miSOPROStol (CYTOTEC) 200 mcg tablet misoprostol 200 mcg tablet Therapy completed 08/15/2020 ALPRAZolam (XANAX) 0.25 mg tablet alprazolam 0.25 mg tablet Therapy completed 08/15/2020 levonorgestreL (Mirena) IUD Mirena 20 mcg/24 hours (6 yrs) 52 mg intrauterine device Take 1 device as needed by intrauterine route for 1 day. Therapy completed 08/15/2020 documented as of this encounter Historical Medications * This list may reflect changes made after this encounter. venlafaxine (EFFEXOR) 75 mg tablet venlafaxine 150 mg tablet extended release 24hr 24 hr tablet levonorgestreL (Mirena) IUD Mirena 20 mcg/24 hours (6 yrs) 52 mg intrauterine device Take 1 device as needed by intrauterine route for 1 day. 0 added in this encounter Care Teams Psychiatric Tech Relationship Specialty Start Date End Date Estrellita Alonzo MD [address] [facility] [address] [place] [address] PCP - General 03/05/17 documented as of this encounter
--- OUTSIDE RECORDS SUMMARY | 2024-10-06 21:45 | XMS_ITS | Encounter Summary ---
Author Organization [facility] Address [address] [place] [address] Phone Care Team Providers Care Order Expediter Name Role Phone Estrellita Alonzo MD Primary Care Provider [phone] Encounter Details Date Type Department Care Team (Late st Contact Info) Description 07/30/2019 Telephone [facility] Obstetrics and Gynecology [address] [facility] 13th [place] [address] [place] [address] Philly Aragon RN Social History [...] on file Legal Sex Female 8:36 AM DOCUMENTATION SUPERVISOR Gender Identity Not on file Sexual Orientation Not on file documented as of this encounter Miscellaneous Notes * Telephone Encounter - Philly Aragon RN - 07/30/2019 9:37 AM CDT Pt left VM to inform that she rescheduled her 09/[address] Swenson and needs to reschedule her US too. Rescheduled US to 10/12 at 1:00 pm. Attempted to notify patient, but her VM box was full. documented in this encounter Plan of Treatment Not on file documented as of this encounter Visit Diagnoses Not on filedocumented in this encounter Care Teams Order Expediter Relationship Specialty Start Date End Date Estrellita Alonzo MD [address] [facility] [address] [place] [id number] PCP - General 03/05/17 documented as of this encounter
--- OUTSIDE RECORDS SUMMARY | 2024-10-06 21:45 | XMS_ITS | Clinical Summary ---
Author Organization [facility] Address [address] [place] [address] Care Team Providers Care Capacity Planning Engineer Name Role Phone Estrellita Alonzo MD Primary Care Provider [phone] Unknown, Notinfile Unavailable Unavailable Allergies No known active allergies Medications zinc-vit C-pyridoxine, vit B6, 12-60-0.5 mg lozenge zinc Active multivitamin tabletIndicatio ns:Vitamin Deficiency Prevention Active levonorgestrel (MIRENA) IUD Mirena 20 mcg/24 hr (5 years) intrauterine device Take 1 device as needed by intrauterine route for 1 day. 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 Resolved Problems Problem Noted Date Diagnosed Date Resolved Date Complex ovarian cyst 06/15/2019 021 Immunizations Name Administration Dates Next Due HPV, Unspecified 10/21/2015,10/21/2015, 6 Surgical History Surgery Date Site/Laterality Comments NOSE SURGERY Nose Surgery - (Added by TW Conv) LAPAROSCOPIC SALPINGOOPHERECTOMY 06/12/2016 Left EUA/LSC LSO/pelvic washings/endometrial biopsy Medical History Medical History Date Comments Personal history of other me ntal and behavioral disorders History of depression - (Add ed by TW Conv) Personal history of other di seases of the female genital tract History of ovarian cyst - (A dded by TW Conv) Other abnormal tumor markers Belle vated tumor markers - (Added by TW Conv) Personal history of diseases of skin or subcutaneous tissue History of acne - (Added by TW Conv) Inflamed seborrheic keratosis In flamed seborrheic keratosis - (Added by TW Conv) Personal history of other sp ecified conditions History of telogen effluvium - (Added by TW Conv) Personal history of diseases of skin or subcutaneous tissue History of dermatitis - (Add ed by TW Conv) Family History Medical History Relation Name Comments Ovarian cancer Maternal Grandmother Famil y history of ovarian cancer - (Added by TW Conv) Ovarian cancer Mother Family histor y of ovarian cancer - (Added by TW Conv) Breast cancer Paternal Grandmother Family history of malignant neoplasm of breast - (Added by TW Conv) Relation Name Status Comments Maternal Grandmother Mother Paternal Grandmother Social History Tobacco Use Types Packs/Day Years Used Date Smoking Tobacco: Never Smokeless Tobacco: Never Alcohol Use Standard Drinks/Week Comments Yes 0 (1 standard drink = 0.6 oz pur e alcohol) PHQ-2 Answer Date Recorded PHQ-2 Score 3 06/11/2019 Personal Safety Answer Date Recorded Getting School Help Needed Not on file 12/14 Comments No Sex and Gender Information Value Date Recorded Sex Assigned at Not on file Legal Sex Female 8:36 AM LENDING ACTIVITIES SUPERVISOR Gender Identity Not on file Sexual Orientation Not on file Obstetrics History Para Term AB IAB SAB Ectopic Multiple Livin g Live Births 0 0 0 0 0 0 0 0 0 0 0 Last Filed Vital Signs Vital Sign Reading Time Taken Comments Blood Pressure 128/80 12/19/2020 10:56 AM LENDING ACTIVITIES SUPERVISOR Pulse 63 12/19/2020 10:56 AM LENDING ACTIVITIES SUPERVISOR Temperature 36.8 ??C (98.2 ??F) 12/19/2020 10:[address] Respiratory Rate 18 12/19/2020 10:56 AM LENDING ACTIVITIES SUPERVISOR Oxygen Saturation 99% 12/19/2020 10:56 AM LENDING ACTIVITIES SUPERVISOR Inhaled Oxygen Concentration - - Weight 78.7 kg (173 lb 6.4 oz) 12/19/2020 10:56 AM LENDING ACTIVITIES SUPERVISOR Height 174 cm (5' 8.5 ) 12/19/2020 10:56 AM LENDING ACTIVITIES SUPERVISOR Body Mass Index 25.98 12/19/2020 10:56 AM LENDING ACTIVITIES SUPERVISOR Plan of Treatment Health Maintenance Due Date Last Done Comments Hepatitis C Screening 1985 DTaP/Tdap/Td Vaccine (1 - Tdap) 1997 Varicella Vaccines (1 of 2 - 13+ 2-dose series) 1999 Hepatitis B Screening 2004 HPV Vaccines (2 - 3-dose SCDM series) 11/18/2015 10/21/2015, 10/21/2015, 10/21/2015 Depression Screening 11/24/2019 11/24/2018, 11/12/2018, 11/12/2018, Additional history exists Cervical Cancer Screening 08/15/2021 08/15/2020 Regular Well Visit/Exam 18-64 11/16/2021 11/16/2020 Covid-19 Vaccine ( season) 2024 12/28/2020, 12/08/2020 Influenza Vaccine (#1) 2024 07/31/2022, 2019 Pneumococcal vaccine <65 Aged Out No longer eligible based on patient's age to complete this topic Procedures Procedure Name Priority Date/Time Associated Diagnosis Comments PAP AND HIGH RISK HPV, REFLEX TO GENOTYPING Routine 08/15/2020 5:53 PM CDT from Last 3 Months or Most Recently Relevant to Health Maintenance Results * Pap and High Risk HPV, reflex to Genotyping (08/15/2020 5:53 PM CDT) 08/15/2020 5:53 PM CDT 08/16/2020 5:10 AM CDT Narrative 08/25/2020 2:42 PM LENDING ACTIVITIES SUPERVISOR [facility] results best viewed via link to PDF [facility] [place] [address] CYTOPATHOLOGY REPORT FINAL Patient Name: ??OLGA ESPINOSA Gender: ??F : ??1985 (Age: 35) Address: ??[address] [place] [address] ??[address] Hospital #: ??[id number] Service: ??Laboratory Location: ??[facility] Patient Type: ??[facility] Ref Lab Taken: ??08/15/2020 Received: ??08/16/2020 Accessioned: ??08/17/2020 Reported: ??08/25/2020 Physician(s): ??Camila Swenson M.D. ?? FINAL INTERPRETATION SOURCE OF SPECIMEN: ? Liquid based Thin Prep pap with HPV STATEMENT OF ADEQUACY: ?- Satisfactory for evaluation ?- Endocervical cells/transformation zone sample present GENERAL CATEGORY: ?- Negative for squamous intraepithelial lesion or malignancy ?? Comments HPV Result: ??NEGATIVE for high risk types of Human Papilloma Virus (HPV) RNA This probe detects the presence of HPV types: 16, 18, 31, 33, 35, 39, 45, 51, 52, 56, 58, 59, 66 and 68. ??This HPV test was performed at [facility] in [place], [place] utilizing the Gen-Probe Aptima assay. 08/25/2020 14:42 Mirta Ambriz M.S.,CT(ASCP) Report Electronically Reviewed and Signed Out By Mirta Ambriz M.S.,RADHA(ASCP) 08/25/2020 14:42:00 Cervicovaginal Cytology (Pap Test) Disclaimer: The Pap test is a screening test used to detect cervical cancer and its precursors; it is not a diagnostic procedure. False negative and false positive results do occur. Pap test results should be interpreted in the context of pertinent clinical information and biopsy results as indicated. Gross Description A. ??Liquid based Thin Prep pap with HPV: ??Cervical/vaginal - Screening ThinPrep ?? Clinical Diagnosis and History Last Menstrual Period: 17 days ago Menstrual History: Irregular Cycles The patient is a 35 year old woman with history of lmp tumor of ovary with irregular bleeding on IUD. The HPV test was performed by [facility], [address] [place] [address]. Report Images and scanned documents, if included only viewable in PDF version The performance characteristics of some immunohistochemical stains, in-situ hybridization and fluorescence in-situ hybridization tests and immunophenotyping by flow cytometry cited in this report (if any) were determined by the Surgical Pathology Department at [facility] as part of an ongoing water quality manager program and in compliance with federally mandated regulations drawn from the Clinical Laboratory Improvement Act of 1988 (CLIA '88). ??Some of these tests rely on the use of analyte specific reagents and are subject to specific labeling requirements by the US Food and Drug Administration. ??Such diagnostic tests may only be performed in a facility that is certified by the Department of Health and Human Services as a high complexity laboratory under CLIA '88. ??The FDA has determined that such clearance or approval is not necessary. ??This test is used for clinical purposes. ??It should not be regarded as investigational or for research. ??Nevertheless, federal rules concerning the medical use of analyte specific reagents require that the following disclaimer be attached to the report: This test was developed and its performance characteristics determined by the Surgical Pathology Department of [facility]. ??It has not been cleared or approved by the U. S. Food and Drug Administration. [facility] LAB CYTOLOGY ORDERABLES Final Result from Last 3 Months or Most Recently Relevant to Health Maintenance Insurance [employer] OOS [employer] OOS Care Teams Capacity Planning Engineer Relationship Specialty Start Date End Date Estrellita Alonzo MD [address] [facility] [address] [place] [address] PCP - General 03/05/17 Unknown, Notinfile Referring Physician 12/19/20
--- OUTSIDE RECORDS SUMMARY | 2024-10-06 21:45 | XMS_ITS | Encounter Summary ---
Author Organization [facility] Address [address] [place] [address] Phone Care Team Providers Care Household Appliance Installer Name Role Phone Estrellita Alonzo MD Primary Care Provider [phone] Reason for Referral * Diagnostic Imaging (Routine) - Closed Specialty Diagnoses / Procedures Referred By Contac t Referred To Contact Diagnoses Neoplasm of uncertain behavior of ovary, unspecified laterality Procedures US Pelvis Complete Camila Swenson MD Phone: tel: fax: [facility] (All Locations) Referral ID Status Reason Start Date Expiration Date Visits Re quested Visits Authorized [id number] Closed 06/17/2019 12/26/2020 1 1 Encounter Details Date Type Department Care Team (Late st Contact Info) Description 06/17/2019 Orders Only [facility] Obstetrics and Gynecology [address] [facility] [address] [facility] 13th [place] [address] [place] [phone] Philly Aragon RN Neoplasm of uncertain behavior of ovary, unspecified laterality (Primary Dx) Social History Tobacco Use Types Packs/Day Years Used Date Smoking Tobacco: Never Smokeless Tobacco: Never Alcohol Use Standard Drinks/Week Comments Yes 0 (1 standard drink = 0.6 oz pur e alcohol) PHQ-2 Answer Date Recorded PHQ-2 Score 3 06/11/2019 Comments No Sex and Gender Information Value Date Recorded Sex Assigned at Not on file Legal Sex Female 8:36 AM SALES EXEC Gender Identity Not on file Sexual Orientation Not on file documented as of this encounter Plan of Treatment Not on file documented as of this encounter Results * US Pelvis Complete (10/12/2019 1:03 PM SALES EXEC) Cul de Sac No free fluid visualized VIEWPOINT Endometrial Thickness 3.5 mm&millim eters VIEWPOINT Anatomical Region Laterality Modality Pelvis N/A Ultrasound 10/12/2019 1:04 PM SALES EXEC us Premal Teddy Swenson MD IMG US PROCEDURES Final Result documented in this encounter Visit Diagnoses Diagnosis Neoplasm of uncertain behavior of ovary, unspecified laterality- Primary documented in this encounter Care Teams Household Appliance Installer Relationship Specialty Start Date End Date Estrellita Alonzo MD [address] [address] PCP - General 03/05/17 documented as of this encounter
--- OUTSIDE RECORDS SUMMARY | 2024-10-06 21:45 | XMS_ITS | Encounter Summary ---
Author Organization [facility] Address [address] [facility] [address] [place] [address] Phone Care Team Providers Care Orthotist/Prosthetist Name Role Phone Estrellita Alonzo MD Primary Care Provider [phone] Unknown, Notinfile Unavailable Unavailable Encounter Details Date Type Department Care Team (Late st Contact Info) Description 12/19/2020 10:20 AM SECOND CRUSHER Office Visit [facility] Obstetrics and Gynecology [address] [facility] 13th [place] [address] [place] [address] Denisse Trevino NP [address] [facility] [phone] [place] [address] Borderline epithelial neoplasm of ovary (Primary Dx); Family history of ovarian cancer Social History Tobacco Use Types Packs/Day Years Used Date Smoking Tobacco: Never Smokeless Tobacco: Never Alcohol Use Standard Drinks/Week Comments Yes 0 (1 standard drink = 0.6 oz pur e alcohol) PHQ-2 Answer Date Recorded PHQ-2 Score 3 06/11/2019 Comments No Sex and Gender Information Value Date Recorded Sex Assigned at Not on file Legal Sex Female 8:36 AM SECOND CRUSHER Gender Identity Not on file Sexual Orientation Not on file documented as of this encounter Last Filed Vital Signs Vital Sign Reading Time Taken Comments Blood Pressure 128/80 12/19/2020 10:56 AM SECOND CRUSHER Pulse 63 12/19/2020 10:56 AM SECOND CRUSHER Temperature 36.8 ??C (98.2 ??F) 12/19/2020 10:[address] Respiratory Rate 18 12/19/2020 10:56 AM SECOND CRUSHER Oxygen Saturation 99% 12/19/2020 10:56 AM SECOND CRUSHER Inhaled Oxygen Concentration - - Weight 78.7 kg (173 lb 6.4 oz) 12/19/2020 10:56 AM SECOND CRUSHER Height 174 cm (5' 8.5 ) 12/19/2020 10:56 AM SECOND CRUSHER Body Mass Index 25.98 12/19/2020 10:56 AM SECOND CRUSHER documented in this encounter Progress Notes * Denisse Trevino NP - 12/19/2020 10:20 AM CST Gynecologic Oncology Return Visit Aziza Espinosa 1985 35 y.o. 12/19/2020 Visit Diagnosis 1. Borderline epithelial neoplasm of ovary 2. Family history of ovarian cancer Subjective Aziza Espinosa is a 35 y.o. 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 She reports doing well since last visit from a gynecologic standpoint. Continues with baseline lower pelvic tenderness and abdominal bloating. She notes unchanged headaches and mood changes. Deniesabdominal pain, change in GI/ habit, LE edema, back pain or vaginal discharge. Menses are regularwithout intermenstrual spotting. Lab Results Component Value Date CA125 7.9 08/15/2020 Review of Systems The patient-completed Review of Systems was reviewed and was scanned as an attachment to this encounter. Patient Active Problem List Diagnosis ??? Abnormal uterine bleeding (AUB) ??? Anxiety ??? Attention-deficit/hyperactivity disorder ??? Borderline epithelial neoplasm of ovary ??? History of anorexia nervosa ??? Major depression, recurrent (CMS/HCC) Past Medical History: Diagnosis Date ??? Inflamed seborrheic keratosis Inflamed seborrheic keratosis - (Added by TW Conv) ??? Other abnormal tumor markers Elevated tumor markers - (Added by TW Conv) ??? Personal history of diseases of skin or subcutaneous tissue History of acne - (Added by TW Conv) ??? Personal history of diseases of skin or subcutaneous tissue History of dermatitis - (Added by TW Conv) ??? Personal history of other diseases of the female genital tract History of ovarian cyst - (Added by TW Conv) ??? Personal history of other mental and behavioral disorders History of depression - (Added by TW Conv) ??? Personal history of other specified conditions History of telogen effluvium - (Added by TW Conv) Past Surgical History: Procedure Laterality Date ??? LAPAROSCOPIC SALPINGOOPHERECTOMY Left 06/12/2016 EUA/LSC LSO/pelvic washings/endometrial biopsy ??? NOSE SURGERY Nose Surgery - (Added by TW Conv) No Known Allergies Current Outpatient Medications: ??? levonorgestrel (MIRENA) IUD ??? lisdexamfetamine (VYVANSE) 20 mg capsule ??? multivitamin tablet ??? venlafaxine (EFFEXOR) 75 mg tablet ??? venlafaxine 150 mg tablet extended release 24hr 24 hr tablet ??? zinc-vit C-pyridoxine, vit B6, 12-60-0.5 mg lozenge ??? QUEtiapine (SEROquel) 25 mg tablet Social History Tobacco Use ??? Smoking status: Never Smoker ??? Smokeless tobacco: Never Used Substance Use Topics ??? Alcohol use: Yes Family History Problem Relation Age of Onset ??? Ovarian cancer Mother 52 Family history of ovarian cancer - (Added by TW Conv) ??? Ovarian cancer Maternal Grandmother 72 Family history of ovarian cancer - (Added by TW Conv) ??? Breast cancer Paternal Grandmother 60 Family history of malignant neoplasm of breast - (Added by TW Conv) No LMP recorded. (Menstrual status: IUD). Objective Vitals BP 128/80 Pulse 63 Temp 36.8 ??C (98.2 ??F) (Temporal) Resp 18 Ht 174 cm (5' 8.5 ) Wt 78.7 kg (173 lb 6.4 oz) SpO2 99% BMI 25.98 kg/m?? Physical exam: General Appearance: well, in no acute distress. HEENT: within normal limits; sclerae non icteric. Cervical/supraclavicular Area: without adenopathy. Chest: clear to auscultation. Heart: regular rate & rhythm. Back: no CVA or paraspinal tenderness. Abdomen: soft, non-tender, without palpable masses, hernias, or enlarged liver or spleen; no fluid wave. Well healed scars without herniation. Inguinal Area: without adenopathy. BUS/External: without lesions. Urethra/Urethral Meatus: without masses or tenderness. Bladder: non-tender. Vagina: without lesions or abnormal discharge. Cervix: no lesions Bimanual: IUD strings palpated; no adnexal masses, tenderness, or nodularity. Rectovaginal: confirms above; rectovaginal septum clear, posterior cul de sac smooth. Guaiac negative. Skin: without rashes. Lower extremities: without edema or calf tenderness. Lab/Radiology/Diagnostic Review: Labs pending 10/31/20 Pelvic US: IUD in place, normal R ovary, surgically absent L ovary Assessment/Plan 1. 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 Cytology -pap 07/2020 negative with negative hrHPV, repeat due 2022 3. FH of ovarian cancer -she does not have the results of her mother's genetic testing Denisse Trevino NP CC: PCP: Estrellita Alonzo MD Enclosures:Note Patient Care Team: Estrellita Alonzo MD as PCP - General Unknown, Notinfile as Referring Physician Cosigned by Camila Swenson MD at 12/20/2020 5:54 PM SECOND CRUSHER ND CRUSHER ND CRUSHER documented in this encounter Miscellaneous Notes * Treatment Plan - Denisse Trevino NP - 12/19/2020 10:20 AM CST Please schedule Aziza Espinosa for the following: Requested Order Contrast Indication When CXR CT Chest, Abdomen, and Pelvis CT Abdomen and Pelvis LEEP (during clinic hours) BRUSHER OPERATOR Ultrasound MRI Mammogram PET Initiate Survivoship Care Plan Surveillance Labs (CBC w/ Diff, CMP, Magnesium, CA125) Borderline ov tumor Today and in 6 months with visit to follow Labwork: ND CRUSHER documented in this encounter Plan of Treatment Not on file documented as of this encounter Visit Diagnoses Diagnosis Borderline epithelial neoplasm of ovary- Primary Family history of ovarian cancer Family history of malignant neoplasm of ovary documented in this encounter Discontinued Medications Medication Sig Discontinue Reason Start Date End Da te QUEtiapine (SEROquel) 25 mg tablet Take 1 tablet by mouth daily Therapy completed 11/02/2020 12/19/2020 documented as of this encounter Care Teams Orthotist/Prosthetist Relationship Specialty Start Date End Date Estrellita Alonzo MD [address] [address] PCP - General 03/05/17 Unknown, Notinfile Referring Physician 12/19/20 documented as of this encounter
--- OUTSIDE RECORDS SUMMARY | 2024-10-06 21:45 | XMS_ITS | Encounter Summary ---
Author Organization [facility] Address [address] [place] [address] Phone Care Team Providers Care Coating Line Worker Name Role Phone Estrellita Alonzo MD Primary Care Provider [phone] Encounter Details Date Type Department Care Team (Late st Contact Info) Description 09/06/2020 Telephone [facility] Obstetrics and Gynecology [address] [facility] [address] [facility] 13th [place] [address] [place] [address] Camila Swenson MD [address] [facility] [phone] [place] [address] Social History Tobacco Use Types Packs/Day Years Used Date Smoking Tobacco: Never Smokeless Tobacco: Never Alcohol Use Standard Drinks/Week Comments Yes 0 (1 standard drink = 0.6 oz pur e alcohol) PHQ-2 Answer Date Recorded PHQ-2 Score 3 06/11/2019 Comments No Sex and Gender Information Value Date Recorded Sex Assigned at Not on file Legal Sex Female 8:36 AM CLINICAL DOCUMENTATION NURSE Gender Identity Not on file Sexual Orientation Not on file documented as of this encounter Miscellaneous Notes * Telephone Encounter - Hiwot Granger CNA - 09/06/2020 2:05 PM CST Called pt multiple times and left vm regarding insurance matter and to give a callback but has had unsuccessful correspondence. ICAL DOCUMENTATION NURSE documented in this encounter Plan of Treatment Not on file documented as of this encounter Visit Diagnoses Not on filedocumented in this encounter Care Teams Coating Line Worker Relationship Specialty Start Date End Date Estrellita Alonzo MD [address] [address] PCP - General 03/05/17 documented as of this encounter
--- OUTSIDE RECORDS SUMMARY | 2024-10-06 21:45 | XMS_ITS | Encounter Summary ---
Author Organization [facility] Address [address] [place] [address] Phone Care Team Providers Care Manager Analytical Name Role Phone Estrellita Alonzo MD Primary Care Provider [phone] Reason for Referral * Diagnostic Imaging (Routine) - Closed Specialty Diagnoses / Procedures Referred By Contac t Referred To Contact Diagnoses Encounter for removal and reinsertion of intrauterine contraceptive device (IUD) Procedures US Pelvis Complete Camila Swenson MD [address] [facility] [place] [place] [phone] [place] [address] Phone: tel: fax: [facility] (All Locations) Referral ID Status Reason Start Date Expiration Date Visits Re quested Visits Authorized [id number] Closed 09/12/2020 10/12/2021 1 1 ULTING NURSE Reason for Visit * Consultation (Routine) - Closed Specialty Diagnoses / Procedures Referred By Contac t Referred To Contact Gynecologic Oncology Diagnoses Other ovarian cyst, unspecified side Camila Swenson MD [address] [facility] [place] [place] [phone] [place] [address] Phone: tel: fax: Camila Swenson MD [address] [facility] [place] [place] [phone] [place] [address] Phone: tel: fax: Referral ID Status Reason Start Date Expiration Date V isits Requested Visits Authorized [id number] Closed Specialty Services Required 09/06/2020 10/06/2021 1 1 Encounter Details Date Type Department Care Team (Latest Contact Info) Description 09/12/2020 9:30 AM CONSULTING NURSE Office Visit [facility] Obstetrics and Gynecology [address] [facility] 13th [place] [address] [place] [address] Camila Swenson MD [address] [phone] [place] [address] Borderline epithelial neoplasm of ovary (Primary Dx); Encounter for removal and reinsertion of intrauterine contraceptive device (IUD); Other ovarian cyst, unspecified side; Abnormal uterine bleeding (AUB) Social History Tobacco Use Types Packs/Day Years Used Date Smoking Tobacco: Never Smokeless Tobacco: Never Alcohol Use Standard Drinks/Week Comments Yes 0 (1 standard drink = 0.6 oz pur e alcohol) PHQ-2 Answer Date Recorded PHQ-2 Score 3 06/11/2019 Comments No Sex and Gender Information Value Date Recorded Sex Assigned at Not on file Legal Sex Female 8:36 AM CONSULTING NURSE Gender Identity Not on file Sexual Orientation Not on file documented as of this encounter Last Filed Vital Signs Vital Sign Reading Time Taken Comments Blood Pressure 100/73 09/12/2020 9:15 AM CONSULTING NURSE Pulse 82 09/12/2020 9:15 AM CONSULTING NURSE Temperature 36.8 ??C (98.3 ??F) 09/12/2020 9:15 AM CS T Respiratory Rate 18 09/12/2020 9:15 AM CONSULTING NURSE Oxygen Saturation 98% 09/12/2020 9:15 AM CONSULTING NURSE Inhaled Oxygen Concentration - - Weight 79.1 kg (174 lb 4.8 oz) 09/12/2020 9:15 A M CONSULTING NURSE Height 174 cm (5' 8.5 ) 09/12/2020 9:15 AM CONSULTING NURSE Body Mass Index 26.12 09/12/2020 9:15 AM CONSULTING NURSE documented in this encounter Progress Notes * Camila Swenson MD - 09/12/2020 12:00 AM CST PATIENT: OLGA ESPINOSA : 1985 AKASH: 09/12/2020 REASON FOR VISIT: 1. 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 2. IUD removal and reinsertion. 3. Results of her pelvic ultrasound. HISTORY OF PRESENT ILLNESS: Ms. 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 The patient had an ultrasound performed on 09/12/2020, which revealed that the patient's uterus was6.7 x 2.5 x 4.6 cm. Endometrial thickness was noted to be 1.9 mm. The right ovary was grossly normal at 2.1 x 2.9 x 2.0 cm. The IUD was found in the uterine cavity in apparent optimal position. The patient states that overall she is doing well. The patient has some mild fatigue. She has unchanged abdominal pain and bloating. She has headaches as well as some depression and mood changes and the irregular vaginal bleeding. The patient signed the consent for IUD insertion. PAST MEDICAL HISTORY/REVIEW OF SYSTEMS: Unchanged from 05/28/2016, except for the above updates. PHYSICAL EXAMINATION: Vital Signs: Blood pressure is 100/73, her pulse is 82, respirations are 18. Her weight is 174 pounds, which is a decline of 5 pounds from her last visit. Pelvic Exam: Her exam was limited to the pelvis. Please note that written consent was obtained prior to IUD insertion. External genitalia: Within normal limits. Urethra: Without masses or tenderness. Urethral meatus: Without any lesions or prolapse. Bladder: No masses or tenderness. Vulva: Normal. Speculum Exam: There is no gross abnormality seen. The cervix was prepped with Betadine. The IUD strings were grasped with a Denisse, and the patient's IUD was removed without difficulty. Then, the anterior lip of the cervix was grasped with a single-tooth tenaculum. The Mirena IUD was then inserted to approximately 6 cm. There was no difficulty with the insertion, and the IUD strings were then cut. The patient had some bleeding from the tenaculum site on the patient's left-hand side. Therefore, silver nitrate was applied, and then ultimately Monsel's. Bimanual: Examination was deferred, since an ultrasound was performed, and the IUD was just inserted. The patient tolerated the procedure well immediately, but then felt lightheaded. Therefore, the patient had a cold cloth and was given something to drink as well as some crackers. Please note that also test was done prior to insertion. DATA: On cytology from 08/15/2020, the patient's Pap smear was negative for squamous intraepithelial lesion or malignancy and high-risk HPV negative. The patient's most recent CA-125 from 08/15/2020 was 7.9. ASSESSMENT AND PLAN: A 35-year-old female with at least a stage IA serous low malignant potential tumor of theleft ovary with microinvasion. 1. Serous LMP tumor: The patient's CA-125 is reassuring, as well as her ultrasound. 2. Intrauterine device placement: The patient's IUD placement occurred. The patient was given a copy of her actual booklet with lot number. 3. Pap smear: The patient was made aware that her Pap smear was unremarkable. Therefore, she is notdue for another repeat Pap smear until at least July 2023. 4. Genetics: The patient does not have the results of her mother's genetic testing. 5. Follow-up will be in 6 to 8 weeks' time, to have a repeat ultrasound for IUD placement, and in 3months' time for her usual exam, unless she decides to move for her job. ELECTRONICALLY SIGNED - 09/13/2020 07:30 AM Premal Sophy Swenson M.D. Professor, Department of Obstetrics and Gynecology Director of Gynecological Oncology Clinical Research Division of Gynecologic Oncology [facility] PHT/[id number]/#[id number] cc: ESTRELLITA ALONZO MD / / ULTING NURSE documented in this encounter Miscellaneous Notes * Treatment Plan - Camila Swenson MD - 09/12/2020 9:30 AM CST Please schedule Olga Espinosa for the following: Requested Order Contrast Indication When CXR CT Chest, Abdomen, and Pelvis CT Abdomen and Pelvis LEEP (during clinic hours) SQUAD BOSS Ultrasound MRI Mammogram PET Initiate Survivoship Care Plan Surveillance Labs (CBC w/ Diff, CMP, Magnesium, CA125) x In 3 months Labwork: 6-8 weeks needs ultrasound for IUD placement x No same day follow up ULTING NURSE documented in this encounter Plan of Treatment Not on file documented as of this encounter Procedures Procedure Name Priority Date/Time Associated Diagnosis Comments POCT HCG, URINE Routine 09/12/2020 9:51 AM CONSULTING NURSE Other ovarian cyst, unspecified side documented in this encounter Results * US Pelvis Complete (10/31/2020 9:03 AM CONSULTING NURSE) Cul de Sac Free fluid visualized VIEWPOINT Endometrial Thickness 5.2 mm&millim eters VIEWPOINT Anatomical Region Laterality Modality Pelvis N/A Ultrasound 10/31/2020 9:15 AM CONSULTING NURSE Camila Swenson MD IMG US PROCEDURES Final Result * POCT hCG, urine (09/12/2020 9:51 AM CONSULTING NURSE) HCG, ur, POC Negative Lot Number [id number] QC Backgroud Clear Acceptable QC Control Line Acceptable Urine 09/12/2020 9:51 AM CONSULTING NURSE us Premal Teddy Swenson MD POINT OF CARE TEST ORDER GILBERTO Final Result documented in this encounter Visit Diagnoses Diagnosis Borderline epithelial neoplasm of ovary- Primary Encounter for removal and reinsertion of intrauterine contraceptive device (IUD) Other ovarian cyst, unspecified side Abnormal uterine bleeding (AUB) documented in this encounter Historical Medications * This list may reflect changes made after this encounter. lisdexamfetamine (VYVANSE) 20 mg capsule Take 20 mg by mouth every morning Pt taking 5 days a week added in this encounter Orders Outpatient Referral Count Last Ordered Date Fir st Ordered Date AMB REFERRAL TO GYNECOLOGIC ONCOLOGY 1 08/22 documented in this encounter Care Teams Manager Analytical Relationship Specialty Start Date End Date Estrellita Alonzo MD [address] [address] PCP - General 03/05/17 documented as of this encounter
--- OUTSIDE RECORDS SUMMARY | 2024-10-06 21:45 | XMS_ITS | Encounter Summary ---
Author Organization [facility] Address [address] [place] [address] Phone Care Team Providers Care Process Specialist Name Role Phone Estrellita Alonzo MD Primary Care Provider [phone] Encounter Details Date Type Department Care Team (Late st Contact Info) Description 11/01/2020 Telephone [facility] Obstetrics and Gynecology [address] [facility] 13th [place] [address] [place] [address] Philly Aragon RN Social History [...] on file Legal Sex Female 8:36 AM BRIDGE ENGINEER Gender Identity Not on file Sexual Orientation Not on file documented as of this encounter Miscellaneous Notes * Telephone Encounter - Philly Aragon RN - 11/01/2020 11:54 AM BRIDGE ENGINEER TC to pt informing that US is normal. Pt verbalized understanding. GE ENGINEER documented in this encounter Plan of Treatment Not on file documented as of this encounter Visit Diagnoses Not on filedocumented in this encounter Care Teams Process Specialist Relationship Specialty Start Date End Date Estrellita Alonzo MD [address] [facility] [address] [place] [address] PCP - General 03/05/17 documented as of this encounter
--- OUTSIDE RECORDS SUMMARY | 2024-10-06 21:45 | XMS_ITS | Encounter Summary ---
Author Organization [facility] Address [address] [facility] [address] [place] [address] Phone Care Team Providers Care Roping Tender Name Role Phone Kirk Alonzo MD Primary Care Provider [phone] Reason for Visit * Reason Comments Follow-up Encounter Details Date Type Department Care Team (Latest Contact Info) Description 06/15/2019 4:30 PM CDT Office Visit [facility] Obstetrics and Gynecology [address] [facility] Advanced Medicine 13th [place] [address] [place] [phone] Camila Swenson MD [address] [facility] [phone] [place] [address] Neoplasm of uncertain behavior of ovary, unspecified laterality (Primary Dx); Borderline epithelial neoplasm of ovary; Attention deficit hyperactivity disorder (ADHD), unspecified ADHD type Social History Tobacco Use Types Packs/Day Years Used Date Smoking Tobacco: Never Smokeless Tobacco: Never Alcohol Use Standard Drinks/Week Comments Yes 0 (1 standard drink = 0.6 oz pur e alcohol) PHQ-2 Answer Date Recorded PHQ-2 Score 3 06/11/2019 Comments No Sex and Gender Information Value Date Recorded Sex Assigned at Not on file 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 Gender Identity Not on file Sexual Orientation Not on file documented as of this encounter Last Filed Vital Signs Vital Sign Reading Time Taken Comments Blood Pressure 123/79 06/15/2019 5:02 PM CDT Pulse 98 06/15/2019 5:02 PM CDT Temperature 36.7 ??C (98 ??F) 06/15/2019 5:02 PM CDT Respiratory Rate 18 06/15/2019 5:02 PM CDT Oxygen Saturation 94% 06/15/2019 5:02 PM CDT Inhaled Oxygen Concentration - - Weight 79.6 kg (175 lb 8 oz) 06/15/2019 5:02 PM CDT Height 174 cm (5' 8.5 ) 06/15/2019 5:02 PM CDT Body Mass Index 26.3 06/15/2019 5:02 PM CDT documented in this encounter Progress Notes * Camila Swenson MD - 06/15/2019 12:00 AM CDT PATIENT: OLGA ESPINOSA : 1985 AKASH: 06/15/2019 REASON FOR VISIT: 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 HISTORY OF PRESENT ILLNESS: Ms. Espinosa is a lisy 34-year-old female who on routine physical examination before starting occupational therapy in [place] was found to have a 10 cm [...] The patient continues to be in surveillance. Her most recent ultrasound was performed on 06/15/2019, which shows that the right ovary is slightly enlarged measuring 6.1 x 3.2 x 2.8 cm. However, thereare 2 simple cysts measuring 2.6 x 2.8 x 2.4 and 2.4 x 1.5 x 1.9 cm. Both are anechoic, have smoothinternal borders and no increase of blood flow. The uterus appears to be grossly normal as well as there is an IUD in place. 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 The patient has increased her Vyvanse to 30 mg and discontinued her BuSpar. The patient does complain of constipation due to stress from working. She does have some depression and mood changes. She has some easy bruising. She did have her last menstrual cycle approximately 1 week ago. She denies any intermenstrual bleeding, postcoital bleeding, pelvic pain, pelvic pressure, vaginal bleeding, vaginal discharge. PAST MEDICAL HISTORY/REVIEW OF SYSTEMS: Unchanged from 05/28/2016 except for the above updates. PHYSICAL EXAM: Vital Signs: Her blood pressure is 123/79. Her pulse is 98. Her respirations are 18. Her temperature is 36.7. Her weight is 175 pounds which is an increase of 5 pounds from her last visit. General Appearance: [...] Abdomen: Soft, nontender, nondistended. Normoactive bowel sounds. Extremities: No clubbing, cyanosis, or edema. Neuro: The patient is awake, alert, and oriented x 3. Pelvic Exam: External genitalia: Within normal limits. Urethra: Without masses or tenderness. Urethral meatus: Without any lesions or prolapse. Bladder: No masses or tenderness. Vulva: Normal. Speculum Exam: The IUD strings cannot be visualized. Cervix appears to be grossly normal. Bimanual: The cervix feels normal in size, shape, and consistency. Uterus feels normal in size. Theleft adnexa is surgically absent. The right adnexa cannot be palpated. Rectovaginal: Exam was deferred. LABORATORY STUDIES: The patient's CA-125 from from 06/16/2019 showed that her CA-125 was 8. 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 1. Serous LMP tumor: The patient's CA-125 is within normal limits. Clinically she has no evidence of abnormalities. 2. Genetics: The patient's mother's genetic testing is still pending per the patient's report. The patient has been encouraged multiple times to get this to us. 3. Pap smear: The patient is due for her next Pap smear is June 2020. 4. Follow-up will be in approximately 3 months' time since the patient may be losing insurance at the end of the year. The patient was told about the [facility] since she thinks she will be staying in the [facility] for a period of time. 5. Radiographic imaging ideally would be in November 2018. ELECTRONICALLY SIGNED - 06/16/2019 06:27 PM Camila Swenson M.D. 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 Ultrasound x 3 months MRI Mammogram PET Initiate Survivoship Care Plan Surveillance Labs (CBC w/ Diff, CMP, Magnesium, CA125) Labwork: ca125 in 3 months x documented in this encounter Plan of Treatment Not on file documented as of this encounter Visit Diagnoses Diagnosis Neoplasm of uncertain behavior of ovary, unspecified laterality- Primary Borderline epithelial neoplasm of ovary Attention deficit hyperactivity disorder (ADHD), unspecified ADHD type documented in this encounter Discontinued Medications Medication Sig Discontinue Reason Start Date End Da te busPIRone (BUSPAR) 10 mg tabletIndications:Gener alized Anxiety Disorder 06/15/20 19 busPIRone (BUSPAR) 10 mg tabletIndications:Gener alized Anxiety Disorder buspirone 10 mg tablet 06/15/2019 documented as of this encounter Historical Medications * This list may reflect changes made after this encounter. venlafaxine 150 mg tablet extended release 24hr 24 hr tablet Take 150 mg by mouth daily 10/12/2019 added in this encounter Care Teams Roping Tender Relationship Specialty Start Date End Date Kirk Alonzo MD [address] [address] PCP - General 03/05/17 documented as of this encounter
--- OUTSIDE RECORDS SUMMARY | 2024-10-06 21:45 | XMS_ITS | Encounter Summary ---
Author Organization [facility] Healthcare Address [address] [place] [address] Care Team Providers Care Electric Meter Installer Helper Name Role Phone Estrellita Alonzo MD Primary Care Provider [phone] Encounter Details Date Type Department Care Team (Late st Contact Info) Description 01/19/2019 2:25 PM CDT Lab [facility] Advanced Medicine 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 Gender Identity Not on file Sexual Orientation Not on file documented as of this encounter Discharge Disposition Disposition Code Departure Means Destination Discharge to home or self care documented in this encounter Plan of Treatment Not on file documented as of this encounter Procedures Procedure Name Priority Date/Time Associated Diagnosis Comments CA 125 Routine 01/19/2019 2:36 PM CDT History of ovarian cancer documented in this encounter Results * CA 125 (01/19/2019 2:36 PM CDT) CA 125 ag 6.5 0.0 - 35.0 units/mL [facility] Blood specimen (specimen) 01/19/2019 2:36 PM CDT 01/19/2019 2:41 PM CDT Narrative [facility] - 01/19/2019 4:16 PM CDT us Premal Teddy Swenson MD LAB BLOOD ORDERABLES Fin al Result [facility] Department [place] [address] documented in this encounter Visit Diagnoses Diagnosis History of ovarian cancer Personal history of malignant neoplasm of ovary documented in this encounter Care Teams Electric Meter Installer Helper Relationship Specialty Start Date End Date Estrellita Alonzo MD [address] [facility] [address] [place] [address] PCP - General 03/05/17 documented as of this encounter
--- OUTSIDE RECORDS SUMMARY | 2024-10-06 21:45 | XMS_ITS | Encounter Summary ---
Author Organization [facility] Address [address] [place] [address] Phone Care Team Providers Care Pump Operator Name Role Phone Estrellita Alonzo MD Primary Care Provider [phone] Reason for Visit * Behavioral Health (Routine) - Closed Specialty Diagnoses / Procedures Referred By Filipe t Referred To Contact Psychology Diagnoses Appt Comment: PER PC WITH PT/ STANDING Procedures RETURN Referral, Self Heydi Reyes, PhD [address] [place] [address] Phone: tel: Referral ID Status Reason Start Date Expiration Date Visits Re quested Visits Authorized [id number] Closed 05/22/2018 12/01/2019 12 12 Encounter Details Date Type Department Care Team (Latest Contact Info) Description 10/10/2018 11:30 AM MANAGER GREEN Office Visit [facility] Psychiatry [facility] [place] [address] Heydi Reyes, PhD [address] [place] [address] Major depressive disorder, recurrent episode, [...] on file Legal Sex Female 8:36 AM MANAGER GREEN Gender Identity Not on file Sexual Orientation Not on file documented as of this encounter Progress Notes * Heydi Reyes, PhD - 10/10/2018 11:30 AM CST Psychology Note Date of Service: @TODAY@ Start time: 11:30 End time: 12:30 Interval History: Aziza was on time forher appt. Measures show some decreased in symptoms (PHQ-9= 10 WILFREDO-7= 8). She remains constantly on the go and with a high pace - this is partly what she she has to do (e.g.Work and grad school) but she is also seeing this is her-an intolerance/vague anxiousness of any inactivity. She does not have a really clear idea of why but communicated concerns about being found disappointing. She can reflect however that the constant high pace along with her fast moving brain and communication style unmoderated contributs to sense of generalized anxiousness and relationshipfrustrations. She and Alexis met for conversation that actually went quite well. She described it to me, and it closing positively. I asked what she did that contributed to this going well and she acknowledged thatreviewing what she wanted to come from the conversation that could realistically happen, and how she could communicate in a more focused way toward those things helped. She sees that organization, pace, sequencing have probably always been hard and she is more aware, tries more coping. Will still find self trying to do 5 things at once, doing part of one thing but not finishing and then being pulled off/distracted by the other thoughts. Life long she notes a somewhat paradoxical sense of being confident, friendly, but also anxious most of the time, and near constant activity. Will be seeing her family over holidays-this discussed some, Disappointed not dating as wants a relationship but is also being more choosy-when she sees someone available but knows little compatibility-doesn't go there Mental Status Exam: 1. General appearance and behavior: cooperative, friendly high energy anxious underlay 2. Speech: regular 3. Flow of thought: bright but scattered-however she has more awareness and more able to organize/modify. Most apparent when discussing feelings/relationships where there are a lot of incomplete thoughts and reversals 4. Content of thought: no suicidal ideation 5. Mood: Depressed and anxious feelings several days in past 14, worries half the days 6. Affect: high expressiveness 7. Insight: good 8. Judgement: good 9. Sensorium: ert Psychotherapy Focus: Interpersonal p-s therapy on above. 3 minute body meditation to help her put in pause, slow down Discussion was it makes her anxious because she is not doing something- discussion of intolerance ofinactivity, what slowing down and practicing pauses/relaxation moving away from talking/doing can do- she agrees Reinforce effective handling of conversation-what helped here Remind her to return call from scheduling for protected appointment time-she said she would Assessment: Solange dep recurrent mild-mod Anxiety NOS ADHD Plan Return in [facility] GER GREEN documented in this encounter Plan of Treatment Not on file documented as of this encounter Visit Diagnoses Diagnosis Major depressive disorder, recurrent episode, moderate (HCC)- Primary Major depressive disorder, recurrent episode, moderate Anxiety disorder, unspecified type ADHD (attention deficit hyperactivity disorder), combined type Attention deficit disorder with hyperactivity documented in this encounter Care Teams Pump Operator Relationship Specialty Start Date End Date Estrellita Alonzo MD [address] [address] PCP - General 03/05/17 documented as of this encounter
--- OUTSIDE RECORDS SUMMARY | 2024-10-06 21:45 | XMS_ITS | Encounter Summary ---
Author Organization [facility] Healthcare Address [address] [place] [address] Care Team Providers Care Compliance Associate Name Role Phone Estrellita Alonzo MD Primary Care Provider [phone] Encounter Details Date Type Department Care Team (Late st Contact Info) Description 08/18/2020 3:15 PM CDT Lab [address] [address] Social History Tobacco Use Types Packs/Day Years Used Date Smoking Tobacco: Never Smokeless Tobacco: Never Alcohol Use Standard Drinks/Week Comments Yes 0 (1 standard drink = 0.6 oz pur e alcohol) PHQ-2 Answer Date Recorded PHQ-2 Score 3 06/11/2019 Comments No Sex and Gender Information Value Date Recorded Sex Assigned at Not on file 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
--- OUTSIDE RECORDS SUMMARY | 2024-10-06 21:45 | XMS_ITS | Encounter Summary ---
Author Organization [facility] Address [address] [place] [address] Phone Care Team Providers Care Paste Mixing Supervisor Name Role Phone Estrellita Alonzo MD Primary Care Provider [phone] Encounter Details Date Type Department Care Team (Late st Contact Info) Description 09/12/2020 Telephone [facility] Obstetrics and Gynecology [facility] Advanced Medicine 13th [place] [address] [place] [address] Philly Aragon RN Social History [...] on file Legal Sex Female 8:36 AM DIRECTOR OF MARKETING OPERATIONS Gender Identity Not on file Sexual Orientation Not on file documented as of this encounter Miscellaneous Notes * Telephone Encounter - Philly Aragon RN - 09/12/2020 8:35 AM CST Left VM for pt asking her to return my call regarding insurance. CTOR OF MARKETING OPERATIONS documented in this encounter Plan of Treatment Not on file documented as of this encounter Visit Diagnoses Not on filedocumented in this encounter Care Teams Paste Mixing Supervisor Relationship Specialty Start Date End Date Estrellita Alonzo MD [address] [facility] [address] [place] [address] PCP - General 03/05/17 documented as of this encounter
--- OUTSIDE RECORDS SUMMARY | 2024-10-06 21:45 | XMS_ITS | Encounter Summary ---
Author Organization [facility] Address [address] [place] [address] Phone Care Team Providers Care Performing Arts Road Manager Name Role Phone Estrellita Alonzo MD Primary Care Provider [phone] Reason for Visit * Reason Onset Date Comments Appointment 10/10/2018 Encounter Details Date Type Department Care Team (Late st Contact Info) Description 10/10/2018 Telephone [facility] [address] [place] [address] Heydi Reyes, PhD [address] [place] [address] Appointment Social History Tobacco Use Types Packs/Day Years Used Date Smoking Tobacco: Never Smokeless Tobacco: Never Alcohol Use Standard Drinks/Week Comments Yes 0 (1 standard drink = 0.6 oz pur e alcohol) Comments No Sex and Gender Information Value Date Recorded Sex Assigned at Not on file 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 Reyes but her mailbox is full. Will try again next week. IONS RETIREMENT PLAN SPECIALIST documented in this encounter Plan of Treatment Not on file documented as of this encounter Visit Diagnoses Not on filedocumented in this encounter Care Teams Performing Arts Road Manager Relationship Specialty Start Date End Date Estrellita Alonzo MD [address] [facility] [address] [place] [address] PCP - General 03/05/17 documented as of this encounter
--- OUTSIDE RECORDS SUMMARY | 2024-10-06 21:45 | XMS_ITS | Encounter Summary ---
Author Organization [facility] Healthcare Address [address] [place] [address] Care Team Providers Care Point Of Care Specialist Name Role Phone Estrellita Alonzo MD Primary Care Provider [phone] Reason for Referral * Diagnostic Imaging (Routine) - Closed Specialty Diagnoses / Procedures Referred By Filipe dorsey Referred To Contact Diagnoses Encounter for removal and reinsertion of intrauterine contraceptive device (IUD) Procedures US Pelvis Complete Camila Swenson MD [address] [facility] [phone] [place] [address] Phone: tel: fax: [facility] (All Locations) Referral ID Status Reason Start Date Expiration Date Visits Re quested Visits Authorized [id number] Closed 09/12/2020 10/12/2021 1 1 ICATION SPEC Reason for Visit * Diagnostic Imaging (Routine) - Closed Specialty Diagnoses / Procedures Referred By Filipe dorsey Referred To Contact Diagnoses Encounter for removal and reinsertion of intrauterine contraceptive device (IUD) Procedures US Pelvis Complete Camila Swenson MD [address] [facility] [phone] [place] [address] Phone: tel: fax: [facility] (All Locations) Referral ID Status Reason Start Date Expiration Date Visits Re quested Visits Authorized [id number] Closed 09/12/2020 10/12/2021 1 1 Encounter Details Date Type Department Care Team (Latest Contact Info) Description 10/31/2020 9:00 AM APPLICATION SPEC - 10/31/2020 11:59 PM APPLICATION SPEC Hospital Encounter [facility] Center for Outpatient Health - Ultrasound [address] [facility] [place] [address] Camila Swenson MD [address] [phone] [place] [address] Encounter for removal and reinsertion of intrauterine contraceptive device (IUD) Discharge Disposition: Discharge to home or self [...] on file Legal Sex Female 8:36 AM APPLICATION SPEC Gender Identity Not on file Sexual Orientation [...] COMPLETE Schedule Routine, Read Routine (OP Routine) 10/31/2020 9:03 AM APPLICATION SPEC Encounter for removal and reinsertion of intrauterine contraceptive device (IUD) documented in this encounter Results * US Pelvis Complete (10/31/2020 9:03 AM APPLICATION SPEC) Cul de Sac Free fluid visualized [facility] Endometrial Thickness 5.2 mm&millim eters [facility] Anatomical Region Laterality Modality Pelvis N/A Ultrasound 10/31/2020 9:15 AM APPLICATION SPEC us Premal Teddy Swenson MD IMG US PROCEDURES Final Result documented in this encounter Visit Diagnoses Diagnosis Encounter for removal and reinsertion of intrauterine contraceptive device (IUD) documented in this encounter Care Teams Point Of Care Specialist Relationship Specialty Start Date End Date Estrellita Alonzo MD [address] [address] PCP - General 03/05/17 documented as of this encounter
--- OUTSIDE RECORDS SUMMARY | 2024-10-06 21:45 | XMS_ITS | Encounter Summary ---
Author Organization [facility] Healthcare Address [address] [place] [address] Care Team Providers Care Development Mgr Name Role Phone Estrellita Alonzo MD Primary Care Provider [phone] Reason for Referral * Diagnostic Imaging (Routine) - Closed Specialty Diagnoses / Procedures Referred By Contac t Referred To Contact Diagnoses Neoplasm of uncertain behavior of ovary, unspecified laterality Procedures US Pelvis Complete Camila Swenson MD Phone: tel: fax: [facility] (All Locations) Referral ID Status Reason Start Date Expiration Date Visits Re quested Visits Authorized [id number] Closed 06/17/2019 12/26/2020 1 1 L ASSEMBLER Reason for Visit * Diagnostic Imaging (Routine) - Closed Specialty Diagnoses / Procedures Referred By Contac t Referred To Contact Diagnoses Neoplasm of uncertain behavior of ovary, unspecified laterality Procedures US Pelvis Complete Camila Swenson MD Phone: tel: fax: [facility] (All Locations) Referral ID Status Reason Start Date Expiration Date Visits Re quested Visits Authorized [id number] Closed 06/17/2019 12/26/2020 1 1 Encounter Details Date Type Department Care Team (Latest Contact Info) Description 10/12/2019 1:00 PM SHELL ASSEMBLER - 10/12/2019 11:59 PM SHELL ASSEMBLER Hospital Encounter [facility] Outpatient Health - Ultrasound [address] [facility], 7th Floor, [address] [facility] [place] [address] Camila Swenson MD [id number] [place] [address] Neoplasm of uncertain behavior of ovary, unspecified laterality Discharge Disposition: Discharge to home or self [...] on file Legal Sex Female 8:36 AM SHELL ASSEMBLER Gender Identity Not on file Sexual Orientation Not on file documented as of this encounter Medications at Time of Discharge levonorgestrel (MIRENA) IUD Mirena 20 mcg/24 hr (5 years) intrauterine device Take 1 device as needed by intrauterine route for 1 day. multivitamin tabletIndication s:Vitamin Deficiency Prevention zinc-vit C-pyridoxine, vit B6, 12-60-0.5 mg lozenge zinc ALPRAZolam (XANAX) 0.25 mg tablet alprazolam 0.25 mg tablet 0 buspirone HCl (BUSPIRONE ORAL) BuSpar 08/15/20 2 0 diazePAM (VALIUM) 5 mg tablet Valium 5 mg tablet Take 1 tablet(s) an hour prior to procedure 0 diclofenac (CATAFLAM) 50 mg tablet diclofenac potassium 50 mg tablet 0 miSOPROStol (CYTOTEC) 200 mcg tablet misoprostol 200 mcg tablet 0 documented as of this encounter Discharge Disposition Disposition Code Departure Means Destination Discharge to home or self care documented in this encounter Plan of Treatment Not on file documented as of this encounter Procedures Procedure Name Priority Date/Time Associated Diagnosis Comments US PELVIS COMPLETE Schedule Routine, Read Routine (OP Routine) 10/12/2019 1:03 PM SHELL ASSEMBLER Neoplasm of uncertain behavior of ovary, unspecified laterality documented in this encounter Results * US Pelvis Complete (10/12/2019 1:03 PM SHELL ASSEMBLER) Cul de Sac No free fluid visualized VIEWPOINT Endometrial Thickness 3.5 mm&millim eters VIEWPOINT Anatomical Region Laterality Modality Pelvis N/A Ultrasound 10/12/2019 1:04 PM SHELL ASSEMBLER us Premal Teddy Swenson MD IMG US PROCEDURES Final Result documented in this encounter Visit Diagnoses Diagnosis Neoplasm of uncertain behavior of ovary, unspecified laterality documented in this encounter Care Teams Development Mgr Relationship Specialty Start Date End Date Estrellita Alonzo MD [address] [address] PCP - General 03/05/17 documented as of this encounter
--- OUTSIDE RECORDS SUMMARY | 2024-10-06 21:45 | XMS_ITS | Referral Summary ---
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 Gender Identity Not on file Sexual Orientation Not on file Last Filed Vital Signs Vital Sign Reading Time Taken Comments Blood Pressure 128/80 12/19/2020 10:56 AM CNC LATHE MACHINIST Pulse 63 12/19/2020 10:56 AM CNC LATHE MACHINIST Temperature 36.8 ??C (98.2 ??F) 12/19/2020 10:[address] Respiratory Rate 18 12/19/2020 10:56 AM CNC LATHE MACHINIST Oxygen Saturation 99% 12/19/2020 10:56 AM CNC LATHE MACHINIST Inhaled Oxygen Concentration - - Weight 78.7 kg (173 lb 6.4 oz) 12/19/2020 10:56 AM CNC LATHE MACHINIST Height 174 cm (5' 8.5 ) 12/19/2020 10:56 AM CNC LATHE MACHINIST Body Mass Index 25.98 12/19/2020 10:56 AM CNC LATHE MACHINIST Plan of Treatment Not on file Procedures Procedure Name Priority Date/Time Associated Diagnosis Comments PAP AND HIGH RISK HPV, REFLEX TO GENOTYPING Routine 08/15/2020 5:53 PM CDT from Last 3 Months or Most Recently Relevant to Health Maintenance Results * Pap and High Risk HPV, reflex to Genotyping (08/15/2020 5:53 PM CDT) 08/15/2020 5:53 PM CDT 08/16/2020 5:10 AM CDT Narrative 08/25/2020 2:42 PM CNC LATHE MACHINIST [facility] results best viewed via link to PDF [facility] Pathology [place], [place] [id number] CYTOPATHOLOGY REPORT FINAL Patient Name: ??JULIA OLGA King Gender: ??F : ??1985 (Age: 35) Address: ??[address] [place] [address] Hospital #: ??[id number] Service: ??Laboratory Location: ??[facility] Patient Type: ??[facility] Ref Lab Taken: ??08/15/2020 Received: ??08/16/2020 [...] 68. ??This HPV test was performed at [facility] in [place], [place] utilizing the Gen-Probe Aptima assay. cad/08/25/2020 14:42 Mirta Ambriz M.S.,CT(ASCP) Report Electronically Reviewed [...] IUD. The HPV test was performed by [facility], [address] [place] [address]. Report Images and scanned documents, if included only viewable in PDF version The performance characteristics of some immunohistochemical stains, in-situ hybridization and fluorescence in-situ hybridization tests and immunophenotyping by flow cytometry cited in this report (if any) were determined by the Surgical Pathology Department at [facility] as part of an ongoing quality review specialist program and in compliance with federally mandated [...] determined by the Surgical Pathology Department of [facility]. ??It has not been cleared or approved by the U. S. Food and Drug Administration. [facility] Teddy Swenson MD LAB CYTOLOGY ORDERABLES Final Result from Last 3 Months or Most Recently Relevant to Health Maintenance Insurance UBIKOD OOS UBIKOD OOS Care Teams Tire Center Supervisor Relationship Specialty Start Date End Date Estrellita Alonzo MD [address] [facility] [address] [place] [address] PCP - General 03/05/17 Unknown, Notinfile Referring Physician 12/19/20
--- OUTSIDE RECORDS SUMMARY | 2024-10-06 21:45 | XMS_ITS | Encounter Summary ---
Author Organization [facility] Address [address] [place] [address] Phone Care Team Providers Care Mobile Sales Consultant Name Role Phone Estrellita Alonzo MD Primary Care Provider [phone] Encounter Details Date Type Department Care Team (Late st Contact Info) Description 09/25/2018 Telephone [facility] [address] [place] [address] Babita Orta Social History Tobacco Use Types Packs/Day Years Used Date Smoking Tobacco: Never Smokeless Tobacco: Never Alcohol Use Standard Drinks/Week Comments Yes 0 (1 standard drink = 0.6 oz pur e alcohol) Comments No Sex and Gender Information Value Date Recorded Sex Assigned at Not on file 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 no specific time SCHOOL SOCIAL STUDIES TEACHER documented in this encounter Plan of Treatment Not on file documented as of this encounter Visit Diagnoses Not on filedocumented in this encounter Care Teams Mobile Sales Consultant Relationship Specialty Start Date End Date Estrellita Alonzo MD [address] [facility] [address] [place] [address] PCP - General 03/05/17 documented as of this encounter
--- OUTSIDE RECORDS SUMMARY | 2024-10-06 21:45 | XMS_ITS | Encounter Summary ---
Author Organization [facility] Address [address] [facility] [address] [place] [address] Care Team Providers Care Graduate Intern Name Role Phone Estrellita Alonzo MD Primary Care Provider [phone] Reason for Visit * Reason Onset Date Comments Margie-Medical Question 08/04/2020 Encounter Details Date Type Department Care Team (Late st Contact Info) Description 08/04/2020 Telephone [place] [facility] [address] [facility] [address] [place] [address] Laine Estrada MD [address] [facility] [address] [place], [place] [id number] Margie-Medical Question Social History Tobacco Use Types Packs/Day Years Used Date Smoking Tobacco: Never Smokeless Tobacco: Never Alcohol Use Standard Drinks/Week Comments Yes 0 (1 standard drink = 0.6 oz pur e alcohol) PHQ-2 Answer Date Recorded PHQ-2 Score 3 06/11/2019 Comments No Sex and Gender Information Value Date Recorded Sex Assigned at Not on file Legal 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 However, per Marlyn [facility]' call to practice, pt's coverage is active and Dr. Estrada is showing as in-network). Ref# [id number]. documented in this encounter Plan of Treatment Not on file documented as of this encounter Visit Diagnoses Not on filedocumented in this encounter Care Teams Graduate Intern Relationship Specialty Start Date End Date Estrellita Alonzo MD [address] [address] PCP - General 03/05/17 documented as of this encounter
--- OUTSIDE RECORDS SUMMARY | 2024-10-06 21:45 | XMS_ITS | Encounter Summary ---
Author Organization [facility] Address [address] [place] [address] Phone Care Team Providers Care Body Service Team Member Name Role Phone Estrellita Aolnzo MD Primary Care Provider [phone] Reason for Visit * Behavioral Health (Routine) - Closed Specialty Diagnoses / Procedures Referred By Filipe t Referred To Contact Psychology Diagnoses Appt Comment: PER PC WITH PT/ STANDING Procedures RETURN Referral, Self Heydi Reyes, PhD [address] [place] [address] Phone: tel: Referral ID Status Reason Start Date Expiration Date Visits Re quested Visits Authorized [id number] Closed 05/22/2018 12/01/2019 12 12 Encounter Details Date Type Department Care Team (Latest Contact Info) Description 12/08/2018 1:30 PM CARE TRANSPORT NURSE Office Visit [facility] Psychiatry [facility] Outpatient [place] [address] Heydi Reyes, PhD [address] [place] [address] ADHD (attention deficit hyperactivity disorder), combined type (Primary Dx); Major depressive disorder, recurrent episode, moderate (CMS/HCC); Anxiety disorder, unspecified type Social History Tobacco Use Types Packs/Day Years Used Date Smoking Tobacco: Never Smokeless Tobacco: Never Alcohol Use Standard Drinks/Week Comments Yes 0 (1 standard drink = 0.6 oz pur e alcohol) Comments No Sex and Gender Information Value Date Recorded Sex Assigned at Not on file Legal Sex Female 8:36 AM CARE TRANSPORT NURSE Gender Identity Not on file Sexual Orientation Not on file documented as of this encounter Progress Notes * Heydi Reyes, PhD - 12/08/2018 1:30 PM CST Psychology Note Date of Service: @TODAY@ Start time: 1:45 End time: 2:30 Interval History: Aziza was 15 minutes late for her appt. She looked tired and close to tears. I can't do everuthing. I don't know what to do. I feel like crap. I just don't want to do school. I want to perform and do well but I'm not motivated. I don't care but I do care . School feels punitive- expectations and timelines . Nothing feels secure. And I'm over people because they are shitty . I want to have a healthy relationship with somebody So feeling overwhelmed. Stressed at school Still has not completed over due paper but says she willfinish it tonight- did some productive work this morning. Discussion of frustration with F and M- feels they are pointing out worries and concerns (e.g. Mom said your vm is full and she should delete some messages while calling to say Happy Chase'sDay).Description shows these calls are often ineffective-Aziza has understandable wishes for a different kind of communication but when I ask that her dad's cognitive style she describes him as likely very ADHD with cogntive rigidity and may not be able to do what she wants. I note the goal is reduce her own unnecessary frustration and suffering by accepting things that are unlikely to change and reducing taking it personally. She did distance from the daily calls with the sharad she dated briefly who had then started dating someone else. She felt good about that. Mental Status Exam: 1. General appearance and behavior: good eye contact 2. Speech: regular to mildly pressured, can get loud (regulation) 3. Flow of thought: logical but often not organized/scattered. This improveds with external focusing and slowing her down 4. Content of thought: no suicidal ideation 5. Mood: stressed, down 6. Affect: full range, more calm and natural smiling towards the end 7. Insight: can be good when focused in session but can lose insights when emotions or higher or inmore challenging interactions 8. Judgement: intact 9. Sensorium: alert Psychotherapy Focus: Interpersonal focus: Reviewed recent conversations with F that upset her Ineffective communications are reciprocal She agrees F does not intend communications to go wrong, would like them to be more agreeable Discussed acceptance piece re: her dad's communication and attentional style Seeded the idea that she could have more effective conversations with F by really accepting these pieces Reinforced her taking a big step back from daily comm with the sharad she had recently dated-reinforceto not become entangled in inherently unworkable interactions, to know when to step back Discussion of her paper Focused that getting through school, while very difficult, was her priority- program ends in February. There is more time for other things later. Assessment: ADHD Major depression Anxiety Affectively reactive bu temperament Plan Return in 2 weeks Assist in completion of graduate program and improving relationship concerns TRANSPORT NURSE documented in this encounter Plan of Treatment Not on file documented as of this encounter Visit Diagnoses Diagnosis ADHD (attention deficit hyperactivity disorder), combined type- Primary Attention deficit disorder with hyperactivity Major depressive disorder, recurrent episode, moderate (HCC) Major depressive disorder, recurrent episode, moderate Anxiety disorder, unspecified type documented in this encounter Care Teams Body Service Team Member Relationship Specialty Start Date End Date Estrellita Alonzo MD [address] [address] PCP - General 03/05/17 documented as of this encounter
--- OUTSIDE RECORDS SUMMARY | 2024-10-06 21:45 | XMS_ITS | Encounter Summary ---
Author Organization [facility] Healthcare Address [address] [place] [address] Care Team Providers Care Airline Security Representative Name Role Phone Estrellita Alonzo MD Primary Care Provider [phone] Encounter Details Date Type Department Care Team (Late st Contact Info) Description 08/16/2020 2:20 PM CDT Lab [facility] PATHOLOGY [address] [place] [address] Social History Tobacco Use Types Packs/Day Years Used Date Smoking Tobacco: Never Smokeless Tobacco: Never Alcohol Use Standard Drinks/Week Comments Yes 0 (1 standard drink = 0.6 oz pur e alcohol) PHQ-2 Answer Date Recorded PHQ-2 Score 3 06/11/2019 Comments No Sex and Gender Information Value Date Recorded Sex Assigned at Not on file Legal Sex Female 8:36 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 Gender Identity Not on file Sexual Orientation Not on file documented as of this encounter Plan of Treatment Not on file documented as of this encounter Procedures Procedure Name Priority Date/Time Associated Diagnosis Comments PAP AND HIGH RISK HPV, REFLEX TO GENOTYPING Routine 08/15/2020 5:53 PM CDT documented in this encounter Results * Pap and High Risk HPV, reflex to Genotyping (08/15/2020 5:53 PM CDT) 08/15/2020 5:53 PM CDT 08/16/2020 5:10 AM CDT Narrative 08/25/2020 2:42 PM TRANSPLANTER ORCHID [facility] results best viewed via link to PDF [facility] [place] [address] CYTOPATHOLOGY REPORT FINAL Patient Name: ??OLGA ESPINOSA Gender: ??F : ??1985 (Age: 35) Address: ??[address] [place] [address] Hospital #: ??[id number] Service: ??Laboratory Location: ??[facility] Patient Type: ??[facility] Ref Lab Taken: ??08/15/2020 Received: ??08/16/2020 Accessioned: [...] 68. ??This HPV test was performed at [facility] in [place], [place] utilizing the Gen-Probe Aptima assay. 08/25/2020 14:42 Mirta Ambriz M.S.,CT(ASCP) Report Electronically Reviewed and Signed Out By Mirta Ambriz M.S.,CT(ASCP) 08/25/2020 14:42:00 Cervicovaginal Cytology (Pap Test) Disclaimer: [...] IUD. The HPV test was performed by [facility], [address] [place] [id number]. Report Images and scanned documents, if included only viewable in PDF version The performance characteristics of some immunohistochemical stains, in-situ hybridization and fluorescence in-situ hybridization tests and immunophenotyping by flow cytometry cited in this report (if any) were determined by the Surgical Pathology Department at [facility] as part of an ongoing quality associate program and in compliance with federally mandated [...] determined by the Surgical Pathology Department of [facility]. ??It has not been cleared or approved by the U. S. Food and Drug Administration. Premal Teddy Swenson MD LAB CYTOLOGY ORDERABLES Final Result documented in this encounter Visit Diagnoses Not on filedocumented in this encounter Care Teams Airline Security Representative Relationship Specialty Start Date End Date Estrellita Alonzo MD [address] [facility] [address] [place] [address] PCP - General 03/05/17 documented as of this encounter
--- OUTSIDE RECORDS SUMMARY | 2024-10-06 21:45 | XMS_ITS | Encounter Summary ---
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 Gender Identity Not on file Sexual Orientation Not on file documented as of this encounter Discharge Disposition Disposition Code Departure Means Destination Discharge to home or self care documented in this encounter Plan of Treatment Not on file documented as of this encounter Procedures Procedure Name Priority Date/Time Associated Diagnosis Comments CA 125 Routine 06/15/2019 5:56 PM CDT Borderline epithelial neoplasm of ovary documented in this encounter Results * CA 125 (06/15/2019 5:56 PM CDT) CA 125 ag 8.0 0.0 - 35.0 units/mL [facility] Blood specimen (specimen) 06/15/2019 5:56 PM CDT 06/16/2019 12:40 AM CDT us Premal Teddy Swenson MD LAB BLOOD ORDERABLES Fin al Result Performing Organization Address City/State/[facility] Co de Phone Number [facility] One [facility] Department [place] [address] documented in this encounter Visit Diagnoses Diagnosis Borderline epithelial neoplasm of ovary documented in this encounter Care Teams Workforce Analyst Relationship Specialty Start Date End Date Estrellita Alonzo MD [address] [address] PCP - General 03/05/17 documented as of this encounter
--- OUTSIDE RECORDS SUMMARY | 2024-10-06 21:45 | XMS_ITS | Encounter Summary ---
Author Organization [facility] Healthcare Address [address] [place] [address] Care Team Providers Care Art Dealer Name Role Phone Estrellita Alonzo MD Primary Care Provider [phone] Encounter Details Date Type Department Care Team (Late st Contact Info) Description 10/12/2019 4:00 PM AGRONOMY LOCATION MANAGER Lab [facility] Advanced Medicine [facility] Advanced Medicine ([facility]) [address] [place] [phone] Borderline epithelial neoplasm of ovary Social History [...] on file Legal Sex Female 8:36 AM AGRONOMY LOCATION MANAGER Gender Identity Not on file Sexual Orientation Not on file documented as of this encounter Plan of Treatment Not on file documented as of this encounter Procedures Procedure Name Priority Date/Time Associated Diagnosis Comments CA 125 Routine 10/12/2019 1:46 PM AGRONOMY LOCATION MANAGER Borderline epithelial neoplasm of ovary documented in this encounter Results * CA 125 (10/12/2019 1:46 PM AGRONOMY LOCATION MANAGER) CA 125 ag 6.9 0.0 - 35.0 units/mL [facility] Blood specimen (specimen) 10/12/2019 1:46 PM AGRONOMY LOCATION MANAGER 10/12/2019 2:40 PM AGRONOMY LOCATION MANAGER us Premal Teddy Swenson MD LAB BLOOD ORDERABLES Fin al Result [facility] Department [place] [address] documented in this encounter Visit Diagnoses Diagnosis Borderline epithelial neoplasm of ovary documented in this encounter Care Teams Art Dealer Relationship Specialty Start Date End Date Estrellita Alonzo MD [address] [address] PCP - General 03/05/17 documented as of this encounter
--- OUTSIDE RECORDS SUMMARY | 2024-10-06 21:45 | XMS_ITS | Encounter Summary ---
Author Organization [facility] Address [address] [place] [address] Phone Care Team Providers Care Relay Technician Name Role Phone Estrellita Alonzo MD Primary Care Provider [phone] Encounter Details Date Type Department Care Team (Late st Contact Info) Description 08/10/2020 Orders Only [facility] Obstetrics and Gynecology [address] [facility] Advanced Medicine 13th [place] [address] [place] [address] Philly Aragon RN Borderline epithelial neoplasm of ovary (Primary Dx) [...] on file Legal Sex Female 8:[address]IA[address] Gender Identity Not on file Sexual Orientation Not on file documented as of this encounter Plan of Treatment Not on file documented as of this encounter Results * CA 125 (08/15/2020 4:11 PM CDT) CA 125 ag 7.9 0.0 - 35.0 units/mL [facility] Blood specimen (specimen) 08/15/2020 4:11 PM CDT 08/15/2020 4:19 PM CDT us Premal Teddy Swenson MD LAB BLOOD ORDERABLES Fin al Result [facility] Department [place] [address] documented in this encounter Visit Diagnoses Diagnosis Borderline epithelial neoplasm of ovary- Primary documented in this encounter Care Teams Relay Technician Relationship Specialty Start Date End Date Estrellita Alonzo MD [address] [facility] [address] [place] [address] PCP - General 03/05/17 documented as of this encounter
--- OUTSIDE RECORDS SUMMARY | 2024-10-06 21:45 | XMS_ITS | Encounter Summary ---
Author Organization [facility] Address [address] [place] [address] Phone Care Team Providers Care Retail Performance Specialist Name Role Phone Estrellita Alonzo MD Primary Care Provider [phone] Reason for Visit * Behavioral Health (Routine) - Closed Specialty Diagnoses / Procedures Referred By Filipe t Referred To Contact Psychology Diagnoses Appt Comment: PER PC WITH PT/ STANDING Procedures RETURN Referral, Self Heydi Reyes, PhD [address] [place] [address] Phone: tel: Referral ID Status Reason Start Date Expiration Date Visits Re quested Visits Authorized [id number] Closed 05/22/2018 12/01/2019 12 12 Encounter Details Date Type Department Care Team (Latest Contact Info) Description 11/12/2018 2:30 PM CYLINDER FILLER Office Visit [facility] [place] [address] Heydi Reyes, PhD [address] [place] [address] Major depressive disorder, recurrent episode, [...] on file Legal Sex Female 8:36 AM CYLINDER FILLER Gender Identity Not on file Sexual Orientation Not on file documented as of this encounter Progress Notes * Heydi Reyes, PhD - 11/12/2018 2:30 PM CST Psychology Note Date of Service: @TODAY@ Start time: 1:30 End time: 2:30 Interval History: Aziza was on time for her appt. Reports feels down depressed nearly every day, trouble with sleep, tired and feeling bad about herself. She has daily trouble with concentration but this relates to her ADD. Nervous and worried half the days and trouble relazing nearly every day. Reports, I'm trying to do things that help her relax/self-care. I've been going to yoga (a few times a week) and it helps. But I'm just stressed, not panicked, so it doesn't last. I just feel (down, stressed) at school. The days are so long and I don't feel good about myself orunclear about what I'm supposed to be learning. . I can't be myself, I can't juggle everything and I feel I don't stack up (compared to other students) . I don't like that I'm not enjoying it . She has an extension on a paper but overall does not feel she is much behind. It's just hard. I'vebeen using the (strategies/techniques) we talked about . 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 3 months in [facility]. 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 She believes she will finish this all out but feels chronically overly-stressed Mental Status Exam: 1. General appearance and behavior: good eye contact, cooperative 2. Speech: regular rate and amount, not pressured 3. Flow of thought: logical, far less scattered and completes her thoughts. I note this to her-she says she is taking Vyvannse more regularly to help with school 4. Content of thought: no Si no hopelessness but does feel dissatisfied with life 5. Mood: Depressed feeling most days- wishes for more time, less stress, more relationship connection 6. Affect: pleasant 7. Insight: good 8. Judgement: good 9. Sensorium: ert Psychotherapy Focus: P-s and support to assist with completion of academic goal, despite stress I ask her to focus on two things she is doing right and should continue: Keep going to yoga Continue efforts to improve sleep habits. She is keyed up. Encourage regular wake time (no more than one hour variance, try a fan for white noise as is awakened by sounds, put aside work bu 11 pm as much as possible, take 20 minute nap after classes which helps her). Discuss eye on the prize issues- she can make choices about where she wants to live/apply for jobs and important to consider things that she values and brings quality to her regular life Assessment: Major depression recurrent moderate Generalized anxiety ADD Plan Return in 2 weeks NDER FILLER documented in this encounter Plan of Treatment Not on file documented as of this encounter Visit Diagnoses Diagnosis Major depressive disorder, recurrent episode, moderate (HCC)- Primary Major depressive disorder, recurrent episode, moderate Anxiety disorder, unspecified type ADHD (attention deficit hyperactivity disorder), combined type Attention deficit disorder with hyperactivity documented in this encounter Care Teams Retail Performance Specialist Relationship Specialty Start Date End Date Estrellita Alonzo MD [address] [address] PCP - General 03/05/17 documented as of this encounter
--- OUTSIDE RECORDS SUMMARY | 2024-10-06 21:45 | XMS_ITS | Encounter Summary ---
Author Organization [facility] Address [address] [place] [address] Phone Care Team Providers Care Technology Manager Name Role Phone Estrellita Alonzo MD Primary Care Provider [phone] Encounter Details Date Type Department Care Team (Late st Contact Info) Description 08/18/2020 Documentation [facility] Obstetrics and Gynecology [address] [facility] Advanced Medicine 13th [place] [address] [place] [address] Philly Aragon RN Social History Tobacco Use Types Packs/Day Years Used Date Smoking Tobacco: Never Smokeless Tobacco: Never Alcohol Use Standard Drinks/Week Comments Yes 0 (1 standard drink = 0.6 oz pur e alcohol) PHQ-2 Answer Date Recorded PHQ-2 Score 3 06/11/2019 Comments No Sex and Gender Information Value Date Recorded Sex Assigned at Not on file Legal Sex Female 8:36 AM SALON SALES CONSULTANT Gender Identity Not on file Sexual Orientation Not on file documented as of this encounter Nursing Notes * Philly Aragon RN - 08/18/2020 9:09 AM CDT In clinic, US and f/u scheduled. Pt is aware. documented in this encounter Plan of Treatment Not on file documented as of this encounter Visit Diagnoses Not on filedocumented in this encounter Care Teams Technology Manager Relationship Specialty Start Date End Date Estrellita Alonzo MD [address] [facility] [address] [place] [address] PCP - General 03/05/17 documented as of this encounter
--- OUTSIDE RECORDS SUMMARY | 2024-10-06 21:45 | XMS_ITS | Encounter Summary ---
Author Organization [facility] Healthcare Address [address] [place] [address] Care Team Providers Care Business Process Engineer Name Role Phone Estrellita Alonzo MD Primary Care Provider [phone] Reason for Visit * Diagnostic Imaging (Routine) - Closed Specialty Diagnoses / Procedures Referred By Contac t Referred To Contact Diagnoses Borderline epithelial neoplasm of ovary Procedures US Transvaginal Camila Swenson MD Phone: tel: fax: [facility] (All Locations) Referral ID Status Reason Start Date Expiration Date Visits Re quested Visits Authorized [id number] Closed 12/15/2018 06/25/2020 1 1 Encounter Details Date Type Department Care Team (Latest Contact Info) Description 06/15/2019 3:30 PM CDT Ancillary Procedure [facility] - Ultrasound [address] [facility], 7th Floor, [address] [place] [address] Camila Swenson MD [phone] [place] [address] Borderline epithelial neoplasm of ovary Discharge Disposition: [...] on file Legal Sex Female 8:36 AM VISUAL ASSOCIATE Gender Identity Not on file Sexual Orientation Not on file documented as of this encounter Discharge Disposition Disposition Code Departure Means Destination Discharge to home or self care documented in this encounter Plan of Treatment Not on file documented as of this encounter Procedures Procedure Name Priority Date/Time Associated Diagnosis Comments US TRANSVAGINAL Schedule Routine, Read Routine (OP Routine) 06/15/2019 3:31 PM CDT Borderline epithelial neoplasm of ovary documented in this encounter Results * US Transvaginal (06/15/2019 3:31 PM CDT) Cul de Sac No free fluid visualized VIEWPOINT Endometrial Thickness 2.5 mm&millim eters [facility]IEWPOINT Anatomical Region Laterality Modality Pelvis N/A Ultrasound 06/15/2019 3:33 PM CDT us Premal Teddy Swenson MD IMG US PROCEDURES Final Result documented in this encounter Visit Diagnoses Diagnosis Borderline epithelial neoplasm of ovary documented in this encounter Care Teams Business Process Engineer Relationship Specialty Start Date End Date Estrellita Alonzo MD [address] [address] PCP - General 03/05/17 documented as of this encounter
--- OUTSIDE RECORDS SUMMARY | 2024-10-06 21:45 | XMS_ITS | Encounter Summary ---
Author Organization [facility] Healthcare Address [address] [place] [address] Care Team Providers Care Shells Inspector Name Role Phone Estrellita Aolnzo MD Primary Care Provider [phone] Encounter Details Date Type Department Care Team (Late st Contact Info) Description 11/16/2020 8:40 PM SUGAR REFINERY SUPERVISOR Lab [place] [id number] [place] [address] Screen for STD (sexually transmitted disease) Social History Tobacco Use Types Packs/Day Years Used Date Smoking Tobacco: Never Smokeless Tobacco: Never Alcohol Use Standard Drinks/Week Comments Yes 0 (1 standard drink = 0.6 oz pur e alcohol) PHQ-2 Answer Date Recorded PHQ-2 Score 3 06/11/2019 Comments No Sex and Gender Information Value Date Recorded Sex Assigned at Not on file Legal Sex Female 8:36 AM SUGAR REFINERY SUPERVISOR Gender Identity Not on file Sexual Orientation Not on file documented as of this encounter Plan of Treatment Not on file documented as of this encounter Procedures Procedure Name Priority Date/Time Associated Diagnosis Comments N. GONORRHOEAE/C. TRACHOMATIS AMPLIFICATION Routine 11/16/2020 8:40 PM SUGAR REFINERY SUPERVISOR documented in this encounter Results * N. gonorrhoeae/C. trachomatis Amplification Endocervical (11/16/2020 8:40 PM SUGAR REFINERY SUPERVISOR) C. trachomatis Not Detected Not Detected [facility] Comment:Testing performed by : [facility], [address] [place] [address] N. gonorrhoeae Not Detected Not Detected [facility] Comment: Interpretive Data Testing performed by the [facility]. This assay detects Chlamydia trachomatis and Neisseria gonorrhoeae by nucleic acid amplification testing (NAAT). This test is approved by the [place] Food and Drug Administration and the performance characteristics have been verified by the laboratory. The performance characteristics of this test have not been evaluated in individuals less than 14 years of age. Current Interpretive Data was last revised on 2018. Testing performed by: [facility], [address] [place]., [address] Endocervical 11/16/2020 8:40 PM SUGAR REFINERY SUPERVISOR 11/17/2020 12:43 PM SUGAR REFINERY SUPERVISOR us Lindsay Nguyen MD LAB MICROBIOLOGY - NERAL ORDERABLES Final Result [facility] [address] Department [place] [address] documented in this encounter Visit Diagnoses Diagnosis Screen for STD (sexually transmitted disease) Screening examination for venereal disease documented in this encounter Care Teams Shells Inspector Relationship Specialty Start Date End Date Estrellita Alonzo MD [address] [facility] [address] [place] [address] PCP - General 03/05/17 documented as of this encounter
--- OUTSIDE RECORDS SUMMARY | 2024-10-06 21:45 | XMS_ITS | Encounter Summary ---
Author Organization [facility] Address [address] [place] [address] Phone Care Team Providers Care Mine Geologist Name Role Phone Kirk Alonzo MD Primary Care Provider [phone] Reason for Visit * Reason Comments Follow-up * OBGYN (Routine) - Closed Specialty Diagnoses / Procedures Referred By Filipe t Referred To Contact Gynecologic Oncology Diagnoses 3 month f/u US prior Procedures ASSET MANAGEMENT LEAD RETURN [facility] Obstetrics and Gynecology [address] [facility] Advanced Medicine 13th [place] [address] Phone: tel: fax: Camila Swenson MD [address] [facility] [phone] [place] [address] Phone: tel: fax: Referral ID Status Reason Start Date Expiration Date Visits Re quested Visits Authorized [id number] Closed 10/12/2019 04/22/2021 1 1 Encounter Details Date Type Department Care Team (Late st Contact Info) Description 10/12/2019 2:00 PM ENGINEER TECHNICIAN Office Visit [facility] Obstetrics and Gynecology [address] [facility] Advanced Medicine 13th [place] [address] Camila Swenson MD [address] [facility] [phone] [place] [address] Borderline epithelial neoplasm of ovary (Primary Dx); Recurrent major depressive disorder, in partial remission [...] on file Legal Sex Female 8:36 AM ENGINEER TECHNICIAN Gender Identity Not on file Sexual Orientation Not on file documented as of this encounter Last Filed Vital Signs Vital Sign Reading Time Taken Comments Blood Pressure 119/74 10/12/2019 2:21 PM ENGINEER TECHNICIAN Pulse 72 10/12/2019 2:21 PM ENGINEER TECHNICIAN Temperature 37.2 ??C (98.9 ??F) 10/12/2019 2:21 PM CS T Respiratory Rate 16 10/12/2019 2:21 PM ENGINEER TECHNICIAN Oxygen Saturation 100% 10/12/2019 2:21 PM ENGINEER TECHNICIAN Inhaled Oxygen Concentration - - Weight 79.2 kg (174 lb 9.6 oz) 10/12/2019 2:21 P M ENGINEER TECHNICIAN Height 174 cm (5' 8.5 ) 10/12/2019 2:21 PM ENGINEER TECHNICIAN Body Mass Index 26.16 10/12/2019 2:21 PM ENGINEER TECHNICIAN documented in this encounter Progress Notes * Camila Swenson MD - 10/12/2019 12:00 AM CST PATIENT: OLGA ESPINOSA : 1985 AKASH: 10/12/2019 REASON FOR VISIT: 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 HISTORY OF PRESENT ILLNESS: Ms. Espinosa is a lisy 34-year-old female who on routine physical examination before starting occupational therapy in [place] was found to have a 10 cm [...] continues to be in surveillance. The patient went on to have an ultrasound performed today on 10/12/2019, which shows that the right ovary has a simple cyst measuring 2.4 x 2.8 x 2.9 cm. There is no intracystic blood flow. It is unilocular and anechoic. The uterus otherwise looks normal, with an appropriately positioned IUD. The endometrial thickness is 3.5 mm. The patient has just returned from [place]. The patient also just graduated from her master's program. She is quite stressed about the possibility of transitioning jobs as well as moving again. She complains of some mild fatigue. She has some abdominal bloating. She has some numbness and tingling inher hands and feet. She has some headaches. She has depression. She does have some vaginal spotting, which seems to be every 17 days at times. She complains of hair loss. She denies any pelvic pressure, pelvic pain, or dyspareunia. PAST MEDICAL HISTORY/REVIEW OF SYSTEMS: Unchanged from 05/28/2016, except for the above updates. PHYSICAL EXAMINATION: Vital Signs: Blood pressure is 119/74, pulse is 72, respirations are 16. Her weight is 174 pounds, which is a decrease of 1 pound from her last visit. General Appearance: The [...] sounds. Extremities: No clubbing, cyanosis, or edema. Neurologic: The patient is awake, alert, and oriented x 3. Pelvic Exam: External genitalia: Within normal limits. Urethra: Without masses or tenderness. Urethral meatus: Without any lesions or prolapse. Bladder: No masses or tenderness. Vulva: Normal. Speculum Exam: The IUD strings cannot be visualized. The cervix appears to be grossly normal. Bimanual: Cervix feels normal in size, shape, and consistency. Uterus feels normal in size. The left adnexa is surgically absent. For the right adnexa, there are no palpable masses. LABORATORY STUDIES: Her CA-125 will be drawn today. 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 1. Serous LMP: The patient will be sent for a CA-125. The patient's ultrasound is overall reassuring. 2. Genetics: The patient's mother's genetic testing is still not available to us. She was once again reminded to send this to us. 3. Pap smear: The patient is due for a repeat Pap smear in June 2020. 4. Follow-up will be in 6 months' time in the [facility], unless there is any reason for her tanner seen sooner. The patient is having insurance issues. The patient also is unclear as to whether she will still be in the [facility] versus having moved for a new job. 5. Distress score of a 7: The patient is distressed due to her depression and her life transition. The patient has been told of [facility] in the past and already has a therapist. ELECTRONICALLY SIGNED - 10/15/2019 07:39 AM Camila Swenson M.D. Professor, Department of Obstetrics and Gynecology Director of Gynecological Oncology Clinical Research Division of Gynecologic Oncology [facility] [id number] cc: KIRK ALONZO MD / / NEER TECHNICIAN documented in this encounter Miscellaneous Notes * Treatment Plan - Camila Swenson MD - 10/12/2019 2:00 PM CST Please schedule Olga Espinosa for the following: Requested Order Contrast Indication When CXR CT Chest, Abdomen, and Pelvis CT Abdomen and Pelvis LEEP (during clinic hours) ASSET MANAGEMENT LEAD Ultrasound MRI Mammogram PET Initiate Survivoship Care Plan Surveillance Labs (CBC w/ Diff, CMP, Magnesium, CA125) Labwork: [facility] follow up in 6 months x Ca 125 today x NEER TECHNICIAN documented in this encounter Plan of Treatment Not on file documented as of this encounter Visit Diagnoses Diagnosis Borderline epithelial neoplasm of ovary- Primary Recurrent major depressive disorder, in partial remission (HCC) documented in this encounter Discontinued Medications Medication Sig Discontinue Reason Start Date End Da te ALPRAZolam (XANAX) 0.25 mg tablet Xanax 10/12/2019 levonorgestrel (MIRENA) IUD Mirena 20 mcg/24 hours (5 yrs) 52 mg intrauterine device Take 1 device as needed by intrauterine route for 1 day. 10/12/2019 lisdexamfetamine (VYVANSE) 20 mg capsule Take 30 mg by mouth every morning 10/12/2019 venlafaxine 150 mg tablet extended release 24hr 24 hr tablet Take 150 mg by mouth daily 10/12/2019 venlafaxine XR (EFFEXOR-XR) 75 mg 24 hr capsule TK 1 C PO QD 05/14/2018 10/12/2019 documented as of this encounter Care Teams Mine Geologist Relationship Specialty Start Date End Date Kirk Alonzo MD [address] [address] PCP - General 03/05/17 documented as of this encounter
--- OUTSIDE RECORDS SUMMARY | 2024-10-06 21:45 | XMS_ITS | Encounter Summary ---
Author Organization [facility] Address [address] [facility] [address] [place] [address] Care Team Providers Care Staff Veterinarian Name Role Phone Estrellita Alonzo MD Primary Care Provider [phone] Unknown, Notinfile Unavailable Unavailable Encounter Details Date Type Department Care Team (Late st Contact Info) Description 01/31/2021 Orders Only [facility] Building [address] [facility] [address] [place] [address] Covid, Vaccination Provider Social History Tobacco Use Types Packs/Day Years Used Date Smoking Tobacco: Never Smokeless Tobacco: Never Alcohol Use Standard Drinks/Week Comments Yes 0 (1 standard drink = 0.6 oz pur e alcohol) PHQ-2 Answer Date Recorded PHQ-2 Score 3 06/11/2019 Comments No Sex and Gender Information Value Date Recorded Sex Assigned at Not on file Legal Sex Female 8:36 AM DAIRY FARMER Gender Identity Not on file Sexual Orientation Not on file documented as of this encounter Plan of Treatment Not on file documented as of this encounter Visit Diagnoses Not on filedocumented in this encounter Care Teams Staff Veterinarian Relationship Specialty Start Date End Date Estrellita Alonzo MD [address] [facility] [address] [place] [address] PCP - General 03/05/17 Unknown, Notinfile Referring Physician 12/19/20 documented as of this encounter
--- OUTSIDE RECORDS SUMMARY | 2024-10-06 21:45 | XMS_ITS | Encounter Summary ---
Author Organization [facility] Address [address] [place] [address] Care Team Providers Care Esl Teacher Name Role Phone Estrellita Alonzo MD Primary Care Provider [phone] Reason for Visit * Reason Comments well woman Encounter Details Date Type Department Care Team (Late st Contact Info) Description 11/16/2020 3:00 PM SOCIAL SERVICES DESIGNEE Office Visit [facility] [address] [facility] [address] [place] [address] Lindsay Nguyen MD [address] [facility] [address] [place] [address] Encounter for gynecological examination (general) (routine) without abnormal findings (Primary Dx); Screen for STD (sexually transmitted disease) Social [...] on file Legal Sex Female 8:36 AM SOCIAL SERVICES DESIGNEE Gender Identity Not on file Sexual Orientation Not on file documented as of this encounter Last Filed Vital Signs Vital Sign Reading Time Taken Comments Blood Pressure 100/76 11/16/2020 3:26 PM SOCIAL SERVICES DESIGNEE Pulse - - Temperature - - Respiratory Rate - - Oxygen Saturation - - Inhaled Oxygen Concentration - - Weight 78.5 kg (173 lb) 11/16/2020 3:26 PM SOCIAL SERVICES DESIGNEE Height 174 cm (5' 8.5 ) 11/16/2020 3:26 PM SOCIAL SERVICES DESIGNEE Body Mass Index 25.92 11/16/2020 3:26 PM SOCIAL SERVICES DESIGNEE documented in this encounter Progress Notes * Lindsay Nguyen MD - 11/16/2020 3:00 PM CST Images from the original note were not included. Patient ID: Aziza Espinosa is a 35 y.o. female Subjective Chief Complaint: well woman HPI HPI 35 y.o. presents as a new patient for WWE. Patient being followed by Dr. Swenson with [employer] [facility] for h/o stage 1A serous LMP with microinvasion Pap NILM/HPV neg 07/2020 Mirena IUD removal and replaced 09/12/2020; feels like her mood better since IUD replaced Has menses on Mirena, has only had one menses since the new one, no concerns Normal TVUS 10/31/20 Sees a psychiatrist Needs a new PCP with one male partner No condoms Has a remote h/o abnl pap, no h/o STI HPV vaccine in grad school Review of Systems Constitutional: Negative for appetite change, chills, fatigue and fever. Respiratory: Negative for shortness of breath. Cardiovascular: Negative for chest pain. Gastrointestinal: Negative for abdominal pain, constipation, diarrhea, nausea and vomiting. Genitourinary: Negative for decreased urine volume, difficulty urinating, dyspareunia, dysuria, flank pain, frequency, genital sores, hematuria, menstrual problem, pelvic pain, urgency and vaginal discharge. Psychiatric/Behavioral: Feeling a little foggy since starting seroquel Breast: Negative for tenderness, breast redness, breast discharge and lump(s). Patient Active Problem List Diagnosis ??? Abnormal uterine bleeding (AUB) ??? Anxiety ??? Attention-deficit/hyperactivity disorder ??? Borderline epithelial neoplasm of ovary ??? History of anorexia nervosa ??? Major depression, recurrent (CMS/HCC) Histories [employer] [facility] [facility]/Menstrual Menstrual History: No LMP recorded. (Menstrual status: IUD). Sexual History: Sexual History Gender of sexual partners: Men( with one male partner x1y) Sexually Transmitted Infection History: Other (Comment) OB History 0 Para 0 Term 0 0 AB 0 Living 0 SAB 0 TAB 0 Ectopic 0 Multiple 0 Live Births 0 Medical She has a past medical history of Inflamed seborrheic keratosis, Other abnormal tumor markers, Personal history of diseases of skin or subcutaneous tissue, Personal history of diseases of skin or subcutaneous tissue, Personal history of other diseases of the female genital tract, Personal history of other mental and behavioral disorders, and Personal history of other specified conditions. Surgical She has a past surgical history that includes Nose surgery and Laparoscopic salpingoopherectomy (Left, 06/12/2016). Family Her family history includes Breast cancer (age of onset: 60) in her paternal grandmother; Ovarian cancer (age of onset: 52) in her mother; Ovarian cancer (age of onset: 72) in her maternal grandmother. Social Patient reports that she has never smoked. She has never used smokeless tobacco. She reports current alcohol use. She reports that she does not use drugs. Meds Current Outpatient Medications: ??? levonorgestrel (MIRENA) IUD, Mirena 20 mcg/24 hr (5 years) intrauterine device Take 1 device asneeded by intrauterine route for 1 day., Disp: , Rfl: ??? lisdexamfetamine (VYVANSE) 20 mg capsule, Take 20 mg by mouth every morning Pt taking 5 days a week, Disp: , Rfl: ??? multivitamin tablet, , Disp: , Rfl: ??? QUEtiapine (SEROquel) 25 mg tablet, Take 1 tablet by mouth daily, Disp: , Rfl: ??? venlafaxine (EFFEXOR) 75 mg tablet, , Disp: , Rfl: ??? venlafaxine 150 mg tablet extended release 24hr 24 hr tablet, , Disp: , Rfl: ??? zinc-vit C-pyridoxine, vit B6, 12-60-0.5 mg lozenge, zinc, Disp: , Rfl: Allergies Patient has No Known Allergies. Objective BP 100/76 (BP Location: Right arm, Patient Position: Sitting) Ht 174 cm (5' 8.5 ) Wt 173 lb (78.5 kg) BMI 25.92 kg/m?? Physical Exam Constitutional: She is oriented to person, place, and time. She appears well- developed and well-nourished. No distress. Head: Normocephalic and atraumatic. Neck: Neck supple. No thyromegaly present. Cardiovascular: Normal rate, regular rhythm and normal heart sounds. No murmur heard. Pulmonary/Chest: Effort normal and breath sounds normal. No respiratory distress. Breast: There are no masses, lumps, or lesions bilaterally. Bilateral nipples are normal. No axillary lymphadenopathy Abdominal: Soft, non-tender, non-distended. No hernia or mass. : Normal external genitalia. Urethra normal, glands normal. Vagina is normal. The cervix is normal in appearance. The uterus is mobile and non-tender. IUD strings are not visible at the os. There are no adnexal masses Musculoskeletal: She exhibits no edema or deformity. Lymphadenopathy: No cervical or axillary adenopathy. Neurological: She is alert and oriented to person, place, and time. Psychiatric: She has a normal mood and affect. Judgment and insight are intact. TVUS: IUD position confirmed, properly positioned in the body of the uterus at the fundus (see image, scanned) Assessment/Plan Aziza was seen today for well woman. Diagnoses and all orders for this visit: Encounter for gynecological examination (general) (routine) without abnormal findings Screen for STD (sexually transmitted disease) - N. gonorrhoeae/C. trachomatis Amplification Endocervical; Future - HIV 1/2 Antibody plus p24 Antigen; Future - RPR; Future Body mass index is 25.92 kg/m??. Pap utd STI screen today (will hold the HIV/RPR until her next blood draw) Moc: Mirena IUD, position confirmed today PCP info given to schedule F/u with [facility] [employer] [facility] as scheduled in 12/2020 F/u with psychiatry as scheduled Lindsay Nguyen MD 11/16/20 AL SERVICES DESIGNEE documented in this encounter Plan of Treatment Not on file documented as of this encounter Procedures Procedure Name Priority Date/Time Associated Diagnosis Comments SCAN - RADIOLOGY/IMAGING 11/16/2020 documented in this encounter Results * SCAN - RADIOLOGY/IMAGING (11/16/2020) Anatomical Region Laterality Modality Other us Provider Scanning Final Result documented in this encounter Visit Diagnoses Diagnosis Encounter for gynecological examination (general) (routine) without abnormal findings- Primary Screen for STD (sexually transmitted disease) Screening examination for venereal disease documented in this encounter Historical Medications * This list may reflect changes made after this encounter. QUEtiapine (SEROquel) 25 mg tablet Take 1 tablet by mouth daily 11/02/2020 12/19/2020 added in this encounter Care Teams Esl Teacher Relationship Specialty Start Date End Date Estrellita Alonzo MD [address] [address] PCP - General 03/05/17 documented as of this encounter
--- OUTSIDE RECORDS SUMMARY | 2024-10-06 21:45 | XMS_ITS | Encounter Summary ---
Author Organization [facility] Healthcare Address [address] [place] [address] Care Team Providers Care Packing Machine Feeder Name Role Phone Estrellita Alonzo MD Primary Care Provider [phone] Encounter Details Date Type Department Care Team (Late st Contact Info) Description 08/16/[address] [place] [phone] Shauna Correa, PhD [address] [place] [address] [phone] [place] [address] Social History Tobacco Use Types Packs/Day Years Used Date Smoking Tobacco: Never Smokeless Tobacco: Never Alcohol Use Standard Drinks/Week Comments Yes 0 (1 standard drink = 0.6 oz pur e alcohol) PHQ-2 Answer Date Recorded PHQ-2 Score 3 06/11/2019 Comments No Sex and Gender Information Value Date Recorded Sex Assigned at Not on file 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 Patient stated that she has a therapist that she meets with regularly anddenied need for [facility] Psychology Services at this time. Information regarding [facility] provided and patient encouraged to reach out with any future scheduling needs or any questions / concerns. Risk Assessment: The patient did not report risk of harm to self or others and there was no evidence of such during our meeting. Patient meets regularly with therapist in the community. The patient was deemed to be sustainable as an outpatient. Plan: Patient provided with contact information of [facility] for any future scheduling or any questions /concerns. Shauna Correa, PhD documented in this encounter Plan of Treatment Not on file documented as of this encounter Visit Diagnoses Not on filedocumented in this encounter Care Teams Packing Machine Feeder Relationship Specialty Start Date End Date Estrellita Alonzo MD [address] [address] PCP - General 03/05/17 documented as of this encounter
--- OUTSIDE RECORDS SUMMARY | 2024-10-06 21:46 | XMS_ITS | Encounter Summary ---
Author Organization [facility] Healthcare Address [address] [place] [address] Care Team Providers Care Feed Miller Name Role Phone Estrellita Alonzo MD Primary Care Provider [phone] Encounter Details Date Type Department Care Team (Latest Contact Info) Description 07/08/2017 10:53 AM CDT - 07/08/2017 11:59 PM CDT Hospital Encounter [facility] OP INTERIM No, Physician Discharge Disposition: Discharge to home or self care Social History Tobacco Use Types Packs/Day Years Used Date Smoking Tobacco: Never Comments Unknown Sex and Gender Information Value Date Recorded Sex Assigned at Not on file 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 Gender Identity Not on file Sexual Orientation Not on file documented as of this encounter Discharge Disposition Disposition Code Departure Means Destination Discharge to home or self care documented in this encounter Plan of Treatment Not on file documented as of this encounter Procedures Procedure Name Priority Date/Time Associated Diagnosis Comments HPV ONLY Routine 07/08/2017 8:57 AM CDT DISCHARGE LABORATORY CUMULATIVE REPORT 07/08/2017 12:00 AM CDT documented in this encounter Results * HPV ONLY (07/08/2017 8:57 AM CDT) High Risk HPV RNA Detection Negative Negative [facility] Comment: Interpretive Data Tested for types 16, 18, 31, 33, 35, 39, 45, 51, 52, 56, 58, 59, 66, and 68. Test performed utilizing Gen-Probe Aptima assay. Current interpretive data was last reviewed 2016 Thin prep 07/08/2017 8:57 AM CDT 07/11/2017 8:57 AM CDT Narrative [facility] - 07/11/2017 3:07 PM CDT [id number] us Notinfile Unknown LAB BLOOD ORDERABLES Final Res ult [facility] [address] [address] Department [place] [address] * DISCHARGE LABORATORY CUMULATIVE REPORT (07/08/2017 12:00 AM CDT) Narrative 07/08/2017 12:00 AM CDT Ordered by an unspecified provider. Historical Provider LAB BLOOD ORDERABLES Emely l Result documented in this encounter Visit Diagnoses Not on filedocumented in this encounter Care Teams Feed Miller Relationship Specialty Start Date End Date Estrellita Alonzo MD [address] [address] PCP - General 03/05/17 documented as of this encounter
--- OUTSIDE RECORDS SUMMARY | 2024-10-06 21:46 | XMS_ITS | Encounter Summary ---
Author Organization [facility] Address [address] [place] [address] Phone Care Team Providers Care Construction Code Administrator Name Role Phone Estrellita Alonzo MD Primary Care Provider [phone] Encounter Details Date Type Department Care Team (Latest Contact Info) Description 07/02/2018 12:00 PM CDT Office Visit [facility] [address] Heydi Reyes, PhD [address] [place] [address] Anxiety disorder, unspecified type (Primary Dx); ADHD (attention deficit hyperactivity disorder), combined type; Major depressive disorder, recurrent episode, moderate (CMS/HCC) Social History Tobacco Use Types Packs/Day Years Used Date Smoking Tobacco: Never Smokeless Tobacco: Never Alcohol Use Standard Drinks/Week Comments Yes 0 (1 standard drink = 0.6 oz pur e alcohol) Comments No Sex and Gender Information Value Date Recorded Sex Assigned at Not on file Legal 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 Has a couple things to finish-including a paper by Saturday,but feels like she has so many things to do she cannot keep up with everything. Reports many considerations and competing demands (work, various demands at school, needing to make important decisionsnow about practicuums that tie into bigger concerns about what what she wants to do and what will pay-and having mixed feelings or uncertainty there. Her computer broke which was a major inconvenience-it is fixed and she is picking it up. Aziza identifies multiple issues in a short period, feels stressed and anxious but also feels she will be able to get through. My sense from getting description here: She has good comprehension and motivated to do well and contribute Attentional focus, organization, speed for new learning of high detail info/new methods protocols relative issues High exploratory excitability- has allowed for interesting experiences and opportunities but interfered wiith goal completion and led to over-scheduling that has increased her stress Self-awareness about preceding seems better but also difficulty with juggling what she needs to do,transitionioning, and new routines Mental Status Exam: 1. General appearance and behavior: good eye contact, stressed, tired but also was good natured 2. Speech: hyperverbal when feeling stressed 3. Flow of thought: bright but scattered. Jumps from topic to topic, difficulty integrating competing ideas into a more refined conclusion 4. Content of thought: no suicidal ideation anxious worry is present 5. Mood: anxious but also with positive emotionality; can get depressive with loss, disappointment or sense of failure 6. Affect: appropriate, stressed but also smiles, shows humor 7. Insight: good 8. Judgement: intact 9. Sensorium: alert Psychotherapy Focus: Towards stress/anxiety and identifying stressors Reflection/summary to increase clarity and organization Identify/reinforce what can help: She is taking ADD med Attempts to prioritize, uses business continuity planner Sometimes uses Pomodoro- reinforce that this time period is for one selected focus Use best time for work that requires high focus and concentration-the morning hours are best for her, 8-10:30. Identify activities that can work evening hours- reading, planning for next day. Yoga. Re: the paper she needs to finish by Saturday-queried. She estimated needs 5 hours to complete a goodenough paper. Her plan- 90 minutes today, 90 minutes tomorrow (has one hour in the morning), wrap up on Saturday morning Re: the paper she needs to Assessment: Generalized anxiety ADHD Major depression recurrent High emotional reactivity, pace Plan Return in 2 weeks for psychotherapy documented in this encounter Plan of Treatment Not on file documented as of this encounter Visit Diagnoses Diagnosis Anxiety disorder, unspecified type- Primary ADHD (attention deficit hyperactivity disorder), combined type Attention deficit disorder with hyperactivity Major depressive disorder, recurrent episode, moderate (HCC) Major depressive disorder, recurrent episode, moderate documented in this encounter Care Teams Construction Code Administrator Relationship Specialty Start Date End Date Estrellita Alonzo MD [address] [address] PCP - General 03/05/17 documented as of this encounter
--- OUTSIDE RECORDS SUMMARY | 2024-10-06 21:46 | XMS_ITS | Encounter Summary ---
Author Organization [facility] Address [address] [place] [address] Phone Care Team Providers Care Associate Web Developer Name Role Phone Estrellita Alonzo MD Primary Care Provider [phone] Reason for Visit * Behavioral Health (Routine) - Closed Specialty Diagnoses / Procedures Referred By Filipe dorsey Referred To Contact Psychology Diagnoses Appt Comment: PER PC WITH PT/ STANDING Procedures RETURN Referral, Self Heydi Reyes, PhD [address] [place] [address] Phone: tel: Referral ID Status Reason Start Date Expiration Date Visits Re quested Visits Authorized [id number] Closed 05/22/2018 12/01/2019 12 12 Encounter Details Date Type Department Care Team (Latest Contact Info) Description 08/13/2018 2:30 PM CDT Office Visit [facility] [place] [address] Heydi Reyes, PhD [address] [place] [address] Major depressive disorder, recurrent episode, [...] on file 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 Session focused on reviewing the dating relationship and the break up, her responses. Mental Status Exam: 1. General appearance and behavior: good eye contact 2. Speech: regular 3. Flow of thought: logical and I note more organized overall than when she has spoken about other dating relationships ending 4. Content of thought: no SI but worries she will never find a good working romantic relationship 5. Mood: sad, lonely and a little angry (not a bad thing) 6. Affect: congruent and pretty regulated although upset 7. Insight: improving 8. Judgement: good 9. Sensorium: alert Psychotherapy Focus: IPT on relationship break up and the quality of the relationship over the past few months The man expressed ambivalence earlier-what if I never fall in love with you? Sometimes she call me the day after we already talked Discussion with Aziza about if she takes these as signs that this is not a relatioship to invest in She is disappointed, wants a working relationship- I give auntly advice-don't date for a few weeks,go to yoga a couple times a week and look for Meet Up groups of interest She responds positivelly to support from others Assessment: Solange depression WILFREDO Relationship disappointment Plan Return in 2 weeks for therapy documented in this encounter Plan of Treatment Not on file documented as of this encounter Visit Diagnoses Diagnosis Major depressive disorder, recurrent episode, moderate (HCC)- Primary Major depressive disorder, recurrent episode, moderate Anxiety disorder, unspecified type ADHD (attention deficit hyperactivity disorder), combined type Attention deficit disorder with hyperactivity documented in this encounter Care Teams Associate Web Developer Relationship Specialty Start Date End Date Estrellita Alonzo MD [address] [facility] [address] [place] [address] PCP - General 03/05/17 documented as of this encounter
--- OUTSIDE RECORDS SUMMARY | 2024-10-06 21:46 | XMS_ITS | Encounter Summary ---
Author Organization [facility] Healthcare Address [address] [place] [address] Care Team Providers Care Supervisor Pipe Manufacture Name Role Phone Estrellita Alonzo MD Primary Care Provider [phone] Encounter Details Date Type Department Care Team (Latest Contact Info) Description 07/08/2017 10:55 AM CDT - 07/08/2017 11:59 PM CDT Hospital Encounter [facility] OP INTERIM [phone] Camila Swenson MD [address] [facility] [phone] [place] [address] Discharge Disposition: Discharge to home or self care Social History Tobacco Use Types Packs/Day Years Used Date Smoking Tobacco: Never Comments Unknown Sex and Gender Information Value Date Recorded Sex Assigned at Not on file 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 Gender Identity Not on file Sexual Orientation Not on file documented as of this encounter Discharge Disposition Disposition Code Departure Means Destination Discharge to home or self care documented in this encounter Plan of Treatment Not on file documented as of this encounter Procedures Procedure Name Priority Date/Time Associated Diagnosis Comments CA 125 Routine Gen Lab 07/08/2017 11:05 AM CDT DISCHARGE LABORATORY CUMULATIVE REPORT 07/08/2017 12:00 AM CDT documented in this encounter Results * CA 125 (07/08/2017 11:05 AM CDT) CA 125 ag 5.4 0.0 - 35.0 units/mL [facility] Blood specimen (specimen) 07/08/2017 11:05 AM CDT 07/08/2017 11:44 AM CDT us Notinfile Unknown LAB BLOOD ORDERABLES Final Res ult [facility] [place] [address] * DISCHARGE LABORATORY CUMULATIVE REPORT (07/08/2017 12:00 AM CDT) Narrative 07/08/2017 12:00 AM CDT Ordered by an unspecified provider. us Historical Provider LAB BLOOD ORDERABLES Emely l Result documented in this encounter Visit Diagnoses Not on filedocumented in this encounter Care Teams Supervisor Pipe Manufacture Relationship Specialty Start Date End Date Estrellita Alonzo MD [address] [address] PCP - General 03/05/17 documented as of this encounter
--- OUTSIDE RECORDS SUMMARY | 2024-10-06 21:46 | XMS_ITS | Encounter Summary ---
Author Organization [facility] Healthcare Address [address] [place] [address] Care Team Providers Care Latin Teacher Name Role Phone Estrellita Alonzo MD Primary Care Provider [phone] Encounter Details Date Type Department Care Team (Latest Contact Info) Description 07/05/2017 1:37 PM CDT - 07/05/2017 11:59 PM CDT Hospital Encounter [facility] OP INTERIM [phone] Camila Swenson MD [address] [facility] [phone] [place] [address] Discharge Disposition: Discharge to home or self care Social History Tobacco Use Types Packs/Day Years Used Date Smoking Tobacco: Never Comments Unknown Sex and Gender Information Value Date Recorded Sex Assigned at Not on file 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 [address] [place] [address] PCP - General 03/05/17 documented as of this encounter
--- OUTSIDE RECORDS SUMMARY | 2024-10-06 21:46 | XMS_ITS | Encounter Summary ---
Author Organization [facility] Healthcare Address [address] [place] [address] Care Team Providers Care Body Masker Name Role Phone Estrellita Alonzo MD Primary Care Provider [phone] Encounter Details Date Type Department Care Team (Latest Contact Info) Description 12/12/2017 11:15 AM FORENSIC COMPUTER EXAMINER - 12/12/2017 11:59 PM FORENSIC COMPUTER EXAMINER Hospital Encounter [facility] OP INTERIM [phone] Camila Swenson MD [address] [facility] [phone] [place], [place] [id number] Discharge Disposition: Discharge to home or self care Social History Tobacco Use Types Packs/Day Years Used Date Smoking Tobacco: Never Comments Unknown Sex and Gender Information Value Date Recorded Sex Assigned at Not on file Legal Sex Female 8:36 AM FORENSIC COMPUTER EXAMINER Gender Identity Not on file Sexual Orientation Not on file documented as of this encounter Discharge Disposition Disposition Code Departure Means Destination Discharge to home or self care documented in this encounter Plan of Treatment Not on file documented as of this encounter Procedures Procedure Name Priority Date/Time Associated Diagnosis Comments CA 125 Routine Gen Lab 12/12/2017 11:26 AM FORENSIC COMPUTER EXAMINER DISCHARGE LABORATORY CUMULATIVE REPORT 12/12/2017 12:00 AM FORENSIC COMPUTER EXAMINER documented in this encounter Results * CA 125 (12/12/2017 11:26 AM FORENSIC COMPUTER EXAMINER) CA 125 ag 6.8 0.0 - 35.0 units/mL [facility] Blood specimen (specimen) 12/12/2017 11:26 AM FORENSIC COMPUTER EXAMINER 12/12/2017 11:54 AM FORENSIC COMPUTER EXAMINER Narrative LESLEE MARQUEZ - 12/12/2017 12:29 PM FORENSIC COMPUTER EXAMINER us Premal Teddy Swenson MD LAB BLOOD ORDERABLES Fin al Result [facility] Department [place] [address] * DISCHARGE LABORATORY CUMULATIVE REPORT (12/12/2017 12:00 AM FORENSIC COMPUTER EXAMINER) Narrative 12/12/2017 12:00 AM FORENSIC COMPUTER EXAMINER Ordered by an unspecified provider. Historical Provider LAB BLOOD ORDERABLES Emely l Result documented in this encounter Visit Diagnoses Not on filedocumented in this encounter Care Teams Body Masker Relationship Specialty Start Date End Date Estrellita Alonzo MD [address] [address] PCP - General 03/05/17 documented as of this encounter
--- OUTSIDE RECORDS SUMMARY | 2024-10-06 21:46 | XMS_ITS | Encounter Summary ---
Author Organization [facility] Address [address] [place] [address] Phone Care Team Providers Care Bronc Breaker Name Role Phone Estrellita Alonzo MD Primary Care Provider [phone] Reason for Visit * Behavioral Health (Routine) - Closed Specialty Diagnoses / Procedures Referred By Filipe dorsey Referred To Contact Psychology Diagnoses Appt Comment: PER PC WITH PT/ STANDING Procedures RETURN Referral, Self Heydi Reyes, PhD [address] [place] [address] Phone: tel: Referral ID Status Reason Start Date Expiration Date Visits Re quested Visits Authorized [id number] Closed 05/22/2018 12/01/2019 12 12 Encounter Details Date Type Department Care Team (Latest Contact Info) Description 05/22/2018 9:00 AM CDT Office Visit [facility] Psychiatry [facility] [place] [address] Heydi Reyes, PhD [address] [place] [address] Major depressive disorder, recurrent episode, moderate (CMS/HCC) (Primary Dx); Anxiety disorder, unspecified type; ADHD (attention deficit hyperactivity disorder), combined type Social History Tobacco Use Types Packs/Day Years Used Date Smoking Tobacco: Never Comments Unknown Sex and Gender Information Value Date Recorded Sex Assigned at Not on file Legal Sex Female 8:36 AM WORM RAISER Gender Identity Not on file Sexual Orientation Not on file documented as of this encounter Progress Notes * Heydi Reyes, PhD - 05/22/2018 9:00 AM CDT Psychology Note Date of Service: @TODAY@ Start time: 9:10 End time: 10:00 Interval History: @NAME arrived 10 minutes late, which happens frequently. Clearly tired and rushedlooking. Discussed lateness, she understands. I haven't been sleeping well so I took Benadryl...Things have been insane still but life is getting better and things are coming together . 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 Recognizes she is over scheduled and this has been a pattern and is intentionally trying to change this. Going to see family in 2 weeks. First time in years she will see entire family-B coming in from [place]. This discussed, but mostly from my queries. She described frustration and lack of effectiveness in the family scheduling and making decisions (hard to get clear picture). Said she felt overwhelmed and tired so hard for her to think things through, make plans right now. However describes F and both Bs as they are all so critical . wanting her to make decisions and then not agreeing with them, Bs as mainly interacting with her by giving unsolicited advice and scrutinizing her decisions/t how she is handling things but saying very little that felt positive or affirming (longstanding). This all took quite a bit to clarify. Did not distinguish brothers initially but with query says Gonzalez sensitive and serious, neer happy and everyone caters to him to try to make him happy. Milad is I'm just trying to be an easy sharad but in reaity is not, in her view. Feels that Bs have always beengiven preference from dad. Feels her M, SF and SM are more supportive. Bs girlfriends have pointed out to them how critical they can be of Aziza. Aziza lacked specific clear thoughts/goals for how she could manage this situation more effectively although expressed confidence that she would. Mental Status Exam: 1. General appearance and behavior: good eye contact, pleasant, tired/rushed looking 2. Speech: regular 3. Flow of thought: scattered quality 4. Content of thought: no suicidal ideation 5. Mood: Communicates being stressed and overwhelmed but also optimistic 6. Affect: congruent, high reactivity 7. Insight: varies 8. Judgement: good 9. Sensorium: alert Psychotherapy Focus: Interpersonal focus on upcoming family get-together, first in years for everyone, and longstanding emotional/communication issues. Goal to clarify what happens when things are working better or not working, to get a sense of what actually happens in communication issues, and to focus Aziza more clearly on how she might more effectively manage issues. One issue is that she can approach in scattered fashion. Not developing a more specific and detailed picture of a major element, and the tendencyto react rather than to think in advance what she is wanting to happen and what she can do about that. We did eventually identify detail of Mara giving unsolicited advice that sounds like criticism, when she is just wanting to talk about life and connect. Queried if she could best manage this individually or in a group setting (she did not know, I suggested individually) and how she could raise this with soft start-up and presenting a positive intention (I'm just wanting us to enjoy our time together and catch up), then asking for them to please not offer advice unless she asked. She thought she could do this. Assessment: Major depression recurrent Anxiety ADHD Plan Continue psychotherapy every 2 weeks documented in this encounter Plan of Treatment Not on file documented as of this encounter Visit Diagnoses Diagnosis Major depressive disorder, recurrent episode, moderate (HCC)- Primary Major depressive disorder, recurrent episode, moderate Anxiety disorder, unspecified type ADHD (attention deficit hyperactivity disorder), combined type Attention deficit disorder with hyperactivity documented in this encounter Care Teams Bronc Breaker Relationship Specialty Start Date End Date Estrellita Alonzo MD [address] [facility] [address] [place] [address] PCP - General 03/05/17 documented as of this encounter
--- OUTSIDE RECORDS SUMMARY | 2024-10-06 21:46 | XMS_ITS | Encounter Summary ---
Author Organization [facility] Address [address] [place] [address] Phone Care Team Providers Care Wire Strander Name Role Phone Kirk Alonzo MD Primary Care Provider [phone] Reason for Visit * Oncology (Routine) - Closed Specialty Diagnoses / Procedures Referred By Filipe t Referred To Contact Gynecologic Oncology Diagnoses Appt Comment: FOLLOW UP- PUBLIC AFFAIRS MANAGER ULTRASOUND Reason For Visit: Follow Up - 3 months Procedures PUBLIC AFFAIRS MANAGER RETURN [facility] [address] [facility] Advanced Medicine [address]th [place] [address] Phone: tel: fax: Camila Swenson MD [address] [facility] [phone] [place] [address] Phone: tel: fax: Referral ID Status Reason Start Date Expiration Date Visits Re quested Visits Authorized [id number] Closed 06/16/2018 12/26/2019 1 1 Encounter Details Date Type Department Care Team (Late st Contact Info) Description 06/16/2018 10:00 AM CDT Office Visit [facility] [address] [facility] [address] [place] [address] Camila Swenson MD [address] [facility] [phone] [place] [address] History of ovarian cancer (Primary Dx) Social History Tobacco Use Types Packs/Day Years Used Date Smoking Tobacco: Never Smokeless Tobacco: Never Alcohol Use Standard Drinks/Week Comments Yes 0 (1 standard drink = 0.6 oz pur e alcohol) Comments No Sex and Gender Information Value Date Recorded Sex Assigned at Not on file Legal Sex Female 8:36 AM MANAGER UTILITIES Gender Identity Not on file Sexual Orientation Not on file documented as of this encounter Last Filed Vital Signs Vital Sign Reading Time Taken Comments Blood Pressure 110/72 06/16/2018 10:19 AM CDT Pulse 66 06/16/2018 10:19 AM CDT Temperature 37.3 ??C (99.2 ??F) 06/16/2018 10:19 AM C DT Respiratory Rate - - Oxygen Saturation 100% 06/16/2018 10:19 AM CDT Inhaled Oxygen Concentration - - Weight 74.6 kg (164 lb 8 oz) 06/16/2018 10:19 AM CDT Height 174 cm (5' 8.5 ) 06/16/2018 10:19 AM CDT Body Mass Index 24.65 06/16/2018 10:19 AM CDT documented in this encounter Progress Notes * Camila Swenson MD - 06/16/2018 12:00 AM CDT PATIENT: OLGA ESPINOSA : 1985 AKASH: 06/16/2018 REASON FOR VISIT: 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 HISTORY OF PRESENT ILLNESS: Ms. Espinosa is a lisy 33-year-old female who on routine physical examination before starting occupational therapy in [place] was found to have a 10 cm [...] quadrant. The patient continues to be in routine surveillance. The patient has been doing well, except for the fact that she has had a dermatologic rash due to poison osiel. The patient has been on steroids due to this. Her last menstrual cycle was 2 weeks ago. She does complain of some fatigue. She continues to have easy bruising. She has an IUD in place. She denies any fever, chills, nausea, vomiting, changes in or GI habits, abdominal pain, abdominal bloating, pelvic pain, or pelvic pressure. PAST MEDICAL HISTORY/REVIEW OF SYSTEMS: Unchanged from 05/28/2016 except for the above updates noted above. PHYSICAL EXAMINATION: Vital Signs: Her blood pressure is 110/72. Her pulse is 66. Her weight is 164 pounds, which is an increase of 3 pounds. General Appearance: The patient is a well-developed, [...] Normoactive bowel sounds. She has no puckering on her rightlower quadrant incision when she lies flat. Extremities: No clubbing, cyanosis, or edema. Neurologic: The patient is awake, alert, and oriented x 3. Pelvic Exam: External genitalia: Within normal limits. Urethra: Without masses or tenderness. Urethral meatus: Without any lesions or prolapse. Bladder: No masses or tenderness. Vulva: Normal. Speculum Exam: On speculum examination, there is a copious amount of discharge. IUD strings cannot be visualized. Bimanual: Cervix feels normal in size, shape, and consistency. Uterus feels normal in size. The left adnexa is surgically absent. The right adnexa cannot be palpated. Rectovaginal: Exam is confirmatory. DATA: Her cytology from 07/08/2017 was negative for squamous intraepithelial lesion and HPV high-risk negative. Her last CA-125 was on 03/07/2018 and was noted to be 6.7. 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 1. Serous LMP tumor: The patient's CA-125 will be checked today. The patient is due for an ultrasound in the next 1 to 2 weeks. 2. Genetics: The patient understands that her mother's genetic testing results are still pending. The patient has not spoken with her mother to receive this again. 3. Pap smear: The patient's next Pap smear will be done in June 2020, unless there are any newissues that arise. 4. Follow-up will be in 6 months' time, since she is now past her 2-year anniversary. ELECTRONICALLY SIGNED - 06/16/2018 06:04 PM Camila Swenson M.D. Instructor Private, Department of Obstetrics and Gynecology Division of Gynecologic Oncology [facility] PHT/lw/#[id number] cc: KIRK ALONZO MD / / documented in this encounter Miscellaneous Notes * Treatment Plan - Camila Swenson MD - 06/16/2018 10:00 AM CDT Please schedule Olga Espinosa for the following: Requested Order Contrast Indication When CXR CT Chest, Abdomen, and Pelvis CT Abdomen and Pelvis LEEP (during clinic hours) PUBLIC AFFAIRS MANAGER Ultrasound X 1-2 weeks MRI Mammogram PET Initiate Survivoship Care Plan Surveillance Labs (CBC w/ Diff, CMP, Magnesium, CA125) Labwork: CA 125 today and in 6 months documented in this encounter Plan of Treatment Not on file documented as of this encounter Results * CA 125 (01/19/2019 2:36 PM CDT) CA 125 ag 6.5 0.0 - 35.0 units/mL [facility] Blood specimen (specimen) 01/19/2019 2:36 PM CDT 01/19/2019 2:41 PM CDT Narrative LESLEE MARQUEZ - 01/19/2019 4:[address] [facility] LAB BLOOD ORDERABLES Fin al Result Performing Organization Address City/[facility]/ZIP Co de Phone Number [facility] [place] [address] * CA 125 (06/16/2018 12:18 PM CDT) CA 125 ag 6.8 0.0 - 35.0 units/mL [facility] Blood specimen (specimen) 06/16/2018 12:18 PM CDT 06/16/2018 12:36 PM CDT N[facility]ative [facility] - 06/16/2018 1:[address] [facility] Teddy Swenson MD LAB BLOOD ORDERABLES Fin al Result Performing Organization Address [facility] Co de Phone Number [facility] [place] [address] documented in this encounter Visit Diagnoses Diagnosis History of ovarian cancer- Primary Personal history of malignant neoplasm of ovary History of ovarian cancer Personal history of malignant neoplasm of ovary History of ovarian cancer Personal history of malignant neoplasm of ovary documented in this encounter Historical Medications * This list may reflect changes made after this encounter. levonorgestrel (MIRENA) IUD Mirena 20 mcg/24 hr (5 years) intrauterine device Take 1 device as needed by intrauterine route for 1 day. multivitamin tabletIndication s:Vitamin Deficiency Prevention zinc-vit C-pyridoxine, vit B6, 12-60-0.5 mg lozenge zinc miSOPROStol (CYTOTEC) 200 mcg tablet misoprostol 200 mcg tablet 0 diazePAM (VALIUM) 5 mg tablet Valium 5 mg tablet Take 1 tablet(s) an hour prior to procedure 0 venlafaxine XR (EFFEXOR-XR) 75 mg 24 hr capsule TK 1 C PO QD 1 05/14/2018 9 lisdexamfetamine (VYVANSE) 20 mg capsule Take 30 mg by mouth every morning 9 ALPRAZolam (XANAX) 0.25 mg tablet Xanax 9 diclofenac (CATAFLAM) 50 mg tablet diclofenac potassium 50 mg tablet 0 busPIRone (BUSPAR) 10 mg tabletIndication s:Generalized Anxiety Disorder buspirone 10 mg tablet 9 busPIRone (BUSPAR) 10 mg tabletIndication s:Generalized Anxiety Disorder 06/15/20 1 9 buspirone HCl (BUSPIRONE ORAL) BuSpar 08/15/20 2 0 ALPRAZolam (XANAX) 0.25 mg tablet alprazolam 0.25 mg tablet 0 added in this encounter Care Teams Wire Strander Relationship Specialty Start Date End Date Kirk Alonzo MD [address] [address] PCP - General 03/05/17 documented as of this encounter
--- OUTSIDE RECORDS SUMMARY | 2024-10-06 21:46 | XMS_ITS | Encounter Summary ---
Author Organization [facility] Address [address] [place] [address] Phone Care Team Providers Care Torsion [place] Coiling Machine Setter Name Role Phone Estrellita Alonzo MD Primary Care Provider [phone] Reason for Referral * Diagnostic Imaging (Routine) - Closed Specialty Diagnoses / Procedures Referred By Contac t Referred To Contact Diagnoses History of ovarian cancer Procedures US Pelvis Complete Camila Swenson MD Phone: tel: fax: [facility] (All Locations) Referral ID Status Reason Start Date Expiration Date Visits Re quested Visits Authorized [id number] Closed 05/12/2018 11/21/2019 1 1 Encounter Details Date Type Department Care Team (Late st Contact Info) Description 05/12/2018 Orders Only [facility] Obstetrics and Gynecology [address] [facility] Advanced Medicine 13th [place] [address] [place] [address] Roderick Escobar RN History of ovarian cancer (Primary Dx) Social History Tobacco Use Types Packs/Day Years Used Date Smoking Tobacco: Never Comments Unknown Sex and Gender Information Value Date Recorded Sex Assigned at Not on file Legal Sex Female 8:36 AM 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 Gender Identity Not on file Sexual Orientation Not on file documented as of this encounter Plan of Treatment Not on file documented as of this encounter Results * US Pelvis Complete (07/03/2018 11:19 AM CDT) Cul de Sac No free fluid visualized [facility] Endometrial Thickness 4.2 mm&millim eters [facility] Anatomical Region Laterality Modality Pelvis N/A Ultrasound 07/03/2018 11:1 9 AM CDT us Premal Teddy Swenson MD IMG US PROCEDURES Final Result documented in this encounter Visit Diagnoses Diagnosis History of ovarian cancer- Primary Personal history of malignant neoplasm of ovary documented in this encounter Care Teams [place]ion [place] Coiling Machine Setter Relationship Specialty Start Date End Date Estrellita Alonzo MD [address] [address] PCP - General 03/05/17 documented as of this encounter
--- OUTSIDE RECORDS SUMMARY | 2024-10-06 21:46 | XMS_ITS | Encounter Summary ---
Author Organization [facility] Address [address] [place] [address] Phone Care Team Providers Care Pouncer Machine Name Role Phone Estrellita Alonzo MD Primary Care Provider [phone] Reason for Visit * Behavioral Health (Routine) - Closed Specialty Diagnoses / Procedures Referred By Filipe dorsey Referred To Contact Psychology Diagnoses Appt Comment: PER PC WITH PT/ STANDING Procedures RETURN Referral, Self Heydi Reyes, PhD [address] [place] [address] Phone: tel: Referral ID Status Reason Start Date Expiration Date Visits Re quested Visits Authorized [id number] Closed 05/22/2018 12/01/2019 12 12 Encounter Details Date Type Department Care Team (Latest Contact Info) Description 07/30/2018 12:00 PM CDT Office Visit [facility] Psychiatry [facility] [place] [phone] Heydi Reyes, PhD [address] [place] [address] Major depressive disorder, recurrent episode, [...] on file Legal Sex Female 8:36 AM ROOF SLATER Gender Identity Not on file Sexual Orientation Not on file documented as of this encounter Progress Notes * Heydi Reyes, PhD - 07/30/2018 12:00 PM CDT Psychology Note Date of Service: @TODAY@ Start time: 12:00 End time: 1:00 Interval History: Aziza completes self-report measures pre-session endorsing continued high levelsof anxious and depressive symptoms (no SI). PHQ-9 18 WILFREDO-7 17 States however OK-things are fine. I think I responded high to those things..inflammatory bowel disease think it's burn out . She then reports a number of experiences, feelings, situations with detail but query and pausing needed to get more clear picture. I focus on her high report of PHQ9 of feeling bad about herself, and ultimately attain more focus on: Why can't I get this done (school work) Why can't I focus Why am I so tired I feel so scattered Feelings of weakiness, insecurity of not feeling good enough Questioning if she is smart enough compared to other students Questioning if she is connecting with others in her new program Feeling that her family members question her basic judgment and assume she has not considered cautionary material which she says she has I see the above as having both cognitive style and emotional style aspects She states My self-talk is definitely better than it was but the feelings still exist and it can be exhausting To the good, she finished the final paper to complete her earlier program. She used Action Plan we developed but it took extra days. She is glad this is in. I ask her to review and distill what she did that was effective-using query and clarification. Mental Status Exam: 1. General appearance and behavior: cooperative, good eye contact 2. Speech: verbose, circumstantial quality, emotion focused in overall bright person 3. Flow of thought: logical but not sequential, has scattered quality 4. Content of thought: no suicidal ideation 5. Mood: reports daily worry, down nervous half the days. Also has positive emotions and a readiness to feel happy or enthusiastic with positive events 6. Affect: pleasant with me and affiliative in general, high emotional reactivity (positive and negative) 7. Insight: pretty good 8. Judgement: good 9. Sensorium: alert Psychotherapy Focus: On matters above. Review of effective behaviors in completing paper: I printed out hard copy (she does better getting things out on paper) Accepting that some days it was not possible While keeping in mind this needed to be prioritized and she would feel better having it completed Contingent plan to get help if needed at writing center Better done than perfect Re: communication issues, she recongizes I think it effects my relationships I gave feedback based on my observations- comprehension strong but working memory/attentional/sequencing relative issues-she agrees this is likely the case. She is smart, there are skills she needs to work on to be more effective Discuss communication that is in way of some of her goals with idea to focus on: Start at beginning and finish the complete thought Say less but focus on the most important details (she notes worrying about forgetting some of her thoughts so she pushes to get them all out, sometimes probably taxing the listener She may have mild cluttering and I mention [facility] speech clinic as something to consider for thesummer (she has too much going on right now) Assessment: Solange depression recurrent moderate Generalized anxiety ADHD Plan Return in 2 weeks for psychotherapy documented in this encounter Plan of Treatment Not on file documented as of this encounter Visit Diagnoses Diagnosis Major depressive disorder, recurrent episode, moderate (HCC)- Primary Major depressive disorder, recurrent episode, moderate Anxiety disorder, unspecified type ADHD (attention deficit hyperactivity disorder), combined type Attention deficit disorder with hyperactivity documented in this encounter Care Teams Pouncer Machine Relationship Specialty Start Date End Date Estrellita Alonzo MD [address] [address] PCP - General 03/05/17 documented as of this encounter
--- OUTSIDE RECORDS SUMMARY | 2024-10-06 21:46 | XMS_ITS | Encounter Summary ---
Author Organization [facility] Healthcare Address [address] [place] [address] Care Team Providers Care Development Planner Name Role Phone Estrellita Alonzo MD Primary Care Provider [phone] Encounter Details Date Type Department Care Team (Late st Contact Info) Description 06/16/2018 12:15 PM CDT Lab [facility] Advanced Medicine [facility] Advanced Medicine ([facility]) [address] [place] [phone] Social History Tobacco Use Types Packs/Day Years Used Date Smoking Tobacco: Never Smokeless Tobacco: Never Alcohol Use Standard Drinks/Week Comments Yes 0 (1 standard drink = 0.6 oz pur e alcohol) Comments No Sex and Gender Information Value Date Recorded Sex Assigned at Not on file Legal Sex Female 8:36 AM WATER METER 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
--- OUTSIDE RECORDS SUMMARY | 2024-10-06 21:46 | XMS_ITS | Encounter Summary ---
Author Organization [facility] Facility Care Team Providers Care Personal Care Assistant Name Role Phone Unavailable Primary Care Provider Unavailabl e Encounter Details Date Type Department Care Team (Latest Contact Info) Description 10/29/2016 3:12 PM BOILERMAKER - 10/29/2016 11:59 PM BOILERMAKER Hospital Encounter [facility] Camila Balderrama MD [address] [facility] [phone] [place] [address] Cyst of ovary; Presence of (intrauterine) contraceptive device; Acquired absence of one ovary; Family history of malignant neoplasm of ovary Social History Tobacco Use Types Packs/Day Years Used Date Smoking Tobacco: Never Comments Unknown Sex and Gender Information Value Date Recorded Sex Assigned at Not on file Legal Sex Female 8:36 AM BOILERMAKER Gender Identity Not on file Sexual Orientation Not on file documented as of this encounter Plan of Treatment Not on file documented as of this encounter Visit Diagnoses Diagnosis Cyst of ovary Other and unspecified ovarian cyst Presence of (intrauterine) contraceptive device Presence of intrauterine contraceptive device Acquired absence of one ovary Family history of malignant neoplasm of ovary documented in this encounter
--- OUTSIDE RECORDS SUMMARY | 2024-10-06 21:46 | XMS_ITS | Encounter Summary ---
Author Organization [facility] Healthcare Address [address] [place] [address] Care Team Providers Care Icu Clerk Name Role Phone Estrellita Alonzo MD Primary Care Provider [phone] Encounter Details Date Type Department Care Team (Late st Contact Info) Description 06/16/2018 12:30 PM CDT Lab [facility] Advanced [facility] Advanced Medicine ([facility]) [address] [place] [phone] History of ovarian cancer Social History Tobacco Use Types Packs/Day Years Used Date Smoking Tobacco: Never Smokeless Tobacco: Never Alcohol Use Standard Drinks/Week Comments Yes 0 (1 standard drink = 0.6 oz pur e alcohol) Comments No Sex and Gender Information Value Date Recorded Sex Assigned at Not on file Legal Sex Female 8:36 AM WEB CONTENT EXECUTIVE Gender Identity Not on file Sexual Orientation Not on file documented as of this encounter Plan of Treatment Not on file documented as of this encounter Procedures Procedure Name Priority Date/Time Associated Diagnosis Comments CA 125 Routine 06/16/2018 12:18 PM CDT History of ovarian cancer documented in this encounter Results * CA 125 (06/16/2018 12:18 PM CDT) CA 125 ag 6.8 0.0 - 35.0 units/mL LESLEE GARDNER Blood specimen (specimen) 06/16/2018 12:18 PM CDT 06/16/2018 12:36 PM CDT Narrative LESLEE MARQUEZ - 06/16/2018 1:19 PM CDT us Premal Teddy Swenson MD LAB BLOOD ORDERABLES Fin al Result LESLEE MARQUEZ One [facility] Department [place] [address] documented in this encounter Visit Diagnoses Diagnosis History of ovarian cancer Personal history of malignant neoplasm of ovary documented in this encounter Care Teams Icu Clerk Relationship Specialty Start Date End Date Estrellita Alonzo MD [address] [facility] [address] [place] [address] PCP - General 03/05/17 documented as of this encounter
--- OUTSIDE RECORDS SUMMARY | 2024-10-06 21:46 | XMS_ITS | Encounter Summary ---
Author Organization [facility] Facility Care Team Providers Care Early Interventionist Name Role Phone Unavailable Primary Care Provider Unavailabl e Encounter Details Date Type Department Care Team (Latest Contact Info) Description 06/05/2016 2:28 PM CDT - 06/05/2016 11:59 PM CDT Hospital Encounter [facility] Camila Balderrama MD [address] [facility] [phone] [place], [place] [phone] Encounter for preprocedural laboratory examination; Noninflammatory disorder of ovary, fallopian tube and broad ligament, unspecified; Other chronic pain; Pelvic and perineal pain; History of methicillin resistant Staphylococcus aureus infection; 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 Social History Tobacco Use Types Packs/Day Years Used Date Smoking Tobacco: Never Comments Unknown Sex and Gender Information Value Date Recorded Sex Assigned at Not on file Legal Sex Female 8:36 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 Gender Identity Not on file Sexual Orientation Not on file documented as of this encounter Plan of Treatment Not on file documented as of this encounter Procedures Procedure Name Priority Date/Time Associated Diagnosis Comments URINE CHORIONIC GONADOTROPIN (HCG) Routine 06/05/2016 4:51 PM CDT SERUM LACTATE DEHYDROGENASE (LDH) Routine 06/05/2016 4:51 PM CDT SERUM INHIBIN Routine 06/05/2016 4:51 PM CDT PLASMA COMPREHENSIVE METABOLIC PANEL Routine 06/05/2016 4:51 PM CDT BLOOD CELL COUNT (CBC) Routine 6 4:51 PM CDT BLOOD ABO, RH, INDIRECT AB SCREEN Routine 06/05/2016 4:51 PM CDT BLOOD CELL MORPHOLOGIC EXAM Routine 06/05/2016 4:51 PM CDT SERUM ALPHA FETOPROTEIN, NEW Routine 06/05/2016 11:51 AM CDT DISCHARGE LABORATORY CUMULATIVE REPORT 06/05/2016 documented in this encounter Results * Serum inhibin (06/05/2016 4:51 PM CDT) [facility] Inhibin A 27 pg/ml [facility] HISTOR ICAL RESULTS Comment: REFERENCE VALUE <97.5 (Premenopausal) <2.1 ??(Postmenopausal) ADDITIONAL INFORMATION The testing method is an immunoenzymatic assay manufactured by [employer]. and performed on the [employer] DxI 800. Values obtained with different assay methods or kits may be different and cannot be used interchangeably. ? Test results cannot be interpreted as absolute evidence for the presence or absence of malignant disease. ? Inhibin A values are not interpretable in females for the investigation of malignant disease. Inhibin B 43 pg/ml CDR HISTOR ICAL RESULTS Comment: REFERENCE VALUE <139 (Premenopausal, Follicular) <92 (Premenopausal, Luteal) <10 (Postmenopausal) ADDITIONAL INFORMATION The testing method is a manual immunoenzymatic assay manufactured by [employer] ??Values obtained with different assay methods or kits may be different and cannot be used interchangeably. If this test is being ordered as a tumor marker, results cannot be interpreted as absolute evidence for the presence or absence of malignant disease. Test Performed by: [place] [address] Bat Lathe Operator: Shaggy Soto II, M.D., Ph.D. Serum 06/05/2016 4:[address] [facility] Camila Swenson MD LAB BLOOD ORDERABLES Fin al Result Performing Organization Address [facility] de Phone Number CDR HISTORICAL RESULTS * Serum lactate dehydrogenase (LDH) (06/05/2016 4:51 PM CDT) Pathologist [facility] Lactate dehydrogenase (LDH) 153 100 - 250 Units/L CDR HISTORICAL RESULTS Serum 06/05/2016 4:51 PM CDT [facility] LAB BLOOD ORDERABLES Fin al Result Performing Organization Address [facility] de Phone Number CDR HISTORICAL RESULTS * Blood ABO, Rh, indirect ab screen (06/05/2016 4:51 PM CDT) Pathologist [facility] ABO, Rho(D) A Positive CDR HIS TORICAL RESULTS Farzaneh, indirect Negative CDR HISTORICAL RESULTS Blood specimen (specimen) 06/05/2016 4:[address] [facility] LAB BLOOD ORDERABLES Fin al Result Performing Organization Address [facility] de Phone Number CDR HISTORICAL RESULTS * Urine chorionic gonadotropin (HCG) (06/05/2016 4:51 PM CDT) HCG, ur Negative CDR HISTOR ICAL RESULTS Urine 06/05/2016 4:51 PM CD[address] [facility] MD LAB BLOOD ORDERABLES Fin al Result CDR HISTORICAL RESULTS * (ABNORMAL) Plasma comprehensive metabolic panel (06/05/2016 4:51 PM CDT) Sodium 140 135 - 145 mmol/L CDR HISTORICAL RESULTS Creatinine 0.66 0.60 - 1.10 mg/dl CDR HISTORICAL RESULTS K, pl 3.7 3.3 - 4.9 mmol/L CDR HISTORICAL RESULTS Calcium 9.4 8.5 - 10.3 mg/dl CDR HISTORICAL RESULTS Chloride 101 97 - 110 mmol/L CDR HISTORICAL RESULTS Protein, pl 7.1 6.5 - 8.5 g/dl CDR HISTORICAL RESULTS CO2 26 22 - 32 mmol/L CDR HISTORICAL RESULTS Alb 4.3 3.5 - 5.0 g/dl CDR HISTORICAL RESULTS A. gap 12 2 - 15 mmol/L CDR HISTORICAL RESULTS Bilirubin 0.5 0.1 - 1.2 mg/dl CDR HISTORICAL RESULTS Glucose 78 70 - 199 mg/dl CDR HISTORICAL RESULTS Alk phos 36(L) 40 - 130 Units/L CDR HISTORICAL RESULTS BUN 10 8 - 25 mg/dl CDR HISTORICAL RESULTS AST 21 10 - 45 Units/L CDR HISTORICAL RESULTS ALT 18 7 - 45 Units/L CDR HISTORICAL RESULTS Plasma 06/05/2016 4:51 PM CDT us Premal Teddy Swenson MD LAB BLOOD ORDERABLES Nadeem luevano Result Performing Organization Address City/[facility] Co de Phone Number CDR HISTORICAL RESULTS * Blood cell count (CBC) (06/05/2016 4:51 PM CDT) WBC 7.4 3.8 - 9.9 K/cumm CDR HISTORICAL RESULTS RBC 4.13 3.90 - 5.20 M/cumm CDR HISTORICAL RESULTS Hgb 13.2 11.9 - 15.5 g/dl CDR HISTORICAL RESULTS Hct 39.1 35.6 - 45.5 % CDR HISTORICAL RESULTS MCV 94.7 81.3 - 96.4 fl CDR HISTORICAL RESULTS MCH 32.0 27.1 - 33.3 pg CDR HISTORICAL RESULTS MCHC 33.8 32.3 - 35.7 g/dl CDR HISTORICAL RESULTS Rdw 12.4 11.1 - 14.9 % CDR HISTORICAL RESULTS RDW 43.2 35.7 - 48.1 fl CDR HISTORICAL RESULTS Platelets 271 150 - 400 K/cumm CDR HISTORICAL RESULTS MPV 9.6 9.1 - 12.3 fl CDR HISTORICAL RESULTS NRBC 0.0 0.0 - 0.2 % CDR HIST ORICAL RESULTS NRBC, abs 0.00 0.00 - 0.01 K/cumm CDR HISTORICAL RESULTS Blood specimen (specimen) 06/05/2016 4:51 PM CDT Camila Swenson MD LAB BLOOD ORDERABLES Fin chloé Result CDR HISTORICAL RESULTS * Blood cell morphologic exam (06/05/2016 4:51 PM CDT) Neutrophils 68.2 % CDR HIST ORICAL RESULTS Immature granulocytes 0.3 % CDR HISTORICAL RESULTS Lymphocytes 22.0 % CDR HIST ORICAL RESULTS Monos 7.5 % CDR HISTOR ICAL RESULTS Eosinophils 1.6 % CDR HIST ORICAL RESULTS Basophils 0.4 % CDR HISTOR ICAL RESULTS Neutrophils, abs 5.0 1.7 - 6.5 K/cumm CDR HISTORICAL RESULTS Immature granulocyte, abs 0.0 0.0 - 0.1 K/cumm CDR HISTORICAL RESULTS Lymphocytes, abs 1.6 0.8 - 3.3 K/cumm CDR HISTORICAL RESULTS Monocytes, absolute 0.6 0.2 - 0.8 K/cumm CDR HISTORICAL RESULTS Eosinophils, abs 0.1 0.0 - 0.5 K/cumm CDR HISTORICAL RESULTS Basophils, abs 0.0 0.0 - 0.1 K/cumm CDR HISTORICAL RESULTS Blood specimen (specimen) 06/05/2016 4:51 PM CDT Camila Swenson MD LAB BLOOD ORDERABLES Fin chloé Result CDR HISTORICAL RESULTS * Serum alpha fetoprotein, new (06/05/2016 11:51 AM CDT) alpha Fetoprotein 2.7 0.0 - 8.3 ng/ml CDR HISTORICAL RESULTS Serum 06/05/2016 11:5 1 AM CDT Narrative CDR HISTORICAL RESULTS - 06/05/2016 2:11 PM CDT The method for this assay was changed on January 24, 2016. For a period of six months the new assay result will be reported alongside results from the old assay method. For patients being monitored, the new results should be interpreted in the context of any changes in the old results. If you have questions please call the chemistry laboratory at [phone] ??or the lab medicine resident compressor station engineer [phone]. Option #2 us Premal Teddy Swenson MD LAB BLOOD ORDERABLES Fin al Result CDR HISTORICAL RESULTS * DISCHARGE LABORATORY CUMULATIVE REPORT (06/05/2016) Narrative 06/05/2016 Ordered by an unspecified provider. Historical Provider LAB BLOOD ORDERABLES Emely l Result documented in this encounter Visit Diagnoses Diagnosis Encounter for preprocedural laboratory examination Noninflammatory disorder of ovary, fallopian tube and broad ligament, unspecified Other chronic pain Pelvic and perineal pain History of methicillin resistant Staphylococcus aureus infection Other long-term (current) drug therapy documented in this encounter
--- OUTSIDE RECORDS SUMMARY | 2024-10-06 21:46 | XMS_ITS | Encounter Summary ---
Author Organization [facility] Address [address] [place] [address] Phone Care Team Providers Care Manager Company Name Role Phone Estrellita Alonzo MD Primary Care Provider [phone] Reason for Visit * Behavioral Health (Routine) - Closed Specialty Diagnoses / Procedures Referred By Filipe t Referred To Contact Psychology Diagnoses Appt Comment: PER PC WITH PT/ STANDING Procedures RETURN Referral, Self Heydi Reyes, PhD [address] [place] [address] Phone: tel: Referral ID Status Reason Start Date Expiration Date Visits Re quested Visits Authorized [id number] Closed 05/22/2018 12/01/2019 12 12 Encounter Details Date Type Department Care Team (Latest Contact Info) Description 08/27/2018 2:30 PM WIRE COATING MACHINE OPERATOR Office Visit [facility] Psychiatry [facility] [place] [address] Heydi Reyes, PhD [address] [place] [address] Major depressive disorder, recurrent episode, [...] on file 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 However she reports I think things are better. I got a few full nights of sleep. I feel more capable . She recently saw Dr. Oates. Aziza tells me she has not really taken ADD med since February. She expressed feeling disorganized and a bit of a mess, Dr. Oates rec she re-start and use the medicine more regulary. She has the past 3 days. In session-there is a very signficantdifference. Her pace is more moderate, she begins with a main thought and finishes the thought. Circ umstantiality and scatter in communicaiton are much less. I give her some of these feedback and sherecognizes the difference. She recognizes these issues may be a factor in relationship frustration (when asked what specifically, That I have lots of thoughts and then say losts of things. Being allover). On meds she feels Less frantic, more mindful of time and what she should be doing when, more able to focus, more clarity in her thoughts, less needing to move a lot . However she does not like everything-such as feels less able to multi-taks, less able to see a lot of things going on at once and being able to bring that together. She wrestles with feeling that I can't just be me , and doesn't want to depend on medicine all the time. She does ackowlege that for now, with school, it is helpful. We discuss relationship concerns, Alexis ending the relationship. I'm tired of feeling bad about myself because of men . Mental Status Exam: 1. General appearance and behavior: cooperative 2. Speech: regular rate (not pressured while on med today) 3. Flow of thought: more sequential, much easier to follow, can stay with main idea and complete the thought 4. Content of thought: no suicidal ideation 5. Mood: Depressed and anxious more than half the days 6. Affect: appropriate, more regulated though not as sparky 7. Insight: good, although feels she has limited understanding of her relationships with men 8. Judgement: good 9. Sensorium: alert Psychotherapy Focus: On noting the differences on versus off her psychostimulant- the differences in interaction are very clear. Processing this and her feelings aobut it. Discussion of her disappointments in romantic relationships. Signs that a relationship is not promising. Assessment: Major depression recurrent moderate Generalized Anxiety ADHD Plan Return in 2 weeks for psychotherapy COATING MACHINE OPERATOR documented in this encounter Plan of Treatment Not on file documented as of this encounter Visit Diagnoses Diagnosis Major depressive disorder, recurrent episode, moderate (HCC)- Primary Major depressive disorder, recurrent episode, moderate Anxiety disorder, unspecified type ADHD (attention deficit hyperactivity disorder), combined type Attention deficit disorder with hyperactivity documented in this encounter Care Teams Manager Company Relationship Specialty Start Date End Date Estrellita Alonzo MD [address] [facility] [address] [place] [phone] PCP - General 03/05/17 documented as of this encounter
--- OUTSIDE RECORDS SUMMARY | 2024-10-06 21:46 | XMS_ITS | Encounter Summary ---
Author Organization [facility] Address [address] [place] [address] Phone Care Team Providers Care Tempering Kiln Tender Name Role Phone Estrellita Alonzo MD Primary Care Provider [phone] Encounter Details Date Type Department Care Team (Late st Contact Info) Description 05/05/2018 Telephone [facility] [address] [place] [address] Babita Orta Social History Tobacco Use Types Packs/Day Years Used Date Smoking Tobacco: Never Comments Unknown Sex and Gender Information Value Date Recorded Sex Assigned at Not on file 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 documented in this encounter Plan of Treatment Not on file documented as of this encounter Visit Diagnoses Not on filedocumented in this encounter Care Teams Tempering Kiln Tender Relationship Specialty Start Date End Date Estrellita Alonzo MD [address] [facility] [address] [place] [address] PCP - General 03/05/17 documented as of this encounter
--- OUTSIDE RECORDS SUMMARY | 2024-10-06 21:46 | XMS_ITS | Encounter Summary ---
Author Organization [facility] Address [address] [place] [address] Care Team Providers Care Auto Headlight Mechanic Name Role Phone Estrellita Alonzo MD Primary Care Provider [phone] Reason for Visit * Diagnostic Imaging (Routine) - Closed Specialty Diagnoses / Procedures Referred By Contac t Referred To Contact Diagnoses History of ovarian cancer Procedures US Pelvis Complete Camila Swenson MD Phone: tel: fax: [facility] (All Locations) Referral ID Status Reason Start Date Expiration Date Visits Re quested Visits Authorized [id number] Closed 05/12/2018 11/21/2019 1 1 Encounter Details Date Type Department Care Team (Latest Contact Info) Description 07/03/2018 11:15 AM CDT Ancillary Procedure [facility] - Ultrasound [address] [facility] 7th Floor, [address] [place] [address] Camila Swenson MD [address] [facility] [phone] [place] [address] History of ovarian cancer Discharge Disposition: Discharge to home or self care Social History Tobacco Use Types Packs/Day Years Used Date Smoking Tobacco: Never Smokeless Tobacco: Never Alcohol Use Standard Drinks/Week Comments Yes 0 (1 standard drink = 0.6 oz pur e alcohol) Comments No Sex and Gender Information Value Date Recorded Sex Assigned at Not on file 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 Gender Identity Not on file Sexual Orientation Not on file documented as of this encounter Discharge Disposition Disposition Code Departure Means Destination Discharge to home or self care documented in this encounter Plan of Treatment Not on file documented as of this encounter Procedures Procedure Name Priority Date/Time Associated Diagnosis Comments US PELVIS COMPLETE Schedule Routine, Read Routine (OP Routine) 07/03/2018 11:19 AM CDT History of ovarian cancer documented in this encounter Results * US [...] ovary documented in this encounter Care Teams Auto Headlight Mechanic Relationship Specialty Start Date End Date Estrellita Alonzo MD [address] [address] PCP - General 03/05/17 documented as of this encounter
--- OUTSIDE RECORDS SUMMARY | 2024-10-06 21:46 | XMS_ITS | Encounter Summary ---
Author Organization [facility] Address [address] [place] [address] Phone Care Team Providers Care Plant Engineer Name Role Phone Estrellita Alonzo MD Primary Care Provider [phone] Reason for Visit * Behavioral Health (Routine) - Closed Specialty Diagnoses / Procedures Referred By Filipe dorsey Referred To Contact Psychology Diagnoses Appt Comment: PER PC WITH PT/ STANDING Procedures RETURN Referral, Self Heydi Reyes, PhD [address] [place] [address] Phone: tel: Referral ID Status Reason Start Date Expiration Date Visits Re quested Visits Authorized [id number] Closed 04/17/2018 10/27/2019 15 15 Encounter Details Date Type Department Care Team (Latest Contact Info) Description 06/18/2018 12:00 PM CDT Office Visit [facility] Psychiatry [facility] [place] [address] Heydi Reyes, PhD [address] [place] [address] Major depressive disorder, recurrent episode, [...] on file 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 Had awful poison osiel and sought tx-doc thought rare celiac, another mono- both ended upnegative. Insurance problems. Family visit and emotions issues around that. Her computer screen broke and initial assessment was a lot of money and time. She also reported still feeling sense of loss and hurt from relationship from last year, although is now seeing someone. Efforts to set an agenda: Discuss family visit- she wants to give short review due to more present concerns-but gave a lot ofdetail. However-she cares about her family but feels unfairly charged with making the relationshipswork and criticized by F and Bs. The picture seems to be of general high reactivity, people having difficulty just listening and people bringing up a lot complaints/negativity but very little constructive problem solving. Currently she reports difficulty transition with everything, with school with life. I'm strugglingto let go of the realtiosnip with Lon and the anxiety anger and emotional attachment . Mental Status Exam: 1. General appearance and behavior: good eye contact 2. Speech: verbose, mild pressure (characteristic) 3. Flow of thought: circumstantial bright but scattered,, reversals and often does not finish complete thought communicating with important others in her life, tamela. With conflicts 4. Content of thought: no SI 5. Mood: reports stress 6. Affect: can be expressively intense, often worked up but has positive intentions 7. Insight: fair to good 8. Judgement: good 9. Sensorium: alert Psychotherapy Focus: Tx efforts towards capturing main issues and concerns and putting them into a frame that can allow for learning and constructive actions or coping Note family comm patterns: Caring is present, excessive negativity in communications, difficulty arriving at solutions or changing when things are not working well Re: past relationship, also communication issues and difficulty negotiating different needs and expressive styles. This was reciprocal but she sees he did feel overwhelmed/flooded and responded with avoidance Rec: that she view [employer] videos on managing conflict, ratio of + to -, gridlock. She reports willingness. Assessment: Major depression recurrent Anxiety ADHD High reactivity Plan Return in 2 weeks for psychotherapy documented in this encounter Plan of Treatment Not on file documented as of this encounter Visit Diagnoses Diagnosis Major depressive disorder, recurrent episode, moderate (HCC)- Primary Major depressive disorder, recurrent episode, moderate Anxiety disorder, unspecified type ADHD (attention deficit hyperactivity disorder), combined type Attention deficit disorder with hyperactivity documented in this encounter Care Teams Plant Engineer Relationship Specialty Start Date End Date Estrellita Alonzo MD [address] [address] PCP - General 03/05/17 documented as of this encounter
--- OUTSIDE RECORDS SUMMARY | 2024-10-06 21:46 | XMS_ITS | Encounter Summary ---
Author Organization [facility] Care Team Providers Care Wood Milling Machine Tender Name Role Phone Unavailable Primary Care Provider Unavailabl e Encounter Details Date Type Department Care Team (Late st Contact Info) Description 11/23/2016 2:20 PM SKI PRODUCTION SUPERVISOR - 11/23/2016 11:59 PM SKI PRODUCTION SUPERVISOR Hospital Encounter [facility] Camila Balderrama MD [address] [facility] [id number] [place] [address] Cyst of ovary; Neoplasm of uncertain behavior of ovary Social History Tobacco Use Types Packs/Day Years Used Date Smoking Tobacco: Never Comments Unknown Sex and Gender Information Value Date Recorded Sex Assigned at Not on file Legal Sex Female 8:36 AM SKI PRODUCTION 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 Gender Identity Not on file Sexual Orientation Not on file documented as of this encounter Plan of Treatment Not on file documented as of this encounter Procedures Procedure Name Priority Date/Time Associated Diagnosis Comments SERUM CA 125 AG Routine 11/23/2016 2:24 PM SKI PRODUCTION SUPERVISOR DISCHARGE LABORATORY CUMULATIVE REPORT 11/23/2016 documented in this encounter Results * Serum CA 125 ag (11/23/2016 2:24 PM SKI PRODUCTION SUPERVISOR) CA 125 ag 6.8 0.0 - 35.0 Units/ml CDR HISTORICAL RESULTS Serum 11/23/2016 2:24 PM SKI PRODUCTION SUPERVISOR Camila Swenson MD LAB BLOOD ORDERABLES Fin al Result CDR HISTORICAL RESULTS * DISCHARGE LABORATORY CUMULATIVE REPORT (11/23/2016) Narrative 11/23/2016 Ordered by an unspecified provider. us Historical Provider LAB BLOOD ORDERABLES Emely l Result documented in this encounter Visit Diagnoses Diagnosis Cyst of ovary Other and unspecified ovarian cyst Neoplasm of uncertain behavior of ovary documented in this encounter
--- OUTSIDE RECORDS SUMMARY | 2024-10-06 21:46 | XMS_ITS | Encounter Summary ---
Author Organization [facility] Address [address] [place] [address] Phone Care Team Providers Care Veterinarian Epidemiologist Name Role Phone Estrellita Alonzo MD Primary Care Provider [phone] Reason for Visit * Behavioral Health (Routine) - Closed Specialty Diagnoses / Procedures Referred By Filipe dorsey Referred To Contact Psychology Diagnoses Appt Comment: PER PC WITH PT/ STANDING Procedures RETURN Referral, Self Heydi Reyes, PhD [address] [place] [address] Phone: tel: Referral ID Status Reason Start Date Expiration Date Visits Re quested Visits Authorized [id number] Closed 04/17/2018 10/27/2019 15 15 Encounter Details Date Type Department Care Team (Late st Contact Info) Description 04/17/2018 9:00 AM CDT Office Visit [facility] Psychiatry 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 Pre-session measuresGAD-7= 18-endorsing severe anxious worry and PHQ-9 score of 17-endorsing moderately severe depression in past 2 weeks. She states, these will be skewed but you will understand when you hear how lifehas been. It turns out I moved in with someone who may be a sociopath but I'm dealing with it . Discusses roommate situation- multiple issues she discusses in detail. Main issue was money- roommate owed money and did not repay and there was not expectation she would do this, but several other issues discussed. Gladys is moving out very soon and has found a new roommate. When asked about her fears that something awful could happen-it was that the roommate my let her cat Mario out to hurt Aziza-and that cat could be lost or killed. Gladys reported times she was so anxious or depressed that she felt almost unable to get out of bed and also felt her feelings were not being validated and she also feltat times gaslighted b her.. Syed friends were supportive and helpful. Gladys learned also this woman's prior roommate had issues with her. She is relieved she is moving out and will return to apt of prior landlord she likes very much. Session focused on catching up due to last appt 2 months ago and the situation that she links to the high feelings of anxiety and depression. Focus also on clarifying and encouraging a kind of weighting of different issues- and also to reflect on what can be learned from the difficult situation. She has more awareness of her tendenices to over-commit and then to feel spread too thin, stressed-but loves to do new and different things. 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 She also states despite high endorsed symptoms I am OK. Life is insane but it's pretty good- that's life. I can take care of myself and also reports exs of good feeling/positives. Mental Status Exam: 1. General appearance and behavior: good eye contact, pleasant, discusses stressors but also smilesand discusses other parts of life wit hgood humor and enjoyment 2. Speech: pressured at points (this is characteristic of her- an excitable quality to speech pattern) 3. Flow of thought: goal directed but scattered and circumstantial quality (characteristic) 4. Content of thought: brief passive SI under stress, no plan intent 5. Mood: anxious and depressed half the days but also optimitic (no hopelessness) 6. Affect: high emotional reacitivity by temperament, runs more intense and changeable than typical, sparky but also easily upset 7. Insight: good-fair 8. Judgement: good 9. Sensorium: alert Psychotherapy Focus: Review of roommate situation/incidents related to increased depression/anxiety. There is more stable friendship support-helpful She has solved the problelm- found new apartment In regard to learning issues, we discuss: - she has high positive feelings with new things that seem promising, but in some situations needs to slow down, discuss details and facts, show some caution. 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 She does agree with this observation. She also notes learning of importance of boundaries, stating hers on core issues and recogning that other people have liits to what then can handle, and respecting that Discussed jay tendency to over-schedule over-commit and how this leaves little flexibility when unexpected issues come up We did not have time to review TCI results today Assessment: Major depression, recurrent. She endorses moderate symptoms-this has the feel however of an adjustment reaction to roommate problem [id number] High emotional reactivity by temperament-emotionally excitable and energetic, high spirited but prone to emotional problems under stress Plan We discuss her psychotherapy needs. She reports that coming every 2 weeks is helpful to her in reviewing stressors and concerns, problem-solving and helping her process and reflect upon emotions and issues. Will schedule every 2 weeks for fall. I remind her of importance of regularity. Review TCI documented in this encounter Plan of Treatment Not on file documented as of this encounter Visit Diagnoses Diagnosis Major depressive disorder, recurrent episode, moderate (HCC)- Primary Major depressive disorder, recurrent episode, moderate Anxiety disorder, unspecified type documented in this encounter Care Teams Veterinarian Epidemiologist Relationship Specialty Start Date End Date Estrellita Alonzo MD [address] [facility] [address] [address] PCP - General 03/05/17 documented as of this encounter
--- OUTSIDE RECORDS SUMMARY | 2024-10-06 21:46 | XMS_ITS | Encounter Summary ---
Author Organization [facility] Address [address] [place] [address] Phone Care Team Providers Care Overhead Garage Door Hanger Name Role Phone Estrellita Alonzo MD Primary Care Provider [phone] Reason for Visit * Behavioral Health (Routine) - Closed Specialty Diagnoses / Procedures Referred By Filipe dorsey Referred To Contact Psychology Diagnoses Appt Comment: PER PC WITH PT/ STANDING Procedures RETURN Referral, Self Heydi Reyes, PhD [address] [place] [address] Phone: tel: Referral ID Status Reason Start Date Expiration Date Visits Re quested Visits Authorized [id number] Closed 04/17/2018 10/27/2019 15 15 Encounter Details Date Type Department Care Team (Latest Contact Info) Description 07/16/2018 2:30 PM CDT Office Visit [facility] Psychiatry [facility] [place] [address] Heydi Reyes, PhD [address] [place] [address] Major depressive disorder, recurrent episode, [...] file 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 It's taking a lot of brain poser. I don't know. There's so much going on. I've sat for two hours and got one paragraph written (but) it's close..I'm not feeling ano of it, I need a break. I'm irritable. I'm not focusing and I don't care. But I do care..don't want to be around people but I do, not for awhile..inflammatory bowel disease don't want to keep working (at felt demands) because everything takes effort..inflammatory bowel disease want people to be loving, I want people toreach out...i want to be left alone...'ll be OK. I'll push through . I note the above to indicate the difficulities with organization and focus. Aziza does indeed have high demands with the fast paced course of study, transition with new requirements and start up (e.g. Her insurance changed and picking up a script that took 10 minutes beforeturned into hours; her computer recently broke requiring new set up, lost time, work schedule conflicts. Etc)- and so her level of stress remains uncomfortably high. She has tendencies to over-schedule which makes her more vulnerable when something goes awry (she voices understanding of that) and cognitively she is bright but also scattered, especially with competing demands has difficulty choosing a focus and sticking it. It took some time to gain a toe-hold on a focus but it was clarified: I'm having trouble staying ontop of things, I'm having trouble staying organized . She is also having difficulty making decisions. When asked what could make a positive difference in next week-she agreed that finishing the papercould. We discuss details for clarification and action plan. Mental Status Exam: 1. General appearance and behavior: good eye contact, cooperative/affiliative/wantys closeness but difficulty with relationships 2. Speech: regular 3. Flow of thought: logical but scattered, often does not complete a thought/sentence before beginning another one, frequent reversals 4. Content of thought: no suicidal ideation but assesses she is not starting out new program keeping up and is likely correct 5. Mood: OK. Irritable, vulnerable, tired 6. Affect: she is pleasant with me, frequent shifts in affect, high emotional reactivity 7. Insight: pretty good 8. Judgement: good 9. Sensorium: alert Psychotherapy Focus: Query to identify, clarify and prioritize a problem list Validation that there are many competing demands-importance of chipping away by prioritizing and importance of learning that over-extending inevitably leads to stress and feeling bad that she cannot turn in quality work she wants Clarified that there are group school expectations and that there will be stress if she does not focus on those-important bc she is highly sensitive to interpersonal/relational stress or people feeling negatively about her Action plan for completing paper developed: She will print out hard copy of what she has and edit tomorrow morning If she is stuck with the writing and needs a neutral fresh pair of eyes to point out what is needed, she will visit writing center Assessment: Major depression recurrent Anxiety ADHD Rejection sensitivity/emotional reactivity by temperament Plan Return in 2 weeks for problem-solving and to organize coping efforts documented in this encounter Plan of Treatment Not on file documented as of this encounter Visit Diagnoses Diagnosis Major depressive disorder, recurrent episode, moderate (HCC)- Primary Major depressive disorder, recurrent episode, moderate Anxiety disorder, unspecified type ADHD (attention deficit hyperactivity disorder), combined type Attention deficit disorder with hyperactivity documented in this encounter Care Teams Overhead Garage Door Hanger Relationship Specialty Start Date End Date Estrellita Alonzo MD [address] [address] PCP - General 03/05/17 documented as of this encounter
--- OUTSIDE RECORDS SUMMARY | 2024-10-06 21:46 | XMS_ITS | Encounter Summary ---
Author Organization [facility] Address [address] [place] [address] Care Team Providers Care Contract Analyst Name Role Phone Estrellita Alonzo MD Primary Care Provider [phone] Encounter Details Date Type Department Care Team (Latest Contact Info) Description 04/01/2017 12:45 PM CDT - 04/01/2017 11:59 PM CDT Hospital Encounter [facility] INTERIM [phone] Estrellita Alonzo MD [address] [place] [address] Discharge Disposition: Discharge to home or self care Social History Tobacco Use Types Packs/Day Years Used Date Smoking Tobacco: Never Comments Unknown Sex and Gender Information Value Date Recorded Sex Assigned at Not on file 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 GONORRHOEAE/C. TRACHOMATIS AMPLIFICATION TEST Routine Gen Lab 04/01/2017 12:45 PM CDT RPR Routine Gen Lab 04/01/2017 12:45 PM CDT DISCHARGE LABORATORY CUMULATIVE REPORT 04/01/2017 documented in this encounter Results * N. gonorrhoeae/C. trachomatis amplification test (04/01/2017 12:45 PM CDT) Report Final Report: Negative for: ??Chlamydia trachomatis rRNA Negative for: ??Neisseria gonorrhoeae rRNA [facility] Urine 04/01/2017 12:4 5 PM CDT 04/01/2017 7:19 PM CDT N[facility]ative [facility] - 04/01/2017 7:19 PM CDT Testing performed by the GenPrized APTIMA Combo 2 Assay. This nucleic acid amplification test (NAAT) detects ribosomal RNA (rRNA) from Chlamydia trachomatis and Neisseria gonorrhoeae using target capture,and Multimedia Programmer-Mediated Amplification (TMA). This test is approved by the [place] Food and Drug Administration for endocervical, vaginal, and male urethral swab specimens, in addition to male and female urine specimens. The performance characteristics for these specimen types have been verified by the [facility].The performance characteristics of this assay for pharyngeal and rectal specimens collected from cervical swab collection devices have been validated and verified by the [facility]. Verification studies support a lack of cross reactivity with other Neisseria species considered normal oropharyngeal bacterial rajani. Rectal swab specimens containing excess stool may be inhibitory and result in false negatives for Chlamydia trachomatis or Neisseria gonorrhoeae. The performance characteristics of this test have not been evaluated in women or individuals less than 16 years of age. Estrellita Alonzo MD LAB MICROBIOLOGY - GENERAL O RDERABLES Final Result Performing Organization Address City/State/[facility] Co de Phone Number [facility] Department [place] [address] * RPR, serum (04/01/2017 12:45 PM CDT) RPR Nonreactive [facility] Blood specimen (specimen) 04/01/2017 12:45 PM CDT 04/01/2017 7:07 PM CDT Estrellita Alonzo MD LAB MICROBIOLOGY - GENERAL O RDERABLES Final Result Performing Organization Address City/[facility]/ZIP Co de Phone Number [facility] [place] [address] * HIV-1 and HIV-2 antibody with P24 antigen immunoassay (04/01/2017 12:45 PM CDT) HIV 1/2 ab + p24 ag Nonreactive Nonreactive [facility] Comment:Negative for HIV-1 a ntigen and HIV-1/ HIV-2 antibodies. No laboratory evidence of HIV infection. If acute HIV infection is suspected, consider testing for HIV-1 RNA. Blood specimen (specimen) 04/01/2017 12:45 PM CDT 04/01/2017 7:06 PM CDT us Estrellita Alonzo MD LAB MICROBIOLOGY - GENERAL O RDERABLES Final Result Performing Organization Address [facility] Co de Phone Number [facility] [place] [address] * DISCHARGE LABORATORY CUMULATIVE REPORT (04/01/2017) us Provider Scanning LAB BLOOD ORDERABLES Edited Re sult - Final documented in this encounter Visit Diagnoses Not on filedocumented in this encounter Care Teams Contract Analyst Relationship Specialty Start Date End Date Estrellita Alonzo MD [address] [facility] [address] [place] [address] PCP - General 03/05/17 documented as of this encounter
--- OUTSIDE RECORDS SUMMARY | 2024-10-06 21:46 | XMS_ITS | Encounter Summary ---
Author Organization [facility] Address [address] [place] [address] Phone Care Team Providers Care Mechanical Field Engineer Name Role Phone Estrellita Alonzo MD Primary Care Provider [phone] Encounter Details Date Type Department Care Team (Late st Contact Info) Description 06/18/2018 Orders Only [facility] Obstetrics and Gynecology [address] [facility] Advanced Medicine 13th [place] [address] [place] [address] Kat Nicholson RN Social History Tobacco Use Types Packs/Day Years Used Date Smoking Tobacco: Never Smokeless Tobacco: Never Alcohol Use Standard Drinks/Week Comments Yes 0 (1 standard drink = 0.6 oz pur e alcohol) Comments No Sex and Gender Information Value Date Recorded Sex Assigned at Not on file 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
--- OUTSIDE RECORDS SUMMARY | 2024-10-06 21:46 | XMS_ITS | Encounter Summary ---
Author Organization [facility] Care Team Providers Care Pasting Machine Operator Name Role Phone Unavailable Primary Care Provider Unavailabl e Encounter Details Date Type Department Care Team (Latest Contact Info) Description 06/12/2016 10:34 PM CDT - 06/13/2016 1:41 AM T Hospital Encounter [facility] Carlos Reeder MD [address] [place] [address] Incisional hernia, without obstruction or gangrene; Other acute postprocedural pain; Right lower quadrant pain; Anxiety disorder; Acquired absence of other genital organ(s); Acquired absence of one ovary Social History Tobacco Use Types Packs/Day Years Used Date Smoking Tobacco: Never Comments Unknown Sex and Gender Information Value Date Recorded Sex Assigned at Not on file 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
--- OUTSIDE RECORDS SUMMARY | 2024-10-06 21:46 | XMS_ITS | Encounter Summary ---
Author Organization [facility] Healthcare Address [address] [place] [address] Care Team Providers Care Brand Specialist Name Role Phone Estrellita Alonzo MD Primary Care Provider [phone] Encounter Details Date Type Department Care Team (Latest Contact Info) Description 03/05/2017 4:07 PM CDT - 03/05/2017 11:59 PM CDT Hospital Encounter [facility] INTERIM [phone] Camila Swenson MD [address] [facility] [id number] [place] [address] Discharge Disposition: Discharge to home or self care Social History Tobacco Use Types Packs/Day Years Used Date Smoking Tobacco: Never Comments Unknown Sex and Gender Information Value Date Recorded Sex Assigned at Not on file 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 Gender Identity Not on file Sexual Orientation Not on file documented as of this encounter Discharge Disposition Disposition Code Departure Means Destination Discharge to home or self care documented in this encounter Plan of Treatment Not on file documented as of this encounter Procedures Procedure Name Priority Date/Time Associated Diagnosis Comments CA 125 Routine Gen Lab 03/05/2017 4:19 PM CDT documented in this encounter Results * CA 125 (03/05/2017 4:19 PM CDT) CA 125 ag 6.1 0.0 - 35.0 units/mL [facility] Blood specimen (specimen) 03/05/2017 4:19 PM CDT 03/05/2017 5:23 PM CDT us Notinfile Unknown LAB BLOOD ORDERABLES Final Res ult [facility] Department [place] [address] documented in this encounter Visit Diagnoses Not on filedocumented in this encounter Care Teams Brand Specialist Relationship Specialty Start Date End Date Estrellita Alonzo MD [address] [address] PCP - General 03/05/17 documented as of this encounter
--- OUTSIDE RECORDS SUMMARY | 2024-10-06 21:46 | XMS_ITS | Encounter Summary ---
Author Organization [facility] Address [address] [place] [address] Phone Care Team Providers Care Chief Marketing Officer Name Role Phone Estrellita Alonzo MD Primary Care Provider [phone] Reason for Visit * Behavioral Health (Routine) - Closed Specialty Diagnoses / Procedures Referred By Filipe dorsey Referred To Contact Psychology Diagnoses Appt Comment: PER PC WITH PT/ STANDING Procedures RETURN Referral, Self Heydi Reyes, PhD [address] [place] [address] Phone: tel: Referral ID Status Reason Start Date Expiration Date Visits Re quested Visits Authorized [id number] Closed 04/17/2018 10/27/2019 15 15 Encounter Details Date Type Department Care Team (Latest Contact Info) Description 05/05/2018 9:00 AM CDT Office Visit [facility] Psychiatry 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 PHQ-9 was 15 (moderate + for depressive symptoms)-however the most signifcant compleitns were sleep/tiredness/appetite, while self-evaluation and mood problems were at mild levels. WILFREDO-7 score was 17 (severe anxious worry endorsed)- these scores are decreased a little bit from last time. She states, It will get better. 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 [place] today: Reviewed TCI results Letting go of this roommate situation because it's been really stressful . A friend told her to take care because sometimes (these types of situations) can create PTSD . I have all this anxiety about this person. And frustration and anger and being painted as though I'm unfair and unkind (when) she's so awful. It bothers me she gets to tell people she's a healer and this great person and she'snot . Also states she feels unsafe because of this person (in emotional, not physical sense). Aziza shows texts from roommate when she was being accused of being loud or having a republican. Keturahave a very different account of what actually occurred. Roommate chastised her to be respectful etc which upset Aziza as she feels roommate was the problematic/non-respectful person. Mental Status Exam: 1. General appearance and behavior: good eye contact, tired looking and says very down on sleep past several nights, 2. Speech: regular rate rhythm 3. Flow of thought: logical form but highly influenced by emotion on board 4. Content of thought: no suicidal ideation 5. Mood: nervous, anxious on edge nearly every day in past 2 weeks 6. Affect: full, highly reactive to stress and the responses of others 7. Insight: good 8. Judgement: good 9. Sensorium: alert Psychotherapy Focus: Review of TCI results-Aziza said these fit with her subjective sense of things (ntable for very high [place] Seeking/Reward Dependence, somewhat low Self- Direction. Strong on cooperation.) Discussedthe strengths and things to be aware (e.g. The responses of others can overly influence her emotions, responses etc.) and consideration of matching or not with signifcant others-e.g. Brothers very different on NS for understanding and relationship management. Reviewed emotional reasoning and stuck points regarding ex-roommate. Assessment: Major depression recurrent mild (the core mood symptoms are actually at level seveeral days in past14) Generalized anxiety ADHD High emotional reactivity/ by temperament Plan Continue psychoahterapuy every 2 weeks for processing of emotional reactions and interpersonal concerns and encourage goal-congruent focus documented in this encounter Plan of Treatment Not on file documented as of this encounter Visit Diagnoses Diagnosis Major depressive disorder, recurrent episode, moderate (HCC)- Primary Major depressive disorder, recurrent episode, moderate Anxiety disorder, unspecified type ADHD (attention deficit hyperactivity disorder), combined type Attention deficit disorder with hyperactivity documented in this encounter Care Teams Chief Marketing Officer Relationship Specialty Start Date End Date Estrellita Alonzo MD [address] [address] PCP - General 03/05/17 documented as of this encounter
--- OUTSIDE RECORDS SUMMARY | 2024-10-06 21:46 | XMS_ITS | Encounter Summary ---
Author Organization [facility] Address [address] [place] [address] Phone Care Team Providers Care Statistical Typist Name Role Phone Estrellita Alonzo MD Primary Care Provider [phone] Unknown, Notinfile Unavailable Unavailable Encounter Details Date Type Department Care Team (Latest Contact Info) Description 07/05/2017 Orders Only [facility] CONVERSION Scanning, Provider Social History Tobacco Use Types Packs/Day Years Used Date Smoking Tobacco: Never Comments Unknown Sex and Gender Information Value Date Recorded Sex Assigned at Not on file Legal Sex Female 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 Gender Identity Not on file Sexual Orientation Not on file documented as of this encounter Plan of Treatment Not on file documented as of this encounter Procedures Procedure Name Priority Date/Time Associated Diagnosis Comments CA 125 Routine Gen Lab 03/07/2018 5:11 PM CDT OBSTETRIC/GYNECOLOGY ULTRASONOGRAPHY REPORT 07/05/2017 2:08 PM CDT documented in this encounter Results * CA 125 (03/07/2018 5:11 PM CDT) CA 125 ag 6.7 0.0 - 35.0 units/mL [facility] Blood specimen (specimen) 03/07/2018 5:11 PM CDT 03/07/2018 5:25 PM CDT Narrative L[facility]E [facility] - 03/07/2018 6:15 PM CDT us Notinfile Unknown LAB BLOOD ORDERABLES Final Res ult [facility]E [facility] Department [place] [address] * OBSTETRIC/GYNECOLOGY ULTRASONOGRAPHY REPORT (07/05/2017 2:08 PM CDT) Anatomical Region Laterality Modality Ultrasound us Provider Scanning IMG OB US PROCEDURES Final Res ult documented in this encounter Visit Diagnoses Not on filedocumented in this encounter Care Teams Statistical Typist Relationship Specialty Start Date End Date Estrellita Alonzo MD [address] [facility] [address] [place] [address] PCP - General 03/05/17 Unknown, Notinfile Referring Physician 12/19/20 documented as of this encounter
--- OUTSIDE RECORDS SUMMARY | 2024-10-06 21:46 | XMS_ITS | Encounter Summary ---
Author Organization [facility] Healthcare Address [address] [place] [address] Care Team Providers Care Manager Of Human Resources Name Role Phone Estrellita Alonzo MD Primary Care Provider [phone] Encounter Details Date Type Department Care Team (Latest Contact Info) Description 07/08/2017 1:00 PM CDT - 07/08/2017 11:59 PM CDT Hospital Encounter [facility] INTERIM [phone] Camila Swenson MD [address] 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 GONORRHOEAE/C. TRACHOMATIS AMPLIFICATION TEST RTNm 07/08/2017 10:54 AM CDT CYTOLOGY Routine 07/08/2017 10:53 AM CDT DISCHARGE LABORATORY CUMULATIVE REPORT 07/08/2017 12:00 AM CDT CYTOLOGY 07/08/2017 12:00 AM CDT documented in this encounter Results * N. gonorrhoeae/C. trachomatis amplification test (07/08/2017 10:54 AM CDT) Report Final Report: Negative for: ??Chlamydia trachomatis rRNA Negative for: ??Neisseria gonorrhoeae rRNA [facility] Endocervical 07/08/2017 10:5 4 AM CDT 07/08/2017 1:37 PM CDT Narrative [facility] - 07/08/2017 1:37 PM CDT Testing performed by the Gen-Probe Hotelements APTIMA Combo 2 Assay. This nucleic acid amplification test (NAAT) detects ribosomal RNA (rRNA) from Chlamydia trachomatis and Neisseria gonorrhoeae using target capture,and Vocational Rehabilitation Administrator-Mediated Amplification (TMA). This test is approved by the [place] Food and Drug Administration for endocervical, vaginal, and male urethral swab specimens, in addition to male and female urine specimens. The performance characteristics for these specimen types have been verified by the [facility].The performance characteristics of this assay for pharyngeal and rectal specimens collected from cervical swab collection devices have been validated and verified by the [facility]. Verification studies support a lack of cross reactivity with other Neisseria species considered normal oropharyngeal bacterial rajani. Rectal swab specimens containing excess stool may be inhibitory and result in false negatives for Chlamydia trachomatis or Neisseria gonorrhoeae. The performance characteristics of this test have not been evaluated in women or individuals less than 16 years of age. us Notinfile Unknown LAB MICROBIOLOGY - GENERAL ORD ERABLES Final Result [facility] Department [place] [address] * Cytology (07/08/2017 10:53 AM CDT) 07/08/2017 10:5 3 AM CDT 07/08/2017 12:22 PM CDT Narrative 07/18/2017 1:21 PM CDT [facility] [place] [address] CYTOPATHOLOGY REPORT FINAL Patient Name: OLGA ESPINOSA Address: [address] Service: Obstetrics ??[address] [place], [place] ??[id number] Location: [facility] Taken: 07/08/2017 Gender: F Received: 07/08/2017 : 1985 (Age: 32) Hospital #: [id number] Accessioned: 07/09/2017 ?? Patient Type: [facility] Ref Lab Reported: 07/18/2017 ? Physician(s): Camila Swenson M.D. ?? FINAL INTERPRETATION SOURCE OF SPECIMEN: ? Liquid based pap test, Thin Prep STATEMENT OF ADEQUACY: ?- Satisfactory for evaluation [...] 68. ??This HPV test was performed at [facility] in [place], [place] utilizing the Gen-Probe Aptima assay. cad/07/18/2017 13:21 ?Mirta Ambriz M.S.,RADHA(ASCP) ??Report Electronically Reviewed and Signed Out By Mirta Ambriz M.S.,RADHA(ASCP) 07/18/2017 13:21:47 ?? Gross Description A. ??Liquid based pap test, Thin Prep: ??Cervical/vaginal - Diagnostic ThinPrep- With HPV ?? Clinical Diagnosis and History Last Menstrual Period: Not Provided. ICD-9 code 180.9 per requisition. The HPV test was performed by [facility], [address] [place] [address]. This Cytology report is available electronically in Clinical Desktop. The performance characteristics of some immunohistochemical stains, in-situ hybridization and fluorescence in-situ hybridization tests and immunophenotyping by flow cytometry cited in this report (if any) were determined by the Surgical Pathology Department at [facility] as part of an ongoing senior quality assurance analyst program and in compliance with federally mandated [...] determined by the Surgical Pathology Department of [facility]. ??It has not been cleared or approved by the U. S. Food and Drug Administration. [facility] Teddy Swenson MD LAB CYTOLOGY ORDERABLES Final Result * CYTOLOGY (07/08/2017 12:00 AM CDT) Narrative 07/08/2017 12:00 AM CDT Ordered by an unspecified provider. Historical Provider LAB CYTOLOGY ORDERABLES F inal Result * DISCHARGE LABORATORY CUMULATIVE REPORT (07/08/2017 12:00 AM CDT) Narrative 07/08/2017 12:00 AM CDT Ordered by an unspecified provider. Historical Provider LAB BLOOD ORDERABLES Emely l Result documented in this encounter Visit Diagnoses Not on filedocumented in this encounter Care Teams Manager Of Human Resources Relationship Specialty Start Date End Date Estrellita Alonzo MD [address] [facility] [address] [place] [address] PCP - General 03/05/17 documented as of this encounter
--- OUTSIDE RECORDS SUMMARY | 2024-10-06 21:46 | XMS_ITS | Encounter Summary ---
Author Organization [facility] Facility Care Team Providers Care Model Maker Apprentice Name Role Phone Unavailable Primary Care Provider Unavailabl e Encounter Details Date Type Department Care Team (Late st Contact Info) Description 06/12/2016 10:15 AM CDT - 06/12/2016 6:43 PM CDT Hospital Encounter [facility] Camila Balderrama MD [address] [facility] [place] [id number] [place], [place] [id number] Malignant neoplasm of left ovary (CMS/HCC); Anxiety disorder; Major depressive disorder, single episode (CMS/HCC); Family history of malignant neoplasm of ovary; Family history of malignant neoplasm of breast; Other rat exterminator (current) drug therapy Social History Tobacco Use Types Packs/Day Years Used Date Smoking Tobacco: Never Comments Unknown Sex and Gender Information Value Date Recorded Sex Assigned at Not on file 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 Surgeon: Camila Swenson M.D. Dictating: Ami Caceres M.D. Service Dt: 06/12/2016 OPERATIVE REPORT FACILITY: [facility] SPECIAL EDUCATION TEACHING ASSISTANT: Ami Caceres M.D./Mounika Medina M.D. PREOPERATIVE DIAGNOSIS (ES): Complex adnexal mass. 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 NAME OF OPERATION: Examination under anesthesia, laparoscopic left salpingo-oophorectomy, pelvic washings, endometrial biopsy. 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 The patient's history is notable for a mother with ovarian cancer at the age of 52 who was reportedly BRCA negative; however, unclear if panel genetic testing was performed. She also has a maternal grandmother who had ovarian cancer at the age of 72 and her paternal grandmother had breast cancer in her 60s. OPERATIVE FINDINGS: On pelvis examination, the vagina and cervix appeared normal. The uterus was small and anteverted. A large, smooth mass was palpated in the pelvis on rectovaginal examination and felt to be slightly immobile. On laparoscopy, the upper abdomen appeared normal anteriorly. The omentum appeared normal. The appendix was visualized and appeared normal. The uterus was small and normal in appearance. The bilateral fallopian tubes appeared normal. The right ovary appeared normal. The left ovary was approximately 12 cm in size, smooth in appearance. On removal through an EndoCatch bag, the cyst was noted to be filled with somewhat mucinous, light brown fluid and papillary excrescence was seen inside the mass. At the end of the case, no gross residual disease was visualized. DESCRIPTION OF PROCEDURE: A surgical timeout was performed and adequate anesthesia was obtained. The patient was prepped and draped in the dorsal lithotomy position in [facility] SPECIMENS REMOVED: ESTIMATED BLOOD LOSS: INTRAOPERATIVE FLUIDS: SPONGE/INSTRUMENT/NEEDLE COUNTS: CONDITION ON DISCHARGE FROM OPERATING ROOM: COMPLICATIONS: Electronically Authenticated and Edited by: Camila Swenson MD On 07/28/2016 01:08 PM CDT Ami Caceres M.D. Camila Swenson M.D. MP:jason #[id number] Editing MT: TD: 06/15/2016 02:51 PM cc: Kim Eng M.D. documented in this encounter Plan of Treatment Not on file documented as of this encounter Procedures Procedure Name Priority Date/Time Associated Diagnosis Comments BLOOD ABO, RH, INDIRECT AB SCREEN Routine 06/12/2016 8:12 AM CDT CYTOLOGY 06/12/2016 SURGICAL PATHOLOGY 06/12/2016 documented in this encounter Results * Blood ABO, Rh, indirect ab screen (06/12/2016 8:12 AM CDT) Farzaneh, indirect Negative CDR HISTORICAL RESULTS ABO, Rho(D) A Positive CDR HIS TORICAL RESULTS Blood specimen (specimen) 06/12/2016 8:12 AM CDT Camila Swenson MD LAB BLOOD ORDERABLES Fin al Result CDR HISTORICAL RESULTS * Surgical pathology (06/12/2016) Narrative 06/12/2016 Ordered by an unspecified provider. Historical Provider LAB PATHOLOGY ORDERABLES Final Result * Cytology (06/12/2016) Narrative 06/12/2016 Ordered by an unspecified provider. Historical Provider LAB CYTOLOGY ORDERABLES F inal Result documented in this encounter Visit Diagnoses Diagnosis Malignant neoplasm of left ovary (HCC) Anxiety disorder Anxiety state, unspecified Major depressive disorder, single episode Major depressive disorder, single episode, unspecified Family history of malignant neoplasm of ovary Family history of malignant neoplasm of breast Other senior living (current) drug therapy documented in this encounter
--- OUTSIDE RECORDS SUMMARY | 2024-10-06 21:49 | XMS_ITS | Encounter Summary ---
Author Organization [facility] Address [address] [place] [address] Care Team Providers Care Paint Process Engineer Name Role Phone Unavailable Primary Care Provider Unavailabl e Encounter Details Date Type Department Care Team (Late st Contact Info) Description 12/28/2020 2:00 PM QUALITY SYSTEMS ENGINEER Immunization [facility]ine [facility] - [address] [place] [address] High priority for 2019 novel coronavirus vaccination (Primary Dx) Social History Tobacco Use Types Packs/Day Years Used Date Smoking Tobacco: Never Assessed Sex and Gender Information Value Date Recorded Sex Assigned at Not on file Gender Identity Not on file Sexual Orientation Not on file COVID-19 Exposure Response Date Recorded In the last month, have you been in contact with someone who was confirmed or suspected to have Coronavirus / COVID-19? No / Unsure 12/28/2020 1:44 PM QUALITY SYSTEMS ENGINEER documented as of this encounter Plan of Treatment Not on file documented as of this encounter Visit Diagnoses Diagnosis High priority for 2019 novel coronavirus vaccination- Primary documented in this encounter
--- OUTSIDE RECORDS SUMMARY | 2024-10-06 21:49 | XMS_ITS | Clinical Summary ---
Author Organization [facility] Address [address] [place] [address] Care Team Providers Care Machine Attendant Name Role Phone Unavailable Primary Care Provider Unavailabl e Immunizations Name Administration Dates Next Due (PFIZER)(12 YR UP) COVID-19 VACCINE - EMERGENCY USE AUTHORIZATION, MRNA, [id number](PF) 30 MCG/0.3 ML IM SUSP 12/28/2020,12/08/2020 Social History Tobacco Use Types Packs/Day Years Used Date Smoking Tobacco: Never Assessed Sex and Gender Information Value Date Recorded Sex Assigned at Not on file Gender Identity Not on file Sexual Orientation Not on file Plan of Treatment Health Maintenance Due Date Last Done Comments DTAP/TDAP/TD VACCINES (1 - Tdap) 2005 HEPATITIS B VACCINES (1 of 3 - 19+ 3-dose series) 2005 CERVICAL CANCER SCREENING 2016 INFLUENZA VACCINE (#1) 2024 COVID-19 Vaccine (3 - 2023-2 5 season) 2024 12/28/2020, 12/08/2020 HPV VACCINES Aged Out No longer eligi ble based on patient's age to complete this topic PNEUMOCOCCAL VACCINE 0-64 YEARS Aged Out No longer eligible b ased on patient's age to complete this topic
--- OUTSIDE RECORDS SUMMARY | 2024-10-06 21:49 | XMS_ITS | Encounter Summary ---
Author Organization [facility] Address [address] [place]: [place] [address] Care Team Providers Care Manager Personal Name Role Phone Unavailable Primary Care Provider Unavailabl e Encounter Details Date Type Department Care Team (Latest Contact Info) Description 12/08/2020 Travel Social History Tobacco Use Types Packs/Day [...] have Coronavirus / COVID-19? No / Unsure 12/08/2020 3:22 PM ENVIRONMENTAL TECH documented as of this encounter Plan of Treatment Not on file documented as of this encounter Visit Diagnoses Not on filedocumented in this encounter
--- OUTSIDE RECORDS SUMMARY | 2024-10-06 21:49 | XMS_ITS | Encounter Summary ---
Author Organization [facility] Address [address] [place] [address] Care Team Providers Care Business Continuity Manager Name Role Phone Unavailable Primary Care Provider Unavailabl e Encounter Details Date Type Department Care Team (Late st Contact Info) Description 12/08/2020 3:45 PM ALMOND GRINDER Immunization [facility] Vaccine [facility] - [address] [place] [address] High priority for 2019 novel coronavirus vaccination [...] COVID-19? No / Unsure 12/08/2020 3:22 PM ALMOND GRINDER documented as of this encounter Plan of Treatment Not on file documented as of this encounter Visit Diagnoses Diagnosis High priority for 2019 novel coronavirus vaccination- Primary documented in this encounter
--- OUTSIDE RECORDS SUMMARY | 2024-10-06 21:49 | XMS_ITS | Encounter Summary ---
Author Organization [facility] Address [address] [place]: Epic [place] [address] Care Team Providers Care Ms Sql Dba Name Role Phone Unavailable Primary Care Provider Unavailabl e Encounter Details Date Type Department Care Team (Latest Contact Info) Description 12/28/2020 Travel Social History Tobacco Use Types Packs/Day [...] COVID-19? No / Unsure 12/28/2020 1:44 PM [employer] SOCIAL STUDIES TEACHER documented as of this encounter Plan of Treatment Not on file documented as of this encounter Visit Diagnoses Not on filedocumented in this encounter
[2024-10-08 01:34] LABS: Testosterone Total 23 ng/dL (2-45)
== END 2024-10-03 08:06 | disposition home or self-care (01) ==
DX: R53.83 Other fatigue (principal)
CPT/HCPCS: 36415; 82306; 82728; 83540; 83550; 84146; 84403; 84439; 84443; 85027; 86304

== ENCOUNTER 2024-10-12 11:49 | Outpatient (CLI) | payer OTHER, SELFPAY ==
--- NOTE | ~2024-10-12 | MR_ITS ---
EXAMINATION: MR pelvis wo/w con DATE: 10/12/2024 12:40 INDICATION: Ovarian cyst. TECHNIQUE: Magnetic resonance imaging (MRI) of the pelvis was performed without and with 20 mL MultiH ance intravenous contrast. COMPARISON: None. FINDINGS: There are no dilated loops of bowel. The uterus is normal in size. The endometrial complex measures 9 mm in thickness. The right ovary is normal with follicles measuring up to 1.6 cm. The left ovary is not visualized. There is physiologic fluid in the pelvis. IMPRESSION: 1. Normal right ovary. Left ovary not visualized. Reviewed, dictated and finalized at location A. NTORY ADMINISTRATOR
== END 2024-10-12 11:50 | disposition home or self-care (01) ==
LOC: MICIMG 11:50
DX: N83.299 Other ovarian cyst, unspecified side (principal)
CPT/HCPCS: 72197; A9577